=== PATIENT | female | born 1960 | race Caucasian/White ===

== ENCOUNTER 2016-07-23 20:33 | Inpatient (IN) | payer OTHER ==
[~2016-07-23] VITALS: Ht 172.7 cm; Wt 142.5 kg
[~2016-07-23 20:33] MED LIST: ALBU8.5H6 IH; ARIP5TAB13 PO; ASMACORT; ATOR20TA58 PO; BENZ100C PO; BUDE10.2 IH; CELE200C PO; CETI10TA16 PO; CHLO500T14 PO; CIPR250T30 PO; CIPR500T94 PO; CLIN300C8 PO; CLON0.5T3 PO; CLOP75TA57 PO; COLE1TAB2 PO; CYCL10TA2 PO; CYPR4TAB PO; DICY20TA3 PO; DIGO125T PO; DIPH1TAB PO; DIPH50CA PO; DIPH50TA3 PO; DOXY100T PO; ELUX75TA PO; ESZO3TAB28 PO; FENO145T2 PO; FLUC150T PO; FURO40TA4 PO; GABA600T2 PO; HYDR-971 PO; INSU100C4 SQ; INSU100I13 SQ; INSU100I17 SQ; INSU100V8 SQ; INSU300I SQ; LANS30CA PO; LEVO150T5 PO; LEVO175T5 PO; LIDO700A4 TP; LOSA100T6 PO; LOSA50TA6 PO; MELO15TA6 PO; MENT70.8 TP; METO10TA81 PO; METO5TAB PO; METR500T PO; MUPI22OI2 TP; ONDA4TAB7 PO; OXCA300T PO; OXYC-328 PO; OXYC10TA PO; OXYC1TAB9 PO; Oxycodone Hcl/Acetaminophen PO; PANT40TA5 PO; PRED20TA PO; PREG225C PO; SOTA80TA48 PO; SUCR1ORA11 PO; TIOT18CA IH; VENL150T PO; VENL75TA PO; XOPENEX1.25 MG/3 NEB; oxygen; xopenex
[2016-07-23] MEDS ORDERED: IPRATRPIUM/ALBUTEROL 0.5/2.5MG 3 ML NEBU. NEB ONE (21:30)
[2016-07-23 21:49] LABS: BASO # 0.1 x10^3/uL (0.0-0.2); BASO % 1 % (0-3); EOS % 2 % (0-3); HEMATOCRIT 40.8 % (36.0-47.0); LYMPH # 2.5 x10^3/uL (1.0-4.8); LYMPH % 23 % (24-48); MEAN CORPUSCULAR HEMOGLOBIN 29 pg (25-35); MEAN CORPUSCULAR HGB CONC 32 g/dL (31-37); MEAN CORPUSCULAR VOLUME 91 fL (79-100); MONO % 7 % (0-9); NEUT % 67 % (31-73); PLATELET COUNT 253 x10^3/uL (140-400); RED BLOOD COUNT 4.49 x10^6/uL (3.50-5.40); RED CELL DISTRIBUTION WIDTH 14.3 % (11.5-14.5); WHITE BLOOD COUNT 10.8 x10^3/uL (4.0-11.0)
[2016-07-23 22:04] LABS: CALCIUM 9.1 mg/dL (8.5-10.1); CREATININE 0.9 mg/dL (0.6-1.0); GFR 64.8
[2016-07-23 22:20] LABS: ALBUMIN 2.7 g/dL (3.4-5.0); ALBUMIN/GLOBULIN RATIO 0.7 (1.0-1.7); TOTAL BILIRUBIN 0.2 mg/dL (0.2-1.0); TOTAL PROTEIN 6.5 g/dL (6.4-8.2)
[2016-07-23 22:32] LABS: CKMB MASS < 0.5 ng/mL (0.0-3.6); CREATINE KINASE 30 U/L (26-192)
--- NOTE | 2016-07-23 23:41 | PHYS DOC ---
Past Medical History Past Medical History: Asthma, CHF, COPD, Diabetes-Type II, Hypertension, Hepatitis, MD, Pneumonia, Other Additional Past Medical Histor: obesity Past Surgical History: Cholecystectomy, Other Additional Past Surgical Histo: RIGHT PINKY SX Smoking: Cigarettes Additional Information: 0.5 PPD Alcohol Use: None Drug Use: None Adult General Chief Complaint Chief Complaint: SHORTNESS OF BREATH HPI HPI Patient is a 56 year old FEMALE who presents with SHORTNESS OF BREATH AND CHEST TIGHTNESS. Pt states 1 week of SOA, that became worse today. Coughing up yellow phlem. Today chest tightness lower substernal area constant and currently 10/10. "Sometimes it is stabbing pain". Pt hx of COPD and has order for Home O2 3liters at night.. Pt states long standing hx and problems with sores on legs. Review of Systems Review of Systems Constitutional: Denies fever or chills Eyes: Denies change in visual acuity, redness, or eye pain HENT: Denies nasal congestion or sore throat Respiratory: yes cough and SOA Cardiovascular: No additional information not addressed in HPI GI: Denies abdominal pain, nausea, vomiting, bloody stools, but has noted some diarrhea today : Denies dysuria or hematuria Musculoskeletal: Denies back pain Integument: sores on lower legs Neurologic: Denies headache, focal weakness or sensory changes Current Medications Current Medications Current Medications Medications (Trade) Dose Ordered Sig/Matthias Start Time Stop Time Status Last Admin Dose Admin Albuterol/ Ipratropium (Duoneb) 3 ml 1X ONCE 07/23/16 21:30 07/23/16 21:31 DC 07/23/16 21:00 3 ML Lidocaine HCl (Xylocaine-Mpf 1% Vial) 2 ml 1X PRN PRN 07/23/16 23:45 07/24/16 23:44 Sodium Chloride (Normal Saline Flush) 20 ml 1X PRN PRN 07/23/16 23:45 07/24/16 23:44 Allergies Allergies Allergies Coded Allergies Type Severity Reaction Last Updated Verified Cephalexin Monohydrate Allergy Intermediate 04/18/14 Yes Penicillins Allergy Intermediate 04/18/14 Yes Sulfa (Sulfonamide Antibiotics) Allergy Intermediate 04/18/14 Yes aspirin Allergy Intermediate 04/18/14 Yes codeine Allergy Intermediate Previously tolerated morphine (per pt and chart 12/2013) 07/17/14 Yes diclofenac sodium Allergy Intermediate 04/18/14 Yes morphine Allergy Intermediate rash 01/16/16 Yes nabumetone Allergy Intermediate 04/18/14 Yes tomato Allergy Intermediate 04/18/14 Yes Physical Exam Physical Exam Constitutional: Well developed, well nourished, no acute distress, non-toxic appearance HENT: Normocephalic, atraumatic, bilateral external ears normal, oropharynx moist, no oral exudates, nose normal. Eyes: PERRL, EOMI, conjunctiva normal, no discharge. Neck: Normal range of motion, no tenderness, supple, no stridor. Cardiovascular:Heart rate regular rhythm, no murmur Lungs & Thorax: Bilateral expiratory wheeze Abdomen: Bowel sounds normal, soft, no tenderness, no masses, no pulsatile masses. Skin: Warm, dry, moderate erythema and open sores on L lower leg, mild on R lower leg Back: No tenderness, no CVA tenderness. Extremities: No tenderness, trace bilateral edema Neurologic: Alert and oriented X 3, normal motor function, normal sensory function, no focal deficits noted. Psychologic: Affect normal, judgement normal, mood normal. Current Patient Data Vital Signs Vital Signs Date Time Temp Pulse Resp B/P (MAP) Pulse Ox O2 Delivery O2 Flow Rate FiO2 07/23/16 23:00 72 139/74 (95) 97 Nasal Cannula 2.0 07/23/16 20:33 98.4 22 98.4 Lab Values Laboratory Tests Test 07/23/16 20:40 White Blood Count 10.8 x10^3/uL (4.0-11.0) Red Blood Count 4.49 x10^6/uL (3.50-5.40) Hemoglobin 13.0 g/dL (12.0-15.5) Hematocrit 40.8 % (36.0-47.0) Mean Corpuscular Volume 91 fL (79-100) Mean Corpuscular Hemoglobin 29 pg (25-35) Mean Corpuscular Hemoglobin Concent 32 g/dL (31-37) Red Cell Distribution Width 14.3 % (11.5-14.5) Platelet Count 253 x10^3/uL (140-400) Neutrophils (%) (Auto) 67 % (31-73) Lymphocytes (%) (Auto) 23 % (24-48) L Monocytes (%) (Auto) 7 % (0-9) Eosinophils (%) (Auto) 2 % (0-3) Basophils (%) (Auto) 1 % (0-3) Neutrophils # (Auto) 7.3 x10^3uL (1.8-7.7) Lymphocytes # (Auto) 2.5 x10^3/uL (1.0-4.8) Monocytes # (Auto) 0.7 x10^3/uL (0.0-1.1) Eosinophils # (Auto) 0.3 x10^3/uL (0.0-0.7) Basophils # (Auto) 0.1 x10^3/uL (0.0-0.2) D-Dimer (Carey) 0.45 ug/mlFEU (0.00-0.50) Sodium Level 144 mmol/L (136-145) Potassium Level 4.0 mmol/L (3.5-5.1) Chloride Level 106 mmol/L (98-107) Carbon Dioxide Level 30 mmol/L (21-32) Anion Gap 8 (6-14) Blood Urea Nitrogen 15 mg/dL (7-20) Creatinine 0.9 mg/dL (0.6-1.0) Estimated GFR (Cockcroft-Gault) 64.8 BUN/Creatinine Ratio 17 (6-20) Glucose Level 267 mg/dL (70-99) H Calcium Level 9.1 mg/dL (8.5-10.1) Total Bilirubin 0.2 mg/dL (0.2-1.0) Aspartate Amino Transferase (AST) 31 U/L (15-37) Alanine Aminotransferase (ALT) 24 U/L (14-59) Alkaline Phosphatase 117 U/L (46-116) H Creatine Kinase 30 U/L (26-192) Creatine Kinase MB (Mass) < 0.5 ng/mL (0.0-3.6) Creatine Kinase MB Relative Index % (0-4) Troponin I Quantitative < 0.017 ng/mL (0.000-0.055) GM-Rnp-G-Type Natriuretic Peptide 167 pg/mL (0-124) H Total Protein 6.5 g/dL (6.4-8.2) Albumin 2.7 g/dL (3.4-5.0) L Albumin/Globulin Ratio 0.7 (1.0-1.7) L Laboratory Tests 6/16/17 20:40 Laboratory Tests 07/23/16 20:40 EKG EKG EKG--2109 SINUS RHYTHM , NO STEMI, RATE [address] T WAVE CHANGES Radiology/Procedures Radiology/Procedures PATIENT: RENÉ BLANCO ACCOUNT: [id number] : 1960 LOCATION: [address] [place] [address] AGE: 56 SEX: F EXAM STATUS: ADM IN ORD. PHYSICIAN: CHASIDY ARMSTRONG MD REASON: dyspnea PROCEDURE: PORTABLE CHEST 1V EXAM: Chest one view. HISTORY: Dyspnea. COMPARISON: 01/19/2016. FINDINGS: A frontal view of the chest is obtained. There are no confluent infiltrates. The central vasculature are mildly prominent. There is no pneumothorax or pleural effusion. The heart is not enlarged. There is a calcified granuloma in the left base. There are atherosclerotic calcifications of the aorta. Bilateral glenohumeral osteoarthritis is at least mild. IMPRESSION: 1. Correlate for mild volume overload. No confluent infiltrates. DICTATED and SIGNED BY: TRAVIS DESIR MD DATE: 07/24/16847 CC: CHASIDY ARMSTRONG MD; GEORGE BERG MD; CAPRI MONTEMAYOR MD ~ Impressions: 1. Chest pain 2. Dyspnea 3. COPD exacerbation CHEST PAIN Clinical Indications for Admission to Inpatient Care (Place 'X' for any and all applicable criteria): Admission is indicated for chest pain and ANY ONE of the following(1)(2)(3)(4)(5 ): [ ]I. Angina with acute coronary syndrome (Also use Myocardial Infarction or Angina guideline) [ ]II. Hemodynamic instability [ ]III. Angina needing acute intervention as indicated by ALL of the following( 11)(12): [ ]a) Unstable angina is present as indicated by angina that is ANY ONE of the following: [ ]i) New onset [ ]ii) Nocturnal [ ]iii) Prolonged at rest [ ]iv) Progressive [ ]b) Angina warrants acute intervention as indicated by ANY ONE of the following: [ ]i) Recurrent angina (e.g, not responding as previously to treatment) [ ]ii) Angina at rest or with low-level activities despite initial medical therapy [ ]iii) New or presumably new ST-segment depression on ECG [ ]iv) Signs or symptoms of heart failure (eg, dyspnea, pulmonary edema) [ ]v) New or worsening mitral regurgitation [ ]vi) Hemodynamic instability [ ]vii) Dangerous arrhythmia (eg, sustained ventricular tachycardia) [ ]viii) History of percutaneous coronary intervention within 6 months [ ]ix) History of coronary artery bypass graft surgery [ ]x) CAM risk score of 2 or greater[A] [ ]xi) History of Diabetes(14) [ ]xii) High-risk cardiac ischemia findings on noninvasive testing (e.g, echocardiogram, treadmill testing, nuclear scan) [ ]xiii) Chronic renal insufficiency (ie, estimated GFR less than 60 mL/min/1.732m) [ ]xiv) Left ventricular ejection fraction less than 40% [ ]IV. Evidence of MD (eg, cardiac biomarkers positive, ST-segment elevation on ECG) also use Myocardial Infarction Criteria Form. [ ]V. Pulmonary edema [ ]. Respiratory distress [ ]VII. Chest pain indicative of serious diagnosis other than coronary artery disease (eg, aortic dissection) [ ]VIII. Contraindications and/or Inappropriate clinical situations for Observational Care in patients with Chest Pain, when ANY ONE of the following is required: [ ]a) Patient with risk factor for pulmonary embolism, acute coronary syndrome and myocardial infarction (18) [ ]b) Patient with Pulmonary embolism require an average LOS of 4.3 days, therefore emergency department observation management is inappropriate 18,23 [ ]c) Painful condition/s in the elderly, have the highest rate of recidivism after emergency department observation management (10.8%) 20,21,22 [ ]d) Elevated cardiac biomarker requires intensive and exhaustive care (19) [ ]IX. General contraindications and/or Inappropriate clinical situations for Observational Care in patients with Chest Pain, when ANY ONE of the following is required: [ ]a) Prediction of prolongation of LOS based on ANY ONE of the following may be considered as a contraindication for observational care 2, 3, 4, 5, 6, 7, 8, 9, 10, 11 [ ]i) Age > 65 yrs. [ ]ii) Patient arriving by ambulance [ ]iii) Patient with high acuity [ ]iv) Patient requiring vital sign monitoring [ ]v) Patient on IV medication [ ]b) Systolic blood pressures 180mmHg 3,12 [ ]c) Patient with altered mental status including delirium and other alteration of consciousness, (3) [ ]d) Patient whose discharge disposition will be to a usp home or rehabilitation home should not be managed in Emergency Department Observation Unit. CMS rule requires 3 days hospital stay before such placement. 3,13 [ ]e) Patient with failure to thrive due to broad array of etiologies 3,16,17 [ ]f) Inability to ambulate 3,14 Extended stay beyond goal length of stay may be needed for (1)(28): [ ]a) Specific condition diagnosed after evaluation (eg, pulmonary embolism, aortic dissection) [ ]b) Unstable angina [ ]c) Continued suspicion of acute coronary syndrome with inability to complete needed cardiac evaluation (eg, patient clinically unable to undergo stress testing) [ ]d) Myocardial infarction (Contents from ANGINA and CHEST PAIN clinical indications for admission to inpatient care have been integrated in this form) The original [employer] content created by [employer] has been revised. The portions of the content which have been revised are identified through the use of italic text or in bold, and [employer] has neither reviewed nor approved the modified material. All other unmodified content is copyright [employer]. Please see references footnoted in the original [employer] edition 20 Course & Med Decision Making Course & Med Decision Making Pertinent Labs and Imaging studies reviewed. (See chart for details) Pt with hx DM and COPD now worsening dyspnea and chest tightness, poss ACS as well as COPD exacerbation will admit for nebulizer tx and serial troponins Dragon Disclaimer Dragon Disclaimer This electronic medical record was generated, in whole or in part, using a voice recognition dictation system. Departure Departure Referrals: GEORGE BERG MD (PCP) CHASIDY ARMSTRONG MD Jul 23, 2016 23:41
[2016-07-23] MEDS ORDERED: LIDOCAINE 1% PF 2 ML VIAL. ID PRN (23:45)
[2016-07-23] MEDS ORDERED: 0.9 % SODIUM CHLORIDE 10 ML DISP.SYRIN. IV PRN (23:45)
--- NOTE | 2016-07-23 23:51 | ACF ---
Admission Forms Criteria COPD Clinical Indications for Admission to Inpatient Care (Place 'X' for any and all applicable criteria): Admission is indicated for ANY ONE of the following (1)(2)(3): [ ]I. Acute exacerbation by high-risk comorbidity (e.g., pneumonia, dysrhythmia, heart failure, pleural effusion, pneumothorax) or severe underlying COPD (e.g., steroid dependent) [X]II. Inpatient admission required rather than observation care (see Chronic Obstructive Pulmonary Disease: Observation Care) because of ANY ONE of the following: [X]a) New or pre-existing signs or symptoms of COPD (eg, dyspnea or Tachypnea at rest or with minimal activity) that persist despite outpatient and observation care treatment [ ]b) New-onset hypoxemia (room air SaO2 less than 90%, PO2 less than 60 mm Hg (8.0 kPa)) that persists despite outpatient and observation care treatment [ ]c) Worsening of pre-existing hypoxemia (eg, new or increased requirement for supplemental oxygen to maintain oxygenation at baseline level) that persists despite outpatient and observation care treatment, with oxygen treatment needs performable only in acute inpatient setting [ ]d) Hypercarbia (PCO2 greater than 40 mm Hg (5.3 kPa))-induced respiratory acidosis (pH less than 7.35) that persists despite outpatient and observation care treatment [ ]e) Supplemental oxygen or respiratory treatments for over 24 hours that are performable only in acute inpatient setting [ ]f) Chest tube placement with active evacuation (e.g., suction, drainage) (5) [ ]g) Other condition, treatment or monitoring requiring inpatient admission [ ]III. Planned invasive surgical or diagnostic procedures requiring acute- care hospitalization [ ]IV. Acute respiratory failure (e.g., uncompensated hypercarbia, severe hypoxemia) [ ]V. Severe comorbid condition (e.g., severe steroid myopathy, acute vertebral fracture) that has acutely worsened pulmonary function [ ]. Confusion state, lethargy, obtundation, stupor or coma Extended stay beyond goal length of stay may be needed for (31)(32): [ ]a ) Respiratory Failure. [ ]b) Severe or persisting hypoxemia or hypercarbia [ ]c) Severe or persistent dyspnea [ ]d) Comorbidities (e.g. chronic heart failure, atrial fibrillation with rapid response, pneumonia) [ ]e) Malnutrition The original [facility] content created by [facility] has been revised. The portions of the content which have been revised are identified through the use of italic text or in bold, and [facility] has neither reviewed nor approved the modified material. All other unmodified content is copyright [facility]. Please see references footnoted in the original [facility] edition 2016 Admission Criteria Met?: Yes GINETTE TURK Jul 23, 2016 23:51
[2016-07-24] MEDS ORDERED: LIDOCAINE/PRILOCAINE TOPICAL CREAM 5GM TUBE. TP ONE
[2016-07-24] MEDS ORDERED: IPRATRPIUM/ALBUTEROL 0.5/2.5MG 3 ML NEBU. NEB ONE (00:15)
[2016-07-24] MEDS ORDERED: predniSONE 20 MG TABLET PO ONE (00:30)
[2016-07-24 00:39] LABS: BACTERIA,URINE MANY /HPF (0-FEW); BILIRUBIN,URINE NEGATIVE (NEG); GLUCOSE,URINE >=1000 mg/dL (NEG); NITRITE,URINE POSITIVE (NEG); PROTEIN,URINE NEGATIVE (NEG-TRACE); RBC,URINE OCC /HPF (0-2)
[2016-07-24 00:40] LABS: SQUAMOUS EPITHELIAL CELL,UR FEW /LPF
[2016-07-24] MEDS ORDERED: ONDANSETRON PF 4 MG/2 ML VIAL. IM PRN (00:45)
[2016-07-24 02:00] VITALS: BP 109/66
[2016-07-24] MEDS ORDERED: NYST15PO9 TP (02:51)
[2016-07-24] MEDS ORDERED: AMLO5TAB2 PO (02:51)
[2016-07-24] MEDS ORDERED: FLUT16SP NS (02:51)
[2016-07-24] MEDS ORDERED: MELA3TAB2 PO (02:51)
[2016-07-24] MEDS ORDERED: CHOL10003 PO (02:51)
[2016-07-24] MEDS ORDERED: LOPE2TAB56 PO (03:17)
[2016-07-24] MEDS ORDERED: LEVO175T5 PO (03:17)
[2016-07-24] MEDS ORDERED: VENL75CA6 PO (03:17)
[2016-07-24] MEDS ORDERED: LEVO150T5 PO (03:17)
[2016-07-24] MEDS ORDERED: ERGO500027 PO (03:17)
[2016-07-24] MEDS ORDERED: oxyCODONE IR 5 MG TABLET PO PRN (07:15)
[2016-07-24] MEDS ORDERED: IPRATRPIUM/ALBUTEROL 0.5/2.5MG 3 ML NEBU. NEB PRN (07:15)
[2016-07-24] MEDS ORDERED: AZITHROMYCIN 250 MG TABLET. PO ONE (08:45)
[2016-07-24] MEDS ORDERED: BUDESONIDE 0.5 MG/2 ML NEBU. NEB ONE (08:45)
[2016-07-24] MEDS ORDERED: BENZOCAINE/MENTHOL LOZENGE. PO PRN (08:45)
--- NOTE | 2016-07-24 08:47 | PDOC1 ---
History and Physical Date of Admission Date of Admission DATE: 07/24/16 TIME: 08:41 Identification/Chief Complaint Chief Complaint dyspnea, cough, pleurisy Problems: Source Source: Chart review, Patient History of Present Illness History of Present Illness Ms. Priest, has known COPD. has worsening dyspnea over the past few days, new cough, some sputum production light colored. She complains of marked dyspnea "I can't catch my breath" she does now have chest pain, but is w/ coughing and deep inspiration. She was red faced and dyspneic when I entered, and she had some trouble talking due to freq. coughing some improvement with breathing tx, but has not had one in the past few hours Past Medical History Cardiovascular: AFIB, CHF, Hyperlipidemia Pulmonary: Asthma, COPD GI: GERD, Other Heme/Onc: No pertinent hx Hepatobiliary: Hep A/B/C Psych: Anxiety, Depression, Other Musculoskeletal: low back pain, Osteoarthritis, Other Infectious disease: Other Endocrine: Diabetes, Hypothyroidism, Other Past Surgical History Past Surgical History: Cholecystectomy, Cataract Removal Family History Family History: Family History Unknown Social History Smoke: <1 pack per day ALCOHOL: none Drugs: None Current Medications Current Medications Current Medications Albuterol/ Ipratropium (Duoneb) 3 ml 1X ONCE NEB Last administered on 21:00; Start 07/23/16 at 21:30; Stop 07/23/16 at 21:31; Status DC Lidocaine HCl (Xylocaine-Mpf 1% Vial) 2 ml 1X PRN PRN ID FOR PIC LINE INSERTION ; Start 07/23/16 at 23:45; Stop 07/24/16 at 23:44 Sodium Chloride (Normal Saline Flush) 20 ml 1X PRN PRN IV PER PROTOCOL; Start 07/23/16 at 23:45; Stop 07/24/16 at 23:44 Lidocaine/ Prilocaine (Emla) 1 melissa 1X ONCE TP ; Start 07/24/16 at 00:00; Stop 07/24/16 at 00:01; Status DC Albuterol/ Ipratropium (Duoneb) 3 ml 1X ONCE NEB Last administered on 00:18; Start 07/24/16 at 00:15; Stop 07/24/16 at 00:16; Status DC Prednisone (Prednisone) 60 mg 1X ONCE PO Last administered on 6/17/17at 02:21 ; Start 07/24/16 at 00:30; Stop 07/24/16 at 00:31; Status DC Ondansetron HCl (Zofran) 4 mg PRN Q8HRS PRN IM NAUSEA/VOMITING; Start 07/24/16 at 00:45; Stop 07/25/16 at 00:44 Albuterol/ Ipratropium (Duoneb) 3 ml PRN Q4HRS PRN NEB SHORTNESS OF BREATH; Start 07/24/16 at 07:15 Oxycodone HCl (Roxicodone) 10 mg QIDPRN PRN PO PAIN; Start 07/24/16 at 07:15 Active Scripts Active Oxycodone Hcl 10 Mg Tablet 1 Tab PO QID PRN Novolog Flexpen (Insulin Aspart) 100 Unit/1 Ml Insuln.pen 50 Units SQ TIDWMEALS Sucralfate 1 Gm/10 Ml Oral.susp 1 Gm PO QIDACHS Pantoprazole Sodium 40 Mg Tablet.dr 40 Mg PO DAILYAC Furosemide 40 Mg Tablet 1 Tab PO DAILY Mupirocin Ointment (Mupirocin) 22 Gm Oint...g. 22 Gm TP PRN TID PRN Toujeo Solostar (Insulin Glargine,Hum.rec.anlog) 300 Unit/1 Ml Insuln.pen 90 Unit SQ BID Zofran (Ondansetron Hcl) 4 Mg Tablet 1 Tab PO PRN Q6-8HRS Spiriva (Tiotropium Sparkill) 18 Mcg Cap.w.dev 1 Cap IH DAILY Xopenex (Levalbuterol Hcl) 1.25 Mg/3 Ml Vial.neb 1 Vial NEB TID Fenofibrate (Fenofibrate Nanocrystallized) 145 Mg Tablet 1 Tab PO DAILY Losartan Potassium 100 Mg Tablet 100 Mg PO DAILY Sotalol (Sotalol Hcl) 80 Mg Tablet 80 Mg PO BID Symbicort 160-4.5 Mcg Inhaler (Budesonide/Formoterol Fumarate) 10.2 Gm Hfa.aer.ad 2 Puff IH BID Reported Levothyroxine Sodium 175 Mcg Tablet 1 Tab PO DAILY Levothyroxine Sodium 150 Mcg Tablet 1 Tab PO DAILY Vitamin D2 (Ergocalciferol (Vitamin D2)) 50,000 Unit Capsule 50,000 Unit PO Venlafaxine Hcl Er (Venlafaxine Hcl) 75 Mg Cap.er.24h 1 Cap PO DAILY Anti-Diarrhea (Loperamide Hcl) 2 Mg Tablet 2 Mg PO PRN PRN Fluticasone Propionate Nasal [place] (Fluticasone Propionate) 16 Gm [place].susp 2 [place] NS DAILY Vitamin D3 (Cholecalciferol (Vitamin D3)) 1,000 Unit Tablet 1,000 Unit PO Amlodipine Besylate 5 Mg Tablet 5 Mg PO DAILY Nystatin 15 Gm Powder 1 Melissa TP BID Melatonin 3 Mg Tablet 5 Mg PO Digoxin 125 Mcg Tablet 1 Tab PO DAILY Oxcarbazepine 300 Mg Tablet 1 Tab PO HS Gabapentin 600 Mg Tablet 600 Mg PO QID Abilify (Aripiprazole) 5 Mg Tablet 5 Mg PO DAILY Plavix (Clopidogrel Bisulfate) 75 Mg Tablet 75 Mg PO DAILY Cetirizine Hcl 10 Mg Tablet 10 Mg PO DAILY Allergies Allergies: Coded Allergies: Cephalexin Monohydrate (Verified Allergy, Intermediate, 04/18/14) Penicillins (Verified Allergy, Intermediate, 04/18/14) Sulfa (Sulfonamide Antibiotics) (Verified Allergy, Intermediate, 04/18/14) aspirin (Verified Allergy, Intermediate, 04/18/14) codeine (Verified Allergy, Intermediate, Previously tolerated morphine ( per pt and chart 12/2013), 07/17/14) diclofenac sodium (Verified Allergy, Intermediate, 04/18/14) morphine (Verified Allergy, Intermediate, rash, 01/16/16) nabumetone (Verified Allergy, Intermediate, 04/18/14) tomato (Verified Allergy, Intermediate, 04/18/14) ROS General: YES: Chills, Fatigue PSYCHOLOGICAL ROS: No: Anxiety, Behavioral Disorder, Concentration difficultie , Decreased libido, Depression, Disorientation, Hallucinations, Hostility, Irritablity, Memory difficulties, Mood Swings, Obsessive thoughts Eyes: No Blurry vision, No Decreased vision, No Double vision, No Dry eyes, No Excessive tearing, No Eye Pain, No Itchy Eyes, No Loss of vision, No Photophobia , No Scotomata, No Uses contacts, No Uses glasses, No Other HEENT: YES: Sinus pain, No: Heacaches, Visual Changes, Hearing change, Nasal congestion, Nasal discharge, Oral lesions, Sore Throat, Epistaxis, Sneezing, Snoring, Tinnitus, Vertigo, Vocal changes, Other Respiratory: YES: Cough, Pleuritic Pain, Sputum Changes, Tachypnea, Wheezing, No: Hemoptysis, Orthopnea, Shortness of breath, SOB with excertion, Stridor, Other Cardiovascular: No Chest Pain, No Palpitations, No Orthopnea, No Paroxysmal Noc. Dyspnea, No Edema, No Lt Headedness, No Other Gastrointestinal: No Nausea, No Vomiting, No Abdominal Pain, No Diarrhea, No Constipation, No Melena, No Hematochezia, No Other Genitourinary: No Dysuria, No Frequency, No Incontinence, No Hematuria, No Retention, No Discharge, No Urgency, No Pain, No Flank Pain, No Other, No , No , No , No , No , No , No Musculoskeletal: Yes Joint Pain, Yes Joint Stiffness, No Gait Disturbance, No Joint Swelling, No Muscle Pain, No Muscular Weakness , No Pain In:, No Swelling In:, No Other Neurological: No Behavorial Changes, No Bowel/Bladder ControlChng, No Confusion , No Dizziness, No Gait Disturbance, No Headaches, No Impaired Coord/balance, No Memory Loss, No Numbness/Tingling, No Seizures, No Speech Problems, No Tremors, No Visual Changes, No Weakness, No Other Skin: No Dry Skin, No Eczema, No Hair Changes, No Lumps, No Mole Changes, No Mottling, No Nail Changes, No Pruritus, No Rash, No Skin Lesion Changes, No Other, No Acne Physical Exam General: Alert, Oriented X3, Cooperative, moderate distress HEENT: EOMI, Mucous membr. moist/pink Lungs: Normal air movement Heart: no gallops, no murmurs Abdomen: Normal bowel sounds, Soft Extremities: No clubbing, No edema, Normal pulses Skin: No rashes, No breakdown, No significant lesion Neuro: Normal speech, Normal tone, Sensation intact Psych/Mental Status: Mental status NL, Mood NL Vitals Vitals Vital Signs Date Time Temp Pulse Resp B/P (MAP) Pulse Ox O2 Delivery O2 Flow Rate FiO2 07/24/16 06:19 76 20 97 Nasal Cannula 2.0 07/24/16 02:00 98.6 109/66 (80) 98.6 Labs Labs Laboratory Tests Test 07/23/16 20:40 07/24/16 00:15 07/24/16 03:28 White Blood Count 10.8 x10^3/uL (4.0-11.0) Red Blood Count 4.49 x10^6/uL (3.50-5.40) Hemoglobin 13.0 g/dL (12.0-15.5) Hematocrit 40.8 % (36.0-47.0) Mean Corpuscular Volume 91 fL (79-100) Mean Corpuscular Hemoglobin 29 pg (25-35) Mean Corpuscular Hemoglobin Concent 32 g/dL (31-37) Red Cell Distribution Width 14.3 % (11.5-14.5) Platelet Count 253 x10^3/uL (140-400) Neutrophils (%) (Auto) 67 % (31-73) Lymphocytes (%) (Auto) 23 % (24-48) Monocytes (%) (Auto) 7 % (0-9) Eosinophils (%) (Auto) 2 % (0-3) Basophils (%) (Auto) 1 % (0-3) Neutrophils # (Auto) 7.3 x10^3uL (1.8-7.7) Lymphocytes # (Auto) 2.5 x10^3/uL (1.0-4.8) Monocytes # (Auto) 0.7 x10^3/uL (0.0-1.1) Eosinophils # (Auto) 0.3 x10^3/uL (0.0-0.7) Basophils # (Auto) 0.1 x10^3/uL (0.0-0.2) D-Dimer (Carey) 0.45 ug/mlFEU (0.00-0.50) Sodium Level 144 mmol/L (136-145) Potassium Level 4.0 mmol/L (3.5-5.1) Chloride Level 106 mmol/L (98-107) Carbon Dioxide Level 30 mmol/L (21-32) Anion Gap 8 (6-14) Blood Urea Nitrogen 15 mg/dL (7-20) Creatinine 0.9 mg/dL (0.6-1.0) Estimated GFR (Cockcroft-Gault) 64.8 BUN/Creatinine Ratio 17 (6-20) Glucose Level 267 mg/dL (70-99) Calcium Level 9.1 mg/dL (8.5-10.1) Total Bilirubin 0.2 mg/dL (0.2-1.0) Aspartate Amino Transf (AST/SGOT) 31 U/L (15-37) Alanine Aminotransferase (ALT/SGPT) 24 U/L (14-59) Alkaline Phosphatase 117 U/L (46-116) Creatine Kinase 30 U/L (26-192) Creatine Kinase MB (Mass) < 0.5 ng/mL (0.0-3.6) Creatine Kinase MB Relative Index % (0-4) Troponin I Quantitative < 0.017 ng/mL (0.000-0.055) PI-Frb-N-Type Natriuretic Peptide 167 pg/mL (0-124) Total Protein 6.5 g/dL (6.4-8.2) Albumin 2.7 g/dL (3.4-5.0) Albumin/Globulin Ratio 0.7 (1.0-1.7) Urine Collection Type Unknown Urine Color Yellow Urine Clarity Cloudy Urine pH 6.0 Urine Specific [place] 1.025 Urine Protein Negative mg/dL (NEG-TRACE) Urine Glucose (UA) >=1000 mg/dL (NEG) Urine Ketones (Stick) Negative mg/dL (NEG) Urine Blood Negative (NEG) Urine Nitrite Positive (NEG) Urine Bilirubin Negative (NEG) Urine Urobilinogen Dipstick 1.0 mg/dL (0.2 mg/dL) Urine Leukocyte Esterase Trace (NEG) Urine RBC Occ /HPF (0-2) Urine WBC 11-20 /HPF (0-4) Urine Squamous Epithelial Cells Few /LPF Urine Bacteria Many /HPF (0-FEW) Urine Mucus Slight /LPF Glucose (Fingerstick) 140 mg/dL (70-99) Laboratory Tests Test 07/23/16 20:40 07/24/16 00:15 07/24/16 03:28 White Blood Count 10.8 x10^3/uL (4.0-11.0) Red Blood Count 4.49 x10^6/uL (3.50-5.40) Hemoglobin 13.0 g/dL (12.0-15.5) Hematocrit 40.8 % (36.0-47.0) Mean Corpuscular Volume 91 fL (79-100) Mean Corpuscular Hemoglobin 29 pg (25-35) Mean Corpuscular Hemoglobin Concent 32 g/dL (31-37) Red Cell Distribution Width 14.3 % (11.5-14.5) Platelet Count 253 x10^3/uL (140-400) Neutrophils (%) (Auto) 67 % (31-73) Lymphocytes (%) (Auto) 23 % (24-48) Monocytes (%) (Auto) 7 % (0-9) Eosinophils (%) (Auto) 2 % (0-3) Basophils (%) (Auto) 1 % (0-3) Neutrophils # (Auto) 7.3 x10^3uL (1.8-7.7) Lymphocytes # (Auto) 2.5 x10^3/uL (1.0-4.8) Monocytes # (Auto) 0.7 x10^3/uL (0.0-1.1) Eosinophils # (Auto) 0.3 x10^3/uL (0.0-0.7) Basophils # (Auto) 0.1 x10^3/uL (0.0-0.2) D-Dimer (Carey) 0.45 ug/mlFEU (0.00-0.50) Sodium Level 144 mmol/L (136-145) Potassium Level 4.0 mmol/L (3.5-5.1) Chloride Level 106 mmol/L (98-107) Carbon Dioxide Level 30 mmol/L (21-32) Anion Gap 8 (6-14) Blood Urea Nitrogen 15 mg/dL (7-20) Creatinine 0.9 mg/dL (0.6-1.0) Estimated GFR (Cockcroft-Gault) 64.8 BUN/Creatinine Ratio 17 (6-20) Glucose Level 267 mg/dL (70-99) Calcium Level 9.1 mg/dL (8.5-10.1) Total Bilirubin 0.2 mg/dL (0.2-1.0) Aspartate Amino Transf (AST/SGOT) 31 U/L (15-37) Alanine Aminotransferase (ALT/SGPT) 24 U/L (14-59) Alkaline Phosphatase 117 U/L (46-116) Creatine Kinase 30 U/L (26-192) Creatine Kinase MB (Mass) < 0.5 ng/mL (0.0-3.6) Creatine Kinase MB Relative Index % (0-4) Troponin I Quantitative < 0.017 ng/mL (0.000-0.055) RF-Jlq-B-Type Natriuretic Peptide 167 pg/mL (0-124) Total Protein 6.5 g/dL (6.4-8.2) Albumin 2.7 g/dL (3.4-5.0) Albumin/Globulin Ratio 0.7 (1.0-1.7) Urine Collection Type Unknown Urine Color Yellow Urine Clarity Cloudy Urine pH 6.0 Urine Specific [place] 1.025 Urine Protein Negative mg/dL (NEG-TRACE) Urine Glucose (UA) >=1000 mg/dL (NEG) Urine Ketones (Stick) Negative mg/dL (NEG) Urine Blood Negative (NEG) Urine Nitrite Positive (NEG) Urine Bilirubin Negative (NEG) Urine Urobilinogen Dipstick 1.0 mg/dL (0.2 mg/dL) Urine Leukocyte Esterase Trace (NEG) Urine RBC Occ /HPF (0-2) Urine WBC 11-20 /HPF (0-4) Urine Squamous Epithelial Cells Few /LPF Urine Bacteria Many /HPF (0-FEW) Urine Mucus Slight /LPF Glucose (Fingerstick) 140 mg/dL (70-99) VTE Prophylaxis Ordered VTE Prophylaxis Devices: No VTE Pharmacological Prophylaxi: Yes Assessment/Plan Assessment/Plan COPD, acute bronchitis, w/ exacerbation pleuritic pain, pain with coughing, add 2 anti-tussives pulm consult, morbid obesity, BMI 48 ongoing tobaccoism UTI, allergic to PCN, sulfa and keflex, Azitho PO no IV access this AM PO steroid now, IV solumedrol if IV access obtained this AM admit SHONA ONEAL MD Jul 24, 2016 08:47
--- NOTE | 2016-07-24 08:52 | RAD ---
EXAM: Chest one view. HISTORY: Dyspnea. COMPARISON: 01/19/2016. FINDINGS: A frontal view of the chest is obtained. There are no confluent infiltrates. The central vasculature are mildly prominent. There is no pneumothorax or pleural effusion. The heart is not enlarged. There is a calcified granuloma in the left base. There are atherosclerotic calcifications of the aorta. Bilateral glenohumeral osteoarthritis is at least mild. IMPRESSION: 1. Correlate for mild volume overload. No confluent infiltrates.
[2016-07-24] MEDS ORDERED: predniSONE 20 MG TABLET PO SCH (09:00)
[2016-07-24] MEDS ORDERED: FUROSEMIDE 40 MG TABLET. PO SCH (09:00)
[2016-07-24] MEDS: GABAPENTIN 300 MG CAPSULE. PO SCH ×4 (09:15→20:42)
[2016-07-24] MEDS: CLOPIDOGREL BISULFATE 75 MG TABLET PO SCH (09:15)
[2016-07-24] MEDS: LEVOTHYROXINE 150 MCG TABLET PO SCH (09:15)
[2016-07-24] MEDS ORDERED: ONDANSETRON ODT 4 MG TAB.RAPDIS. PO PRN (09:15)
[2016-07-24] MEDS: ARIPiprazole 5 MG TABLET PO SCH (09:15)
[2016-07-24] MEDS: CETIRIZINE HCL 10 MG TABLET. PO SCH (09:15)
[2016-07-24] MEDS ORDERED: methylPREDNISolone SOD SUCC PF 125 MG/2 ML VIAL. IV ONE (09:15)
[2016-07-24] MEDS: VENLAFAXINE XR 37.5 MG CAP.ER.24H. PO SCH (09:16)
[2016-07-24] MEDS: NICOTINE 7MG PATCH. TD SCH (09:17)
[2016-07-24] MEDS: amLODIPine BESYLATE 5 MG TABLET PO SCH (09:31)
[2016-07-24] MEDS: DIGOXIN 125 MCG TABLET. PO SCH (09:32)
[2016-07-24] MEDS: SOTALOL 80 MG TABLET. PO SCH ×2 (09:32→20:42)
[2016-07-24] MEDS: LOSARTAN POTASSIUM 50 MG TABLET. PO SCH (09:33)
[2016-07-24] MEDS: FLUTICASONE 50MCG/NASAL SPRAY 16GM BOTTLE. NS SCH (09:33)
--- NOTE | 2016-07-24 10:02 | PDOC2 ---
BRANDEN LEWIS SECURITY TECHNICIAN 07/24/16 1002: CARDIAC CONSULT DATE OF CONSULT Date of Consult DATE: 07/24/16 TIME: 09:52 REASON FOR CONSULT Reason for Consult: CHF REFERRING PHYSICIAN Referring Physician: Yung SOURCE Source: Chart review, Patient HISTORY OF PRESENT ILLNESS HISTORY OF PRESENT ILLNESS This is a pleasat 56 yo female admitted for complains of SOA. Reports that this has progressed in the last week. Initially with exertion then at rest. Reports of wheezing, PND and orthopnea. Regularly uses 3 LPM continuously at home. No CPAP device but was told in the past for SCOTT. Reports leg edema increased and has not been feeling good. No associated fever or shills. Also yesterday while walking she developed mid chest tightness with wheezing that was nonradiating and was associated with nausea. This lasted about 15 minutes which recurred one more time. She does weigh her self intermittently but has been using different scales with reading yesterday at 302lbs. She takes lasix at home and verbalized compliance with fluids, Na, and medications. No routine exercise. Denies any diaphoresis nor palpitations. No prior VTE, CAD with LHC 2 yrs ago with normal coronaries. Despite SOA, COPD she continues to smoke tobacco. PAST MEDICAL HISTORY Cardiovascular: AFIB, CHF, HTN, Hyperlipidemia Pulmonary: COPD, Pneumonia, Other (pulmornary HTN; SCOTT) CENTRAL NERVOUS SYSTEM: TIA (possible in the past) GI: GERD, Irritable bowel disease, Other (gastroparesis) Psych: Anxiety, Depression Musculoskeletal: Osteoarthritis, Other (morbid obesity) Rheumatologic: No pertinent hx Infectious disease: No pertinent hx ENT: No pertinent hx Renal/: No pertinent hx Endocrine: Diabetes (2), Hypothyroidism Dermatology: Other (dermatitis) PAST SURGICAL HISTORY Past Surgical History: Cholecystectomy, Cataract Removal FAMILY HISTORY Family History noncontributory to CV SOCIAL HISTORY Smoke: 1 pack per day ALCOHOL: occassional Drugs: None Lives: with Family CURRENT MEDICATIONS CURRENT MEDICATIONS Current Medications Medications (Trade) Dose Ordered Sig/Matthias Route PRN Reason Start Time Stop Time Status Last Admin Dose Admin Albuterol/ Ipratropium (Duoneb) 3 ml 1X ONCE NEB 07/23/16 21:30 07/23/16 21:31 DC 07/23/16 21:00 Albuterol/ Ipratropium (Duoneb) 3 ml 1X ONCE NEB 07/24/16 00:15 07/24/16 00:16 DC 07/24/16 00:18 Prednisone (Prednisone) 60 mg 1X ONCE PO 07/24/16 00:30 07/24/16 00:31 DC 07/24/16 02:21 Azithromycin (Zithromax) 500 mg 1X ONCE PO 07/24/16 08:45 07/24/16 08:53 DC 07/24/16 09:15 Nicotine (Nicoderm Cq 7mg) 1 patch DAILY TD 07/24/16 09:00 07/24/16 09:17 Amlodipine Besylate (Norvasc) 5 mg DAILY PO 07/24/16 09:00 07/24/16 09:31 Aripiprazole (Abilify) 5 mg DAILY PO 07/24/16 09:00 07/24/16 09:15 Cetirizine HCl (ZyrTEC) 10 mg DAILY PO 07/24/16 09:00 07/24/16 09:15 Clopidogrel Bisulfate (Plavix) 75 mg DAILY PO 07/24/16 09:00 07/24/16 09:15 Digoxin (Lanoxin) 125 mcg DAILY PO 07/24/16 09:00 07/24/16 09:32 Fluticasone Propionate (Flonase) 2 spray DAILY NS 07/24/16 09:00 07/24/16 09:33 Furosemide (Lasix) 40 mg DAILY PO 07/24/16 09:00 07/24/16 09:15 Levothyroxine Sodium (Synthroid) 150 mcg DAILY07 PO 07/24/16 10:30 07/24/16 09:15 Sotalol HCl (Betapace) 80 mg BID PO 07/24/16 09:00 07/24/16 09:32 Gabapentin (Neurontin) 600 mg QID PO 07/24/16 09:00 07/24/16 09:15 Losartan Potassium (Cozaar) 100 mg DAILY PO 07/24/16 09:00 07/24/16 09:33 Venlafaxine HCl (Effexor Xr) 75 mg DAILY PO 07/24/16 09:15 07/24/16 09:16 Methylprednisolone Sodium Succinate (SOLU-Medrol 125MG VIAL) 125 mg 1X ONCE IV 07/24/16 09:15 07/24/16 09:30 DC 07/24/16 09:39 ALLERGIES ALLERGIES: Coded Allergies: Cephalexin Monohydrate (Verified Allergy, Intermediate, 04/18/14) Penicillins (Verified Allergy, Intermediate, 04/18/14) Sulfa (Sulfonamide Antibiotics) (Verified Allergy, Intermediate, 04/18/14) aspirin (Verified Allergy, Intermediate, 04/18/14) codeine (Verified Allergy, Intermediate, Previously tolerated morphine ( per pt and chart 12/2013), 07/17/14) diclofenac sodium (Verified Allergy, Intermediate, 04/18/14) morphine (Verified Allergy, Intermediate, rash, 01/16/16) nabumetone (Verified Allergy, Intermediate, 04/18/14) tomato (Verified Allergy, Intermediate, 04/18/14) ROS Review of System 14 point ROS evaluated with pertinent positives noted per HPI PHYSICAL EXAM General: Alert, Oriented X3, Cooperative, No acute distress HEENT: Atraumatic, Mucous membr. moist/pink Lungs: Other (faint shwheeze throughout) Heart: Regular rate (SR no ectopies), Normal S1, Normal S2, Other (distant heart sounds) Abdomen: Soft, No tenderness, Other (obesity) Extremities: No cyanosis, Other (2+ bilateral LE pitting edema) Skin: Other (multiple scabs to legs complain of pruritus. ) Neuro: Normal speech, Sensation intact Psych/Mental Status: Mood NL MUSCULOSKELETAL: Osteoarthritic changes both hands VITALS VITALS Vital Signs Date Time Temp Pulse Resp B/P (MAP) Pulse Ox O2 Delivery O2 Flow Rate FiO2 07/24/16 09:33 86 138/60 07/24/16 08:55 95 Nasal Cannula 3.0 07/24/16 06:19 20 07/24/16 02:00 98.6 98.6 LABS Lab: Laboratory Tests Test 07/23/16 20:40 07/24/16 00:15 07/24/16 03:28 White Blood Count 10.8 x10^3/uL (4.0-11.0) Red Blood Count 4.49 x10^6/uL (3.50-5.40) Hemoglobin 13.0 g/dL (12.0-15.5) Hematocrit 40.8 % (36.0-47.0) Mean Corpuscular Volume 91 fL (79-100) Mean Corpuscular Hemoglobin 29 pg (25-35) Mean Corpuscular Hemoglobin Concent 32 g/dL (31-37) Red Cell Distribution Width 14.3 % (11.5-14.5) Platelet Count 253 x10^3/uL (140-400) Neutrophils (%) (Auto) 67 % (31-73) Lymphocytes (%) (Auto) 23 % (24-48) Monocytes (%) (Auto) 7 % (0-9) Eosinophils (%) (Auto) 2 % (0-3) Basophils (%) (Auto) 1 % (0-3) Neutrophils # (Auto) 7.3 x10^3uL (1.8-7.7) Lymphocytes # (Auto) 2.5 x10^3/uL (1.0-4.8) Monocytes # (Auto) 0.7 x10^3/uL (0.0-1.1) Eosinophils # (Auto) 0.3 x10^3/uL (0.0-0.7) Basophils # (Auto) 0.1 x10^3/uL (0.0-0.2) D-Dimer (Carey) 0.45 ug/mlFEU (0.00-0.50) Sodium Level 144 mmol/L (136-145) Potassium Level 4.0 mmol/L (3.5-5.1) Chloride Level 106 mmol/L (98-107) Carbon Dioxide Level 30 mmol/L (21-32) Anion Gap 8 (6-14) Blood Urea Nitrogen 15 mg/dL (7-20) Creatinine 0.9 mg/dL (0.6-1.0) Estimated GFR (Cockcroft-Gault) 64.8 BUN/Creatinine Ratio 17 (6-20) Glucose Level 267 mg/dL (70-99) Calcium Level 9.1 mg/dL (8.5-10.1) Total Bilirubin 0.2 mg/dL (0.2-1.0) Aspartate Amino Transf (AST/SGOT) 31 U/L (15-37) Alanine Aminotransferase (ALT/SGPT) 24 U/L (14-59) Alkaline Phosphatase 117 U/L (46-116) Creatine Kinase 30 U/L (26-192) Creatine Kinase MB (Mass) < 0.5 ng/mL (0.0-3.6) Creatine Kinase MB Relative Index % (0-4) Troponin I Quantitative < 0.017 ng/mL (0.000-0.055) [id number]-Kdh-N-Type Natriuretic Peptide 167 pg/mL (0-124) Total Protein 6.5 g/dL (6.4-8.2) Albumin 2.7 g/dL (3.4-5.0) Albumin/Globulin Ratio 0.7 (1.0-1.7) Urine Collection Type Unknown Urine Color Yellow Urine Clarity Cloudy Urine pH 6.0 Urine Specific [place] 1.025 Urine Protein Negative mg/dL (NEG-TRACE) Urine Glucose (UA) >=1000 mg/dL (NEG) Urine Ketones (Stick) Negative mg/dL (NEG) Urine Blood Negative (NEG) Urine Nitrite Positive (NEG) Urine Bilirubin Negative (NEG) Urine Urobilinogen Dipstick 1.0 mg/dL (0.2 mg/dL) Urine Leukocyte Esterase Trace (NEG) Urine RBC Occ /HPF (0-2) Urine WBC 11-20 /HPF (0-4) Urine Squamous Epithelial Cells Few /LPF Urine Bacteria Many /HPF (0-FEW) Urine Mucus Slight /LPF Glucose (Fingerstick) 140 mg/dL (70-99) HEART CATH HEART CATH Conclusion 1. Normal coronary arteries 2. Normal left ventricular systolic function with ejection fraction estimated at 60%. 3. No mitral regurgitation. No aortic stenosis. DATE: 04/02/13 0844 ASSESSMENT/PLAN ASSESSMENT/PLAN 1. AECOPD/SCOTT/pulmonary HTN with continued tobaccoism: uses continuous O2 3LPM at home. No CPAP use. 2. Acute on chronic diastolic CHF: likely mainly induced by pulmonary issues. 3. Chest tightness: doubt ACS. Likely bronchospasm. EKG SR no acute changes, troponin normal. [facility] 2014 normal coronaries 4. Hx of AFIB?: pt. denies. On home sotalol (verbalized she takes this for HTN ) and plavix, no ASA or OAC/NOAC. QTc 434 5. UTI per PCP 6. Morbid obesity: BMI 48. 7. DM2/HLP 8. HTN: controlled 9. Likely degree of diet noncompliance Recommendations 1. IV Lasix therapy 2. Follow pulmonary recommendation 3. Discussed lifestyle modifications 4. No EMR rhythm evidence of AFIB. No OAC/NOAC, allergic to ASA notable for hives. Would consider placing on event monitor to verify any AFIB burden If no evidence of AFIB then will need to discontinue sotalol 5. Continue with secondary prevention 6. BMP, Mg, TSH, lipids 7. Further recommendation per TTE result. Problems: JONI CARL MD 07/24/16 1554: CARDIAC CONSULT ALLERGIES ALLERGIES: Coded Allergies: Cephalexin Monohydrate (Verified Allergy, Intermediate, 04/18/14) Penicillins (Verified Allergy, Intermediate, 04/18/14) Sulfa (Sulfonamide Antibiotics) (Verified Allergy, Intermediate, 04/18/14) aspirin (Verified Allergy, Intermediate, 04/18/14) codeine (Verified Allergy, Intermediate, Previously tolerated morphine ( per pt and chart 12/2013), 07/17/14) diclofenac sodium (Verified Allergy, Intermediate, 04/18/14) morphine (Verified Allergy, Intermediate, rash, 01/16/16) nabumetone (Verified Allergy, Intermediate, 04/18/14) tomato (Verified Allergy, Intermediate, 04/18/14) ASSESSMENT/PLAN ASSESSMENT/PLAN Patient seen and examined. Agree with HELMINTHOLOGY TEACHER's assessment and plan. Acute respiratory failure secondary to combination of acute COPD exacerbation and acute on chronic diastolic heart failure. Continue intravenous Lasix for diuresis. Continue treatment of COPD exacerbation per pulmonary team. Check 2-D echo to assess LV systolic function. Agree with event monitor on discharge to assess atrial fibrillation burden. Thank you for your consultation. Problems: BRANDEN LEWIS APRN Jul 24, 2016 10:02 JONI CARL MD Jul 24, 2016 15:54
[2016-07-24 10:50] VITALS: BP 133/89
--- NOTE | 2016-07-24 11:08 | PDOC ---
Provider Note Provider Note [id number] acute resp fail ae of copd acute bronchitis abx, prednisone, see orders. LI WEEMS MD Jul 24, 2016 11:08
[2016-07-24] MEDS: SUCRALFATE 1 GM/10 ML ORAL.SUSP. PO SCH ×3 (11:36→20:43)
[2016-07-24] MEDS: PANTOPRAZOLE 40 MG TABLET.DR. PO SCH (11:36)
[2016-07-24] MEDS: INSULIN ASPART 300 UNITS/3 ML INSULN.PEN SQ SCH ×2 (11:41→16:33)
--- NOTE | 2016-07-24 11:41 | CONS ---
DATE OF CONSULTATION: 07/24/2016 I was asked to see this 56-year-old lady for shortness of breath, acute respiratory failure, acute exacerbation of COPD. HISTORY OF PRESENT ILLNESS: She has history of 15-ripj-ivtt smoking, continues to smoke about half a pack per day. She has not felt good for the past week, she has had increased shortness of breath, cough with yellow sputum production, fever, chills, runny nose, and wheezing. She has obstructive sleep apnea-hypopnea syndrome. She is not able to tolerate CPAP. She is on oxygen at night. PAST MEDICAL HISTORY: COPD, asthma, obstructive sleep apnea-hypopnea syndrome, CHF, hepatitis, and diabetes mellitus. ALLERGIES: KEFLEX, PENICILLIN, SULFA. MEDICATIONS: Currently, she is on Lasix 40 mg daily, azithromycin, prednisone 40 mg daily, Protonix, Carafate, DuoNeb, digoxin, gabapentin, sotalol, Plavix, and nicotine patch. SOCIAL HISTORY: History of 40-mirl-cnux smoking, continues to smoke about half a pack per day. FAMILY HISTORY: Hypertension. REVIEW OF SYSTEMS: As mentioned as above, other systems otherwise negative. PHYSICAL EXAMINATION: GENERAL: This is an obese lady. VITAL SIGNS: Her O2 saturation on 2 liters of oxygen is 96%, respiratory rate is 18, heart rate 80. VITAL SIGNS: Blood pressure 133/89, temperature 96.4. HEENT: Normocephalic, atraumatic. Pupils equal, round, reactive to light. Shallow oropharynx. Nose is clear. NECK: Positive JVD. No lymphadenopathy. CARDIOVASCULAR: Regular rate and rhythm. PMI is nondisplaced. CHEST: Inspection is normal. LUNGS: There are bibasilar crackles and expiratory wheezing. ABDOMEN: Soft and obese. Bowel sounds are good. There is no mass. EXTREMITIES: There is edema. LYMPHATICS: There is no lymphadenopathy. NEUROLOGIC: She is alert and oriented. SKIN: Warm. LABORATORY DATA: I reviewed the following lab data: Chest x-ray shows increased vascular marking. Hemoglobin 13, WBC 10.8, platelets 253. Sodium 144, potassium 4, chloride 106, CO2 of 30, glucose 267, BUN 15, creatinine 0.9. Troponin less than 0.01. BNP 167. IMPRESSION: 1. Acute respiratory failure, multifactorial in etiology including acute exacerbation of chronic obstructive pulmonary disease, acute bronchitis, rule out congestive heart failure versus others. 2. Abnormal chest x-ray. 3. Acute exacerbation of chronic obstructive pulmonary disease. 4. Acute bronchitis. 5. Obstructive sleep apnea-hypopnea syndrome. 6. Smoker. 7. Diabetes mellitus. PLAN AND RECOMMENDATIONS: 1. Titrate FiO2 to keep O2 saturation 92%. 2. Bronchodilator. 3. Inhaled corticosteroid. 4. Continue prednisone. 5. Continue antibiotic. 6. Lovenox for DVT prophylaxis. 7. Continue Protonix for stress ulcer prophylaxis. 8. I had a long discussion with her regarding smoking cessation. I have advised her to stop smoking forever. 9. Lose weight. 10. I have discussed obstructive sleep apnea-hypopnea syndrome. I do recommend reevaluation of obstructive sleep apnea-hypopnea syndrome and treatment with CPAP. She is decided against that. 11. The findings and recommendations were discussed with the patient. She understood and agreed to proceed with the plan. I have answered all of her questions. Thank you very much for allowing me to participate in care of this very nice lady. LI WEEMS M.D. : Wendie JOB#: [id number] / [id number]
[2016-07-24] MEDS ORDERED: INSULIN DETEMIR 300 UNITS/3 ML INSULN.PEN. SQ ONE (11:45)
--- NOTE | 2016-07-24 12:13 | EKG ---
[facility] [address] [place] [address] Test Date: 2016-07-23 Test Time: 21:10:34 Pat Name: RENÉ BLANCO Department: Room: 567 1 Gender: F Director University: : 1960 Requested By: CHASIDY ARMSTRONG Order Number: [id number] Reading MD: Shukri Mckinnon Measurements Intervals [place] Rate: 77 P: 90 [place]: 192 QRS: -5 QRSD: 80 T: 38 QT: 382 QTc: 434 Interpretive Statements SINUS RHYTHM LEFTWARD AXIS NONSPECIFIC ST-T WAVE CHANGES. RI6.01 Compared to ECG 01/16/2016 14:50:06 Left-axis deviation now present Sinus tachycardia no longer present Electronically Signed On 07-26-2016 10:48:41 CDT by Shukri Mckinnon
[2016-07-24] MEDS: IPRATRPIUM/ALBUTEROL 0.5/2.5MG 3 ML NEBU. NEB SCH ×3 (12:29→20:34)
[2016-07-24] MEDS: BUDESONIDE 0.5 MG/2 ML NEBU. NEB SCH ×2 (12:33→20:33)
[2016-07-24 14:38] LABS: CALCIUM 9.2 mg/dL (8.5-10.1); CREATININE 0.9 mg/dL (0.6-1.0); GFR 64.8; MAGNESIUM 2.2 mg/dL (1.8-2.4)
[2016-07-24 14:43] VITALS: BP 138/81
[2016-07-24] MEDS ORDERED: FUROSEMIDE 40 MG/4 ML VIAL. IVP ONE (16:00)
[2016-07-24] MEDS ORDERED: ENOXAPARIN 40 MG/0.4 ML SYRINGE. SQ SCH (17:00)
[2016-07-24] MEDS: oxyCODONE IR 5 MG TABLET PO PRN (17:06)
[2016-07-24 19:00] VITALS: BP 131/82
[2016-07-24] MEDS: OXcarbazepine 300 MG TABLET PO SCH (20:42)
[2016-07-24] MEDS: ENOXAPARIN 40 MG/0.4 ML SYRINGE. SQ SCH (20:43)
[2016-07-24] MEDS: INSULIN DETEMIR 300 UNITS/3 ML INSULN.PEN. SQ SCH (20:52)
[2016-07-24] MEDS: metroNIDAZOLE 500 MG TABLET PO SCH (22:33)
[2016-07-24 22:43] VITALS: BP 109/60
[2016-07-25 03:00] VITALS: BP 140/86
[2016-07-25] MEDS: PANTOPRAZOLE 40 MG TABLET.DR. PO SCH (05:25)
[2016-07-25] MEDS: guaiFENesin DM 200MG/20MG 10 ML SYRUP PO PRN (05:25)
[2016-07-25] MEDS: LEVOTHYROXINE 150 MCG TABLET PO SCH (05:26)
[2016-07-25] MEDS: SUCRALFATE 1 GM/10 ML ORAL.SUSP. PO SCH ×4 (05:31→20:53)
[2016-07-25 05:33] LABS: BASO # 0.2 x10^3/uL (0.0-0.2); BASO % 1 % (0-3); EOS % 0 % (0-3); HEMATOCRIT 40.1 % (36.0-47.0); HEMOGLOBIN 13.3 g/dL (12.0-15.5); LYMPH # 3.3 x10^3/uL (1.0-4.8); LYMPH % 17 % (24-48); MEAN CORPUSCULAR HEMOGLOBIN 29 pg (25-35); MEAN CORPUSCULAR HGB CONC 33 g/dL (31-37); MEAN CORPUSCULAR VOLUME 88 fL (79-100); MONO % 5 % (0-9); NEUT % 78 % (31-73); PLATELET COUNT 262 x10^3/uL (140-400); RED BLOOD COUNT 4.58 x10^6/uL (3.50-5.40); RED CELL DISTRIBUTION WIDTH 14.2 % (11.5-14.5); WHITE BLOOD COUNT 20.2 x10^3/uL (4.0-11.0)
[2016-07-25] MEDS: IPRATRPIUM/ALBUTEROL 0.5/2.5MG 3 ML NEBU. NEB SCH ×5 (05:53→22:00)
[2016-07-25] MEDS: BUDESONIDE 0.5 MG/2 ML NEBU. NEB SCH ×2 (05:54→19:51)
[2016-07-25 05:55] LABS: ALBUMIN 2.7 g/dL (3.4-5.0); ALBUMIN/GLOBULIN RATIO 0.6 (1.0-1.7); CALCIUM 9.4 mg/dL (8.5-10.1); GFR 57.4; POTASSIUM 3.9 mmol/L (3.5-5.1); TOTAL BILIRUBIN 0.3 mg/dL (0.2-1.0); TOTAL PROTEIN 7.2 g/dL (6.4-8.2)
[2016-07-25 07:00] LABS: % EOS 1 % (0-5); PLT ESTIMATE ADEQUATE (ADEQUATE)
[2016-07-25 07:50] VITALS: BP 132/82
[2016-07-25] MEDS: CETIRIZINE HCL 10 MG TABLET. PO SCH (08:54)
[2016-07-25] MEDS: GABAPENTIN 300 MG CAPSULE. PO SCH ×4 (08:54→20:53)
[2016-07-25] MEDS: VENLAFAXINE XR 37.5 MG CAP.ER.24H. PO SCH (08:54)
[2016-07-25] MEDS: AZITHROMYCIN 250 MG TABLET. PO SCH (08:54)
[2016-07-25] MEDS: metroNIDAZOLE 500 MG TABLET PO SCH ×3 (08:54→20:53)
[2016-07-25] MEDS: CLOPIDOGREL BISULFATE 75 MG TABLET PO SCH (08:55)
[2016-07-25] MEDS: LOSARTAN POTASSIUM 50 MG TABLET. PO SCH (08:55)
[2016-07-25] MEDS: amLODIPine BESYLATE 5 MG TABLET PO SCH (08:55)
[2016-07-25] MEDS: SOTALOL 80 MG TABLET. PO SCH ×2 (08:56→20:54)
[2016-07-25] MEDS: DIGOXIN 125 MCG TABLET. PO SCH (08:56)
[2016-07-25] MEDS: ARIPiprazole 5 MG TABLET PO SCH (08:56)
[2016-07-25] MEDS: FLUTICASONE 50MCG/NASAL SPRAY 16GM BOTTLE. NS SCH (08:57)
[2016-07-25] MEDS: ENOXAPARIN 40 MG/0.4 ML SYRINGE. SQ SCH ×2 (08:58→20:55)
[2016-07-25] MEDS: NICOTINE 7MG PATCH. TD SCH (08:58)
[2016-07-25] MEDS ORDERED: FUROSEMIDE 40 MG/4 ML VIAL. IVP SCH (09:00)
[2016-07-25] MEDS ORDERED: predniSONE 20 MG TABLET PO SCH (09:00)
[2016-07-25] MEDS: INSULIN ASPART 300 UNITS/3 ML INSULN.PEN SQ SCH ×3 (09:12→16:53)
[2016-07-25] MEDS: INSULIN DETEMIR 300 UNITS/3 ML INSULN.PEN. SQ SCH ×2 (09:13→21:03)
--- NOTE | 2016-07-25 10:36 | PDOC ---
PULMONARY PROGRESS NOTES Subjective has more sob, cough, wheezing, no pain Vitals Vital Signs Date Time Temp Pulse Resp B/P (MAP) Pulse Ox O2 Delivery O2 Flow Rate FiO2 07/25/16 08:56 68 132/82 07/25/16 07:50 97.6 18 97 Nasal Cannula 2.0 97.6 Comments ros as mentioned as above other sys otherwise neg ROS: No Nausea General: Alert HEENT: Other (nc at perrl, shallow oropharynx, nose clear. neck, +jvd, no thyromegaly) Lungs: Wheezing, Crackles Cardiovascular: S1, S2 Abdomen: Soft, Non-tender, Other (no mass) Extremities: Other (edema) Skin: Warm Labs Laboratory Tests Test 07/23/16 20:40 07/24/16 00:15 07/24/16 02:00 07/24/16 03:28 White Blood Count 10.8 x10^3/uL (4.0-11.0) Red Blood Count 4.49 x10^6/uL (3.50-5.40) Hemoglobin 13.0 g/dL (12.0-15.5) Hematocrit 40.8 % (36.0-47.0) Mean Corpuscular Volume 91 fL (79-100) Mean Corpuscular Hemoglobin 29 pg (25-35) Mean Corpuscular Hemoglobin Concent 32 g/dL (31-37) Red Cell Distribution Width 14.3 % (11.5-14.5) Platelet Count 253 x10^3/uL (140-400) Neutrophils (%) (Auto) 67 % (31-73) Lymphocytes (%) (Auto) 23 % (24-48) Monocytes (%) (Auto) 7 % (0-9) Eosinophils (%) (Auto) 2 % (0-3) Basophils (%) (Auto) 1 % (0-3) Neutrophils # (Auto) 7.3 x10^3uL (1.8-7.7) Lymphocytes # (Auto) 2.5 x10^3/uL (1.0-4.8) Monocytes # (Auto) 0.7 x10^3/uL (0.0-1.1) Eosinophils # (Auto) 0.3 x10^3/uL (0.0-0.7) Basophils # (Auto) 0.1 x10^3/uL (0.0-0.2) D-Dimer (Carey) 0.45 ug/mlFEU (0.00-0.50) Sodium Level 144 mmol/L (136-145) Potassium Level 4.0 mmol/L (3.5-5.1) Chloride Level 106 mmol/L (98-107) Carbon Dioxide Level 30 mmol/L (21-32) Anion Gap 8 (6-14) Blood Urea Nitrogen 15 mg/dL (7-20) Creatinine 0.9 mg/dL (0.6-1.0) Estimated GFR (Cockcroft-Gault) 64.8 BUN/Creatinine Ratio 17 (6-20) Glucose Level 267 mg/dL (70-99) Calcium Level 9.1 mg/dL (8.5-10.1) Total Bilirubin 0.2 mg/dL (0.2-1.0) Aspartate Amino Transf (AST/SGOT) 31 U/L (15-37) Alanine Aminotransferase (ALT/SGPT) 24 U/L (14-59) Alkaline Phosphatase 117 U/L (46-116) Creatine Kinase 30 U/L (26-192) Creatine Kinase MB (Mass) < 0.5 ng/mL (0.0-3.6) Creatine Kinase MB Relative Index % (0-4) Troponin I Quantitative < 0.017 ng/mL (0.000-0.055) OX-Kcr-O-Type Natriuretic Peptide 167 pg/mL (0-124) Total Protein 6.5 g/dL (6.4-8.2) Albumin 2.7 g/dL (3.4-5.0) Albumin/Globulin Ratio 0.7 (1.0-1.7) Urine Collection Type Unknown Urine Color Yellow Urine Clarity Cloudy Urine pH 6.0 Urine Specific Crosby 1.025 Urine Protein Negative mg/dL (NEG-TRACE) Urine Glucose (UA) >=1000 mg/dL (NEG) Urine Ketones (Stick) Negative mg/dL (NEG) Urine Blood Negative (NEG) Urine Nitrite Positive (NEG) Urine Bilirubin Negative (NEG) Urine Urobilinogen Dipstick 1.0 mg/dL (0.2 mg/dL) Urine Leukocyte Esterase Trace (NEG) Urine RBC Occ /HPF (0-2) Urine WBC 11-20 /HPF (0-4) Urine Squamous Epithelial Cells Few /LPF Urine Bacteria Many /HPF (0-FEW) Urine Mucus Slight /LPF Nasal Screen MRSA (PCR) Negative (Negative) Glucose (Fingerstick) 140 mg/dL (70-99) Test 07/24/16 08:30 07/24/16 11:27 07/24/16 13:50 07/24/16 16:02 Clostridium difficile Toxin (PCR) Positive (Negative) Glucose (Fingerstick) 400 mg/dL (70-99) 292 mg/dL (70-99) Sodium Level 129 mmol/L (136-145) Potassium Level 4.0 mmol/L (3.5-5.1) Chloride Level 100 mmol/L (98-107) Carbon Dioxide Level 20 mmol/L (21-32) Anion Gap 9 (6-14) Blood Urea Nitrogen 19 mg/dL (7-20) Creatinine 0.9 mg/dL (0.6-1.0) Estimated GFR (Cockcroft-Gault) 64.8 Glucose Level 357 mg/dL (70-99) Calcium Level 9.2 mg/dL (8.5-10.1) Magnesium Level 2.2 mg/dL (1.8-2.4) Troponin I Quantitative < 0.017 ng/mL (0.000-0.055) Triglycerides Level 102 mg/dL (0-150) Cholesterol Level 153 mg/dL (0-200) LDL Cholesterol, Calculated 95 mg/dL (0-100) VLDL Cholesterol, Calculated 20 mg/dL (0-40) Non-HDL Cholesterol Calculated 115 mg/dL (0-129) HDL Cholesterol 38 mg/dL (40-60) Cholesterol/HDL Ratio 4.0 Thyroid Stimulating Hormone (TSH) 3.810 uIU/mL (0.358-3.74) Test 07/24/16 20:45 07/25/16 05:00 07/25/16 05:11 07/25/16 08:07 Glucose (Fingerstick) 265 mg/dL (70-99) 213 mg/dL (70-99) Sodium Level 138 mmol/L (136-145) Potassium Level 3.9 mmol/L (3.5-5.1) Chloride Level 101 mmol/L (98-107) Carbon Dioxide Level 31 mmol/L (21-32) Anion Gap 6 (6-14) Blood Urea Nitrogen 26 mg/dL (7-20) Creatinine 1.0 mg/dL (0.6-1.0) Estimated GFR (Cockcroft-Gault) 57.4 BUN/Creatinine Ratio 26 (6-20) Glucose Level 235 mg/dL (70-99) Calcium Level 9.4 mg/dL (8.5-10.1) Total Bilirubin 0.3 mg/dL (0.2-1.0) Aspartate Amino Transf (AST/SGOT) 22 U/L (15-37) Alanine Aminotransferase (ALT/SGPT) 26 U/L (14-59) Alkaline Phosphatase 116 U/L (46-116) Total Protein 7.2 g/dL (6.4-8.2) Albumin 2.7 g/dL (3.4-5.0) Albumin/Globulin Ratio 0.6 (1.0-1.7) White Blood Count 20.2 x10^3/uL (4.0-11.0) Red Blood Count 4.58 x10^6/uL (3.50-5.40) Hemoglobin 13.3 g/dL (12.0-15.5) Hematocrit 40.1 % (36.0-47.0) Mean Corpuscular Volume 88 fL (79-100) Mean Corpuscular Hemoglobin 29 pg (25-35) Mean Corpuscular Hemoglobin Concent 33 g/dL (31-37) Red Cell Distribution Width 14.2 % (11.5-14.5) Platelet Count 262 x10^3/uL (140-400) Neutrophils (%) (Auto) 78 % (31-73) Lymphocytes (%) (Auto) 17 % (24-48) Monocytes (%) (Auto) 5 % (0-9) Eosinophils (%) (Auto) 0 % (0-3) Basophils (%) (Auto) 1 % (0-3) Neutrophils # (Auto) 15.7 x10^3uL (1.8-7.7) Lymphocytes # (Auto) 3.3 x10^3/uL (1.0-4.8) Monocytes # (Auto) 1.0 x10^3/uL (0.0-1.1) Eosinophils # (Auto) 0.1 x10^3/uL (0.0-0.7) Basophils # (Auto) 0.2 x10^3/uL (0.0-0.2) Segmented Neutrophils % 72 % (35-66) Band Neutrophils % 1 % (0-9) Lymphocytes % 21 % (24-48) Monocytes % 5 % (0-10) Eosinophils % 1 % (0-5) Platelet Estimate Adequate (ADEQUATE) Laboratory Tests Test 07/24/16 11:27 07/24/16 13:50 07/24/16 16:02 07/24/16 20:45 Glucose (Fingerstick) 400 mg/dL (70-99) 292 mg/dL (70-99) 265 mg/dL (70-99) Sodium Level 129 mmol/L (136-145) Potassium Level 4.0 mmol/L (3.5-5.1) Chloride Level 100 mmol/L (98-107) Carbon Dioxide Level 20 mmol/L (21-32) Anion Gap 9 (6-14) Blood Urea Nitrogen 19 mg/dL (7-20) Creatinine 0.9 mg/dL (0.6-1.0) Estimated GFR (Cockcroft-Gault) 64.8 Glucose Level 357 mg/dL (70-99) Calcium Level 9.2 mg/dL (8.5-10.1) Magnesium Level 2.2 mg/dL (1.8-2.4) Troponin I Quantitative < 0.017 ng/mL (0.000-0.055) Triglycerides Level 102 mg/dL (0-150) Cholesterol Level 153 mg/dL (0-200) LDL Cholesterol, Calculated 95 mg/dL (0-100) VLDL Cholesterol, Calculated 20 mg/dL (0-40) Non-HDL Cholesterol Calculated 115 mg/dL (0-129) HDL Cholesterol 38 mg/dL (40-60) Cholesterol/HDL Ratio 4.0 Thyroid Stimulating Hormone (TSH) 3.810 uIU/mL (0.358-3.74) Test 07/25/16 05:00 07/25/16 05:11 07/25/16 08:07 Sodium Level 138 mmol/L (136-145) Potassium Level 3.9 mmol/L (3.5-5.1) Chloride Level 101 mmol/L (98-107) Carbon Dioxide Level 31 mmol/L (21-32) Anion Gap 6 (6-14) Blood Urea Nitrogen 26 mg/dL (7-20) Creatinine 1.0 mg/dL (0.6-1.0) Estimated GFR (Cockcroft-Gault) 57.4 BUN/Creatinine Ratio 26 (6-20) Glucose Level 235 mg/dL (70-99) Calcium Level 9.4 mg/dL (8.5-10.1) Total Bilirubin 0.3 mg/dL (0.2-1.0) Aspartate Amino Transf (AST/SGOT) 22 U/L (15-37) Alanine Aminotransferase (ALT/SGPT) 26 U/L (14-59) Alkaline Phosphatase 116 U/L (46-116) Total Protein 7.2 g/dL (6.4-8.2) Albumin 2.7 g/dL (3.4-5.0) Albumin/Globulin Ratio 0.6 (1.0-1.7) White Blood Count 20.2 x10^3/uL (4.0-11.0) Red Blood Count 4.58 x10^6/uL (3.50-5.40) Hemoglobin 13.3 g/dL (12.0-15.5) Hematocrit 40.1 % (36.0-47.0) Mean Corpuscular Volume 88 fL (79-100) Mean Corpuscular Hemoglobin 29 pg (25-35) Mean Corpuscular Hemoglobin Concent 33 g/dL (31-37) Red Cell Distribution Width 14.2 % (11.5-14.5) Platelet Count 262 x10^3/uL (140-400) Neutrophils (%) (Auto) 78 % (31-73) Lymphocytes (%) (Auto) 17 % (24-48) Monocytes (%) (Auto) 5 % (0-9) Eosinophils (%) (Auto) 0 % (0-3) Basophils (%) (Auto) 1 % (0-3) Neutrophils # (Auto) 15.7 x10^3uL (1.8-7.7) Lymphocytes # (Auto) 3.3 x10^3/uL (1.0-4.8) Monocytes # (Auto) 1.0 x10^3/uL (0.0-1.1) Eosinophils # (Auto) 0.1 x10^3/uL (0.0-0.7) Basophils # (Auto) 0.2 x10^3/uL (0.0-0.2) Segmented Neutrophils % 72 % (35-66) Band Neutrophils % 1 % (0-9) Lymphocytes % 21 % (24-48) Monocytes % 5 % (0-10) Eosinophils % 1 % (0-5) Platelet Estimate Adequate (ADEQUATE) Glucose (Fingerstick) 213 mg/dL (70-99) Medications Active Scripts Medications Dose Route/Sig Max Daily Dose Days Date Category Levothyroxine Sodium 175 Mcg Tablet 1 Tab PO DAILY 07/24/16 Reported Levothyroxine Sodium 150 Mcg Tablet 1 Tab PO DAILY 07/24/16 Reported Vitamin D2 (Ergocalciferol (Vitamin D2)) 50,000 Unit Capsule 50,000 Unit PO 07/24/16 Reported Venlafaxine Hcl Er (Venlafaxine Hcl) 75 Mg Cap.er.24h 1 Cap PO DAILY 07/24/16 Reported Anti-Diarrhea (Loperamide Hcl) 2 Mg Tablet 2 Mg PO PRN PRN 07/24/16 Reported Fluticasone Propionate Nasal [place] (Fluticasone Propionate) 16 Gm [place].susp 2 [place] NS DAILY 07/24/16 Reported Vitamin D3 (Cholecalciferol (Vitamin D3)) 1,000 Unit Tablet 1,000 Unit PO 07/24/16 Reported Amlodipine Besylate 5 Mg Tablet 5 Mg PO DAILY 07/24/16 Reported Nystatin 15 Gm Powder 1 Melissa TP BID 07/24/16 Reported Melatonin 3 Mg Tablet 5 Mg PO 07/24/16 Reported Oxycodone Hcl 10 Mg Tablet 1 Tab PO QID PRN 01/20/16 Rx Novolog Flexpen (Insulin Aspart) 100 Unit/1 Ml Insuln.pen 50 Units SQ TIDWMEALS 01/20/16 Rx Sucralfate 1 Gm/10 Ml Oral.susp 1 Gm PO QIDACHS 01/20/16 Rx Pantoprazole Sodium 40 Mg Tablet.dr 40 Mg PO DAILYAC 01/20/16 Rx Furosemide 40 Mg Tablet 1 Tab PO DAILY 01/20/16 Rx Mupirocin Ointment (Mupirocin) 22 Gm Oint...g. 22 Gm TP PRN TID PRN 01/20/16 Rx Toujeo Solostar (Insulin Glargine,Hum.rec.anlog) 300 Unit/1 Ml Insuln.pen 90 Unit SQ BID 12/03/15 Rx Zofran (Ondansetron Hcl) 4 Mg Tablet 1 Tab PO PRN Q6-8HRS 11/10/15 Rx Spiriva (Tiotropium [place]) 18 Mcg Cap.w.dev 1 Cap IH DAILY 10/30/15 Rx Xopenex (Levalbuterol Hcl) 1.25 Mg/3 Ml Vial.neb 1 Vial NEB TID 10/30/15 Rx Fenofibrate (Fenofibrate Nanocrystallized) 145 Mg Tablet 1 Tab PO DAILY 10/30/15 Rx Losartan Potassium 100 Mg Tablet 100 Mg PO DAILY 07/15/15 Rx Sotalol (Sotalol Hcl) 80 Mg Tablet 80 Mg PO BID 07/15/15 Rx Digoxin 125 Mcg Tablet 1 Tab PO DAILY 06/19/14 Reported Symbicort 160-4.5 Mcg Inhaler (Budesonide/Formoterol Fumarate) 10.2 Gm Hfa.aer.ad 2 Puff IH BID 06/13/14 Rx Oxcarbazepine 300 Mg Tablet 1 Tab PO HS 04/15/14 Reported Gabapentin 600 Mg Tablet 600 Mg PO QID 08/29/13 Reported Abilify (Aripiprazole) 5 Mg Tablet 5 Mg PO DAILY 04/02/13 Reported Plavix (Clopidogrel Bisulfate) 75 Mg Tablet 75 Mg PO DAILY 04/02/13 Reported Cetirizine Hcl 10 Mg Tablet 10 Mg PO DAILY 04/02/13 Reported Comments cxr reviewed. mild volume overload. No confluent infiltrates. Impression . IMPRESSION: 1. Acute respiratory failure, multifactorial in etiology including acute exacerbation of chronic obstructive pulmonary disease, acute bronchitis, rule out congestive heart failure versus others. 2. Abnormal chest x-ray. 3. Acute exacerbation of chronic obstructive pulmonary disease. 4. Acute bronchitis. 5. Obstructive sleep apnea-hypopnea syndrome. 6. Smoker. 7. Diabetes mellitus. Plan . PLAN AND RECOMMENDATIONS: 1. Titrate FiO2 to keep O2 saturation 92%. 2. Bronchodilator. 3. Inhaled corticosteroid. 4. change prednisone to solumedrol. 5. Continue antibiotic. 6. Lovenox for DVT prophylaxis. 7. Continue Protonix for stress ulcer prophylaxis. 8. I had a long discussion with her regarding smoking cessation. I have advised her to stop smoking forever. 9. Lose weight. 10. I have discussed obstructive sleep apnea-hypopnea syndrome. I do recommend reevaluation of obstructive sleep apnea-hypopnea syndrome and treatment with CPAP. She is decided against that. 11. add singulair 12. lasix 20 mg iv now, monitor k, cr 13. echo if not done The findings and recommendations were discussed with the patient. LI WEEMS MD Jul 25, 2016 10:36
[2016-07-25 11:00] VITALS: BP 132/81
[2016-07-25] MEDS ORDERED: FUROSEMIDE 20 MG/2 ML VIAL. IVP ONE (11:30)
[2016-07-25] MEDS: methylPREDNISolone SOD SUCC PF 40 MG/ML VIAL. IV SCH ×3 (12:00→20:54)
[2016-07-25 15:00] VITALS: BP 146/93
--- NOTE | 2016-07-25 15:07 | PDOC ---
PROGRESS NOTES Chief Complaint Chief Complaint COPD, acute bronchitis, w/ exacerbation pleuritic pain, pain with coughing, add 2 anti-tussives acute on chronic combined CHF c. diff colitis morbid obesity, BMI 48 ongoing tobaccoism UTI, , History of Present Illness History of Present Illness cont IV steroids Pulm consult following IV lasix given Vitals Vitals Vital Signs Date Time Temp Pulse Resp B/P (MAP) Pulse Ox O2 Delivery O2 Flow Rate FiO2 07/25/16 11:43 98 Nasal Cannula 3.0 07/25/16 11:00 97.8 72 18 132/81 (98) 97.8 Physical Exam General: Alert, Oriented X3, Cooperative, No acute distress Heart: Regular rate (SR no ectopies), Normal S1, Normal S2, Other (distant heart sounds) Lungs: Wheezing Abdomen: Soft, No tenderness, Other (obesity) Extremities: No cyanosis, Other (2+ bilateral LE pitting edema) Skin: Other (multiple scabs to legs complain of pruritus. ) Labs LABS Laboratory Tests Test 07/24/16 16:02 07/24/16 20:45 07/25/16 05:00 07/25/16 05:11 Glucose (Fingerstick) 292 mg/dL (70-99) 265 mg/dL (70-99) Sodium Level 138 mmol/L (136-145) Potassium Level 3.9 mmol/L (3.5-5.1) Chloride Level 101 mmol/L (98-107) Carbon Dioxide Level 31 mmol/L (21-32) Anion Gap 6 (6-14) Blood Urea Nitrogen 26 mg/dL (7-20) Creatinine 1.0 mg/dL (0.6-1.0) Estimated GFR (Cockcroft-Gault) 57.4 BUN/Creatinine Ratio 26 (6-20) Glucose Level 235 mg/dL (70-99) Calcium Level 9.4 mg/dL (8.5-10.1) Total Bilirubin 0.3 mg/dL (0.2-1.0) Aspartate Amino Transf (AST/SGOT) 22 U/L (15-37) Alanine Aminotransferase (ALT/SGPT) 26 U/L (14-59) Alkaline Phosphatase 116 U/L (46-116) Total Protein 7.2 g/dL (6.4-8.2) Albumin 2.7 g/dL (3.4-5.0) Albumin/Globulin Ratio 0.6 (1.0-1.7) White Blood Count 20.2 x10^3/uL (4.0-11.0) Red Blood Count 4.58 x10^6/uL (3.50-5.40) Hemoglobin 13.3 g/dL (12.0-15.5) Hematocrit 40.1 % (36.0-47.0) Mean Corpuscular Volume 88 fL (79-100) Mean Corpuscular Hemoglobin 29 pg (25-35) Mean Corpuscular Hemoglobin Concent 33 g/dL (31-37) Red Cell Distribution Width 14.2 % (11.5-14.5) Platelet Count 262 x10^3/uL (140-400) Neutrophils (%) (Auto) 78 % (31-73) Lymphocytes (%) (Auto) 17 % (24-48) Monocytes (%) (Auto) 5 % (0-9) Eosinophils (%) (Auto) 0 % (0-3) Basophils (%) (Auto) 1 % (0-3) Neutrophils # (Auto) 15.7 x10^3uL (1.8-7.7) Lymphocytes # (Auto) 3.3 x10^3/uL (1.0-4.8) Monocytes # (Auto) 1.0 x10^3/uL (0.0-1.1) Eosinophils # (Auto) 0.1 x10^3/uL (0.0-0.7) Basophils # (Auto) 0.2 x10^3/uL (0.0-0.2) Segmented Neutrophils % 72 % (35-66) Band Neutrophils % 1 % (0-9) Lymphocytes % 21 % (24-48) Monocytes % 5 % (0-10) Eosinophils % 1 % (0-5) Platelet Estimate Adequate (ADEQUATE) Test 07/25/16 08:07 07/25/16 11:56 Glucose (Fingerstick) 213 mg/dL (70-99) 277 mg/dL (70-99) Review of Systems Review of Systems cough, wheeze, dyspnea diarrhea weakness does not feel well Assessment and Plan Assessmemt and Plan cont current pt appears a little improved this afternoon Problems: Comment Review of Relevant I have reviewed the following items prudence (where applicable) has been applied. Labs Laboratory Tests Test 07/23/16 20:40 07/24/16 00:15 07/24/16 02:00 07/24/16 03:28 White Blood Count 10.8 x10^3/uL (4.0-11.0) Red Blood Count 4.49 x10^6/uL (3.50-5.40) Hemoglobin 13.0 g/dL (12.0-15.5) Hematocrit 40.8 % (36.0-47.0) Mean Corpuscular Volume 91 fL (79-100) Mean Corpuscular Hemoglobin 29 pg (25-35) Mean Corpuscular Hemoglobin Concent 32 g/dL (31-37) Red Cell Distribution Width 14.3 % (11.5-14.5) Platelet Count 253 x10^3/uL (140-400) Neutrophils (%) (Auto) 67 % (31-73) Lymphocytes (%) (Auto) 23 % (24-48) Monocytes (%) (Auto) 7 % (0-9) Eosinophils (%) (Auto) 2 % (0-3) Basophils (%) (Auto) 1 % (0-3) Neutrophils # (Auto) 7.3 x10^3uL (1.8-7.7) Lymphocytes # (Auto) 2.5 x10^3/uL (1.0-4.8) Monocytes # (Auto) 0.7 x10^3/uL (0.0-1.1) Eosinophils # (Auto) 0.3 x10^3/uL (0.0-0.7) Basophils # (Auto) 0.1 x10^3/uL (0.0-0.2) D-Dimer (Carey) 0.45 ug/mlFEU (0.00-0.50) Sodium Level 144 mmol/L (136-145) Potassium Level 4.0 mmol/L (3.5-5.1) Chloride Level 106 mmol/L (98-107) Carbon Dioxide Level 30 mmol/L (21-32) Anion Gap 8 (6-14) Blood Urea Nitrogen 15 mg/dL (7-20) Creatinine 0.9 mg/dL (0.6-1.0) Estimated GFR (Cockcroft-Gault) 64.8 BUN/Creatinine Ratio 17 (6-20) Glucose Level 267 mg/dL (70-99) Calcium Level 9.1 mg/dL (8.5-10.1) Total Bilirubin 0.2 mg/dL (0.2-1.0) Aspartate Amino Transf (AST/SGOT) 31 U/L (15-37) Alanine Aminotransferase (ALT/SGPT) 24 U/L (14-59) Alkaline Phosphatase 117 U/L (46-116) Creatine Kinase 30 U/L (26-192) Creatine Kinase MB (Mass) < 0.5 ng/mL (0.0-3.6) Creatine Kinase MB Relative Index % (0-4) Troponin I Quantitative < 0.017 ng/mL (0.000-0.055) QJ-Enp-D-Type Natriuretic Peptide 167 pg/mL (0-124) Total Protein 6.5 g/dL (6.4-8.2) Albumin 2.7 g/dL (3.4-5.0) Albumin/Globulin Ratio 0.7 (1.0-1.7) Urine Collection Type Unknown Urine Color Yellow Urine Clarity Cloudy Urine pH 6.0 Urine Specific Roundup 1.025 Urine Protein Negative mg/dL (NEG-TRACE) Urine Glucose (UA) >=1000 mg/dL (NEG) Urine Ketones (Stick) Negative mg/dL (NEG) Urine Blood Negative (NEG) Urine Nitrite Positive (NEG) Urine Bilirubin Negative (NEG) Urine Urobilinogen Dipstick 1.0 mg/dL (0.2 mg/dL) Urine Leukocyte Esterase Trace (NEG) Urine RBC Occ /HPF (0-2) Urine WBC 11-20 /HPF (0-4) Urine Squamous Epithelial Cells Few /LPF Urine Bacteria Many /HPF (0-FEW) Urine Mucus Slight /LPF Nasal Screen MRSA (PCR) Negative (Negative) Glucose (Fingerstick) 140 mg/dL (70-99) Test 07/24/16 08:30 07/24/16 11:27 07/24/16 13:50 07/24/16 16:02 Clostridium difficile Toxin (PCR) Positive (Negative) Glucose (Fingerstick) 400 mg/dL (70-99) 292 mg/dL (70-99) Sodium Level 129 mmol/L (136-145) Potassium Level 4.0 mmol/L (3.5-5.1) Chloride Level 100 mmol/L (98-107) Carbon Dioxide Level 20 mmol/L (21-32) Anion Gap 9 (6-14) Blood Urea Nitrogen 19 mg/dL (7-20) Creatinine 0.9 mg/dL (0.6-1.0) Estimated GFR (Cockcroft-Gault) 64.8 Glucose Level 357 mg/dL (70-99) Calcium Level 9.2 mg/dL (8.5-10.1) Magnesium Level 2.2 mg/dL (1.8-2.4) Troponin I Quantitative < 0.017 ng/mL (0.000-0.055) Triglycerides Level 102 mg/dL (0-150) Cholesterol Level 153 mg/dL (0-200) LDL Cholesterol, Calculated 95 mg/dL (0-100) VLDL Cholesterol, Calculated 20 mg/dL (0-40) Non-HDL Cholesterol Calculated 115 mg/dL (0-129) HDL Cholesterol 38 mg/dL (40-60) Cholesterol/HDL Ratio 4.0 Thyroid Stimulating Hormone (TSH) 3.810 uIU/mL (0.358-3.74) Test 07/24/16 20:45 07/25/16 05:00 07/25/16 05:11 07/25/16 08:07 Glucose (Fingerstick) 265 mg/dL (70-99) 213 mg/dL (70-99) Sodium Level 138 mmol/L (136-145) Potassium Level 3.9 mmol/L (3.5-5.1) Chloride Level 101 mmol/L (98-107) Carbon Dioxide Level 31 mmol/L (21-32) Anion Gap 6 (6-14) Blood Urea Nitrogen 26 mg/dL (7-20) Creatinine 1.0 mg/dL (0.6-1.0) Estimated GFR (Cockcroft-Gault) 57.4 BUN/Creatinine Ratio 26 (6-20) Glucose Level 235 mg/dL (70-99) Calcium Level 9.4 mg/dL (8.5-10.1) Total Bilirubin 0.3 mg/dL (0.2-1.0) Aspartate Amino Transf (AST/SGOT) 22 U/L (15-37) Alanine Aminotransferase (ALT/SGPT) 26 U/L (14-59) Alkaline Phosphatase 116 U/L (46-116) Total Protein 7.2 g/dL (6.4-8.2) Albumin 2.7 g/dL (3.4-5.0) Albumin/Globulin Ratio 0.6 (1.0-1.7) White Blood Count 20.2 x10^3/uL (4.0-11.0) Red Blood Count 4.58 x10^6/uL (3.50-5.40) Hemoglobin 13.3 g/dL (12.0-15.5) Hematocrit 40.1 % (36.0-47.0) Mean Corpuscular Volume 88 fL (79-100) Mean Corpuscular Hemoglobin 29 pg (25-35) Mean Corpuscular Hemoglobin Concent 33 g/dL (31-37) Red Cell Distribution Width 14.2 % (11.5-14.5) Platelet Count 262 x10^3/uL (140-400) Neutrophils (%) (Auto) 78 % (31-73) Lymphocytes (%) (Auto) 17 % (24-48) Monocytes (%) (Auto) 5 % (0-9) Eosinophils (%) (Auto) 0 % (0-3) Basophils (%) (Auto) 1 % (0-3) Neutrophils # (Auto) 15.7 x10^3uL (1.8-7.7) Lymphocytes # (Auto) 3.3 x10^3/uL (1.0-4.8) Monocytes # (Auto) 1.0 x10^3/uL (0.0-1.1) Eosinophils # (Auto) 0.1 x10^3/uL (0.0-0.7) Basophils # (Auto) 0.2 x10^3/uL (0.0-0.2) Segmented Neutrophils % 72 % (35-66) Band Neutrophils % 1 % (0-9) Lymphocytes % 21 % (24-48) Monocytes % 5 % (0-10) Eosinophils % 1 % (0-5) Platelet Estimate Adequate (ADEQUATE) Test 07/25/16 11:56 Glucose (Fingerstick) 277 mg/dL (70-99) Laboratory Tests Test 07/24/16 16:02 07/24/16 20:45 07/25/16 05:00 07/25/16 05:11 Glucose (Fingerstick) 292 mg/dL (70-99) 265 mg/dL (70-99) Sodium Level 138 mmol/L (136-145) Potassium Level 3.9 mmol/L (3.5-5.1) Chloride Level 101 mmol/L (98-107) Carbon Dioxide Level 31 mmol/L (21-32) Anion Gap 6 (6-14) Blood Urea Nitrogen 26 mg/dL (7-20) Creatinine 1.0 mg/dL (0.6-1.0) Estimated GFR (Cockcroft-Gault) 57.4 BUN/Creatinine Ratio 26 (6-20) Glucose Level 235 mg/dL (70-99) Calcium Level 9.4 mg/dL (8.5-10.1) Total Bilirubin 0.3 mg/dL (0.2-1.0) Aspartate Amino Transf (AST/SGOT) 22 U/L (15-37) Alanine Aminotransferase (ALT/SGPT) 26 U/L (14-59) Alkaline Phosphatase 116 U/L (46-116) Total Protein 7.2 g/dL (6.4-8.2) Albumin 2.7 g/dL (3.4-5.0) Albumin/Globulin Ratio 0.6 (1.0-1.7) White Blood Count 20.2 x10^3/uL (4.0-11.0) Red Blood Count 4.58 x10^6/uL (3.50-5.40) Hemoglobin 13.3 g/dL (12.0-15.5) Hematocrit 40.1 % (36.0-47.0) Mean Corpuscular Volume 88 fL (79-100) Mean Corpuscular Hemoglobin 29 pg (25-35) Mean Corpuscular Hemoglobin Concent 33 g/dL (31-37) Red Cell Distribution Width 14.2 % (11.5-14.5) Platelet Count 262 x10^3/uL (140-400) Neutrophils (%) (Auto) 78 % (31-73) Lymphocytes (%) (Auto) 17 % (24-48) Monocytes (%) (Auto) 5 % (0-9) Eosinophils (%) (Auto) 0 % (0-3) Basophils (%) (Auto) 1 % (0-3) Neutrophils # (Auto) 15.7 x10^3uL (1.8-7.7) Lymphocytes # (Auto) 3.3 x10^3/uL (1.0-4.8) Monocytes # (Auto) 1.0 x10^3/uL (0.0-1.1) Eosinophils # (Auto) 0.1 x10^3/uL (0.0-0.7) Basophils # (Auto) 0.2 x10^3/uL (0.0-0.2) Segmented Neutrophils % 72 % (35-66) Band Neutrophils % 1 % (0-9) Lymphocytes % 21 % (24-48) Monocytes % 5 % (0-10) Eosinophils % 1 % (0-5) Platelet Estimate Adequate (ADEQUATE) Test 07/25/16 08:07 07/25/16 11:56 Glucose (Fingerstick) 213 mg/dL (70-99) 277 mg/dL (70-99) Medications Current Medications Albuterol/ Ipratropium (Duoneb) 3 ml 1X ONCE NEB Last administered on 21:00; Start 07/23/16 at 21:30; Stop 07/23/16 at 21:31; Status DC Lidocaine HCl (Xylocaine-Mpf 1% Vial) 2 ml 1X PRN PRN ID FOR PIC LINE INSERTION ; Start 07/23/16 at 23:45; Stop 07/24/16 at 23:44; Status DC Sodium Chloride (Normal Saline Flush) 20 ml 1X PRN PRN IV PER PROTOCOL; Start 07/23/16 at 23:45; Stop 07/24/16 at 23:44; Status DC Lidocaine/ Prilocaine (Emla) 1 melissa 1X ONCE TP ; Start 07/24/16 at 00:00; Stop 07/24/16 at 00:01; Status DC Albuterol/ Ipratropium (Duoneb) 3 ml 1X ONCE NEB Last administered on 00:18; Start 07/24/16 at 00:15; Stop 07/24/16 at 00:16; Status DC Prednisone (Prednisone) 60 mg 1X ONCE PO Last administered on 07/24/16 02:21 ; Start 07/24/16 at 00:30; Stop 07/24/16 at 00:31; Status DC Ondansetron HCl (Zofran) 4 mg PRN Q8HRS PRN IM NAUSEA/VOMITING; Start 07/24/16 at 00:45; Stop 07/25/16 at 00:44; Status DC Albuterol/ Ipratropium (Duoneb) 3 ml PRN Q4HRS PRN NEB SHORTNESS OF BREATH; Start 07/24/16 at 07:15; Stop 07/24/16 at 09:12; Status DC Oxycodone HCl (Roxicodone) 10 mg QIDPRN PRN PO PAIN; Start 07/24/16 at 07:15; Stop 07/24/16 at 09:13; Status DC Albuterol/ Ipratropium (Duoneb) 3 ml Q4HRS W/A NEB Last administered on 11:43; Start 07/24/16 at 10:00 Prednisone (Prednisone) 40 mg DAILY PO ; Start 07/24/16 at 09:00; Stop 07/24/16 at 09:15; Status DC Azithromycin (Zithromax) 500 mg 1X ONCE PO Last administered on 07/24/16 09: 15; Start 07/24/16 at 08:45; Stop 07/24/16 at 08:53; Status DC Azithromycin (Zithromax) 250 mg DAILY PO Last administered on 07/25/16 08:54; Start 07/25/16 at 09:00 Budesonide (Pulmicort) 0.5 mg RTBID NEB Last administered on 07/25/16 05:54; Start 07/24/16 at 09:00 Budesonide (Pulmicort) 0.5 mg 1X ONCE NEB ; Start 07/24/16 at 08:45; Stop 07/24 at 08:46; Status UNV Guaifenesin (Robitussin Dm) 10 ml PRN Q6HRS PRN PO COUGH Last administered on 05:25; Start 07/24/16 at 08:45 Throat Lozenges (Cepacol Sore Throat Lozenge) 1 kevin PRN Q2HRS PRN PO SORE THROAT; Start 07/24/16 at 08:45 Nicotine (Nicoderm Cq 7mg) 1 patch DAILY TD Last administered on 07/25/16 08: 58; Start 07/24/16 at 09:00 Amlodipine Besylate (Norvasc) 5 mg DAILY PO Last administered on 07/25/16 08: 55; Start 07/24/16 at 09:00 Aripiprazole (Abilify) 5 mg DAILY PO Last administered on 07/25/16 08:56; Start 07/24/16 at 09:00 Cetirizine HCl (ZyrTEC) 10 mg DAILY PO Last administered on 07/25/16 08:54; Start 07/24/16 at 09:00 Clopidogrel Bisulfate (Plavix) 75 mg DAILY PO Last administered on 07/25/16 08 :55; Start 07/24/16 at 09:00 Digoxin (Lanoxin) 125 mcg DAILY PO Last administered on 07/25/16 08:56; Start 07/24/16 at 09:00 Fluticasone Propionate (Flonase) 2 spray DAILY NS Last administered on 08:57; Start 07/24/16 at 09:00 Furosemide (Lasix) 40 mg DAILY PO Last administered on 07/24/16 09:15; Start 07/24/16 at 09:00; Stop 07/24/16 at 11:00; Status DC Insulin Aspart (NovoLOG) 50 units TIDWMEALS SQ Last administered on 07/25/16 12:09; Start 07/24/16 at 12:00 Levothyroxine Sodium (Synthroid) 150 mcg DAILY07 PO Last administered on 05:26; Start 07/24/16 at 10:30 Oxcarbazepine (Trileptal) 300 mg HS PO Last administered on 07/24/16 20:42; Start 07/24/16 at 21:00 Pantoprazole Sodium (Protonix) 40 mg DAILYAC PO Last administered on 07/25/16 05:25; Start 07/24/16 at 11:30 Sotalol HCl (Betapace) 80 mg BID PO Last administered on 07/25/16 08:56; Start 07/24/16 at 09:00 Sucralfate (Carafate) 1 gm QIDACHS PO Last administered on 07/25/16 12:01; Start 07/24/16 at 11:30 Gabapentin (Neurontin) 600 mg QID PO Last administered on 07/25/16 12:01; Start 07/24/16 at 09:00 Insulin Detemir (Levemir) 72 units BID SQ Last administered on 07/25/16 09:13 ; Start 07/24/16 at 21:00 Losartan Potassium (Cozaar) 100 mg DAILY PO Last administered on 07/25/16 08: 55; Start 07/24/16 at 09:00 Ondansetron HCl (Zofran Odt) 4 mg PRN Q6HRS PRN PO NAUSEA/VOMITING; Start 07/24 at 09:15 Oxycodone HCl (Roxicodone) 10 mg PRN QID PRN PO PAIN Last administered on 17:06; Start 07/24/16 at 09:15 Venlafaxine HCl (Effexor Xr) 75 mg DAILY PO Last administered on 07/25/16 08: 54; Start 07/24/16 at 09:15 Prednisone (Prednisone) 40 mg DAILY PO Last administered on 07/25/16 08:54; Start 07/25/16 at 09:00; Stop 07/25/16 at 10:38; Status DC Methylprednisolone Sodium Succinate (SOLU-Medrol 125MG VIAL) 125 mg 1X ONCE IV Last administered on 07/24/16 09:39; Start 07/24/16 at 09:15; Stop 07/24/16 at 09:30; Status DC Furosemide (Lasix) 40 mg DAILY PO ; Start 07/26/16 at 09:00 Furosemide (Lasix) 40 mg 1X ONCE IVP Last administered on 07/24/16 16:16; Start 07/24/16 at 16:00; Stop 07/24/16 at 16:01; Status DC Furosemide (Lasix) 40 mg DAILY IVP Last administered on 07/25/16 08:56; Start 07/25/16 at 09:00; Stop 07/25/16 at 10:00; Status DC Insulin Detemir (Levemir) 72 units 1X ONCE SQ Last administered on 07/24/16 11:50; Start 07/24/16 at 11:45; Stop 07/24/16 at 11:46; Status DC Lorazepam (Ativan) 1 mg PRN Q12HR PRN IV ANXIETY / AGITATION Last administered on 07/24/16 13:10; Start 07/24/16 at 12:30 Enoxaparin Sodium (Lovenox 40mg Syringe) 40 mg Q24H SQ ; Start 07/24/16 at 17:00 ; Status Cancel Enoxaparin Sodium (Lovenox 40mg Syringe) 40 mg Q12H SQ Last administered on 08:58; Start 07/24/16 at 19:00 Metronidazole (Flagyl) 500 mg TID PO Last administered on 07/25/16 14:42; Start 07/24/16 at 22:30 Methylprednisolone Sodium Succinate (SOLU-Medrol 40MG VIAL) 40 mg Q8HRS IV Last administered on 07/25/16 14:43; Start 07/25/16 at 11:00 Furosemide (Lasix) 20 mg 1X ONCE IVP Last administered on 07/25/16 12:01; Start 07/25/16 at 11:30; Stop 07/25/16 at 11:31; Status DC Montelukast Sodium (Singulair) 10 mg QHS PO ; Start 07/25/16 at 21:00 Active Scripts Active Oxycodone Hcl 10 Mg Tablet 1 Tab PO QID PRN Novolog Flexpen (Insulin Aspart) 100 Unit/1 Ml Insuln.pen 50 Units SQ TIDWMEALS Sucralfate 1 Gm/10 Ml Oral.susp 1 Gm PO QIDACHS Pantoprazole Sodium 40 Mg Tablet.dr 40 Mg PO DAILYAC Furosemide 40 Mg Tablet 1 Tab PO DAILY Mupirocin Ointment (Mupirocin) 22 Gm Oint...g. 22 Gm TP PRN TID PRN Toujeo Solostar (Insulin Glargine,Hum.rec.anlog) 300 Unit/1 Ml Insuln.pen 90 Unit SQ BID Zofran (Ondansetron Hcl) 4 Mg Tablet 1 Tab PO PRN Q6-8HRS Spiriva (Tiotropium Napavine) 18 Mcg Cap.w.dev 1 Cap IH DAILY Xopenex (Levalbuterol Hcl) 1.25 Mg/3 Ml Vial.neb 1 Vial NEB TID Fenofibrate (Fenofibrate Nanocrystallized) 145 Mg Tablet 1 Tab PO DAILY Losartan Potassium 100 Mg Tablet 100 Mg PO DAILY Sotalol (Sotalol Hcl) 80 Mg Tablet 80 Mg PO BID Symbicort 160-4.5 Mcg Inhaler (Budesonide/Formoterol Fumarate) 10.2 Gm Hfa.aer.ad 2 Puff IH BID Reported Levothyroxine Sodium 175 Mcg Tablet 1 Tab PO DAILY Levothyroxine Sodium 150 Mcg Tablet 1 Tab PO DAILY Vitamin D2 (Ergocalciferol (Vitamin D2)) 50,000 Unit Capsule 50,000 Unit PO Venlafaxine Hcl Er (Venlafaxine Hcl) 75 Mg Cap.er.24h 1 Cap PO DAILY Anti-Diarrhea (Loperamide Hcl) 2 Mg Tablet 2 Mg PO PRN PRN Fluticasone Propionate Nasal [employer] (Fluticasone Propionate) 16 Gm [employer].susp 2 [employer] NS DAILY Vitamin D3 (Cholecalciferol (Vitamin D3)) 1,000 Unit Tablet 1,000 Unit PO Amlodipine Besylate 5 Mg Tablet 5 Mg PO DAILY Nystatin 15 Gm Powder 1 Melissa TP BID Melatonin 3 Mg Tablet 5 Mg PO Digoxin 125 Mcg Tablet 1 Tab PO DAILY Oxcarbazepine 300 Mg Tablet 1 Tab PO HS Gabapentin 600 Mg Tablet 600 Mg PO QID Abilify (Aripiprazole) 5 Mg Tablet 5 Mg PO DAILY Plavix (Clopidogrel Bisulfate) 75 Mg Tablet 75 Mg PO DAILY Cetirizine Hcl 10 Mg Tablet 10 Mg PO DAILY Vitals/I & O Vital Sign - Last 24 Hours 07/24/16 07/24/16 07/24/16 07/24/16 17:06 17:31 19:00 20:00 Temp 98.9 98.9 Pulse 77 Resp 18 19 B/P (MAP) 131/82 (98) Pulse Ox 93 92 O2 Delivery Nasal Cannula Nasal Cannula Nasal Cannula Nasal Cannula O2 Flow Rate 2.0 3.0 2.0 2.0 07/24/16 07/24/16 07/24/16 07/24/16 20:15 20:18 20:42 22:43 Temp 98.6 98.6 Pulse 77 84 Resp 18 B/P (MAP) 131/82 109/60 (76) Pulse Ox 96 O2 Delivery Nasal Cannula Nasal Cannula Nasal Cannula O2 Flow Rate 3.0 3.0 2.0 07/25/16 07/25/16 07/25/16 07/25/16 03:00 05:45 07:50 08:00 Temp 97.8 97.6 97.8 97.6 Pulse 76 68 Resp 19 18 B/P (MAP) 140/86 (104) 132/82 (99) Pulse Ox 95 92 97 O2 Delivery Nasal Cannula Nasal Cannula Nasal Cannula Nasal Cannula O2 Flow Rate 2.0 3.0 2.0 3.0 07/25/16 07/25/16 07/25/16 07/25/16 08:55 08:55 08:56 08:56 Pulse 68 68 68 68 B/P (MAP) 132/82 132/82 132/82 132/82 07/25/16 07/25/16 11:00 11:43 Temp 97.8 97.8 Pulse 72 Resp 18 B/P (MAP) 132/81 (98) Pulse Ox 98 98 O2 Delivery Nasal Cannula Nasal Cannula O2 Flow Rate 2.0 3.0 Intake and Output 07/24/16 07/24/16 07/25/16 15:00 23:00 07:00 Intake Total 360 ml 480 ml 300 ml Balance 360 ml 480 ml 300 ml SHONA ONEAL MD Jul 25, 2016 15:07
[2016-07-25 19:00] VITALS: BP 134/62
[2016-07-25] MEDS ORDERED: INSULIN ASPART 300 UNITS/3 ML INSULN.PEN SQ ONE (20:45)
[2016-07-25] MEDS: MONTELUKAST SODIUM 10 MG TABLET. PO SCH (20:53)
[2016-07-25] MEDS: OXcarbazepine 300 MG TABLET PO SCH (20:53)
[2016-07-25 23:01] VITALS: BP 132/75
[2016-07-26 03:03] VITALS: BP 138/81
[2016-07-26] MEDS: methylPREDNISolone SOD SUCC PF 40 MG/ML VIAL. IV SCH ×3 (05:49→20:35)
[2016-07-26 07:00] VITALS: BP 134/83
[2016-07-26] MEDS: IPRATRPIUM/ALBUTEROL 0.5/2.5MG 3 ML NEBU. NEB SCH ×5 (07:36→22:00)
[2016-07-26] MEDS: BUDESONIDE 0.5 MG/2 ML NEBU. NEB SCH ×2 (07:36→20:00)
[2016-07-26] MEDS: GABAPENTIN 300 MG CAPSULE. PO SCH ×4 (08:27→20:35)
[2016-07-26] MEDS: VENLAFAXINE XR 37.5 MG CAP.ER.24H. PO SCH (08:28)
[2016-07-26] MEDS: FUROSEMIDE 40 MG TABLET. PO SCH (08:28)
[2016-07-26] MEDS: SUCRALFATE 1 GM/10 ML ORAL.SUSP. PO SCH ×4 (08:28→20:35)
[2016-07-26] MEDS: PANTOPRAZOLE 40 MG TABLET.DR. PO SCH (08:28)
[2016-07-26] MEDS: amLODIPine BESYLATE 5 MG TABLET PO SCH (08:28)
[2016-07-26] MEDS: CLOPIDOGREL BISULFATE 75 MG TABLET PO SCH (08:29)
[2016-07-26] MEDS: metroNIDAZOLE 500 MG TABLET PO SCH ×3 (08:29→20:37)
[2016-07-26] MEDS: ARIPiprazole 5 MG TABLET PO SCH (08:29)
[2016-07-26] MEDS: SOTALOL 80 MG TABLET. PO SCH ×2 (08:29→20:37)
[2016-07-26] MEDS: AZITHROMYCIN 250 MG TABLET. PO SCH (08:29)
[2016-07-26] MEDS: LEVOTHYROXINE 150 MCG TABLET PO SCH (08:29)
[2016-07-26] MEDS: CETIRIZINE HCL 10 MG TABLET. PO SCH (08:29)
[2016-07-26] MEDS: LOSARTAN POTASSIUM 50 MG TABLET. PO SCH (08:30)
[2016-07-26] MEDS: DIGOXIN 125 MCG TABLET. PO SCH (08:30)
[2016-07-26] MEDS: ENOXAPARIN 40 MG/0.4 ML SYRINGE. SQ SCH ×2 (08:30→20:35)
[2016-07-26] MEDS: NICOTINE 7MG PATCH. TD SCH (08:31)
[2016-07-26] MEDS: FLUTICASONE 50MCG/NASAL SPRAY 16GM BOTTLE. NS SCH (08:48)
[2016-07-26] MEDS: INSULIN ASPART 300 UNITS/3 ML INSULN.PEN SQ SCH ×3 (10:05→16:38)
[2016-07-26] MEDS: INSULIN DETEMIR 300 UNITS/3 ML INSULN.PEN. SQ SCH ×2 (10:06→20:49)
[2016-07-26 10:47] VITALS: BP 141/91
--- NOTE | 2016-07-26 12:38 | PDOC ---
CARDIO Progress Notes Date and Time Date of Service 07/26/2016 Time of Evaluation 1030 Subjective Subjective: No Chest Pain, No shortness of breath, No Palpitations, No Dizziness, Other (appetite better, denies any discomfort, wants to go home) Vitals Vitals Vital Signs Date Time Temp Pulse Resp B/P (MAP) Pulse Ox O2 Delivery O2 Flow Rate FiO2 07/26/16 11:38 96 Nasal Cannula 3.0 07/26/16 10:47 98.1 75 20 141/91 (108) 98.1 Weight Weight [ ] Input and Output Intake and Output Intake and Output 07/26/16 07:00 Intake Total 600 ml Output Total 2050 ml Balance -1450 ml Intake Oral 600 ml Output Urine Total 2050 ml # Voids 6 Laboratory Labs Laboratory Tests Test 07/25/16 16:03 07/25/16 20:11 07/26/16 07:59 07/26/16 11:28 Glucose (Fingerstick) 321 mg/dL (70-99) 483 mg/dL (70-99) 367 mg/dL (70-99) 516 mg/dL (70-99) Test 07/26/16 11:44 Glucose (Fingerstick) 461 mg/dL (70-99) Physical Exam HEENT: Neck Supple W Full Motion Chest: Symmetric LUNGS: Other (diminished bases) Heart: S1S2, RRR (SR) Abdomen: Soft N/T Extremities: No Calf Tenderness, Other (2+ bilateral LE pitting edema) Neurology: alert, oriented, follow commands Assessment Assessment 1. AECOPD/SCOTT/pulmonary HTN with continued tobaccoism: uses continuous O2 3LPM at home. No CPAP use. SOA much better 2. Acute on chronic diastolic CHF: compensated 3. Chest tightness: doubt ACS. Likely bronchospasm. No further occurrences. EKG SR no acute changes, troponin normal. [facility] 03/2013 normal coronaries 4. Hx of AFIB?: on home sotalol/dig but no OAC/NOAC, only on plavix. NO AFIB episodes during inpt stay 5. Morbid obesity: BMI 48. 6. DM2: uncontrolled with underlying steroid use 7. HTN: controlled 8. HLP: controlled 9. UTI Recommendations 1. Continue with PO lasix, TTE pending for today. Repeat EKG, Caution with QT prolonging meds with use of sotalol. 2. Follow pulmonary recommendation 3. Discussed lifestyle modifications 4. No EMR rhythm evidence of AFIB. No OAC/NOAC, allergic to ASA notable for hives. Plan for outpt event monitor. F/U 1 wk after event monitor completion. If no evidence of AFIB then will need to discontinue sotalol 5. Continue with secondary prevention. Will follow as needed BRANDEN LEWIS [employer] STRAIGHTENER Jul 26, 2016 12:38
--- NOTE | 2016-07-26 13:01 | EKG ---
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 POSSIBLY ABNORMAL ECG RI6.01 Compared to ECG 07/23/2016 21:10:34 ST (T wave) deviation no longer present Electronically Signed On 07-28-2016 11:14:55 CDT by Shukri Mckinnon
--- NOTE | 2016-07-26 13:56 | CARD ---
APPROVED REPORT EXAM: Two-dimensional and M-mode echocardiogram with Doppler and color Doppler. Other Information Quality : GoodHR: 79bpm Rhythm : NSR INDICATION Congestive Heart Failure RISK FACTORS Obesity 2D DIMENSIONS RVDd2.8 (2.9-3.5cm)Left Atrium(2D)3.6 (1.6-4.0cm) IVSd1.0 (0.7-1.1cm)Aortic Root(2D)2.9 (2.0-3.7cm) LVDd4.7 (3.9-5.9cm)LVOT Diameter2.4 (1.8-2.4cm) PWd1.0 (0.7-1.1cm)LVDs3.0 (2.5-4.0cm) FS (%) 36.4 %SV67.8 ml LVEF(%)66.1 (>50%) Aortic Valve AoV Peak Ion.151.0cm/sAoV VTI35.4cm AO Peak GR.9.1mmHgLVOT Peak Ion.129.6cm/s AO Mean GR.5mmHgAVA (VMAX)3.99cm2 Mitral Valve MV E Ctpgkmeq29.5cm/sMV E Peak Gr.4mmHg MV DECEL [id number] A Bluozzjw765.4cm/s MV E Mean Gr.2mmHgE/A Ratio0.7 MV A Uwwglwwg20wu Pulmonary Valve PV Peak Rkxbiqyd429.3cm/s Tricuspid Valve TR P. Vvwtezyp331xm/sTR Peak Gr.27mmHg Pulmonary Vein S1 Nbhtondr01.1cm/sD2 Grsacakf56.2cm/s PVa [id number] LEFT VENTRICLE The left ventricle is normal size. There is normal left ventricular wall thickness. The left ventricu lar systolic function is normal and the ejection fraction is within normal range. The Ejection Fracti on is 60-65%. There is normal LV segmental wall motion. The left ventricular diastolic function and f illing is normal for age. RIGHT VENTRICLE The right ventricle is normal size. There is normal right ventricular wall thickness. The right ventr icular systolic function is normal. ATRIA The left atrium size is normal. The right atrium size is normal. The interatrial septum is intact wit h no evidence for an atrial septal defect or patent foramen ovale as noted on 2-D or Doppler imaging. AORTIC VALVE The aortic valve is thickened. The aortic valve is trileaflet. Doppler and Color Flow revealed no sig nificant aortic regurgitation. There is no significant aortic valvular stenosis. MITRAL VALVE The mitral valve leaflets are mildly thickened. There is no evidence of mitral valve prolapse. There is no mitral valve stenosis. Doppler and Color Flow revealed trace mitral regurgitation. TRICUSPID VALVE Doppler and Color Flow revealed trace tricuspid regurgitation. The pulmonary artery systolic pressure is estimated at 30 mmHg. PULMONIC VALVE Doppler and Color Flow revealed no pulmonic valvular regurgitation. There is no pulmonic valvular yu nosis. GREAT VESSELS The aortic root is normal in size. The ascending aorta is normal in size. The IVC is normal in size a nd collapses >50% with inspiration. PERICARDIAL EFFUSION There is no evidence of significant pericardial effusion. Critical Notification Critical Value: No <Conclusion> The left ventricular systolic function is normal and the ejection fraction is within normal range. Th e Ejection Fraction is 60-65%. There is normal LV segmental wall motion.
[2016-07-26 15:00] VITALS: BP 122/73
--- NOTE | 2016-07-26 15:13 | PDOC ---
PULMONARY PROGRESS NOTES Subjective Pt feels better less soa Vitals Vital Signs Date Time Temp Pulse Resp B/P (MAP) Pulse Ox O2 Delivery O2 Flow Rate FiO2 07/26/16 11:38 96 Nasal Cannula 3.0 07/26/16 10:47 98.1 75 20 141/91 (108) 98.1 ROS: No Nausea General: Alert HEENT: Other (nc at perrl, shallow oropharynx, nose clear. neck, +jvd, no thyromegaly) Lungs: Clear Cardiovascular: S1, S2 Abdomen: Soft, Non-tender Neuro Exam: Alert Extremities: Other (edema) Skin: Warm Labs Laboratory Tests Test 07/24/16 16:02 07/24/16 20:45 07/25/16 05:00 07/25/16 05:11 Glucose (Fingerstick) 292 mg/dL (70-99) 265 mg/dL (70-99) Sodium Level 138 mmol/L (136-145) Potassium Level 3.9 mmol/L (3.5-5.1) Chloride Level 101 mmol/L (98-107) Carbon Dioxide Level 31 mmol/L (21-32) Anion Gap 6 (6-14) Blood Urea Nitrogen 26 mg/dL (7-20) Creatinine 1.0 mg/dL (0.6-1.0) Estimated GFR (Cockcroft-Gault) 57.4 BUN/Creatinine Ratio 26 (6-20) Glucose Level 235 mg/dL (70-99) Calcium Level 9.4 mg/dL (8.5-10.1) Total Bilirubin 0.3 mg/dL (0.2-1.0) Aspartate Amino Transf (AST/SGOT) 22 U/L (15-37) Alanine Aminotransferase (ALT/SGPT) 26 U/L (14-59) Alkaline Phosphatase 116 U/L (46-116) Total Protein 7.2 g/dL (6.4-8.2) Albumin 2.7 g/dL (3.4-5.0) Albumin/Globulin Ratio 0.6 (1.0-1.7) White Blood Count 20.2 x10^3/uL (4.0-11.0) Red Blood Count 4.58 x10^6/uL (3.50-5.40) Hemoglobin 13.3 g/dL (12.0-15.5) Hematocrit 40.1 % (36.0-47.0) Mean Corpuscular Volume 88 fL (79-100) Mean Corpuscular Hemoglobin 29 pg (25-35) Mean Corpuscular Hemoglobin Concent 33 g/dL (31-37) Red Cell Distribution Width 14.2 % (11.5-14.5) Platelet Count 262 x10^3/uL (140-400) Neutrophils (%) (Auto) 78 % (31-73) Lymphocytes (%) (Auto) 17 % (24-48) Monocytes (%) (Auto) 5 % (0-9) Eosinophils (%) (Auto) 0 % (0-3) Basophils (%) (Auto) 1 % (0-3) Neutrophils # (Auto) 15.7 x10^3uL (1.8-7.7) Lymphocytes # (Auto) 3.3 x10^3/uL (1.0-4.8) Monocytes # (Auto) 1.0 x10^3/uL (0.0-1.1) Eosinophils # (Auto) 0.1 x10^3/uL (0.0-0.7) Basophils # (Auto) 0.2 x10^3/uL (0.0-0.2) Segmented Neutrophils % 72 % (35-66) Band Neutrophils % 1 % (0-9) Lymphocytes % 21 % (24-48) Monocytes % 5 % (0-10) Eosinophils % 1 % (0-5) Platelet Estimate Adequate (ADEQUATE) Test 07/25/16 08:07 07/25/16 11:56 07/25/16 16:03 07/25/16 20:11 Glucose (Fingerstick) 213 mg/dL (70-99) 277 mg/dL (70-99) 321 mg/dL (70-99) 483 mg/dL (70-99) Test 07/26/16 07:59 07/26/16 11:28 07/26/16 11:44 Glucose (Fingerstick) 367 mg/dL (70-99) 516 mg/dL (70-99) 461 mg/dL (70-99) Laboratory Tests Test 07/25/16 16:03 07/25/16 20:11 07/26/16 07:59 07/26/16 11:28 Glucose (Fingerstick) 321 mg/dL (70-99) 483 mg/dL (70-99) 367 mg/dL (70-99) 516 mg/dL (70-99) Test 07/26/16 11:44 Glucose (Fingerstick) 461 mg/dL (70-99) Medications Active Scripts Medications Dose Route/Sig Max Daily Dose Days Date Category Levothyroxine Sodium 175 Mcg Tablet 1 Tab PO DAILY 07/24/16 Reported Levothyroxine Sodium 150 Mcg Tablet 1 Tab PO DAILY 07/24/16 Reported Vitamin D2 (Ergocalciferol (Vitamin D2)) 50,000 Unit Capsule 50,000 Unit PO 07/24/16 Reported Venlafaxine Hcl Er (Venlafaxine Hcl) 75 Mg Cap.er.24h 1 Cap PO DAILY 07/24/16 Reported Anti-Diarrhea (Loperamide Hcl) 2 Mg Tablet 2 Mg PO PRN PRN 07/24/16 Reported Fluticasone Propionate Nasal [place] (Fluticasone Propionate) 16 Gm [place].susp 2 [place] NS DAILY 07/24/16 Reported Vitamin D3 (Cholecalciferol (Vitamin D3)) 1,000 Unit Tablet 1,000 Unit PO 07/24/16 Reported Amlodipine Besylate 5 Mg Tablet 5 Mg PO DAILY 07/24/16 Reported Nystatin 15 Gm Powder 1 [place] TP BID 07/24/16 Reported Melatonin 3 Mg Tablet 5 Mg PO 07/24/16 Reported Oxycodone Hcl 10 Mg Tablet 1 Tab PO QID PRN 01/20/16 Rx Novolog Flexpen (Insulin Aspart) 100 Unit/1 Ml Insuln.pen 50 Units SQ TIDWMEALS 01/20/16 Rx Sucralfate 1 Gm/10 Ml Oral.susp 1 Gm PO QIDACHS 01/20/16 Rx Pantoprazole Sodium 40 Mg Tablet.dr 40 Mg PO DAILYAC 01/20/16 Rx Furosemide 40 Mg Tablet 1 Tab PO DAILY 01/20/16 Rx Mupirocin Ointment (Mupirocin) 22 Gm Oint...g. 22 Gm TP PRN TID PRN 01/20/16 Rx Toujeo Solostar (Insulin Glargine,Hum.rec.anlog) 300 Unit/1 Ml Insuln.pen 90 Unit SQ BID 12/03/15 Rx Zofran (Ondansetron Hcl) 4 Mg Tablet 1 Tab PO PRN Q6-8HRS 11/10/15 Rx Spiriva (Tiotropium [place]) 18 Mcg Cap.w.dev 1 Cap IH DAILY 10/30/15 Rx Xopenex (Levalbuterol Hcl) 1.25 Mg/3 Ml Vial.neb 1 Vial NEB TID 10/30/15 Rx Fenofibrate (Fenofibrate Nanocrystallized) 145 Mg Tablet 1 Tab PO DAILY 10/30/15 Rx Losartan Potassium 100 Mg Tablet 100 Mg PO DAILY 07/15/15 Rx Sotalol (Sotalol Hcl) 80 Mg Tablet 80 Mg PO BID 07/15/15 Rx Digoxin 125 Mcg Tablet 1 Tab PO DAILY 06/19/14 Reported Symbicort 160-4.5 Mcg Inhaler (Budesonide/Formoterol Fumarate) 10.2 Gm Hfa.aer.ad 2 Puff IH BID 06/13/14 Rx Oxcarbazepine 300 Mg Tablet 1 Tab PO HS 04/15/14 Reported Gabapentin 600 Mg Tablet 600 Mg PO QID 08/29/13 Reported Abilify (Aripiprazole) 5 Mg Tablet 5 Mg PO DAILY 04/02/13 Reported Plavix (Clopidogrel Bisulfate) 75 Mg Tablet 75 Mg PO DAILY 04/02/13 Reported Cetirizine Hcl 10 Mg Tablet 10 Mg PO DAILY 04/02/13 Reported Comments cxr reviewed. mild volume overload. No confluent infiltrates. Impression . 1. Acute respiratory failure, multifactorial in etiology including acute exacerbation of chronic obstructive pulmonary disease, acute bronchitis 2. Abnormal chest x-ray sec to pulmonary edema 3. Acute exacerbation of chronic obstructive pulmonary disease. 4. Morbid obesity 5. Obstructive sleep apnea-hypopnea syndrome. 6. Smoker. 7. Diabetes mellitus. Plan . 1. Improving home in am with taper pred ok 2. Bronchodilator. 3. Inhaled corticosteroid. 4. change prednisone to solumedrol. 5. Continue antibiotic. 6. Lovenox for DVT prophylaxis. 7. Continue Protonix for stress ulcer prophylaxis. 8. stop smoking forever. 9. Lose weight. 10. declined sleep study 11. add singulair 12. repeat cxr BEAR FAN MD Jul 26, 2016 15:13
[2016-07-26] MEDS: oxyCODONE IR 5 MG TABLET PO PRN ×2 (16:33→20:36)
[2016-07-26 19:00] VITALS: BP 120/72
[2016-07-26] MEDS: OXcarbazepine 300 MG TABLET PO SCH (20:37)
[2016-07-26] MEDS: MONTELUKAST SODIUM 10 MG TABLET. PO SCH (20:37)
[2016-07-26] MEDS: guaiFENesin DM 200MG/20MG 10 ML SYRUP PO PRN (20:39)
[2016-07-26 23:00] VITALS: BP 120/73
--- NOTE | 2016-07-26 23:20 | PDOC ---
PROGRESS NOTES Chief Complaint Chief Complaint COPD, acute bronchitis, w/ exacerbation pleuritic pain, pain with coughing, add 2 anti-tussives acute on chronic combined CHF c. diff colitis morbid obesity, BMI 48 ongoing tobaccoism UTI, , History of Present Illness History of Present Illness cont IV steroids Pulm consult following IV lasix given daily Wants to use camode now DW RN Vitals Vitals Vital Signs Date Time Temp Pulse Resp B/P (MAP) Pulse Ox O2 Delivery O2 Flow Rate FiO2 07/26/16 21:36 16 97 Nasal Cannula 2.0 07/26/16 20:37 66 122/73 07/26/16 19:00 98.1 98.1 Physical Exam General: Alert, Oriented X3, Cooperative, No acute distress Heart: Regular rate (SR no ectopies), Normal S1, Normal S2, Other (distant heart sounds) Lungs: Clear Abdomen: Soft, No tenderness, Other (obesity) Extremities: No cyanosis, Other (2+ bilateral LE pitting edema) Skin: Other (multiple scabs to legs complain of pruritus. ) Labs LABS Laboratory Tests Test 07/26/16 07:59 07/26/16 11:28 07/26/16 11:44 07/26/16 16:34 Glucose (Fingerstick) 367 mg/dL (70-99) 516 mg/dL (70-99) 461 mg/dL (70-99) 189 mg/dL (70-99) Test 07/26/16 20:41 Glucose (Fingerstick) 172 mg/dL (70-99) Review of Systems Review of Systems co weakness co pain Assessment and Plan Assessmemt and Plan COPD, acute bronchitis, w/ exacerbation pleuritic pain, pain with coughing, add 2 anti-tussives acute on chronic combined CHF c. diff colitis morbid obesity, BMI 48 ongoing tobaccoism UTI, , Plan IV steroids Nebs PTOT Home meds Recheck Labs SNU eval? Problems: Comment Review of Relevant I have reviewed the following items prudence (where applicable) has been applied. Labs Laboratory Tests Test 07/25/16 05:00 07/25/16 05:11 07/25/16 08:07 07/25/16 11:56 Sodium Level 138 mmol/L (136-145) Potassium Level 3.9 mmol/L (3.5-5.1) Chloride Level 101 mmol/L (98-107) Carbon Dioxide Level 31 mmol/L (21-32) Anion Gap 6 (6-14) Blood Urea Nitrogen 26 mg/dL (7-20) Creatinine 1.0 mg/dL (0.6-1.0) Estimated GFR (Cockcroft-Gault) 57.4 BUN/Creatinine Ratio 26 (6-20) Glucose Level 235 mg/dL (70-99) Calcium Level 9.4 mg/dL (8.5-10.1) Total Bilirubin 0.3 mg/dL (0.2-1.0) Aspartate Amino Transf (AST/SGOT) 22 U/L (15-37) Alanine Aminotransferase (ALT/SGPT) 26 U/L (14-59) Alkaline Phosphatase 116 U/L (46-116) Total Protein 7.2 g/dL (6.4-8.2) Albumin 2.7 g/dL (3.4-5.0) Albumin/Globulin Ratio 0.6 (1.0-1.7) White Blood Count 20.2 x10^3/uL (4.0-11.0) Red Blood Count 4.58 x10^6/uL (3.50-5.40) Hemoglobin 13.3 g/dL (12.0-15.5) Hematocrit 40.1 % (36.0-47.0) Mean Corpuscular Volume 88 fL (79-100) Mean Corpuscular Hemoglobin 29 pg (25-35) Mean Corpuscular Hemoglobin Concent 33 g/dL (31-37) Red Cell Distribution Width 14.2 % (11.5-14.5) Platelet Count 262 x10^3/uL (140-400) Neutrophils (%) (Auto) 78 % (31-73) Lymphocytes (%) (Auto) 17 % (24-48) Monocytes (%) (Auto) 5 % (0-9) Eosinophils (%) (Auto) 0 % (0-3) Basophils (%) (Auto) 1 % (0-3) Neutrophils # (Auto) 15.7 x10^3uL (1.8-7.7) Lymphocytes # (Auto) 3.3 x10^3/uL (1.0-4.8) Monocytes # (Auto) 1.0 x10^3/uL (0.0-1.1) Eosinophils # (Auto) 0.1 x10^3/uL (0.0-0.7) Basophils # (Auto) 0.2 x10^3/uL (0.0-0.2) Segmented Neutrophils % 72 % (35-66) Band Neutrophils % 1 % (0-9) Lymphocytes % 21 % (24-48) Monocytes % 5 % (0-10) Eosinophils % 1 % (0-5) Platelet Estimate Adequate (ADEQUATE) Glucose (Fingerstick) 213 mg/dL (70-99) 277 mg/dL (70-99) Test 07/25/16 16:03 07/25/16 20:11 07/26/16 07:59 07/26/16 11:28 Glucose (Fingerstick) 321 mg/dL (70-99) 483 mg/dL (70-99) 367 mg/dL (70-99) 516 mg/dL (70-99) Test 07/26/16 11:44 07/26/16 16:34 07/26/16 20:41 Glucose (Fingerstick) 461 mg/dL (70-99) 189 mg/dL (70-99) 172 mg/dL (70-99) Laboratory Tests Test 07/26/16 07:59 07/26/16 11:28 07/26/16 11:44 07/26/16 16:34 Glucose (Fingerstick) 367 mg/dL (70-99) 516 mg/dL (70-99) 461 mg/dL (70-99) 189 mg/dL (70-99) Test 07/26/16 20:41 Glucose (Fingerstick) 172 mg/dL (70-99) Medications Current Medications Albuterol/ Ipratropium (Duoneb) 3 ml 1X ONCE NEB Last administered on t 21:00; Start 07/23/16 at 21:30; Stop 07/23/16 at 21:31; Status DC Lidocaine HCl (Xylocaine-Mpf 1% Vial) 2 ml 1X PRN PRN ID FOR PIC LINE INSERTION ; Start 07/23/16 at 23:45; Stop 07/24/16 at 23:44; Status DC Sodium Chloride (Normal Saline Flush) 20 ml 1X PRN PRN IV PER PROTOCOL; Start 07/23/16 at 23:45; Stop 07/24/16 at 23:44; Status DC Lidocaine/ Prilocaine ([place]) 1 kiko 1X ONCE TP ; Start 07/24/16 at 00:00; Stop 07/24/16 at 00:01; Status DC Albuterol/ Ipratropium (Duoneb) 3 ml 1X ONCE NEB Last administered on 00:18; Start 07/24/16 at 00:15; Stop 07/24/16 at 00:16; Status DC Prednisone (Prednisone) 60 mg 1X ONCE PO Last administered on 07/24/16 02:21 ; Start 07/24/16 at 00:30; Stop 07/24/16 at 00:31; Status DC Ondansetron HCl (Zofran) 4 mg PRN Q8HRS PRN IM NAUSEA/VOMITING; Start 07/24/16 at 00:45; Stop 07/25/16 at 00:44; Status DC Albuterol/ Ipratropium (Duoneb) 3 ml PRN Q4HRS PRN NEB SHORTNESS OF BREATH; Start 07/24/16 at 07:15; Stop 07/24/16 at 09:12; Status DC Oxycodone HCl (Roxicodone) 10 mg QIDPRN PRN PO PAIN; Start 07/24/16 at 07:15; Stop 07/24/16 at 09:13; Status DC Albuterol/ Ipratropium (Duoneb) 3 ml Q4HRS W/A NEB Last administered on 11:36; Start 07/24/16 at 10:00 Prednisone (Prednisone) 40 mg DAILY PO ; Start 07/24/16 at 09:00; Stop 07/24/16 at 09:15; Status DC Azithromycin (Zithromax) 500 mg 1X ONCE PO Last administered on 07/24/16 09: 15; Start 07/24/16 at 08:45; Stop 07/24/16 at 08:53; Status DC Azithromycin (Zithromax) 250 mg DAILY PO Last administered on 07/26/16 08:29; Start 07/25/16 at 09:00 Budesonide (Pulmicort) 0.5 mg RTBID NEB Last administered on 07/26/16 07:36; Start 07/24/16 at 09:00 Budesonide (Pulmicort) 0.5 mg 1X ONCE NEB ; Start 07/24/16 at 08:45; Stop 07/24 at 08:46; Status UNV Guaifenesin (Robitussin Dm) 10 ml PRN Q6HRS PRN PO COUGH Last administered on 20:39; Start 07/24/16 at 08:45 Throat Lozenges (Cepacol Sore Throat Lozenge) 1 [place] PRN Q2HRS PRN PO SORE THROAT; Start 07/24/16 at 08:45 Nicotine (Nicoderm Cq 7mg) 1 patch DAILY TD Last administered on 07/26/16 08: 31; Start 07/24/16 at 09:00 Amlodipine Besylate (Norvasc) 5 mg DAILY PO Last administered on 07/26/16 08: 28; Start 07/24/16 at 09:00 Aripiprazole (Abilify) 5 mg DAILY PO Last administered on 07/26/16 08:29; Start 07/24/16 at 09:00 Cetirizine HCl (ZyrTEC) 10 mg DAILY PO Last administered on 07/26/16 08:29; Start 07/24/16 at 09:00 Clopidogrel Bisulfate (Plavix) 75 mg DAILY PO Last administered on 07/26/16 08 :29; Start 07/24/16 at 09:00 Digoxin (Lanoxin) 125 mcg DAILY PO Last administered on 07/26/16 08:30; Start 07/24/16 at 09:00 Fluticasone Propionate (Flonase) 2 spray DAILY NS Last administered on 08:48; Start 07/24/16 at 09:00 Furosemide (Lasix) 40 mg DAILY PO Last administered on 07/24/16 09:15; Start 07/24/16 at 09:00; Stop 07/24/16 at 11:00; Status DC Insulin Aspart (NovoLOG) 50 units TIDWMEALS SQ Last administered on 07/26/16 16:38; Start 07/24/16 at 12:00 Levothyroxine Sodium (Synthroid) 150 mcg DAILY07 PO Last administered on 08:29; Start 07/24/16 at 10:30 Oxcarbazepine (Trileptal) 300 mg HS PO Last administered on 07/26/16 20:37; Start 07/24/16 at 21:00 Pantoprazole Sodium (Protonix) 40 mg DAILYAC PO Last administered on 07/26/16 08:28; Start 07/24/16 at 11:30 Sotalol HCl (Betapace) 80 mg BID PO Last administered on 07/26/16 20:37; Start 07/24/16 at 09:00 Sucralfate (Carafate) 1 gm QIDACHS PO Last administered on 07/26/16 20:35; Start 07/24/16 at 11:30 Gabapentin (Neurontin) 600 mg QID PO Last administered on 07/26/16 20:35; Start 07/24/16 at 09:00 Insulin Detemir (Levemir) 72 units BID SQ Last administered on 07/26/16 20:49 ; Start 07/24/16 at 21:00 Losartan Potassium (Cozaar) 100 mg DAILY PO Last administered on 07/26/16 08: 30; Start 07/24/16 at 09:00 Ondansetron HCl (Zofran Odt) 4 mg PRN Q6HRS PRN PO NAUSEA/VOMITING; Start 07/24 at 09:15 Oxycodone HCl (Roxicodone) 10 mg PRN QID PRN PO PAIN Last administered on 20:36; Start 07/24/16 at 09:15 Venlafaxine HCl (Effexor Xr) 75 mg DAILY PO Last administered on 07/26/16 08: 28; Start 07/24/16 at 09:15 Prednisone (Prednisone) 40 mg DAILY PO Last administered on 07/25/16 08:54; Start 07/25/16 at 09:00; Stop 07/25/16 at 10:38; Status DC Methylprednisolone Sodium Succinate (SOLU-Medrol 125MG VIAL) 125 mg 1X ONCE IV Last administered on 07/24/16 09:39; Start 07/24/16 at 09:15; Stop 07/24/16 at 09:30; Status DC Furosemide (Lasix) 40 mg DAILY PO Last administered on 07/26/16 08:28; Start 07/26/16 at 09:00 Furosemide (Lasix) 40 mg 1X ONCE IVP Last administered on 07/24/16 16:16; Start 07/24/16 at 16:00; Stop 07/24/16 at 16:01; Status DC Furosemide (Lasix) 40 mg DAILY IVP Last administered on 07/25/16 08:56; Start 07/25/16 at 09:00; Stop 07/25/16 at 10:00; Status DC Insulin Detemir (Levemir) 72 units 1X ONCE SQ Last administered on 07/24/16 11:50; Start 07/24/16 at 11:45; Stop 07/24/16 at 11:46; Status DC Lorazepam (Ativan) 1 mg PRN Q12HR PRN IV ANXIETY / AGITATION Last administered on 07/24/16 13:10; Start 07/24/16 at 12:30 Enoxaparin Sodium (Lovenox 40mg Syringe) 40 mg Q24H SQ ; Start 07/24/16 at 17:00 ; Status Cancel Enoxaparin Sodium (Lovenox 40mg Syringe) 40 mg Q12H SQ Last administered on 20:35; Start 07/24/16 at 19:00 Metronidazole (Flagyl) 500 mg TID PO Last administered on 07/26/16 20:37; Start 07/24/16 at 22:30 Methylprednisolone Sodium Succinate (SOLU-Medrol 40MG VIAL) 40 mg Q8HRS IV Last administered on 07/26/16 20:35; Start 07/25/16 at 11:00 Furosemide (Lasix) 20 mg 1X ONCE IVP Last administered on 07/25/16 12:01; Start 07/25/16 at 11:30; Stop 07/25/16 at 11:31; Status DC Montelukast Sodium (Singulair) 10 mg QHS PO Last administered on 07/26/16 20: 37; Start 07/25/16 at 21:00 Insulin Aspart (NovoLOG) 15 units 1X ONCE SQ Last administered on 07/25/16 21 :03; Start 07/25/16 at 20:45; Stop 07/25/16 at 20:46; Status DC Active Scripts Active Oxycodone Hcl 10 Mg Tablet 1 Tab PO QID PRN Novolog Flexpen (Insulin Aspart) 100 Unit/1 Ml Insuln.pen 50 Units SQ TIDWMEALS Sucralfate 1 Gm/10 Ml Oral.susp 1 Gm PO QIDACHS Pantoprazole Sodium 40 Mg Tablet.dr 40 Mg PO DAILYAC Furosemide 40 Mg Tablet 1 Tab PO DAILY Mupirocin Ointment (Mupirocin) 22 Gm Oint...g. 22 Gm TP PRN TID PRN Toujeo Solostar (Insulin Glargine,Hum.rec.anlog) 300 Unit/1 Ml Insuln.pen 90 Unit SQ BID Zofran (Ondansetron Hcl) 4 Mg Tablet 1 Tab PO PRN Q6-8HRS Spiriva (Tiotropium [place]) 18 Mcg Cap.w.dev 1 Cap IH DAILY Xopenex (Levalbuterol Hcl) 1.25 Mg/3 Ml Vial.neb 1 Vial NEB TID Fenofibrate (Fenofibrate Nanocrystallized) 145 Mg Tablet 1 Tab PO DAILY Losartan Potassium 100 Mg Tablet 100 Mg PO DAILY Sotalol (Sotalol Hcl) 80 Mg Tablet 80 Mg PO BID Symbicort 160-4.5 Mcg Inhaler (Budesonide/Formoterol Fumarate) 10.2 Gm Hfa.aer.ad 2 Puff IH BID Reported Levothyroxine Sodium 175 Mcg Tablet 1 Tab PO DAILY Levothyroxine Sodium 150 Mcg Tablet 1 Tab PO DAILY Vitamin D2 (Ergocalciferol (Vitamin D2)) 50,000 Unit Capsule 50,000 Unit PO Venlafaxine Hcl Er (Venlafaxine Hcl) 75 Mg Cap.er.24h 1 Cap PO DAILY Anti-Diarrhea (Loperamide Hcl) 2 Mg Tablet 2 Mg PO PRN PRN Fluticasone Propionate Nasal [place] (Fluticasone Propionate) 16 Gm [place].susp 2 [place] NS DAILY Vitamin D3 (Cholecalciferol (Vitamin D3)) 1,000 Unit Tablet 1,000 Unit PO Amlodipine Besylate 5 Mg Tablet 5 Mg PO DAILY Nystatin 15 Gm Powder 1 [place] TP BID Melatonin 3 Mg Tablet 5 Mg PO Digoxin 125 Mcg Tablet 1 Tab PO DAILY Oxcarbazepine 300 Mg Tablet 1 Tab PO HS Gabapentin 600 Mg Tablet 600 Mg PO QID Abilify (Aripiprazole) 5 Mg Tablet 5 Mg PO DAILY Plavix (Clopidogrel Bisulfate) 75 Mg Tablet 75 Mg PO DAILY Cetirizine Hcl 10 Mg Tablet 10 Mg PO DAILY Vitals/I & O Vital Sign - Last 24 Hours 07/26/16 07/26/16 07/26/16 07/26/16 03:03 07:00 07:37 08:00 Temp 97.6 98.0 97.6 98.0 Pulse 78 70 Resp 20 20 B/P (MAP) 138/81 (100) 134/83 (100) Pulse Ox 92 97 96 O2 Delivery Nasal Cannula Nasal Cannula Nasal Cannula Nasal Cannula O2 Flow Rate 2.0 3.0 3.0 07/26/16 07/26/16 07/26/16 07/26/16 08:28 08:29 08:30 08:30 Pulse 70 70 70 70 B/P (MAP) 134/83 134/83 134/83 134/83 07/26/16 07/26/16 07/26/16 07/26/16 10:47 11:38 15:00 16:33 Temp 98.1 98.4 98.1 98.4 Pulse 75 72 Resp 20 22 B/P (MAP) 141/91 (108) 122/73 (89) Pulse Ox 95 96 97 97 O2 Delivery Nasal Cannula Nasal Cannula Nasal Cannula Nasal Cannula O2 Flow Rate 2.0 3.0 2.0 2.0 07/26/16 07/26/16 07/26/16 07/26/16 19:00 19:15 20:36 20:37 Temp 98.1 98.1 Pulse 66 66 Resp 18 16 B/P (MAP) 120/72 (88) 122/73 Pulse Ox 95 97 O2 Delivery Nasal Cannula Nasal Cannula O2 Flow Rate 3.0 2.0 07/26/16 21:36 Resp 16 Pulse Ox 97 O2 Delivery Nasal Cannula O2 Flow Rate 2.0 Intake and Output 07/25/16 07/25/16 07/26/16 15:00 23:00 07:00 Intake Total 300 ml 300 ml Output Total 850 ml 1200 ml Balance -550 ml -900 ml DAINA STEPHEN III DO Jul 26, 2016 23:20
[2016-07-27] MEDS: guaiFENesin DM 200MG/20MG 10 ML SYRUP PO PRN (02:23)
[2016-07-27] MEDS: methylPREDNISolone SOD SUCC PF 40 MG/ML VIAL. IV SCH ×2 (05:46→14:16)
[2016-07-27] MEDS: PANTOPRAZOLE 40 MG TABLET.DR. PO SCH (05:46)
[2016-07-27] MEDS: SUCRALFATE 1 GM/10 ML ORAL.SUSP. PO SCH ×2 (05:46→12:26)
[2016-07-27] MEDS: LEVOTHYROXINE 150 MCG TABLET PO SCH (05:46)
[2016-07-27 07:00] VITALS: BP 122/75
[2016-07-27] MEDS: IPRATRPIUM/ALBUTEROL 0.5/2.5MG 3 ML NEBU. NEB SCH ×2 (07:32→11:27)
[2016-07-27] MEDS: BUDESONIDE 0.5 MG/2 ML NEBU. NEB SCH (07:32)
[2016-07-27] MEDS: AZITHROMYCIN 250 MG TABLET. PO SCH (08:19)
[2016-07-27] MEDS: metroNIDAZOLE 500 MG TABLET PO SCH ×2 (08:19→14:15)
[2016-07-27] MEDS: NICOTINE 7MG PATCH. TD SCH (08:19)
[2016-07-27] MEDS: CLOPIDOGREL BISULFATE 75 MG TABLET PO SCH (08:19)
[2016-07-27] MEDS: ENOXAPARIN 40 MG/0.4 ML SYRINGE. SQ SCH (08:20)
[2016-07-27] MEDS: CETIRIZINE HCL 10 MG TABLET. PO SCH (08:20)
[2016-07-27] MEDS: amLODIPine BESYLATE 5 MG TABLET PO SCH (08:21)
[2016-07-27] MEDS: GABAPENTIN 300 MG CAPSULE. PO SCH ×2 (08:21→12:26)
[2016-07-27] MEDS: VENLAFAXINE XR 37.5 MG CAP.ER.24H. PO SCH (08:21)
[2016-07-27] MEDS: SOTALOL 80 MG TABLET. PO SCH (08:22)
[2016-07-27] MEDS: ARIPiprazole 5 MG TABLET PO SCH (08:22)
[2016-07-27] MEDS: DIGOXIN 125 MCG TABLET. PO SCH (08:22)
[2016-07-27 08:23] VITALS: BP 122/72
[2016-07-27] MEDS: LOSARTAN POTASSIUM 50 MG TABLET. PO SCH (08:23)
[2016-07-27] MEDS: FLUTICASONE 50MCG/NASAL SPRAY 16GM BOTTLE. NS SCH (08:24)
[2016-07-27] MEDS: FUROSEMIDE 40 MG TABLET. PO SCH (08:25)
[2016-07-27] MEDS: INSULIN ASPART 300 UNITS/3 ML INSULN.PEN SQ SCH ×2 (08:35→12:31)
[2016-07-27] MEDS: INSULIN DETEMIR 300 UNITS/3 ML INSULN.PEN. SQ SCH (08:36)
--- NOTE | 2016-07-27 08:58 | PDOC ---
PULMONARY PROGRESS NOTES Subjective Pt feels better less soa Vitals Vital Signs Date Time Temp Pulse Resp B/P (MAP) Pulse Ox O2 Delivery O2 Flow Rate FiO2 07/27/16 08:23 78 122/72 07/27/16 07:40 96 Nasal Cannula 2.0 07/26/16 23:00 97.9 18 97.9 ROS: No Nausea General: Alert HEENT: Other (nc at perrl, shallow oropharynx, nose clear. neck, +jvd, no thyromegaly) Lungs: Clear Cardiovascular: S1, S2 Abdomen: Soft, Non-tender Neuro Exam: Alert Extremities: Other (edema) Skin: Warm Labs Laboratory Tests Test 07/25/16 11:56 07/25/16 16:03 07/25/16 20:11 07/26/16 07:59 Glucose (Fingerstick) 277 mg/dL (70-99) 321 mg/dL (70-99) 483 mg/dL (70-99) 367 mg/dL (70-99) Test 07/26/16 11:28 07/26/16 11:44 07/26/16 16:34 07/26/16 20:41 Glucose (Fingerstick) 516 mg/dL (70-99) 461 mg/dL (70-99) 189 mg/dL (70-99) 172 mg/dL (70-99) Test 07/27/16 07:10 Glucose (Fingerstick) 241 mg/dL (70-99) Laboratory Tests Test 07/26/16 11:28 07/26/16 11:44 07/26/16 16:34 07/26/16 20:41 Glucose (Fingerstick) 516 mg/dL (70-99) 461 mg/dL (70-99) 189 mg/dL (70-99) 172 mg/dL (70-99) Test 07/27/16 07:10 Glucose (Fingerstick) 241 mg/dL (70-99) Medications Active Scripts Medications Dose Route/Sig Max Daily Dose Days Date Category Levothyroxine Sodium 175 Mcg Tablet 1 Tab PO DAILY 07/24/16 Reported Levothyroxine Sodium 150 Mcg Tablet 1 Tab PO DAILY 07/24/16 Reported Vitamin D2 (Ergocalciferol (Vitamin D2)) 50,000 Unit Capsule 50,000 Unit PO 07/24/16 Reported Venlafaxine Hcl Er (Venlafaxine Hcl) 75 Mg Cap.er.24h 1 Cap PO DAILY 07/24/16 Reported Anti-Diarrhea (Loperamide Hcl) 2 Mg Tablet 2 Mg PO PRN PRN 07/24/16 Reported Fluticasone Propionate Nasal [place] (Fluticasone Propionate) 16 Gm [place].susp 2 [place] NS DAILY 07/24/16 Reported Vitamin D3 (Cholecalciferol (Vitamin D3)) 1,000 Unit Tablet 1,000 Unit PO 07/24/16 Reported Amlodipine Besylate 5 Mg Tablet 5 Mg PO DAILY 07/24/16 Reported Nystatin 15 Gm Powder 1 Melissa TP BID 07/24/16 Reported Melatonin 3 Mg Tablet 5 Mg PO 07/24/16 Reported Oxycodone Hcl 10 Mg Tablet 1 Tab PO QID PRN 01/20/16 Rx Novolog Flexpen (Insulin Aspart) 100 Unit/1 Ml Insuln.pen 50 Units SQ TIDWMEALS 01/20/16 Rx Sucralfate 1 Gm/10 Ml Oral.susp 1 Gm PO QIDACHS 01/20/16 Rx Pantoprazole Sodium 40 Mg Tablet.dr 40 Mg PO DAILYAC 01/20/16 Rx Furosemide 40 Mg Tablet 1 Tab PO DAILY 01/20/16 Rx Mupirocin Ointment (Mupirocin) 22 Gm Oint...g. 22 Gm TP PRN TID PRN 01/20/16 Rx Toujeo Solostar (Insulin Glargine,Hum.rec.anlog) 300 Unit/1 Ml Insuln.pen 90 Unit SQ BID 12/03/15 Rx Zofran (Ondansetron Hcl) 4 Mg Tablet 1 Tab PO PRN Q6-8HRS 11/10/15 Rx Spiriva (Tiotropium [place]) 18 Mcg Cap.w.dev 1 Cap IH DAILY 10/30/15 Rx Xopenex (Levalbuterol Hcl) 1.25 Mg/3 Ml Vial.neb 1 Vial NEB TID 10/30/15 Rx Fenofibrate (Fenofibrate Nanocrystallized) 145 Mg Tablet 1 Tab PO DAILY 10/30/15 Rx Losartan Potassium 100 Mg Tablet 100 Mg PO DAILY 07/15/15 Rx Sotalol (Sotalol Hcl) 80 Mg Tablet 80 Mg PO BID 07/15/15 Rx Digoxin 125 Mcg Tablet 1 Tab PO DAILY 06/19/14 Reported Symbicort 160-4.5 Mcg Inhaler (Budesonide/Formoterol Fumarate) 10.2 Gm Hfa.aer.ad 2 Puff IH BID 06/13/14 Rx Oxcarbazepine 300 Mg Tablet 1 Tab PO HS 04/15/14 Reported Gabapentin 600 Mg Tablet 600 Mg PO QID 08/29/13 Reported Abilify (Aripiprazole) 5 Mg Tablet 5 Mg PO DAILY 04/02/13 Reported Plavix (Clopidogrel Bisulfate) 75 Mg Tablet 75 Mg PO DAILY 04/02/13 Reported Cetirizine Hcl 10 Mg Tablet 10 Mg PO DAILY 04/02/13 Reported Comments cxr reviewed. mild volume overload. No confluent infiltrates. Impression . 1. Acute respiratory failure, multifactorial in etiology including acute exacerbation of chronic obstructive pulmonary disease, acute bronchitis 2. Abnormal chest x-ray sec to pulmonary edema 3. Acute exacerbation of chronic obstructive pulmonary disease. 4. Morbid obesity 5. Obstructive sleep apnea-hypopnea syndrome. 6. Smoker. 7. Diabetes mellitus. Plan . 1. Improving home in am with taper pred ok 2. Bronchodilator. 3. Inhaled corticosteroid. 4. change prednisone to solumedrol. 5. Continue antibiotic. 6. Lovenox for DVT prophylaxis. 7. Continue Protonix for stress ulcer prophylaxis. 8. stop smoking forever. 9. Lose weight. 10. declined sleep study 11. add kamariir 12. repeat cxr EBAR FAN MD Jul 27, 2016 08:58
--- NOTE | 2016-07-27 09:10 | RAD ---
Indication congestive heart failure. Cough. A single view of the chest was obtained and is compared to an examination 4 days earlier. There is slight interstitial prominence which is likely chronic and similar to the previous exam as well as a study 11/30/2015 and 07/28/2015. . A consolidated pneumonia is not seen. There is a nodule at the left lung base appearing similar and unchanged when compared to an examination one year ago. IMPRESSION: Probable mild fibrosis. No acute finding. No significant change
--- NOTE | 2016-07-27 11:30 | PDOC ---
PROGRESS NOTES Chief Complaint Chief Complaint COPD, acute bronchitis, w/ exacerbation pleuritic pain, pain with coughing, add 2 anti-tussives acute on chronic combined CHF c. diff colitis morbid obesity, BMI 48 ongoing tobaccoism UTI, , History of Present Illness History of Present Illness Seen and examined At baseline Will dc Vitals Vitals Vital Signs Date Time Temp Pulse Resp B/P (MAP) Pulse Ox O2 Delivery O2 Flow Rate FiO2 07/27/16 08:23 78 122/72 07/27/16 08:00 Room Air 07/27/16 07:40 96 2.0 07/27/16 07:00 97.9 20 97.9 Physical Exam General: Alert, Oriented X3, Cooperative, No acute distress Heart: Regular rate (SR no ectopies), Normal S1, Normal S2, Other (distant heart sounds) Lungs: Clear Abdomen: Soft, No tenderness, Other (obesity) Extremities: No cyanosis, Other (2+ bilateral LE pitting edema) Skin: Other (multiple scabs to legs complain of pruritus. ) Labs LABS Laboratory Tests Test 07/26/16 11:44 07/26/16 16:34 07/26/16 20:41 07/27/16 07:10 Glucose (Fingerstick) 461 mg/dL (70-99) 189 mg/dL (70-99) 172 mg/dL (70-99) 241 mg/dL (70-99) Assessment and Plan Assessmemt and Plan COPD, acute bronchitis, w/ exacerbation pleuritic pain, pain with coughing, add 2 anti-tussives acute on chronic combined CHF c. diff colitis morbid obesity, BMI 48 ongoing tobaccoism UTI, , Plan DC see dict total time 31 minutes Problems: Comment Review of Relevant I have reviewed the following items prudence (where applicable) has been applied. Labs Laboratory Tests Test 07/25/16 11:56 07/25/16 16:03 07/25/16 20:11 07/26/16 07:59 Glucose (Fingerstick) 277 mg/dL (70-99) 321 mg/dL (70-99) 483 mg/dL (70-99) 367 mg/dL (70-99) Test 07/26/16 11:28 07/26/16 11:44 07/26/16 16:34 07/26/16 20:41 Glucose (Fingerstick) 516 mg/dL (70-99) 461 mg/dL (70-99) 189 mg/dL (70-99) 172 mg/dL (70-99) Test 07/27/16 07:10 Glucose (Fingerstick) 241 mg/dL (70-99) Laboratory Tests Test 07/26/16 11:44 07/26/16 16:34 07/26/16 20:41 07/27/16 07:10 Glucose (Fingerstick) 461 mg/dL (70-99) 189 mg/dL (70-99) 172 mg/dL (70-99) 241 mg/dL (70-99) Medications Current Medications Albuterol/ Ipratropium (Duoneb) 3 ml 1X ONCE NEB Last administered on 21:00; Start 07/23/16 at 21:30; Stop 07/23/16 at 21:31; Status DC Lidocaine HCl (Xylocaine-Mpf 1% Vial) 2 ml 1X PRN PRN ID FOR PIC LINE INSERTION ; Start 07/23/16 at 23:45; Stop 07/24/16 at 23:44; Status DC Sodium Chloride (Normal Saline Flush) 20 ml 1X PRN PRN IV PER PROTOCOL; Start 07/23/16 at 23:45; Stop 07/24/16 at 23:44; Status DC Lidocaine/ Prilocaine ([place]) 1 kiko 1X ONCE TP ; Start 07/24/16 at 00:00; Stop 07/24/16 at 00:01; Status DC Albuterol/ Ipratropium (Duoneb) 3 ml 1X ONCE NEB Last administered on 00:18; Start 07/24/16 at 00:15; Stop 07/24/16 at 00:16; Status DC Prednisone (Prednisone) 60 mg 1X ONCE PO Last administered on 07/24/16 02:21 ; Start 07/24/16 at 00:30; Stop 07/24/16 at 00:31; Status DC Ondansetron HCl (Zofran) 4 mg PRN Q8HRS PRN IM NAUSEA/VOMITING; Start 07/24/16 at 00:45; Stop 07/25/16 at 00:44; Status DC Albuterol/ Ipratropium (Duoneb) 3 ml PRN Q4HRS PRN NEB SHORTNESS OF BREATH; Start 07/24/16 at 07:15; Stop 07/24/16 at 09:12; Status DC Oxycodone HCl (Roxicodone) 10 mg QIDPRN PRN PO PAIN; Start 07/24/16 at 07:15; Stop 07/24/16 at 09:13; Status DC Albuterol/ Ipratropium (Duoneb) 3 ml Q4HRS W/A NEB Last administered on 07:32; Start 07/24/16 at 10:00 Prednisone (Prednisone) 40 mg DAILY PO ; Start 07/24/16 at 09:00; Stop 07/24/16 at 09:15; Status DC Azithromycin (Zithromax) 500 mg 1X ONCE PO Last administered on 07/24/16 09: 15; Start 07/24/16 at 08:45; Stop 07/24/16 at 08:53; Status DC Azithromycin (Zithromax) 250 mg DAILY PO Last administered on 07/27/16 08:19; Start 07/25/16 at 09:00 Budesonide (Pulmicort) 0.5 mg RTBID NEB Last administered on 07/27/16 07:32; Start 07/24/16 at 09:00 Budesonide (Pulmicort) 0.5 mg 1X ONCE NEB ; Start 07/24/16 at 08:45; Stop 07/24 at 08:46; Status UNV Guaifenesin (Robitussin Dm) 10 ml PRN Q6HRS PRN PO COUGH Last administered on 02:23; Start 07/24/16 at 08:45 Throat Lozenges (Cepacol Sore Throat Lozenge) 1 kevin PRN Q2HRS PRN PO SORE THROAT; Start 07/24/16 at 08:45 Nicotine (Nicoderm Cq 7mg) 1 patch DAILY TD Last administered on 07/27/16 08: 19; Start 07/24/16 at 09:00 Amlodipine Besylate (Norvasc) 5 mg DAILY PO Last administered on 07/27/16 08: 21; Start 07/24/16 at 09:00 Aripiprazole (Abilify) 5 mg DAILY PO Last administered on 07/27/16 08:22; Start 07/24/16 at 09:00 Cetirizine HCl (ZyrTEC) 10 mg DAILY PO Last administered on 07/27/16 08:20; Start 07/24/16 at 09:00 Clopidogrel Bisulfate (Plavix) 75 mg DAILY PO Last administered on 07/27/16 08 :19; Start 07/24/16 at 09:00 Digoxin (Lanoxin) 125 mcg DAILY PO Last administered on 07/27/16 08:22; Start 07/24/16 at 09:00 Fluticasone Propionate (Flonase) 2 spray DAILY NS Last administered on 08:24; Start 07/24/16 at 09:00 Furosemide (Lasix) 40 mg DAILY PO Last administered on 07/24/16 09:15; Start 07/24/16 at 09:00; Stop 07/24/16 at 11:00; Status DC Insulin Aspart (NovoLOG) 50 units TIDWMEALS SQ Last administered on 07/27/16 08:35; Start 07/24/16 at 12:00 Levothyroxine Sodium (Synthroid) 150 mcg DAILY07 PO Last administered on 05:46; Start 07/24/16 at 10:30 Oxcarbazepine (Trileptal) 300 mg HS PO Last administered on 07/26/16 20:37; Start 07/24/16 at 21:00 Pantoprazole Sodium (Protonix) 40 mg DAILYAC PO Last administered on 07/27/16 05:46; Start 07/24/16 at 11:30 Sotalol HCl (Betapace) 80 mg BID PO Last administered on 07/27/16 08:22; Start 07/24/16 at 09:00 Sucralfate (Carafate) 1 gm QIDACHS PO Last administered on 07/27/16 05:46; Start 07/24/16 at 11:30 Gabapentin (Neurontin) 600 mg QID PO Last administered on 07/27/16 08:21; Start 07/24/16 at 09:00 Insulin Detemir (Levemir) 72 units BID SQ Last administered on 07/27/16 08:36 ; Start 07/24/16 at 21:00 Losartan Potassium (Cozaar) 100 mg DAILY PO Last administered on 07/27/16 08: 23; Start 07/24/16 at 09:00 Ondansetron HCl (Zofran Odt) 4 mg PRN Q6HRS PRN PO NAUSEA/VOMITING; Start 07/24 at 09:15 Oxycodone HCl (Roxicodone) 10 mg PRN QID PRN PO PAIN Last administered on 20:36; Start 07/24/16 at 09:15 Venlafaxine HCl (Effexor Xr) 75 mg DAILY PO Last administered on 07/27/16 08: 21; Start 07/24/16 at 09:15 Prednisone (Prednisone) 40 mg DAILY PO Last administered on 07/25/16 08:54; Start 07/25/16 at 09:00; Stop 07/25/16 at 10:38; Status DC Methylprednisolone Sodium Succinate (SOLU-Medrol 125MG VIAL) 125 mg 1X ONCE IV Last administered on 07/24/16 09:39; Start 07/24/16 at 09:15; Stop 07/24/16 at 09:30; Status DC Furosemide (Lasix) 40 mg DAILY PO Last administered on 07/26/16 08:28; Start 07/26/16 at 09:00 Furosemide (Lasix) 40 mg 1X ONCE IVP Last administered on 07/24/16 16:16; Start 07/24/16 at 16:00; Stop 07/24/16 at 16:01; Status DC Furosemide (Lasix) 40 mg DAILY IVP Last administered on 07/25/16 08:56; Start 07/25/16 at 09:00; Stop 07/25/16 at 10:00; Status DC Insulin Detemir (Levemir) 72 units 1X ONCE SQ Last administered on 07/24/16 11:50; Start 07/24/16 at 11:45; Stop 07/24/16 at 11:46; Status DC Lorazepam (Ativan) 1 mg PRN Q12HR PRN IV ANXIETY / AGITATION Last administered on 07/24/16 13:10; Start 07/24/16 at 12:30 Enoxaparin Sodium (Lovenox 40mg Syringe) 40 mg Q24H SQ ; Start 07/24/16 at 17:00 ; Status Cancel Enoxaparin Sodium (Lovenox 40mg Syringe) 40 mg Q12H SQ Last administered on 08:20; Start 07/24/16 at 19:00 Metronidazole (Flagyl) 500 mg TID PO Last administered on 07/27/16 08:19; Start 07/24/16 at 22:30 Methylprednisolone Sodium Succinate (SOLU-Medrol 40MG VIAL) 40 mg Q8HRS IV Last administered on 07/27/16 05:46; Start 07/25/16 at 11:00 Furosemide (Lasix) 20 mg 1X ONCE IVP Last administered on 07/25/16 12:01; Start 07/25/16 at 11:30; Stop 07/25/16 at 11:31; Status DC Montelukast Sodium (Singulair) 10 mg QHS PO Last administered on 07/26/16 20: 37; Start 07/25/16 at 21:00 Insulin Aspart (NovoLOG) 15 units 1X ONCE SQ Last administered on 07/25/16 21 :03; Start 07/25/16 at 20:45; Stop 07/25/16 at 20:46; Status DC Active Scripts Active Oxycodone Hcl 10 Mg Tablet 1 Tab PO QID PRN Novolog Flexpen (Insulin Aspart) 100 Unit/1 Ml Insuln.pen 50 Units SQ TIDWMEALS Sucralfate 1 Gm/10 Ml Oral.susp 1 Gm PO QIDACHS Pantoprazole Sodium 40 Mg Tablet.dr 40 Mg PO DAILYAC Furosemide 40 Mg Tablet 1 Tab PO DAILY Mupirocin Ointment (Mupirocin) 22 Gm Oint...g. 22 Gm TP PRN TID PRN Toujeo Solostar (Insulin Glargine,Hum.rec.anlog) 300 Unit/1 Ml Insuln.pen 90 Unit SQ BID Zofran (Ondansetron Hcl) 4 Mg Tablet 1 Tab PO PRN Q6-8HRS Spiriva (Tiotropium [place]) 18 Mcg Cap.w.dev 1 Cap IH DAILY Xopenex (Levalbuterol Hcl) 1.25 Mg/3 Ml Vial.neb 1 Vial NEB TID Fenofibrate (Fenofibrate Nanocrystallized) 145 Mg Tablet 1 Tab PO DAILY Losartan Potassium 100 Mg Tablet 100 Mg PO DAILY Sotalol (Sotalol Hcl) 80 Mg Tablet 80 Mg PO BID Symbicort 160-4.5 Mcg Inhaler (Budesonide/Formoterol Fumarate) 10.2 Gm Hfa.aer.ad 2 Puff IH BID Reported Levothyroxine Sodium 175 Mcg Tablet 1 Tab PO DAILY Levothyroxine Sodium 150 Mcg Tablet 1 Tab PO DAILY Vitamin D2 (Ergocalciferol (Vitamin D2)) 50,000 Unit Capsule 50,000 Unit PO Venlafaxine Hcl Er (Venlafaxine Hcl) 75 Mg Cap.er.24h 1 Cap PO DAILY Anti-Diarrhea (Loperamide Hcl) 2 Mg Tablet 2 Mg PO PRN PRN Fluticasone Propionate Nasal [place] (Fluticasone Propionate) 16 Gm [place].susp 2 [place] NS DAILY Vitamin D3 (Cholecalciferol (Vitamin D3)) 1,000 Unit Tablet 1,000 Unit PO Amlodipine Besylate 5 Mg Tablet 5 Mg PO DAILY Nystatin 15 Gm Powder 1 Kiko TP BID Melatonin 3 Mg Tablet 5 Mg PO Digoxin 125 Mcg Tablet 1 Tab PO DAILY Oxcarbazepine 300 Mg Tablet 1 Tab PO HS Gabapentin 600 Mg Tablet 600 Mg PO QID Abilify (Aripiprazole) 5 Mg Tablet 5 Mg PO DAILY Plavix (Clopidogrel Bisulfate) 75 Mg Tablet 75 Mg PO DAILY Cetirizine Hcl 10 Mg Tablet 10 Mg PO DAILY Vitals/I & O Vital Sign - Last 24 Hours 07/26/16 07/26/16 07/26/16 07/26/16 11:38 15:00 16:33 19:00 Temp 98.4 98.1 98.4 98.1 Pulse 72 66 Resp 22 18 B/P (MAP) 122/73 (89) 120/72 (88) Pulse Ox 96 97 97 95 O2 Delivery Nasal Cannula Nasal Cannula Nasal Cannula O2 Flow Rate 3.0 2.0 2.0 07/26/16 07/26/16 07/26/16 07/26/16 19:15 20:36 20:37 21:36 Pulse 66 Resp 16 16 B/P (MAP) 122/73 Pulse Ox 97 97 O2 Delivery Nasal Cannula Nasal Cannula Nasal Cannula O2 Flow Rate 3.0 2.0 2.0 07/26/16 07/27/16 07/27/16 07/27/16 23:00 07:00 07:34 07:40 Temp 97.9 97.9 97.9 97.9 Pulse 64 78 Resp 18 20 B/P (MAP) 120/73 (89) 122/75 (91) Pulse Ox 95 96 96 96 O2 Delivery Room Air Nasal Cannula Nasal Cannula O2 Flow Rate 2.0 2.0 07/27/16 07/27/16 07/27/16 07/27/16 08:00 08:21 08:22 08:22 Pulse 64 78 78 B/P (MAP) 120/73 122/72 122/73 O2 Delivery Room Air 07/27/16 08:23 Pulse 78 B/P (MAP) 122/72 Intake and Output 07/26/16 07/26/16 07/27/16 15:00 23:00 07:00 Intake Total 770 ml Output Total 300 ml 2000 ml Balance -300 ml -1230 ml DAINA STEPHEN III DO Jul 27, 2016 11:30
--- NOTE | 2016-07-27 21:41 | DS ---
DATE OF DISCHARGE: 07/27/2016 ADMISSION DIAGNOSES: Respiratory failure, chronic obstructive pulmonary disease, possible C. diff, polypharmacy, obesity, tobacco abuse, diabetes. DISCHARGE DIAGNOSIS: Resolving respiratory failure. HOSPITAL COURSE: The patient is a pleasant middle-aged female who basically presented with multiple medical issues. She is on 30 medications. She has multiple medical problems including COPD. We admitted the patient. We gave her IV steroids, breathing treatments, oxygen and antibiotics. We also consulted Dr. Nguyen. We also gave her Flagyl because she has been having some C. diff diarrhea. Basically, she is back to her baseline. I saw and examined her this morning, she is doing well. We plan to discharge and have her followup closely with her primary care doctor. DISPOSITION: Home. ACTIVITY: As tolerated. DIET: Low sodium. MEDICATIONS: Please see the MRAD. TOTAL TIME: 31 minutes. GAREMEL Michael STEPHEN DO DR: RICK/iban JOB#: [id number] / [id number]
== END 2016-07-27 15:51 | disposition home or self-care (01) | DRG 371 ==
LOC: ER 20:33 → 5 SOUTH 23:47
PROVIDERS: ADMIT Internal Medicine; ATTEND Internal Medicine
DX: A04.7 Enterocolitis due to Clostridium difficile (principal); J96.00 Acute respiratory failure, unspecified whether with hypoxia or hypercapnia; I50.43 Acute on chronic combined systolic (congestive) and diastolic (congestive) heart failure; J44.1 Chronic obstructive pulmonary disease with (acute) exacerbation; N39.0 Urinary tract infection, site not specified; J44.0 Chronic obstructive pulmonary disease with (acute) lower respiratory infection; Z68.42 Body mass index [BMI] 45.0-49.9, adult; J20.9 Acute bronchitis, unspecified; E03.9 Hypothyroidism, unspecified; E11.43 Type 2 diabetes mellitus with diabetic autonomic (poly)neuropathy; K31.84 Gastroparesis; E11.65 Type 2 diabetes mellitus with hyperglycemia; E66.01 Morbid (severe) obesity due to excess calories; E78.5 Hyperlipidemia, unspecified; F17.210 Nicotine dependence, cigarettes, uncomplicated; G47.33 Obstructive sleep apnea (adult) (pediatric); I27.2 Other secondary pulmonary hypertension; I11.0 Hypertensive heart disease with heart failure; M19.90 Unspecified osteoarthritis, unspecified site; I48.91 Unspecified atrial fibrillation; F41.9 Anxiety disorder, unspecified; F32.9 Major depressive disorder, single episode, unspecified; K21.9 Gastro-esophageal reflux disease without esophagitis; Z82.49 Family history of ischemic heart disease and other diseases of the circulatory system; Z86.73 Personal history of transient ischemic attack (TIA), and cerebral infarction without residual deficits; Z88.0 Allergy status to penicillin; Z91.11 Patient's noncompliance with dietary regimen; Z88.1 Allergy status to other antibiotic agents; Z88.8 Allergy status to other drugs, medicaments and biological substances; Z88.2 Allergy status to sulfonamides; Z88.6 Allergy status to analgesic agent; Z88.5 Allergy status to narcotic agent; Z91.018 Allergy to other foods; Z87.01 Personal history of pneumonia (recurrent); Z90.49 Acquired absence of other specified parts of digestive tract; Z79.899 Other long term (current) drug therapy; Z79.51 Long term (current) use of inhaled steroids; Z98.49 Cataract extraction status, unspecified eye; Z79.01 Long term (current) use of anticoagulants; I25.2 Old myocardial infarction
CPT/HCPCS: 36415; 71010; 80048; 80053; 80061; 81001; 82553; 82962; 83036; 83735; 83880; 84443; 84484; 85007; 85027; 85379; 87324; 87641; 93005; 93306; 94250; 94640; 94760; J1650; J1815; J1940; J2060; J2920; J2930; J7512; J7620; Q0144; 99285-25

== ENCOUNTER 2016-10-14 21:23 | Inpatient (IN) | payer OTHER ==
[~2016-10-14] VITALS: Ht 172.7 cm; Wt 136.8 kg
[~2016-10-14 21:23] MED LIST changes: +AMLO5TAB2 PO; +CHOL10003 PO; +ERGO500027 PO; +FLUT16SP NS; +LOPE2TAB56 PO; +MELA3TAB2 PO; +NYST15PO9 TP; +VENL75CA6 PO
[2016-10-14] MEDS ORDERED: IV NORMAL SALINE 500ML BAG 500 ML IV ONE (22:00)
[2016-10-14 22:27] LABS: BASO # 0.1 x10^3/uL (0.0-0.2); BASO % 1 % (0-3); EOS % 2 % (0-3); HEMATOCRIT 45.4 % (36.0-47.0); HEMOGLOBIN 14.7 g/dL (12.0-15.5); LYMPH # 3.2 x10^3/uL (1.0-4.8); LYMPH % 21 % (24-48); MEAN CORPUSCULAR HEMOGLOBIN 29 pg (25-35); MEAN CORPUSCULAR HGB CONC 32 g/dL (31-37); MEAN CORPUSCULAR VOLUME 90 fL (79-100); MONO % 6 % (0-9); NEUT % 71 % (31-73); PLATELET COUNT 301 x10^3/uL (140-400); RED BLOOD COUNT 5.06 x10^6/uL (3.50-5.40); WHITE BLOOD COUNT 15.3 x10^3/uL (4.0-11.0)
[2016-10-14 22:36] LABS: CALCIUM 9.6 mg/dL (8.5-10.1); CREATININE 0.9 mg/dL (0.6-1.0); GFR 64.8; POTASSIUM 4.5 mmol/L (3.5-5.1)
[2016-10-14 22:42] LABS: ALBUMIN/GLOBULIN RATIO 0.6 (1.0-1.7); C-REACTIVE PROTEIN 16.1 mg/L (0-3.3); TOTAL BILIRUBIN 0.4 mg/dL (0.2-1.0); TOTAL PROTEIN 7.9 g/dL (6.4-8.2)
--- NOTE | 2016-10-14 23:27 | PHYS DOC ---
Past Medical History Past Medical History: Asthma, CHF, COPD, Diabetes-Type II, Hypertension, Hepatitis, IA, Pneumonia, Other Additional Past Medical Histor: obesity Past Surgical History: Cholecystectomy, Other Additional Past Surgical Histo: RIGHT PINKY SX Alcohol Use: None Drug Use: None Adult General Chief Complaint Chief Complaint: LOWER EXT PAIN HPI HPI Patient is a 56 year old female with multiple medical conditions who presents with nonhealing right lower extremity venous stasis ulcers with increased redness swelling and tenderness over the past several days. Patient has completed 2 rounds of doxycycline in the past 3 weeks. She was evaluated by her PCP 5 days ago instructed to apply Bactroban to open sores on both legs. Patient states she has, but symptoms are gradually worsened. She reports a fever of 100 last night. She denies chills nausea vomiting and sweats. Reports worsening of chronic leg pain. Patient has prior history of MRSA and has required IV antibiotics. She was last admitted this facility 3 months ago. Patient denies any other acute symptoms or complaints. She is a current smoker. Review of Systems Review of Systems Review symptoms as per history of present illness. All other review symptoms are negative. Current Medications Current Medications Current Medications Medications (Trade) Dose Ordered Sig/Matthias Start Time Stop Time Status Last Admin Dose Admin Sodium Chloride 500 ml @ 500 mls/hr 1X ONCE 10/14/16 22:00 10/14/16 22:59 DC 10/14/16 22:22 500 MLS/HR Allergies Allergies Allergies Coded Allergies Type Severity Reaction Last Updated Verified Cephalexin Monohydrate Allergy Intermediate 04/18/14 Yes Penicillins Allergy Intermediate 04/18/14 Yes Sulfa (Sulfonamide Antibiotics) Allergy Intermediate 04/18/14 Yes aspirin Allergy Intermediate 04/18/14 Yes codeine Allergy Intermediate Previously tolerated morphine (per pt and chart 12/2013) 07/17/14 Yes diclofenac sodium Allergy Intermediate 04/18/14 Yes morphine Allergy Intermediate rash 01/16/16 Yes nabumetone Allergy Intermediate 04/18/14 Yes tomato Allergy Intermediate 04/18/14 Yes Physical Exam Physical Exam Constitutional: Well developed, well nourished, no acute distress, non-toxic appearance. [] HENT: Normocephalic, atraumatic, bilateral external ears normal, oropharynx moist, no oral exudates, nose normal. [] Eyes: PERRLA, EOMI, conjunctiva normal, no discharge. [] Neck: Normal range of motion, no tenderness, supple, no stridor. [] Cardiovascular:Heart rate regular rhythm, no murmur [] Lungs & Thorax: Bilateral breath sounds clear to auscultation [] Abdomen: Bowel sounds normal, soft, no tenderness, no masses, obesity compromising exam.[] Skin: Warm, dry, no erythema, no rash. [] Back: No tenderness, no CVA tenderness. [] Extremities: No tenderness, open sores on both lower extremities, with cellulitis of right lower extremities,Mild erythema and induration noted without streaking. no oozing or weeping. Left lower extremity, mild erythema without induration of left lower anterior leg. [] Neurologic: Alert and oriented X 3, normal motor function, normal sensory function, no focal deficits noted. [] Psychologic: Affect normal, flat[] Current Patient Data Vital Signs Vital Signs Date Time Temp Pulse Resp B/P (MAP) Pulse Ox O2 Delivery O2 Flow Rate FiO2 10/14/16 21:37 99.2 92 22 162/102 (122) 92 Room Air 99.2 Lab Values Laboratory Tests Test 10/14/16 22:20 White Blood Count 15.3 x10^3/uL (4.0-11.0) H Red Blood Count 5.06 x10^6/uL (3.50-5.40) Hemoglobin 14.7 g/dL (12.0-15.5) Hematocrit 45.4 % (36.0-47.0) Mean Corpuscular Volume 90 fL (79-100) Mean Corpuscular Hemoglobin 29 pg (25-35) Mean Corpuscular Hemoglobin Concent 32 g/dL (31-37) Red Cell Distribution Width 15.0 % (11.5-14.5) H Platelet Count 301 x10^3/uL (140-400) Neutrophils (%) (Auto) 71 % (31-73) Lymphocytes (%) (Auto) 21 % (24-48) L Monocytes (%) (Auto) 6 % (0-9) Eosinophils (%) (Auto) 2 % (0-3) Basophils (%) (Auto) 1 % (0-3) Neutrophils # (Auto) 10.9 x10^3uL (1.8-7.7) H Lymphocytes # (Auto) 3.2 x10^3/uL (1.0-4.8) Monocytes # (Auto) 0.9 x10^3/uL (0.0-1.1) Eosinophils # (Auto) 0.3 x10^3/uL (0.0-0.7) Basophils # (Auto) 0.1 x10^3/uL (0.0-0.2) Sodium Level 138 mmol/L (136-145) Potassium Level 4.5 mmol/L (3.5-5.1) Chloride Level 100 mmol/L (98-107) Carbon Dioxide Level 31 mmol/L (21-32) Anion Gap 7 (6-14) Blood Urea Nitrogen 14 mg/dL (7-20) Creatinine 0.9 mg/dL (0.6-1.0) Estimated GFR (Cockcroft-Gault) 64.8 BUN/Creatinine Ratio 16 (6-20) Glucose Level 413 mg/dL (70-99) H Calcium Level 9.6 mg/dL (8.5-10.1) Total Bilirubin 0.4 mg/dL (0.2-1.0) Aspartate Amino Transferase (AST) 36 U/L (15-37) Alanine Aminotransferase (ALT) 36 U/L (14-59) Alkaline Phosphatase 200 U/L (46-116) H C-Reactive Protein, Quantitative 16.1 mg/L (0-3.3) H HC-Djl-J-Type Natriuretic Peptide 94 pg/mL (0-124) Total Protein 7.9 g/dL (6.4-8.2) Albumin 3.0 g/dL (3.4-5.0) L Albumin/Globulin Ratio 0.6 (1.0-1.7) L Laboratory Tests 10/14/16 22:20 Laboratory Tests 10/14/16 22:20 EKG EKG [] Radiology/Procedures Radiology/Procedures [] Course & Med Decision Making Course & Med Decision Making Pertinent Labs and Imaging studies reviewed. (See chart for details) [Patient with failed outpatient antibiotic therapy for treatment of right lower extremity cellulitis. Patient's blood sugar is elevated likely contributing to cellulitis. Will admit to the hospital service for further evaluation and treatment. Vancomycin started.] Dragon Disclaimer Dragon Disclaimer This electronic medical record was generated, in whole or in part, using a voice recognition dictation system. Departure Departure Impression: Primary Impression: Cellulitis Additional Impression: Hyperglycemia Disposition: 09 ADMITTED INPATIENT Admitting Physician: Ara Barragan Condition: STABLE Referrals: GEORGE BERG MD (PCP) Problem Qualifiers MARIA R ARMSTRONG DO Oct 14, 2016 23:27
[2016-10-14] MEDS ORDERED: VANCOMYCIN 2 GM in IV NORMAL SALINE 500ML BAG 500 ML IV ONE (23:45)
[2016-10-14] MEDS ORDERED: ONDANSETRON PF 4 MG/2 ML VIAL. IV PRN (23:45)
[2016-10-14] MEDS ORDERED: DEXTROSE 50% 25 GM / 50ML DISP.SYRIN. IV PRN (23:45)
[2016-10-14] MEDS ORDERED: INSULIN ASPART 100 UNIT/ML 10ML VIAL. SQ ONE (23:45)
[2016-10-15] VITALS (7 sets, daily range): BP systolic 104–156; BP diastolic 60–82
[2016-10-15] MEDS ORDERED: INSULIN REGULAR 100 UNIT/ML 10ML VIAL. ONE (00:08)
[2016-10-15] MEDS ORDERED: INSULIN REGULAR 100 UNIT/ML 10ML VIAL. SQ ONE (00:15)
[2016-10-15] MEDS: MORPHINE SULFATE 2 MG/ML DISP.SYRIN. IV PRN ×4 (00:24→14:08)
[2016-10-15] MEDS: IV NORMAL SALINE 1000ML BAG 1,000 ML IV SCH ×3 (00:24→11:02)
--- NOTE | 2016-10-15 02:24 | ACF ---
Admission Forms Criteria CELLULITIS Clinical Indications for Admission to Inpatient Care (igiugig/check or initial the applicable condition/criteria) Admission is indicated for ANY ONE of the following(1)(2)(3)(4)(5): [ ]I. Limb-threatening infection [ ]II. High-risk comorbid condition as indicated by ANY ONE of the following: [ ]a) Uncontrolled diabetes (eg, HbA1c greater than 10% (0.1)) [ ]b) Cirrhosis [ ]c) Neutropenia [ ]d) Asplenia(12) [ ]e) Immunosuppression [ ]f) Symptomatic heart failure [ ]III. Failure of outpatient therapy as indicated by ALL of the following(6): [ ]a) Progression or no improvement after adequate trial (minimum of 48 hours, with longer period for stable lower extremity infection) [ ]b) Adequate antibiotic regimen as indicated by use of ANY ONE of the following: [ ]i) First-generation cephalosporin (e.g., cephalexin) [ ]ii) Antistaphylococcal penicillin (e.g., dicloxacillin) [ ]iii) Penicillin-allergic patient regimen (clindamycin, extended-spectrum fluoroquinolone, or doxycycline) [ ]iv) Resistant organism (eg, methicillin-resistant Staphylococcus aureus) regimen (7)(8) [ ]c) Outpatient intravenous therapy regimen is not appropriate due to ANY ONE of the following. (9)(10) [ ]i) It was tried and was not successful (eg, progression of infection). [ ]ii) It is not available or cannot be arranged in a clinically appropriate time frame (e.g., the next day). [ ]iii) Clinical presentation (eg, acuity of infection, rapidity of progression, confirmed or suspected bacteremia) is judged to require ALL of the following: [ ]1) Immediate initiation of intravenous therapy ( eg, cannot wait for next day) [ ]2) Intensity of patient monitoring and observation (eg, vital sign measurement, checks for infection progression) that cannot be provided at other than inpatient level of care [ ]IV. Altered Mental status that is severe or persistent [ ]V. Bacteremia [ ]. Hemodynamic instability [ ]VII. Suspected necrotizing soft tissue infection (e.g., gas in tissue)(13)( 14)(15) [ ]VIII. Orbital infection (16)(17) [ ]XI. Associated surgical procedure (e.g., abscess drainage, debridement) not amenable to outpatient, emergency department, or observation care [ ]X. Cutaneous gangrene(19) [ ]XII. High fever (temperature greater than 39.5 degrees C (103.1 degrees F) (oral)) not responsive to outpatient, emergency department, or observation care therapy(20)(21) [ X]XIII. Inpatient admission required [A]rather than observation care (Also use Cellulitis: Observation Care as appropriate) because of ANY ONE of the following(22)(23): [ ]a) Periorbital or perineal infection that is severe or worsening [X ]b) Severe pain requiring acute inpatient management [ ]b) IV fluid to replace significant ongoing (e.g., for over 24 hours) losses (greater than 3 L/m2 per day) [ ]b) Compartment syndrome monitoring (24) [ ]b) Strict or protective (eg, laminar flow) isolation) [ ]b) Urgent debridement or skin grafting [ ]b) Bone or joint debridement [ ]b) Immediate inpatient surgery [ ]b) Other condition, treatment, or monitoring requiring inpatient admission Extended stay beyond goal length of stay may be needed for(18)(36)(37)(38)(39)( 40)(41) [ ]a) Necrotizing soft tissue infection or fasciitis(13)(42) [ ]b) Gram-negative infection [ ]c) Methicillin-resistant Staphylococcal aureus (MRSA) infection(7)(43) [ ]d) Peripheral venous insufficiency with cellulitis [ ]e) Extensive edema [ ]f) Sepsis or continued Hemodynamic instability [ ]g) Continued high fever or mental status change [ ]h) Bacteremia(43) [ ]i) Active serious comorbid conditions ( eg, heart failure, renal insufficiency) The original [employer] content created by [employer] has been revised. The portions of the content which have been revised are identified through the use of italic text, and [facility] has neither reviewed nor approved the modified material. All other unmodified content is copyright [email or web address] Please see references footnoted in the original [email or web address] edition 2014 Admission Criteria Met?: Yes EMILY LYNN Oct 15, 2016 02:24
[2016-10-15 06:40] LABS: BASO # 0.1 x10^3/uL (0.0-0.2); BASO % 1 % (0-3); EOS % 2 % (0-3); HEMATOCRIT 41.2 % (36.0-47.0); HEMOGLOBIN 13.5 g/dL (12.0-15.5); LYMPH % 24 % (24-48); MEAN CORPUSCULAR HEMOGLOBIN 29 pg (25-35); MEAN CORPUSCULAR HGB CONC 33 g/dL (31-37); MEAN CORPUSCULAR VOLUME 88 fL (79-100); MONO % 8 % (0-9); NEUT % 65 % (31-73); PLATELET COUNT 278 x10^3/uL (140-400); RED BLOOD COUNT 4.67 x10^6/uL (3.50-5.40); RED CELL DISTRIBUTION WIDTH 15.1 % (11.5-14.5); WHITE BLOOD COUNT 12.4 x10^3/uL (4.0-11.0)
[2016-10-15 06:55] LABS: CALCIUM 9.1 mg/dL (8.5-10.1); CREATININE 0.7 mg/dL (0.6-1.0); GFR 86.6; POTASSIUM 3.7 mmol/L (3.5-5.1)
[2016-10-15] MEDS: ALBUTEROL SULFATE 2.5 MG/3 ML NEBU. NEB SCH ×3 (07:20→15:26)
[2016-10-15] MEDS: BUDESONIDE 0.5 MG/2 ML NEBU. NEB SCH (07:20)
[2016-10-15] MEDS ORDERED: INSULIN ASPART 300 UNITS/3 ML INSULN.PEN SQ SCH (08:00)
[2016-10-15] MEDS ORDERED: INSULIN ASPART 300 UNITS/3 ML INSULN.PEN SQ ONE (08:30)
[2016-10-15] MEDS ORDERED: NICOTINE POLACRILEX 2MG GUM PACKAGE of 12. BC PRN (08:45)
[2016-10-15] MEDS ORDERED: NON FORMULARY ITEM (Budesonide/Formoterol Fumarate (Symbicort 160-4.5 Mcg Inhaler) 2 PUFF) IH SCH (09:00)
[2016-10-15] MEDS ORDERED: LOPERAMIDE 2 MG CAPSULE PO PRN (09:00)
[2016-10-15] MEDS ORDERED: NON FORMULARY ITEM (Levalbuterol Hcl (Xopenex) 1 VIAL) NEB SCH (09:00)
[2016-10-15] MEDS ORDERED: NON FORMULARY ITEM (Tiotropium Bromide (Spiriva) 1 CAP) IH SCH (09:00)
--- NOTE | 2016-10-15 09:18 | PDOC1 ---
History and Physical Date of Admission Date of Admission DATE: 10/15/16 TIME: 09:11 Identification/Chief Complaint Chief Complaint leg pain and rash Problems: Source Source: Chart review, Patient History of Present Illness History of Present Illness Ms. Priest is a 56 year old female admit from ER with leg pain, she has mult nonhealing right lower extremity venous stasis ulcers with increased redness swelling and tenderness over the past several days. Per Dr. grande, she is s/p 2 rounds of doxycycline in the past 3 weeks. recently started to apply Bactroban to open sores on both legs. T 100 last night, recent poor control of blood sugars Past Medical History Cardiovascular: AFIB, CHF, HTN, Hyperlipidemia Pulmonary: COPD, Pneumonia, Other CENTRAL NERVOUS SYSTEM: TIA GI: GERD, Irritable bowel disease, Other Heme/Onc: No pertinent hx Hepatobiliary: Hep A/B/C Psych: Anxiety, Depression Musculoskeletal: Osteoarthritis, Other Rheumatologic: No pertinent hx Infectious disease: No pertinent hx Renal/: No pertinent hx Endocrine: Diabetes, Hypothyroidism Past Surgical History Past Surgical History: Cholecystectomy, Cataract Removal Family History Family History: No Significant, Family History Unknown Social History Smoke: 1 pack per day ALCOHOL: occassional Drugs: None Current Problem List Problem List Problems Medical Problems: (1) Cellulitis Status: Acute (2) Hyperglycemia Status: Acute Problems: Current Medications Current Medications Current Medications Sodium Chloride 500 ml @ 500 mls/hr 1X ONCE IV Last administered on 10/14/16 22:22; Start 10/14/16 at 22:00; Stop 10/14/16 at 22:59; Status DC Vancomycin HCl 2 gm/Sodium Chloride 500 ml @ 250 mls/hr 1X ONCE IV Last administered on 10/15/16 00:24; Start 10/14/16 at 23:45; Stop 10/15/16 at 01:44; Status DC Insulin Aspart (NovoLOG VIAL) 10 unit 1X ONCE SQ ; Start 10/14/16 at 23:45; Stop 10/15/16 at 00:06; Status DC Ondansetron HCl (Zofran) 4 mg PRN Q8HRS PRN IV NAUSEA/VOMITING Last administered on 10/15/16 00:24; Start 10/14/16 at 23:45; Stop 10/15/16 at 23:44 Morphine Sulfate 2 mg PRN Q2HR PRN IV PAIN Last administered on 10/15/16 08:30 ; Start 10/14/16 at 23:45; Stop 10/15/16 at 23:44 Sodium Chloride 1,000 ml @ 125 mls/hr Q8H IV Last administered on 10/15/16 00: 24; Start 10/14/16 at 23:45; Stop 10/15/16 at 23:44 Insulin Aspart (NovoLOG) 0-7 UNITS TIDWMEALS SQ ; Start 10/15/16 at 08:00; Stop 10/15/16 at 08:51; Status DC Dextrose (Dextrose 50%-Water Syringe) 12.5 gm PRN Q15MIN PRN IV SEE COMMENTS; Start 10/14/16 at 23:45 Insulin Human Regular (NovoLIN R VIAL) 10 unit 1X ONCE SQ Last administered on 10/15/16 00:23; Start 10/15/16 at 00:15; Stop 10/15/16 at 00:16; Status DC Insulin Human Regular (NovoLIN R VIAL) 100 unit STK-MED ONCE .ROUTE ; Start 10/15 at 00:08; Stop 10/15/16 at 00:09; Status DC Non-Formulary Medication 2 puff BID IH ; Start 10/15/16 at 09:00; Status UNV Budesonide (Pulmicort) 0.5 mg RTBID NEB Last administered on 10/15/16 07:20; Start 10/15/16 at 08:00 Albuterol Sulfate (Ventolin Neb Soln) 2.5 mg RTQID NEB Last administered on 10/15 07:20; Start 10/15/16 at 08:00 Insulin Aspart (NovoLOG) 10 units 1X ONCE SQ Last administered on 10/15/16 08: 36; Start 10/15/16 at 08:30; Stop 10/15/16 at 08:31; Status DC Nicotine (Nicoderm Cq 14mg) 1 patch PRN DAILY PRN TD SMOKING CESSATION; Start 10/15/16 at 08:45 Nicotine Polacrilex (Nicorette Gum) 1 each PRN Q1HR PRN BC SMOKING CESSATION; Start 10/15/16 at 08:45 Insulin Aspart (NovoLOG) 0-7 UNITS QIDACHS SQ ; Start 10/15/16 at 11:30 Amlodipine Besylate (Norvasc) 5 mg DAILY PO ; Start 10/15/16 at 09:00 Aripiprazole (Abilify) 5 mg DAILY PO ; Start 10/15/16 at 09:00 Cetirizine HCl (ZyrTEC) 10 mg DAILY PO ; Start 10/15/16 at 09:00 Clopidogrel Bisulfate (Plavix) 75 mg DAILY PO ; Start 10/15/16 at 09:00 Digoxin (Lanoxin) 125 mcg DAILY PO ; Start 10/15/16 at 09:00 Fluticasone Propionate (Flonase) 2 spray DAILY NS ; Start 10/15/16 at 09:00 Furosemide (Lasix) 40 mg DAILY PO ; Start 10/15/16 at 09:00 Insulin Aspart (NovoLOG) 50 units TIDWMEALS SQ ; Start 10/15/16 at 12:00 Levothyroxine Sodium (Synthroid) 150 mcg DAILY PO ; Start 10/15/16 at 09:00 Nystatin (Nystop) 1 melissa BID TP ; Start 10/15/16 at 09:00 Oxcarbazepine (Trileptal) 300 mg HS PO ; Start 10/15/16 at 21:00 Pantoprazole Sodium (Protonix) 40 mg DAILYAC PO ; Start 10/15/16 at 09:00 Sotalol HCl (Betapace) 80 mg BID PO ; Start 10/15/16 at 09:00 Sucralfate (Carafate) 1 gm QIDACHS PO ; Start 10/15/16 at 11:30 Gabapentin (Neurontin) 600 mg QID PO ; Start 10/15/16 at 09:00 Non-Formulary Medication 90 unit BID SQ ; Start 10/15/16 at 09:00; Status UNV Non-Formulary Medication 1 vial TID NEB ; Start 10/15/16 at 09:00; Status UNV Loperamide HCl (Imodium) 2 mg PRN Q15MIN PRN PO DIARRHEA; Start 10/15/16 at 09: 00 Losartan Potassium (Cozaar) 100 mg DAILY PO ; Start 10/15/16 at 09:00 Ondansetron HCl (Zofran Odt) 4 mg PRN Q8HRS PRN PO NAUSEA/VOMITING; Start at 09:15 Non-Formulary Medication 1 tab QID PRN PO PAIN; Start 10/15/16 at 09:00; Status UNV Non-Formulary Medication 1 cap DAILY IH ; Start 10/15/16 at 09:00; Status UNV Non-Formulary Medication 1 cap DAILY PO ; Start 10/15/16 at 09:00; Status UNV Vancomycin HCl (Vanco Per Pharmacy) 1 each PRN DAILY PRN MC SEE COMMENTS; Start 10/15/16 at 09:00; Status UNV Active Scripts Active Oxycodone Hcl 10 Mg Tablet 1 Tab PO QID PRN Novolog Flexpen (Insulin Aspart) 100 Unit/1 Ml Insuln.pen 50 Units SQ TIDWMEALS Sucralfate 1 Gm/10 Ml Oral.susp 1 Gm PO QIDACHS Pantoprazole Sodium 40 Mg Tablet.dr 40 Mg PO DAILYAC Furosemide 40 Mg Tablet 1 Tab PO DAILY Mupirocin Ointment (Mupirocin) 22 Gm Oint...g. 22 Gm TP PRN TID PRN Toujeo Solostar (Insulin Glargine,Hum.rec.anlog) 300 Unit/1 Ml Insuln.pen 90 Unit SQ BID Zofran (Ondansetron Hcl) 4 Mg Tablet 1 Tab PO PRN Q6-8HRS Spiriva (Tiotropium Sutter) 18 Mcg Cap.w.dev 1 Cap IH DAILY Xopenex (Levalbuterol Hcl) 1.25 Mg/3 Ml Vial.neb 1 Vial NEB TID Fenofibrate (Fenofibrate Nanocrystallized) 145 Mg Tablet 1 Tab PO DAILY Losartan Potassium 100 Mg Tablet 100 Mg PO DAILY Sotalol (Sotalol Hcl) 80 Mg Tablet 80 Mg PO BID Symbicort 160-4.5 Mcg Inhaler (Budesonide/Formoterol Fumarate) 10.2 Gm Hfa.aer.ad 2 Puff IH BID Reported Levothyroxine Sodium 175 Mcg Tablet 1 Tab PO DAILY Levothyroxine Sodium 150 Mcg Tablet 1 Tab PO DAILY Vitamin D2 (Ergocalciferol (Vitamin D2)) 50,000 Unit Capsule 50,000 Unit PO Venlafaxine Hcl Er (Venlafaxine Hcl) 75 Mg Cap.er.24h 1 Cap PO DAILY Anti-Diarrhea (Loperamide Hcl) 2 Mg Tablet 2 Mg PO PRN PRN Fluticasone Propionate Nasal [place] (Fluticasone Propionate) 16 Gm [place].susp 2 [place] NS DAILY Vitamin D3 (Cholecalciferol (Vitamin D3)) 1,000 Unit Tablet 1,000 Unit PO Amlodipine Besylate 5 Mg Tablet 5 Mg PO DAILY Nystatin 15 Gm Powder 1 Melissa TP BID Melatonin 3 Mg Tablet 5 Mg PO Digoxin 125 Mcg Tablet 1 Tab PO DAILY Oxcarbazepine 300 Mg Tablet 1 Tab PO HS Gabapentin 600 Mg Tablet 600 Mg PO QID Abilify (Aripiprazole) 5 Mg Tablet 5 Mg PO DAILY Plavix (Clopidogrel Bisulfate) 75 Mg Tablet 75 Mg PO DAILY Cetirizine Hcl 10 Mg Tablet 10 Mg PO DAILY Allergies Allergies: Coded Allergies: Cephalexin Monohydrate (Verified Allergy, Intermediate, 04/18/14) Penicillins (Verified Allergy, Intermediate, 04/18/14) Sulfa (Sulfonamide Antibiotics) (Verified Allergy, Intermediate, 04/18/14) aspirin (Verified Allergy, Intermediate, 04/18/14) codeine (Verified Allergy, Intermediate, Previously tolerated morphine ( per pt and chart 12/2013), 07/17/14) diclofenac sodium (Verified Allergy, Intermediate, 04/18/14) nabumetone (Verified Allergy, Intermediate, 04/18/14) tomato (Verified Allergy, Intermediate, 04/18/14) ROS General: No: Chills, Night Sweats, Fatigue, Malaise, Appetite, Other PSYCHOLOGICAL ROS: YES: Other, No: Anxiety, Behavioral Disorder, Concentration difficultie, Decreased libido , Depression, Disorientation, Hallucinations, Hostility, Irritablity, Memory difficulties, Mood Swings, Obsessive thoughts Eyes: No Blurry vision, No Decreased vision, No Double vision, No Dry eyes, No Excessive tearing, No Eye Pain, No Itchy Eyes, No Loss of vision, No Photophobia , No Scotomata, No Uses contacts, No Uses glasses, No Other HEENT: No: Heacaches, Visual Changes, Hearing change, Nasal congestion, Nasal discharge, Oral lesions, Sinus pain, Sore Throat, Epistaxis, Sneezing, Snoring, Tinnitus, Vertigo, Vocal changes, Other Respiratory: No: Cough, Hemoptysis, Orthopnea, Pleuritic Pain, Shortness of breath, SOB with excertion, Sputum Changes, Stridor, Tachypnea, Wheezing, Other Cardiovascular: No Chest Pain, No Palpitations, No Orthopnea, No Paroxysmal Noc. Dyspnea, No Edema, No Lt Headedness, No Other Gastrointestinal: No Nausea, No Vomiting, No Abdominal Pain, No Diarrhea, No Constipation, No Melena, No Hematochezia, No Other Genitourinary: No Dysuria, No Frequency, No Incontinence, No Hematuria, No Retention, No Discharge, No Urgency, No Pain, No Flank Pain, No Other, No , No , No , No , No , No , No Musculoskeletal: Yes Gait Disturbance, Yes Joint Pain, Yes Joint Stiffness, Yes Pain In: (legas), No Joint Swelling, No Muscle Pain, No Muscular Weakness, No Swelling In:, No Other Neurological: Yes Headaches, No Behavorial Changes, No Bowel/Bladder ControlChng, No Confusion, No Dizziness, No Gait Disturbance, No Impaired Coord/balance, No Memory Loss, No Numbness/Tingling, No Seizures Skin: Yes Dry Skin, Yes Lumps, Yes Pruritus, Yes Rash, Yes Skin Lesion Changes , No Eczema, No Hair Changes, No Mole Changes, No Mottling, No Nail Changes, No Other, No Acne Physical Exam General: Alert, Cooperative, No acute distress HEENT: EOMI, Mucous membr. moist/pink Lungs: Clear to auscultation Heart: S1S2 Abdomen: Normal bowel sounds, Soft Rectal Exam: not examined Extremities: No clubbing, No edema Skin: Other (mult small lesions, exoriated on arm and legs, legs have large lesions without surrounding erythema, most lesions on shins above exactly righrt above where her socks wound be, right has the largest area, about 6cm across of abraded skin) Neuro: Normal speech, Normal tone Psych/Mental Status: Other (flat, withdrawn, complains of leg pain) Vitals Vitals Vital Signs Date Time Temp Pulse Resp B/P (MAP) Pulse Ox O2 Delivery O2 Flow Rate FiO2 10/15/16 08:30 18 Nasal Cannula 3.0 10/15/16 07:30 97.5 87 156/82 (106) 95 97.5 Labs Labs Laboratory Tests Test 10/14/16 22:20 10/15/16 06:15 10/15/16 07:21 White Blood Count 15.3 x10^3/uL (4.0-11.0) 12.4 x10^3/uL (4.0-11.0) Red Blood Count 5.06 x10^6/uL (3.50-5.40) 4.67 x10^6/uL (3.50-5.40) Hemoglobin 14.7 g/dL (12.0-15.5) 13.5 g/dL (12.0-15.5) Hematocrit 45.4 % (36.0-47.0) 41.2 % (36.0-47.0) Mean Corpuscular Volume 90 fL (79-100) 88 fL (79-100) Mean Corpuscular Hemoglobin 29 pg (25-35) 29 pg (25-35) Mean Corpuscular Hemoglobin Concent 32 g/dL (31-37) 33 g/dL (31-37) Red Cell Distribution Width 15.0 % (11.5-14.5) 15.1 % (11.5-14.5) Platelet Count 301 x10^3/uL (140-400) 278 x10^3/uL (140-400) Neutrophils (%) (Auto) 71 % (31-73) 65 % (31-73) Lymphocytes (%) (Auto) 21 % (24-48) 24 % (24-48) Monocytes (%) (Auto) 6 % (0-9) 8 % (0-9) Eosinophils (%) (Auto) 2 % (0-3) 2 % (0-3) Basophils (%) (Auto) 1 % (0-3) 1 % (0-3) Neutrophils # (Auto) 10.9 x10^3uL (1.8-7.7) 8.1 x10^3uL (1.8-7.7) Lymphocytes # (Auto) 3.2 x10^3/uL (1.0-4.8) 3.0 x10^3/uL (1.0-4.8) Monocytes # (Auto) 0.9 x10^3/uL (0.0-1.1) 1.0 x10^3/uL (0.0-1.1) Eosinophils # (Auto) 0.3 x10^3/uL (0.0-0.7) 0.3 x10^3/uL (0.0-0.7) Basophils # (Auto) 0.1 x10^3/uL (0.0-0.2) 0.1 x10^3/uL (0.0-0.2) Sodium Level 138 mmol/L (136-145) 141 mmol/L (136-145) Potassium Level 4.5 mmol/L (3.5-5.1) 3.7 mmol/L (3.5-5.1) Chloride Level 100 mmol/L (98-107) 104 mmol/L (98-107) Carbon Dioxide Level 31 mmol/L (21-32) 29 mmol/L (21-32) Anion Gap 7 (6-14) 8 (6-14) Blood Urea Nitrogen 14 mg/dL (7-20) 14 mg/dL (7-20) Creatinine 0.9 mg/dL (0.6-1.0) 0.7 mg/dL (0.6-1.0) Estimated GFR (Cockcroft-Gault) 64.8 86.6 BUN/Creatinine Ratio 16 (6-20) Glucose Level 413 mg/dL (70-99) 340 mg/dL (70-99) Calcium Level 9.6 mg/dL (8.5-10.1) 9.1 mg/dL (8.5-10.1) Total Bilirubin 0.4 mg/dL (0.2-1.0) Aspartate Amino Transf (AST/SGOT) 36 U/L (15-37) Alanine Aminotransferase (ALT/SGPT) 36 U/L (14-59) Alkaline Phosphatase 200 U/L (46-116) C-Reactive Protein, Quantitative 16.1 mg/L (0-3.3) BH-Gmf-N-Type Natriuretic Peptide 94 pg/mL (0-124) Total Protein 7.9 g/dL (6.4-8.2) Albumin 3.0 g/dL (3.4-5.0) Albumin/Globulin Ratio 0.6 (1.0-1.7) Glucose (Fingerstick) 386 mg/dL (70-99) Laboratory Tests Test 10/14/16 22:20 10/15/16 06:15 10/15/16 07:21 White Blood Count 15.3 x10^3/uL (4.0-11.0) 12.4 x10^3/uL (4.0-11.0) Red Blood Count 5.06 x10^6/uL (3.50-5.40) 4.67 x10^6/uL (3.50-5.40) Hemoglobin 14.7 g/dL (12.0-15.5) 13.5 g/dL (12.0-15.5) Hematocrit 45.4 % (36.0-47.0) 41.2 % (36.0-47.0) Mean Corpuscular Volume 90 fL (79-100) 88 fL (79-100) Mean Corpuscular Hemoglobin 29 pg (25-35) 29 pg (25-35) Mean Corpuscular Hemoglobin Concent 32 g/dL (31-37) 33 g/dL (31-37) Red Cell Distribution Width 15.0 % (11.5-14.5) 15.1 % (11.5-14.5) Platelet Count 301 x10^3/uL (140-400) 278 x10^3/uL (140-400) Neutrophils (%) (Auto) 71 % (31-73) 65 % (31-73) Lymphocytes (%) (Auto) 21 % (24-48) 24 % (24-48) Monocytes (%) (Auto) 6 % (0-9) 8 % (0-9) Eosinophils (%) (Auto) 2 % (0-3) 2 % (0-3) Basophils (%) (Auto) 1 % (0-3) 1 % (0-3) Neutrophils # (Auto) 10.9 x10^3uL (1.8-7.7) 8.1 x10^3uL (1.8-7.7) Lymphocytes # (Auto) 3.2 x10^3/uL (1.0-4.8) 3.0 x10^3/uL (1.0-4.8) Monocytes # (Auto) 0.9 x10^3/uL (0.0-1.1) 1.0 x10^3/uL (0.0-1.1) Eosinophils # (Auto) 0.3 x10^3/uL (0.0-0.7) 0.3 x10^3/uL (0.0-0.7) Basophils # (Auto) 0.1 x10^3/uL (0.0-0.2) 0.1 x10^3/uL (0.0-0.2) Sodium Level 138 mmol/L (136-145) 141 mmol/L (136-145) Potassium Level 4.5 mmol/L (3.5-5.1) 3.7 mmol/L (3.5-5.1) Chloride Level 100 mmol/L (98-107) 104 mmol/L (98-107) Carbon Dioxide Level 31 mmol/L (21-32) 29 mmol/L (21-32) Anion Gap 7 (6-14) 8 (6-14) Blood Urea Nitrogen 14 mg/dL (7-20) 14 mg/dL (7-20) Creatinine 0.9 mg/dL (0.6-1.0) 0.7 mg/dL (0.6-1.0) Estimated GFR (Cockcroft-Gault) 64.8 86.6 BUN/Creatinine Ratio 16 (6-20) Glucose Level 413 mg/dL (70-99) 340 mg/dL (70-99) Calcium Level 9.6 mg/dL (8.5-10.1) 9.1 mg/dL (8.5-10.1) Total Bilirubin 0.4 mg/dL (0.2-1.0) Aspartate Amino Transf (AST/SGOT) 36 U/L (15-37) Alanine Aminotransferase (ALT/SGPT) 36 U/L (14-59) Alkaline Phosphatase 200 U/L (46-116) C-Reactive Protein, Quantitative 16.1 mg/L (0-3.3) RK-Hqw-J-Type Natriuretic Peptide 94 pg/mL (0-124) Total Protein 7.9 g/dL (6.4-8.2) Albumin 3.0 g/dL (3.4-5.0) Albumin/Globulin Ratio 0.6 (1.0-1.7) Glucose (Fingerstick) 386 mg/dL (70-99) VTE Prophylaxis Ordered VTE Prophylaxis Devices: Contraindicated VTE Pharmacological Prophylaxi: Yes Assessment/Plan Assessment/Plan leg wounds, appear infected, not healing, Hx MRSA, vanc started, isolated consult ID leukocytosis, tachycardia, tachypnea, LE cellulitis w sepsis morbid obesity, BMI 46 tobaccoism bipolar 2 anxiety d/o DM2, poor control, large insulin dosed req hypoalbumin from acute illness SHONA ONEAL MD Oct 15, 2016 09:18
[2016-10-15] MEDS: LEVOTHYROXINE 150 MCG TABLET PO SCH (09:44)
[2016-10-15] MEDS: amLODIPine BESYLATE 5 MG TABLET PO SCH (09:45)
[2016-10-15] MEDS: oxyCODONE IR 5 MG TABLET PO PRN ×2 (09:45→16:56)
[2016-10-15] MEDS: SOTALOL 80 MG TABLET. PO SCH ×2 (09:46→21:31)
[2016-10-15] MEDS: DIGOXIN 125 MCG TABLET. PO SCH (09:46)
[2016-10-15] MEDS: CETIRIZINE HCL 10 MG TABLET. PO SCH (09:46)
[2016-10-15] MEDS: FUROSEMIDE 40 MG TABLET. PO SCH (09:47)
[2016-10-15] MEDS: LOSARTAN POTASSIUM 50 MG TABLET. PO SCH (09:47)
[2016-10-15] MEDS: ARIPiprazole 5 MG TABLET PO SCH (09:47)
[2016-10-15] MEDS: GABAPENTIN 300 MG CAPSULE. PO SCH ×4 (09:47→21:30)
[2016-10-15] MEDS: PANTOPRAZOLE 40 MG TABLET.DR. PO SCH (09:48)
[2016-10-15] MEDS: VENLAFAXINE XR 37.5 MG CAP.ER.24H. PO SCH (09:48)
[2016-10-15] MEDS: CLOPIDOGREL BISULFATE 75 MG TABLET PO SCH (09:48)
[2016-10-15] MEDS ORDERED: VANCOMYCIN 2 GM in IV NORMAL SALINE 500ML BAG 500 ML IV ONE (10:00)
--- NOTE | 2016-10-15 10:00 | PDOC ---
Infectious Disease Note Vital Sign Vital Signs Vital Signs Date Time Temp Pulse Resp B/P (MAP) Pulse Ox O2 Delivery O2 Flow Rate FiO2 10/15/16 09:47 87 156/82 10/15/16 09:45 20 Nasal Cannula 3.0 10/15/16 07:30 97.5 95 97.5 Labs Lab Laboratory Tests Test 10/14/16 22:20 10/15/16 06:15 10/15/16 07:21 White Blood Count 15.3 x10^3/uL (4.0-11.0) 12.4 x10^3/uL (4.0-11.0) Red Blood Count 5.06 x10^6/uL (3.50-5.40) 4.67 x10^6/uL (3.50-5.40) Hemoglobin 14.7 g/dL (12.0-15.5) 13.5 g/dL (12.0-15.5) Hematocrit 45.4 % (36.0-47.0) 41.2 % (36.0-47.0) Mean Corpuscular Volume 90 fL (79-100) 88 fL (79-100) Mean Corpuscular Hemoglobin 29 pg (25-35) 29 pg (25-35) Mean Corpuscular Hemoglobin Concent 32 g/dL (31-37) 33 g/dL (31-37) Red Cell Distribution Width 15.0 % (11.5-14.5) 15.1 % (11.5-14.5) Platelet Count 301 x10^3/uL (140-400) 278 x10^3/uL (140-400) Neutrophils (%) (Auto) 71 % (31-73) 65 % (31-73) Lymphocytes (%) (Auto) 21 % (24-48) 24 % (24-48) Monocytes (%) (Auto) 6 % (0-9) 8 % (0-9) Eosinophils (%) (Auto) 2 % (0-3) 2 % (0-3) Basophils (%) (Auto) 1 % (0-3) 1 % (0-3) Neutrophils # (Auto) 10.9 x10^3uL (1.8-7.7) 8.1 x10^3uL (1.8-7.7) Lymphocytes # (Auto) 3.2 x10^3/uL (1.0-4.8) 3.0 x10^3/uL (1.0-4.8) Monocytes # (Auto) 0.9 x10^3/uL (0.0-1.1) 1.0 x10^3/uL (0.0-1.1) Eosinophils # (Auto) 0.3 x10^3/uL (0.0-0.7) 0.3 x10^3/uL (0.0-0.7) Basophils # (Auto) 0.1 x10^3/uL (0.0-0.2) 0.1 x10^3/uL (0.0-0.2) Sodium Level 138 mmol/L (136-145) 141 mmol/L (136-145) Potassium Level 4.5 mmol/L (3.5-5.1) 3.7 mmol/L (3.5-5.1) Chloride Level 100 mmol/L (98-107) 104 mmol/L (98-107) Carbon Dioxide Level 31 mmol/L (21-32) 29 mmol/L (21-32) Anion Gap 7 (6-14) 8 (6-14) Blood Urea Nitrogen 14 mg/dL (7-20) 14 mg/dL (7-20) Creatinine 0.9 mg/dL (0.6-1.0) 0.7 mg/dL (0.6-1.0) Estimated GFR (Cockcroft-Gault) 64.8 86.6 BUN/Creatinine Ratio 16 (6-20) Glucose Level 413 mg/dL (70-99) 340 mg/dL (70-99) Calcium Level 9.6 mg/dL (8.5-10.1) 9.1 mg/dL (8.5-10.1) Total Bilirubin 0.4 mg/dL (0.2-1.0) Aspartate Amino Transf (AST/SGOT) 36 U/L (15-37) Alanine Aminotransferase (ALT/SGPT) 36 U/L (14-59) Alkaline Phosphatase 200 U/L (46-116) C-Reactive Protein, Quantitative 16.1 mg/L (0-3.3) [id number]-Type Natriuretic Peptide 94 pg/mL (0-124) Total Protein 7.9 g/dL (6.4-8.2) Albumin 3.0 g/dL (3.4-5.0) Albumin/Globulin Ratio 0.6 (1.0-1.7) Glucose (Fingerstick) 386 mg/dL (70-99) Objective Assessment Rt leg cellulitis Multiple skin breakdowns likely sec to scratching from anxiety likely Leukocytosis Obesity DM with poor control Multiple med allergy Plan Plan of Care vanc and aztreleylam SHAYE ROMERO MD Oct 15, 2016 10:00
[2016-10-15] MEDS: FLUTICASONE 50MCG/NASAL SPRAY 16GM BOTTLE. NS SCH (11:03)
[2016-10-15] MEDS: NYSTATIN TOPICAL POWDER 15GM BOTTLE. TP SCH ×2 (11:04→21:00)
[2016-10-15] MEDS: SUCRALFATE 1 GM/10 ML ORAL.SUSP. PO SCH ×3 (11:14→21:31)
--- NOTE | 2016-10-15 11:42 | CONS ---
DATE OF CONSULTATION: 10/15/2016 DATE OF SERVICE: 10/15/2016 REQUESTING PHYSICIAN: Dr. Barragan. REASON FOR CONSULTATION: Cellulitis with multiple drug allergies. HISTORY OF PRESENT ILLNESS: This is a 56-year-old female with morbid obesity. The patient also has multiple medical problems, who comes in with leg redness and pain. The patient has multiple areas on the not only leg, but on the body with skin breakdowns and the patient has been on doxycycline for 3 weeks and it is not helping. Hence she is admitted. The patient denies any fevers, chills, nausea, vomiting, diarrhea, chest pain, shortness of breath, abdominal pain, urinary symptoms or bowel symptoms. PAST MEDICAL HISTORY: Positive for congestive heart failure, hypertension, hyperlipidemia, atrial fibrillation, COPD, morbid obesity, gastroesophageal reflux disease, history of depression, diabetes, hypothyroidism and on further questioning, I said do you have a liver problem, she says she has cirrhosis of liver, although it has not been documented anywhere. SOCIAL HISTORY: Negative for smoking or alcohol use or drug use. ALLERGIES: SHE IS LISTED ALLERGIC TO CEPHALEXIN, SULFA, PENICILLIN, all causes a rash, she says. CURRENT MEDICATIONS: The patient is on vancomycin and she had been on doxycycline outpatient for 3 weeks. REVIEW OF SYSTEMS: As per HPI, all other systems reviewed are negative. PHYSICAL EXAMINATION: GENERAL: Alert, oriented female, not in any distress. VITAL SIGNS: Stable, afebrile. HEENT: NAD. NECK: Supple, no JVD. No lymphadenopathy. LUNGS: Clear. HEART: S1, S2 regular. ABDOMEN: Benign. EXTREMITIES: No edema, cyanosis. SKIN: The patient does have multiple areas of skin breakdown, i.e., scratch chaudhary, typical on the areas where she can reach, on the feet just above the socks. There is no scratch prudence on the back where she cannot reach. The patient does have a secondary infection in the right leg. NEUROLOGIC: The patient is neurologically intact. LABORATORY DATA: White count when she came in was 20,000, now down to 12,000. BUN and creatinine is normal. Blood sugar has been out of control, very high. Urinalysis unremarkable. C. diff is positive. IMPRESSION: 1. Right leg cellulitis. 2. Multiple areas of skin breakdown. I believe it is scratching, probably from anxiety and/or if she does have an occult liver disease that may be causing itching. 3. Clostridium difficile. 4. Leukocytosis. RECOMMENDATIONS: We will continue vancomycin, add aztreonam with multiple drug allergies, and p.o. Flagyl. Supportive care and we will continue to follow. Discussion with Dr. Barragan done, may have to work on the anxiety and/or scratching and we will continue to follow. Thank you very much, Dr. Barragan, for giving me the opportunity to participate in this patient's care. SHAYE ROMERO MD DR: RAYMUNDO/iban JOB#: [id number] / [id number]
[2016-10-15] MEDS: AZTREONAM 2 GM in IV NORMAL SALINE 100ML 100 ML IV SCH ×3 (12:04→23:33)
[2016-10-15] MEDS: INSULIN ASPART 300 UNITS/3 ML INSULN.PEN SQ SCH ×5 (12:17→21:00)
[2016-10-15] MEDS ORDERED: metroNIDAZOLE 500 MG TABLET PO SCH (14:00)
[2016-10-15] MEDS: NICOTINE 14MG PATCH. TD PRN (14:14)
[2016-10-15] MEDS: VANCOMYCIN PER PHARMACY MC PRN (15:24)
[2016-10-15] MEDS: OXcarbazepine 300 MG TABLET PO SCH (21:30)
[2016-10-15] MEDS: INSULIN DETEMIR 300 UNITS/3 ML INSULN.PEN. SQ SCH (21:36)
[2016-10-15] MEDS: VANCOMYCIN 2 GM in IV NORMAL SALINE 500ML BAG 500 ML IV SCH (23:33)
[2016-10-16] MEDS: AZTREONAM 2 GM in IV NORMAL SALINE 100ML 100 ML IV SCH ×4 (05:42→23:35)
[2016-10-16 07:00] VITALS: BP 124/76
[2016-10-16] MEDS: ALBUTEROL SULFATE 2.5 MG/3 ML NEBU. NEB SCH ×5 (07:24→19:43)
[2016-10-16] MEDS: BUDESONIDE 0.5 MG/2 ML NEBU. NEB SCH ×2 (07:25→19:43)
[2016-10-16] MEDS: FLUTICASONE 50MCG/NASAL SPRAY 16GM BOTTLE. NS SCH (10:04)
[2016-10-16] MEDS: LEVOTHYROXINE 150 MCG TABLET PO SCH (10:05)
[2016-10-16] MEDS: oxyCODONE IR 5 MG TABLET PO PRN ×2 (10:05→18:34)
[2016-10-16] MEDS: LOSARTAN POTASSIUM 50 MG TABLET. PO SCH (10:05)
[2016-10-16] MEDS: SUCRALFATE 1 GM/10 ML ORAL.SUSP. PO SCH ×4 (10:05→20:51)
[2016-10-16] MEDS: ARIPiprazole 5 MG TABLET PO SCH (10:06)
[2016-10-16] MEDS: FUROSEMIDE 40 MG TABLET. PO SCH (10:06)
[2016-10-16] MEDS: GABAPENTIN 300 MG CAPSULE. PO SCH ×4 (10:06→20:52)
[2016-10-16] MEDS: SOTALOL 80 MG TABLET. PO SCH ×2 (10:06→20:52)
[2016-10-16] MEDS: PANTOPRAZOLE 40 MG TABLET.DR. PO SCH (10:07)
[2016-10-16] MEDS: CETIRIZINE HCL 10 MG TABLET. PO SCH (10:07)
[2016-10-16] MEDS: VENLAFAXINE XR 37.5 MG CAP.ER.24H. PO SCH (10:07)
[2016-10-16] MEDS: DIGOXIN 125 MCG TABLET. PO SCH (10:07)
[2016-10-16] MEDS: amLODIPine BESYLATE 5 MG TABLET PO SCH (10:07)
[2016-10-16] MEDS: NYSTATIN TOPICAL POWDER 15GM BOTTLE. TP SCH ×2 (10:10→20:55)
[2016-10-16] MEDS: CLOPIDOGREL BISULFATE 75 MG TABLET PO SCH (10:12)
[2016-10-16] MEDS: INSULIN ASPART 300 UNITS/3 ML INSULN.PEN SQ SCH ×6 (10:14→17:15)
[2016-10-16] MEDS: INSULIN DETEMIR 300 UNITS/3 ML INSULN.PEN. SQ SCH ×2 (10:14→20:58)
[2016-10-16 11:00] VITALS: BP 133/77
[2016-10-16 11:05] LABS: ALBUMIN 2.5 g/dL (3.4-5.0); ALBUMIN/GLOBULIN RATIO 0.7 (1.0-1.7); CALCIUM 9.1 mg/dL (8.5-10.1); CREATININE 0.7 mg/dL (0.6-1.0); GFR 86.6; POTASSIUM 4.5 mmol/L (3.5-5.1); TOTAL BILIRUBIN 0.2 mg/dL (0.2-1.0); TOTAL PROTEIN 6.2 g/dL (6.4-8.2)
[2016-10-16] MEDS: VANCOMYCIN 2 GM in IV NORMAL SALINE 500ML BAG 500 ML IV SCH (11:20)
[2016-10-16] MEDS: VANCOMYCIN PER PHARMACY MC PRN ×2 (11:27→11:39)
[2016-10-16 11:28] LABS: BASO # 0.1 x10^3/uL (0.0-0.2); BASO % 1 % (0-3); EOS % 2 % (0-3); HEMATOCRIT 42.3 % (36.0-47.0); HEMOGLOBIN 13.4 g/dL (12.0-15.5); LYMPH # 1.9 x10^3/uL (1.0-4.8); LYMPH % 14 % (24-48); MEAN CORPUSCULAR HEMOGLOBIN 29 pg (25-35); MEAN CORPUSCULAR HGB CONC 32 g/dL (31-37); MEAN CORPUSCULAR VOLUME 91 fL (79-100); MONO % 6 % (0-9); NEUT % 78 % (31-73); PLATELET COUNT 236 x10^3/uL (140-400); RED BLOOD COUNT 4.66 x10^6/uL (3.50-5.40); WHITE BLOOD COUNT 12.9 x10^3/uL (4.0-11.0)
[2016-10-16] MEDS: VANCOMYCIN 1.75 GM in IV NORMAL SALINE 500ML BAG 500 ML IV SCH ×2 (11:34→23:38)
[2016-10-16] MEDS ORDERED: DEXTROSE 50% 25 GM / 50ML DISP.SYRIN. IV PRN (12:15)
--- NOTE | 2016-10-16 12:32 | PDOC ---
Infectious Disease Note Subjective Subjective c/o right leg pain with walking but better overall Appetite good ROS ROS GEN: Denies fevers, chills, sweats CV: Denies chest pain RESP: Denies shortness of air, cough GI: Denies n/v/d Vital Sign Vital Signs Vital Signs Date Time Temp Pulse Resp B/P (MAP) Pulse Ox O2 Delivery O2 Flow Rate FiO2 10/16/16 11:35 Room Air 10/16/16 11:15 3.0 10/16/16 11:00 87.8 74 18 133/77 (95) 94 87.8 Physical Exam PHYSICAL EXAM GENERAL: Walking back to bed, NAD LUNGS: Clear, soft wheeze HEART: S1 and S2 ABD: Obese, soft, NT EXT: No gross edema, no cyanosis. + tubigrips PHLEBOTOMIST LAB ASSISTANT: Alert, oriented x 3, no focal neurologic deficit SKIN: No rash IVs: ok Labs Lab Laboratory Tests Test 10/15/16 16:39 10/15/16 21:18 10/16/16 05:47 10/16/16 07:14 Glucose (Fingerstick) 166 mg/dL (70-99) 93 mg/dL (70-99) 189 mg/dL (70-99) 194 mg/dL (70-99) Test 10/16/16 10:40 10/16/16 10:47 White Blood Count 12.9 x10^3/uL (4.0-11.0) Red Blood Count 4.66 x10^6/uL (3.50-5.40) Hemoglobin 13.4 g/dL (12.0-15.5) Hematocrit 42.3 % (36.0-47.0) Mean Corpuscular Volume 91 fL (79-100) Mean Corpuscular Hemoglobin 29 pg (25-35) Mean Corpuscular Hemoglobin Concent 32 g/dL (31-37) Red Cell Distribution Width 15.0 % (11.5-14.5) Platelet Count 236 x10^3/uL (140-400) Neutrophils (%) (Auto) 78 % (31-73) Lymphocytes (%) (Auto) 14 % (24-48) Monocytes (%) (Auto) 6 % (0-9) Eosinophils (%) (Auto) 2 % (0-3) Basophils (%) (Auto) 1 % (0-3) Neutrophils # (Auto) 10.0 x10^3uL (1.8-7.7) Lymphocytes # (Auto) 1.9 x10^3/uL (1.0-4.8) Monocytes # (Auto) 0.7 x10^3/uL (0.0-1.1) Eosinophils # (Auto) 0.3 x10^3/uL (0.0-0.7) Basophils # (Auto) 0.1 x10^3/uL (0.0-0.2) Sodium Level 139 mmol/L (136-145) Potassium Level 4.5 mmol/L (3.5-5.1) Chloride Level 102 mmol/L (98-107) Carbon Dioxide Level 30 mmol/L (21-32) Anion Gap 7 (6-14) Blood Urea Nitrogen 17 mg/dL (7-20) Creatinine 0.7 mg/dL (0.6-1.0) Estimated GFR (Cockcroft-Gault) 86.6 BUN/Creatinine Ratio 24 (6-20) Glucose Level 320 mg/dL (70-99) Calcium Level 9.1 mg/dL (8.5-10.1) Total Bilirubin 0.2 mg/dL (0.2-1.0) Aspartate Amino Transf (AST/SGOT) 44 U/L (15-37) Alanine Aminotransferase (ALT/SGPT) 30 U/L (14-59) Alkaline Phosphatase 168 U/L (46-116) Total Protein 6.2 g/dL (6.4-8.2) Albumin 2.5 g/dL (3.4-5.0) Albumin/Globulin Ratio 0.7 (1.0-1.7) Vancomycin Level Trough 19.9 mcg/mL (10.0-20.0) Vancomycin Last Dose Date 10/15/16 Vancomycin Last Dose Time 2300 Glucose (Fingerstick) 321 mg/dL (70-99) Micro BLOOD CULTURE Preliminary NO GROWTH AFTER 1 DAY Objective Assessment Right leg cellulitis - improving Multiple skin breakdowns likely sec to scratching from anxiety likely Leukocytosis, stable Obesity DM with poor control Multiple med allergy h/o C. difficile, July 2016 Plan Plan of Care vanc and aztreonam vanc trough 19.9 f/u am labs Supportive care Attending Co-Sign Attending Co-Sign The patient was seen and interviewed as well as examined at the bedside. The chart was reviewed. The case was discussed. Agree with the plan of care. MARVEL KURTZ APRN Oct 16, 2016 12:32 MATEO NEGRON MD Oct 16, 2016 12:49
--- NOTE | 2016-10-16 14:06 | PDOC ---
PROGRESS NOTES Chief Complaint Chief Complaint Right leg cellulitis - Multiple skin breakdowns likely sec to scratching from anxiety likely morbid obesity, BMI 46 tobaccoism bipolar 2 anxiety d/o DM2, poor control, Multiple med allergy h/o C. difficile, July 2016 History of Present Illness History of Present Illness Claims doing well NO fever WBC 7 IV abx per ID Claims wound looks good PLAN: CPM Sw - PT recs SNU - pt lives alone at home Vitals Vitals Vital Signs Date Time Temp Pulse Resp B/P (MAP) Pulse Ox O2 Delivery O2 Flow Rate FiO2 10/16/16 11:35 Room Air 10/16/16 11:15 3.0 10/16/16 11:00 87.8 74 18 133/77 (95) 94 87.8 Physical Exam General: Alert, Cooperative, No acute distress Lungs: Clear Abdomen: Normal bowel sounds, Soft Extremities: No clubbing, No edema Skin: Other (mult small lesions, exoriated on arm and legs, legs have large lesions without surrounding erythema, most lesions on shins above exactly righrt above where her socks wound be, right has the largest area, about 6cm across of abraded skin) Labs LABS Laboratory Tests Test 10/15/16 16:39 10/15/16 21:18 10/16/16 05:47 10/16/16 07:14 Glucose (Fingerstick) 166 mg/dL (70-99) 93 mg/dL (70-99) 189 mg/dL (70-99) 194 mg/dL (70-99) Test 10/16/16 10:40 10/16/16 10:47 White Blood Count 12.9 x10^3/uL (4.0-11.0) Red Blood Count 4.66 x10^6/uL (3.50-5.40) Hemoglobin 13.4 g/dL (12.0-15.5) Hematocrit 42.3 % (36.0-47.0) Mean Corpuscular Volume 91 fL (79-100) Mean Corpuscular Hemoglobin 29 pg (25-35) Mean Corpuscular Hemoglobin Concent 32 g/dL (31-37) Red Cell Distribution Width 15.0 % (11.5-14.5) Platelet Count 236 x10^3/uL (140-400) Neutrophils (%) (Auto) 78 % (31-73) Lymphocytes (%) (Auto) 14 % (24-48) Monocytes (%) (Auto) 6 % (0-9) Eosinophils (%) (Auto) 2 % (0-3) Basophils (%) (Auto) 1 % (0-3) Neutrophils # (Auto) 10.0 x10^3uL (1.8-7.7) Lymphocytes # (Auto) 1.9 x10^3/uL (1.0-4.8) Monocytes # (Auto) 0.7 x10^3/uL (0.0-1.1) Eosinophils # (Auto) 0.3 x10^3/uL (0.0-0.7) Basophils # (Auto) 0.1 x10^3/uL (0.0-0.2) Sodium Level 139 mmol/L (136-145) Potassium Level 4.5 mmol/L (3.5-5.1) Chloride Level 102 mmol/L (98-107) Carbon Dioxide Level 30 mmol/L (21-32) Anion Gap 7 (6-14) Blood Urea Nitrogen 17 mg/dL (7-20) Creatinine 0.7 mg/dL (0.6-1.0) Estimated GFR (Cockcroft-Gault) 86.6 BUN/Creatinine Ratio 24 (6-20) Glucose Level 320 mg/dL (70-99) Calcium Level 9.1 mg/dL (8.5-10.1) Total Bilirubin 0.2 mg/dL (0.2-1.0) Aspartate Amino Transf (AST/SGOT) 44 U/L (15-37) Alanine Aminotransferase (ALT/SGPT) 30 U/L (14-59) Alkaline Phosphatase 168 U/L (46-116) Total Protein 6.2 g/dL (6.4-8.2) Albumin 2.5 g/dL (3.4-5.0) Albumin/Globulin Ratio 0.7 (1.0-1.7) Vancomycin Level Trough 19.9 mcg/mL (10.0-20.0) Vancomycin Last Dose Date 10/15/16 Vancomycin Last Dose Time 2300 Glucose (Fingerstick) 321 mg/dL (70-99) Review of Systems Review of Systems DENIES 14 pt reviewed Assessment and Plan Assessmemt and Plan Problems Medical Problems: (1) Cellulitis Status: Acute (2) Hyperglycemia Status: Acute Problems: Comment Review of Relevant I have reviewed the following items prudence (where applicable) has been applied. Labs Laboratory Tests Test 10/14/16 22:20 10/15/16 01:00 10/15/16 06:15 10/15/16 07:21 White Blood Count 15.3 x10^3/uL (4.0-11.0) 12.4 x10^3/uL (4.0-11.0) Red Blood Count 5.06 x10^6/uL (3.50-5.40) 4.67 x10^6/uL (3.50-5.40) Hemoglobin 14.7 g/dL (12.0-15.5) 13.5 g/dL (12.0-15.5) Hematocrit 45.4 % (36.0-47.0) 41.2 % (36.0-47.0) Mean Corpuscular Volume 90 fL (79-100) 88 fL (79-100) Mean Corpuscular Hemoglobin 29 pg (25-35) 29 pg (25-35) Mean Corpuscular Hemoglobin Concent 32 g/dL (31-37) 33 g/dL (31-37) Red Cell Distribution Width 15.0 % (11.5-14.5) 15.1 % (11.5-14.5) Platelet Count 301 x10^3/uL (140-400) 278 x10^3/uL (140-400) Neutrophils (%) (Auto) 71 % (31-73) 65 % (31-73) Lymphocytes (%) (Auto) 21 % (24-48) 24 % (24-48) Monocytes (%) (Auto) 6 % (0-9) 8 % (0-9) Eosinophils (%) (Auto) 2 % (0-3) 2 % (0-3) Basophils (%) (Auto) 1 % (0-3) 1 % (0-3) Neutrophils # (Auto) 10.9 x10^3uL (1.8-7.7) 8.1 x10^3uL (1.8-7.7) Lymphocytes # (Auto) 3.2 x10^3/uL (1.0-4.8) 3.0 x10^3/uL (1.0-4.8) Monocytes # (Auto) 0.9 x10^3/uL (0.0-1.1) 1.0 x10^3/uL (0.0-1.1) Eosinophils # (Auto) 0.3 x10^3/uL (0.0-0.7) 0.3 x10^3/uL (0.0-0.7) Basophils # (Auto) 0.1 x10^3/uL (0.0-0.2) 0.1 x10^3/uL (0.0-0.2) Sodium Level 138 mmol/L (136-145) 141 mmol/L (136-145) Potassium Level 4.5 mmol/L (3.5-5.1) 3.7 mmol/L (3.5-5.1) Chloride Level 100 mmol/L (98-107) 104 mmol/L (98-107) Carbon Dioxide Level 31 mmol/L (21-32) 29 mmol/L (21-32) Anion Gap 7 (6-14) 8 (6-14) Blood Urea Nitrogen 14 mg/dL (7-20) 14 mg/dL (7-20) Creatinine 0.9 mg/dL (0.6-1.0) 0.7 mg/dL (0.6-1.0) Estimated GFR (Cockcroft-Gault) 64.8 86.6 BUN/Creatinine Ratio 16 (6-20) Glucose Level 413 mg/dL (70-99) 340 mg/dL (70-99) Calcium Level 9.6 mg/dL (8.5-10.1) 9.1 mg/dL (8.5-10.1) Total Bilirubin 0.4 mg/dL (0.2-1.0) Aspartate Amino Transf (AST/SGOT) 36 U/L (15-37) Alanine Aminotransferase (ALT/SGPT) 36 U/L (14-59) Alkaline Phosphatase 200 U/L (46-116) C-Reactive Protein, Quantitative 16.1 mg/L (0-3.3) RO-Csm-Y-Type Natriuretic Peptide 94 pg/mL (0-124) Total Protein 7.9 g/dL (6.4-8.2) Albumin 3.0 g/dL (3.4-5.0) Albumin/Globulin Ratio 0.6 (1.0-1.7) Nasal Screen MRSA (PCR) Negative (Negative) Glucose (Fingerstick) 386 mg/dL (70-99) Test 10/15/16 11:08 10/15/16 16:39 10/15/16 21:18 10/16/16 05:47 Glucose (Fingerstick) 326 mg/dL (70-99) 166 mg/dL (70-99) 93 mg/dL (70-99) 189 mg/dL (70-99) Test 10/16/16 07:14 10/16/16 10:40 10/16/16 10:47 Glucose (Fingerstick) 194 mg/dL (70-99) 321 mg/dL (70-99) White Blood Count 12.9 x10^3/uL (4.0-11.0) Red Blood Count 4.66 x10^6/uL (3.50-5.40) Hemoglobin 13.4 g/dL (12.0-15.5) Hematocrit 42.3 % (36.0-47.0) Mean Corpuscular Volume 91 fL (79-100) Mean Corpuscular Hemoglobin 29 pg (25-35) Mean Corpuscular Hemoglobin Concent 32 g/dL (31-37) Red Cell Distribution Width 15.0 % (11.5-14.5) Platelet Count 236 x10^3/uL (140-400) Neutrophils (%) (Auto) 78 % (31-73) Lymphocytes (%) (Auto) 14 % (24-48) Monocytes (%) (Auto) 6 % (0-9) Eosinophils (%) (Auto) 2 % (0-3) Basophils (%) (Auto) 1 % (0-3) Neutrophils # (Auto) 10.0 x10^3uL (1.8-7.7) Lymphocytes # (Auto) 1.9 x10^3/uL (1.0-4.8) Monocytes # (Auto) 0.7 x10^3/uL (0.0-1.1) Eosinophils # (Auto) 0.3 x10^3/uL (0.0-0.7) Basophils # (Auto) 0.1 x10^3/uL (0.0-0.2) Sodium Level 139 mmol/L (136-145) Potassium Level 4.5 mmol/L (3.5-5.1) Chloride Level 102 mmol/L (98-107) Carbon Dioxide Level 30 mmol/L (21-32) Anion Gap 7 (6-14) Blood Urea Nitrogen 17 mg/dL (7-20) Creatinine 0.7 mg/dL (0.6-1.0) Estimated GFR (Cockcroft-Gault) 86.6 BUN/Creatinine Ratio 24 (6-20) Glucose Level 320 mg/dL (70-99) Calcium Level 9.1 mg/dL (8.5-10.1) Total Bilirubin 0.2 mg/dL (0.2-1.0) Aspartate Amino Transf (AST/SGOT) 44 U/L (15-37) Alanine Aminotransferase (ALT/SGPT) 30 U/L (14-59) Alkaline Phosphatase 168 U/L (46-116) Total Protein 6.2 g/dL (6.4-8.2) Albumin 2.5 g/dL (3.4-5.0) Albumin/Globulin Ratio 0.7 (1.0-1.7) Vancomycin Level Trough 19.9 mcg/mL (10.0-20.0) Vancomycin Last Dose Date 10/15/16 Vancomycin Last Dose Time 2300 Laboratory Tests Test 10/15/16 16:39 10/15/16 21:18 10/16/16 05:47 10/16/16 07:14 Glucose (Fingerstick) 166 mg/dL (70-99) 93 mg/dL (70-99) 189 mg/dL (70-99) 194 mg/dL (70-99) Test 10/16/16 10:40 10/16/16 10:47 White Blood Count 12.9 x10^3/uL (4.0-11.0) Red Blood Count 4.66 x10^6/uL (3.50-5.40) Hemoglobin 13.4 g/dL (12.0-15.5) Hematocrit 42.3 % (36.0-47.0) Mean Corpuscular Volume 91 fL (79-100) Mean Corpuscular Hemoglobin 29 pg (25-35) Mean Corpuscular Hemoglobin Concent 32 g/dL (31-37) Red Cell Distribution Width 15.0 % (11.5-14.5) Platelet Count 236 x10^3/uL (140-400) Neutrophils (%) (Auto) 78 % (31-73) Lymphocytes (%) (Auto) 14 % (24-48) Monocytes (%) (Auto) 6 % (0-9) Eosinophils (%) (Auto) 2 % (0-3) Basophils (%) (Auto) 1 % (0-3) Neutrophils # (Auto) 10.0 x10^3uL (1.8-7.7) Lymphocytes # (Auto) 1.9 x10^3/uL (1.0-4.8) Monocytes # (Auto) 0.7 x10^3/uL (0.0-1.1) Eosinophils # (Auto) 0.3 x10^3/uL (0.0-0.7) Basophils # (Auto) 0.1 x10^3/uL (0.0-0.2) Sodium Level 139 mmol/L (136-145) Potassium Level 4.5 mmol/L (3.5-5.1) Chloride Level 102 mmol/L (98-107) Carbon Dioxide Level 30 mmol/L (21-32) Anion Gap 7 (6-14) Blood Urea Nitrogen 17 mg/dL (7-20) Creatinine 0.7 mg/dL (0.6-1.0) Estimated GFR (Cockcroft-Gault) 86.6 BUN/Creatinine Ratio 24 (6-20) Glucose Level 320 mg/dL (70-99) Calcium Level 9.1 mg/dL (8.5-10.1) Total Bilirubin 0.2 mg/dL (0.2-1.0) Aspartate Amino Transf (AST/SGOT) 44 U/L (15-37) Alanine Aminotransferase (ALT/SGPT) 30 U/L (14-59) Alkaline Phosphatase 168 U/L (46-116) Total Protein 6.2 g/dL (6.4-8.2) Albumin 2.5 g/dL (3.4-5.0) Albumin/Globulin Ratio 0.7 (1.0-1.7) Vancomycin Level Trough 19.9 mcg/mL (10.0-20.0) Vancomycin Last Dose Date 10/15/16 Vancomycin Last Dose Time 2300 Glucose (Fingerstick) 321 mg/dL (70-99) Microbiology 10/14/16 Blood Culture - Preliminary, Resulted NO GROWTH AFTER 1 DAY Medications Current Medications Sodium Chloride 500 ml @ 500 mls/hr 1X ONCE IV Last administered on 10/14/16 22:22; Start 10/14/16 at 22:00; Stop 10/14/16 at 22:59; Status DC Vancomycin HCl 2 gm/Sodium Chloride 500 ml @ 250 mls/hr 1X ONCE IV Last administered on 10/15/16 00:24; Start 10/14/16 at 23:45; Stop 10/15/16 at 01:44; Status DC Insulin Aspart (NovoLOG VIAL) 10 unit 1X ONCE SQ ; Start 10/14/16 at 23:45; Stop 10/15/16 at 00:06; Status DC Ondansetron HCl (Zofran) 4 mg PRN Q8HRS PRN IV NAUSEA/VOMITING Last administered on 10/15/16 00:24; Start 10/14/16 at 23:45; Stop 10/15/16 at 23:44; Status DC Morphine Sulfate 2 mg PRN Q2HR PRN IV PAIN Last administered on 10/15/16 14:08 ; Start 10/14/16 at 23:45; Stop 10/15/16 at 23:44; Status DC Sodium Chloride 1,000 ml @ 125 mls/hr Q8H IV Last administered on 10/15/16 11: 02; Start 10/14/16 at 23:45; Stop 10/15/16 at 23:44; Status DC Insulin Aspart (NovoLOG) 0-7 UNITS TIDWMEALS SQ ; Start 10/15/16 at 08:00; Stop 10/15/16 at 08:51; Status DC Dextrose (Dextrose 50%-Water Syringe) 12.5 gm PRN Q15MIN PRN IV SEE COMMENTS; Start 10/14/16 at 23:45 Insulin Human Regular (NovoLIN R VIAL) 10 unit 1X ONCE SQ Last administered on 10/15/16 00:23; Start 10/15/16 at 00:15; Stop 10/15/16 at 00:16; Status DC Insulin Human Regular (NovoLIN R VIAL) 100 unit STK-MED ONCE .ROUTE ; Start 10/15 at 00:08; Stop 10/15/16 at 00:09; Status DC Non-Formulary Medication 2 puff BID IH ; Start 10/15/16 at 09:00; Status UNV Budesonide (Pulmicort) 0.5 mg RTBID NEB Last administered on 10/16/16 07:25; Start 10/15/16 at 08:00 Albuterol Sulfate (Ventolin Neb Soln) 2.5 mg RTQID NEB Last administered on 10/16 11:12; Start 10/15/16 at 08:00 Insulin Aspart (NovoLOG) 10 units 1X ONCE SQ Last administered on 10/15/16 08: 36; Start 10/15/16 at 08:30; Stop 10/15/16 at 08:31; Status DC Nicotine (Nicoderm Cq 14mg) 1 patch PRN DAILY PRN TD SMOKING CESSATION Last administered on 10/15/16 14:14; Start 10/15/16 at 08:45 Nicotine Polacrilex (Nicorette Gum) 1 each PRN Q1HR PRN BC SMOKING CESSATION; Start 10/15/16 at 08:45 Insulin Aspart (NovoLOG) 0-7 UNITS QIDACHS SQ Last administered on 10/16/16 11: 30; Start 10/15/16 at 11:30; Stop 10/16/16 at 12:11; Status DC Amlodipine Besylate (Norvasc) 5 mg DAILY PO Last administered on 10/16/16 10:07 ; Start 10/15/16 at 09:00 Aripiprazole (Abilify) 5 mg DAILY PO Last administered on 10/16/16 10:06; Start 10/15/16 at 09:00 Cetirizine HCl (ZyrTEC) 10 mg DAILY PO Last administered on 10/16/16 10:07; Start 10/15/16 at 09:00 Clopidogrel Bisulfate (Plavix) 75 mg DAILY PO Last administered on 10/16/16 10: 12; Start 10/15/16 at 09:00 Digoxin (Lanoxin) 125 mcg DAILY PO Last administered on 10/16/16 10:07; Start 10/15/16 at 09:00 Fluticasone Propionate (Flonase) 2 spray DAILY NS Last administered on 10:04; Start 10/15/16 at 09:00 Furosemide (Lasix) 40 mg DAILY PO Last administered on 10/16/16 10:06; Start at 09:00 Insulin Aspart (NovoLOG) 50 units TIDWMEALS SQ Last administered on 10/16/16 11 :31; Start 10/15/16 at 12:00 Levothyroxine Sodium (Synthroid) 150 mcg DAILY PO Last administered on 10:05; Start 10/15/16 at 09:00 Nystatin (Nystop) 1 melissa BID TP Last administered on 10/16/16 10:10; Start at 09:00 Oxcarbazepine (Trileptal) 300 mg HS PO Last administered on 10/15/16 21:30; Start 10/15/16 at 21:00 Pantoprazole Sodium (Protonix) 40 mg DAILYAC PO Last administered on 10/16/16 10:07; Start 10/15/16 at 09:00 Sotalol HCl (Betapace) 80 mg BID PO Last administered on 10/16/16 10:06; Start 10/15/16 at 09:00 Sucralfate (Carafate) 1 gm QIDACHS PO Last administered on 10/16/16 12:24; Start 10/15/16 at 11:30 Gabapentin (Neurontin) 600 mg QID PO Last administered on 10/16/16 12:24; Start 10/15/16 at 09:00 Insulin Detemir (Levemir) 90 units BID SQ Last administered on 10/16/16 10:14; Start 10/15/16 at 21:00 Non-Formulary Medication 1 vial TID NEB ; Start 10/15/16 at 09:00; Status UNV Loperamide HCl (Imodium) 2 mg PRN Q15MIN PRN PO DIARRHEA; Start 10/15/16 at 09: 00 Losartan Potassium (Cozaar) 100 mg DAILY PO Last administered on 10/16/16 10:05 ; Start 10/15/16 at 09:00 Ondansetron HCl (Zofran Odt) 4 mg PRN Q8HRS PRN PO NAUSEA/VOMITING; Start at 09:15 Oxycodone HCl (Roxicodone) 10 mg PRN Q6HRS PRN PO PAIN Last administered on 10/16 10:05; Start 10/15/16 at 09:30 Non-Formulary Medication 1 cap DAILY IH ; Start 10/15/16 at 09:00; Status UNV Venlafaxine HCl (Effexor Xr) 75 mg DAILY PO Last administered on 10/16/16 10:07 ; Start 10/15/16 at 09:00 Vancomycin HCl (Vanco Per Pharmacy) 1 each PRN DAILY PRN MC SEE COMMENTS Last administered on 10/16/16 11:39; Start 10/15/16 at 09:00 Vancomycin HCl 2 gm/Sodium Chloride 500 ml @ 250 mls/hr 1X ONCE IV Last administered on 10/15/16 11:02; Start 10/15/16 at 10:00; Stop 10/15/16 at 11:59; Status DC Aztreonam 2 gm/ Sodium Chloride 100 ml @ 200 mls/hr Q6HRS IV Last administered on 10/16/16 12:24; Start 10/15/16 at 11:00 Metronidazole (Flagyl) 500 mg Q8HRS PO ; Start 10/15/16 at 14:00; Stop 10/15/16 at 14:00; Status DC Vancomycin HCl 2 gm/Sodium Chloride 500 ml @ 250 mls/hr Q12H IV Last administered on 10/16/16 11:20; Start 10/15/16 at 23:00; Stop 10/16/16 at 11:27; Status DC Vancomycin HCl 1 each 1X ONCE MC Last administered on 10/16/16 10:40; Start at 10:30; Stop 10/16/16 at 10:31; Status DC Vancomycin HCl 1.75 gm/Sodium Chloride 500 ml @ 250 mls/hr Q12H IV ; Start 10/16 at 12:00 Insulin Aspart (NovoLOG) 0-9 UNITS TIDWMEALS SQ ; Start 10/16/16 at 17:00 Dextrose (Dextrose 50%-Water Syringe) 12.5 gm PRN Q15MIN PRN IV SEE COMMENTS; Start 10/16/16 at 12:15; Status UNV Active Scripts Active Oxycodone Hcl 10 Mg Tablet 1 Tab PO QID PRN Novolog Flexpen (Insulin Aspart) 100 Unit/1 Ml Insuln.pen 50 Units SQ TIDWMEALS Sucralfate 1 Gm/10 Ml Oral.susp 1 Gm PO QIDACHS Pantoprazole Sodium 40 Mg Tablet.dr 40 Mg PO DAILYAC Furosemide 40 Mg Tablet 1 Tab PO DAILY Mupirocin Ointment (Mupirocin) 22 Gm Oint...g. 22 Gm TP PRN TID PRN Toujeo Solostar (Insulin Glargine,Hum.rec.anlog) 300 Unit/1 Ml Insuln.pen 90 Unit SQ BID Zofran (Ondansetron Hcl) 4 Mg Tablet 1 Tab PO PRN Q6-8HRS Spiriva (Tiotropium Smoot) 18 Mcg Cap.w.dev 1 Cap IH DAILY Xopenex (Levalbuterol Hcl) 1.25 Mg/3 Ml Vial.neb 1 Vial NEB TID Fenofibrate (Fenofibrate Nanocrystallized) 145 Mg Tablet 1 Tab PO DAILY Losartan Potassium 100 Mg Tablet 100 Mg PO DAILY Sotalol (Sotalol Hcl) 80 Mg Tablet 80 Mg PO BID Symbicort 160-4.5 Mcg Inhaler (Budesonide/Formoterol Fumarate) 10.2 Gm Hfa.aer.ad 2 Puff IH BID Reported Levothyroxine Sodium 175 Mcg Tablet 1 Tab PO DAILY Levothyroxine Sodium 150 Mcg Tablet 1 Tab PO DAILY Vitamin D2 (Ergocalciferol (Vitamin D2)) 50,000 Unit Capsule 50,000 Unit PO Venlafaxine Hcl Er (Venlafaxine Hcl) 75 Mg Cap.er.24h 1 Cap PO DAILY Anti-Diarrhea (Loperamide Hcl) 2 Mg Tablet 2 Mg PO PRN PRN Fluticasone Propionate Nasal [place] (Fluticasone Propionate) 16 Gm [place].susp 2 [place] NS DAILY Vitamin D3 (Cholecalciferol (Vitamin D3)) 1,000 Unit Tablet 1,000 Unit PO Amlodipine Besylate 5 Mg Tablet 5 Mg PO DAILY Nystatin 15 Gm Powder 1 Melissa TP BID Melatonin 3 Mg Tablet 5 Mg PO Digoxin 125 Mcg Tablet 1 Tab PO DAILY Oxcarbazepine 300 Mg Tablet 1 Tab PO HS Gabapentin 600 Mg Tablet 600 Mg PO QID Abilify (Aripiprazole) 5 Mg Tablet 5 Mg PO DAILY Plavix (Clopidogrel Bisulfate) 75 Mg Tablet 75 Mg PO DAILY Cetirizine Hcl 10 Mg Tablet 10 Mg PO DAILY Vitals/I & O Vital Sign - Last 24 Hours 10/15/16 10/15/16 10/15/16 10/15/16 14:08 14:30 14:38 15:26 Temp 97.7 97.7 Pulse 66 Resp 18 20 20 B/P (MAP) 116/60 (78) Pulse Ox 96 98 O2 Delivery Nasal Cannula Nasal Cannula Nasal Cannula Nasal Cannula O2 Flow Rate 3.0 3.0 3.0 3.0 10/15/16 10/15/16 10/15/16 10/15/16 16:56 17:56 19:00 20:00 Temp 97.5 97.5 Pulse 69 Resp 18 18 22 B/P (MAP) 117/74 (88) Pulse Ox 97 O2 Delivery Nasal Cannula Nasal Cannula Nasal Cannula O2 Flow Rate 3.0 3.0 3.0 3.0 10/15/16 10/15/16 10/16/16 10/16/16 21:31 22:42 03:41 07:00 Temp 97.7 97.9 97.7 97.9 Pulse 69 68 71 Resp 18 18 B/P (MAP) 117/74 104/65 (78) 124/76 (92) Pulse Ox 97 99 O2 Delivery Room Air Room Air Room Air 10/16/16 10/16/16 10/16/16 10/16/16 07:27 07:27 08:10 10:05 Pulse 71 B/P (MAP) 124/76 Pulse Ox 98 98 O2 Delivery Nasal Cannula Nasal Cannula Nasal Cannula O2 Flow Rate 3.0 3.0 3.0 10/16/16 10/16/16 10/16/16 10/16/16 10:05 10:06 10:07 10:07 Pulse 71 71 71 B/P (MAP) 124/76 124/76 124/76 O2 Delivery Room Air 10/16/16 10/16/16 10/16/16 10/16/16 11:00 11:13 11:15 11:35 Temp 87.8 87.8 Pulse 74 Resp 18 B/P (MAP) 133/77 (95) Pulse Ox 94 O2 Delivery Room Air Nasal Cannula Nasal Cannula Room Air O2 Flow Rate 3.0 3.0 Intake and Output 10/16/16 10/16/16 10/17/16 14:59 22:59 06:59 Output Total 500 ml Balance -500 ml SHANE DIALLO MD Oct 16, 2016 14:05
[2016-10-16 15:00] VITALS: BP 100/70
[2016-10-16 19:00] VITALS: BP 127/72
[2016-10-16] MEDS: OXcarbazepine 300 MG TABLET PO SCH (20:51)
[2016-10-16 23:00] VITALS: BP 126/60
[2016-10-17 03:00] VITALS: BP 167/76
[2016-10-17] MEDS: AZTREONAM 2 GM in IV NORMAL SALINE 100ML 100 ML IV SCH ×2 (06:00→12:26)
[2016-10-17] MEDS: ONDANSETRON ODT 4 MG TAB.RAPDIS. PO PRN ×2 (06:16→20:02)
[2016-10-17] MEDS: oxyCODONE IR 5 MG TABLET PO PRN ×3 (06:16→20:02)
[2016-10-17 07:00] VITALS: BP 124/70
[2016-10-17] MEDS: ALBUTEROL SULFATE 2.5 MG/3 ML NEBU. NEB SCH ×4 (08:14→20:37)
[2016-10-17] MEDS: BUDESONIDE 0.5 MG/2 ML NEBU. NEB SCH ×2 (08:14→20:37)
[2016-10-17 08:32] LABS: BASO % 1 % (0-3); EOS % 3 % (0-3); HEMATOCRIT 44.1 % (36.0-47.0); HEMOGLOBIN 13.4 g/dL (12.0-15.5); LYMPH # 2.2 x10^3/uL (1.0-4.8); LYMPH % 22 % (24-48); MEAN CORPUSCULAR HEMOGLOBIN 28 pg (25-35); MEAN CORPUSCULAR HGB CONC 30 g/dL (31-37); MEAN CORPUSCULAR VOLUME 93 fL (79-100); MONO % 8 % (0-9); NEUT % 68 % (31-73); PLATELET COUNT 226 x10^3/uL (140-400); RED BLOOD COUNT 4.73 x10^6/uL (3.50-5.40); RED CELL DISTRIBUTION WIDTH 14.9 % (11.5-14.5); WHITE BLOOD COUNT 10.1 x10^3/uL (4.0-11.0)
[2016-10-17] MEDS: FLUTICASONE 50MCG/NASAL SPRAY 16GM BOTTLE. NS SCH (08:36)
[2016-10-17] MEDS: PANTOPRAZOLE 40 MG TABLET.DR. PO SCH (08:37)
[2016-10-17] MEDS: SUCRALFATE 1 GM/10 ML ORAL.SUSP. PO SCH ×4 (08:37→20:02)
[2016-10-17] MEDS: VENLAFAXINE XR 37.5 MG CAP.ER.24H. PO SCH (08:38)
[2016-10-17] MEDS: CETIRIZINE HCL 10 MG TABLET. PO SCH (08:38)
[2016-10-17] MEDS: CLOPIDOGREL BISULFATE 75 MG TABLET PO SCH (08:38)
[2016-10-17] MEDS: LEVOTHYROXINE 150 MCG TABLET PO SCH (08:38)
[2016-10-17] MEDS: GABAPENTIN 300 MG CAPSULE. PO SCH ×4 (08:38→20:03)
[2016-10-17] MEDS: ARIPiprazole 5 MG TABLET PO SCH (08:39)
[2016-10-17] MEDS: LOSARTAN POTASSIUM 50 MG TABLET. PO SCH (08:39)
[2016-10-17] MEDS: SOTALOL 80 MG TABLET. PO SCH ×2 (08:40→20:03)
[2016-10-17] MEDS: amLODIPine BESYLATE 5 MG TABLET PO SCH (08:41)
[2016-10-17] MEDS: FUROSEMIDE 40 MG TABLET. PO SCH (08:41)
[2016-10-17] MEDS: DIGOXIN 125 MCG TABLET. PO SCH (08:41)
[2016-10-17] MEDS: NYSTATIN TOPICAL POWDER 15GM BOTTLE. TP SCH ×2 (08:44→20:04)
[2016-10-17] MEDS: INSULIN DETEMIR 300 UNITS/3 ML INSULN.PEN. SQ SCH ×2 (08:49→21:00)
[2016-10-17] MEDS: INSULIN ASPART 300 UNITS/3 ML INSULN.PEN SQ SCH ×6 (08:50→17:00)
[2016-10-17 08:53] LABS: CALCIUM 8.9 mg/dL (8.5-10.1); CREATININE 0.6 mg/dL (0.6-1.0); GFR 103.4; POTASSIUM 4.3 mmol/L (3.5-5.1)
[2016-10-17 11:00] VITALS: BP 138/84
--- NOTE | 2016-10-17 11:40 | RAD ---
Portable chest, 10/17/2016: History: Check PICC placement Comparison is made to a study from 07/27/2016. A left PICC has been inserted extending to the level of the atriocaval junction. The heart size and pulmonary vascularity are normal. An unchanged nodule in the left base laterally is probably a granuloma. No acute infiltrate is seen. There is no evidence of pleural fluid. IMPRESSION: 1. The left PICC is in satisfactory position. 2. No acute cardiopulmonary abnormality is detected.
[2016-10-17] MEDS: VANCOMYCIN PER PHARMACY MC PRN (11:50)
--- NOTE | 2016-10-17 12:24 | PDOC ---
Infectious Disease Note Subjective Subjective s/p PICC placement Today c/o left leg pain Appetite good but feeling nauseous ROS ROS GEN: Denies fevers, chills, sweats CV: Denies chest pain RESP: Denies shortness of air, cough GI: Denies diarrhea or constipation Vital Sign Vital Signs Vital Signs Date Time Temp Pulse Resp B/P (MAP) Pulse Ox O2 Delivery O2 Flow Rate FiO2 10/17/16 11:42 Nasal Cannula 3.0 10/17/16 08:41 72 124/70 10/17/16 08:17 98 10/17/16 07:16 20 10/17/16 07:00 98.7 98.7 Physical Exam PHYSICAL EXAM GENERAL: Propped up in bed, NAD LUNGS: Clear HEART: S1 and S2 ABD: Obese, soft, NT EXT: No gross edema, no cyanosis. + tubigrips SIDE FRAMER: Alert, oriented x 3, no focal neurologic deficit SKIN: No rash LUE-PICC. 10/17 Labs Lab Laboratory Tests Test 10/16/16 16:39 10/16/16 20:39 10/17/16 07:47 10/17/16 08:05 Glucose (Fingerstick) 159 mg/dL (70-99) 168 mg/dL (70-99) 177 mg/dL (70-99) White Blood Count 10.1 x10^3/uL (4.0-11.0) Red Blood Count 4.73 x10^6/uL (3.50-5.40) Hemoglobin 13.4 g/dL (12.0-15.5) Hematocrit 44.1 % (36.0-47.0) Mean Corpuscular Volume 93 fL (79-100) Mean Corpuscular Hemoglobin 28 pg (25-35) Mean Corpuscular Hemoglobin Concent 30 g/dL (31-37) Red Cell Distribution Width 14.9 % (11.5-14.5) Platelet Count 226 x10^3/uL (140-400) Neutrophils (%) (Auto) 68 % (31-73) Lymphocytes (%) (Auto) 22 % (24-48) Monocytes (%) (Auto) 8 % (0-9) Eosinophils (%) (Auto) 3 % (0-3) Basophils (%) (Auto) 1 % (0-3) Neutrophils # (Auto) 6.9 x10^3uL (1.8-7.7) Lymphocytes # (Auto) 2.2 x10^3/uL (1.0-4.8) Monocytes # (Auto) 0.8 x10^3/uL (0.0-1.1) Eosinophils # (Auto) 0.3 x10^3/uL (0.0-0.7) Basophils # (Auto) 0.0 x10^3/uL (0.0-0.2) Sodium Level 139 mmol/L (136-145) Potassium Level 4.3 mmol/L (3.5-5.1) Chloride Level 102 mmol/L (98-107) Carbon Dioxide Level 27 mmol/L (21-32) Anion Gap 10 (6-14) Blood Urea Nitrogen 21 mg/dL (7-20) Creatinine 0.6 mg/dL (0.6-1.0) Estimated GFR (Cockcroft-Gault) 103.4 Glucose Level 177 mg/dL (70-99) Calcium Level 8.9 mg/dL (8.5-10.1) Micro BLOOD CULTURE Preliminary NO GROWTH AFTER 2 DAY Objective Assessment Right leg cellulitis, improved Multiple skin breakdowns likely sec to scratching from anxiety likely Leukocytosis, improved Obesity DM with poor control Multiple med allergy- rash h/o C. difficile, July 2016 Plan Plan of Care D/c vanc and aztreonam Dose Unasyn -tolerated amox Begin Zyvox F/u labs BC NGTD Supportive care Anticipate d/c in day or so on po Attending Co-Sign Attending Co-Sign The patient was seen and interviewed as well as examined at the bedside. The chart was reviewed. The case was discussed. Agree with the plan of care. MARVEL KURTZ APRN Oct 17, 2016 12:24 MATEO NEGRON MD Oct 17, 2016 12:42
--- NOTE | 2016-10-17 13:02 | PDOC ---
PROGRESS NOTES Chief Complaint Chief Complaint Right leg cellulitis - Multiple skin breakdowns likely sec to scratching from anxiety likely morbid obesity, BMI 46 tobaccoism bipolar 2 anxiety d/o DM2, poor control, Multiple med allergy h/o C. 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 PICC GEtting vanc and aztreonam by ID NO fevers, no white ct\ (WBC down to 10 from 12) Creat NORMAL No other issues voiced to me PLAN: Iv ABx per ID BAck to SNU n dc Cont pT/OT and other supportve meds LAbs Dw RN Vitals Vitals Vital Signs Date Time Temp Pulse Resp B/P (MAP) Pulse Ox O2 Delivery O2 Flow Rate FiO2 10/17/16 11:42 Nasal Cannula 3.0 10/17/16 08:41 72 124/70 10/17/16 08:17 98 10/17/16 07:16 20 10/17/16 07:00 98.7 98.7 Physical Exam General: Alert, Cooperative, No acute distress Lungs: Clear Abdomen: Normal bowel sounds, Soft Extremities: No clubbing, No edema Skin: Other (mult small lesions, exoriated on arm and legs, legs have large lesions without surrounding erythema, most lesions on shins above exactly righrt above where her socks wound be, right has the largest area, about 6cm across of abraded skin) Labs LABS Laboratory Tests Test 10/16/16 16:39 10/16/16 20:39 10/17/16 07:47 10/17/16 08:05 Glucose (Fingerstick) 159 mg/dL (70-99) 168 mg/dL (70-99) 177 mg/dL (70-99) White Blood Count 10.1 x10^3/uL (4.0-11.0) Red Blood Count 4.73 x10^6/uL (3.50-5.40) Hemoglobin 13.4 g/dL (12.0-15.5) Hematocrit 44.1 % (36.0-47.0) Mean Corpuscular Volume 93 fL (79-100) Mean Corpuscular Hemoglobin 28 pg (25-35) Mean Corpuscular Hemoglobin Concent 30 g/dL (31-37) Red Cell Distribution Width 14.9 % (11.5-14.5) Platelet Count 226 x10^3/uL (140-400) Neutrophils (%) (Auto) 68 % (31-73) Lymphocytes (%) (Auto) 22 % (24-48) Monocytes (%) (Auto) 8 % (0-9) Eosinophils (%) (Auto) 3 % (0-3) Basophils (%) (Auto) 1 % (0-3) Neutrophils # (Auto) 6.9 x10^3uL (1.8-7.7) Lymphocytes # (Auto) 2.2 x10^3/uL (1.0-4.8) Monocytes # (Auto) 0.8 x10^3/uL (0.0-1.1) Eosinophils # (Auto) 0.3 x10^3/uL (0.0-0.7) Basophils # (Auto) 0.0 x10^3/uL (0.0-0.2) Sodium Level 139 mmol/L (136-145) Potassium Level 4.3 mmol/L (3.5-5.1) Chloride Level 102 mmol/L (98-107) Carbon Dioxide Level 27 mmol/L (21-32) Anion Gap 10 (6-14) Blood Urea Nitrogen 21 mg/dL (7-20) Creatinine 0.6 mg/dL (0.6-1.0) Estimated GFR (Cockcroft-Gault) 103.4 Glucose Level 177 mg/dL (70-99) Calcium Level 8.9 mg/dL (8.5-10.1) Test 10/17/16 11:49 Glucose (Fingerstick) 129 mg/dL (70-99) Review of Systems Review of Systems denies 14 pt reviewed Assessment and Plan Assessmemt and Plan Problems Medical Problems: (1) Cellulitis Status: Acute (2) Hyperglycemia Status: Acute Problems: Comment Review of Relevant I have reviewed the following items prudence (where applicable) has been applied. Labs Laboratory Tests Test 10/15/16 16:39 10/15/16 21:18 10/16/16 05:47 10/16/16 07:14 Glucose (Fingerstick) 166 mg/dL (70-99) 93 mg/dL (70-99) 189 mg/dL (70-99) 194 mg/dL (70-99) Test 10/16/16 10:40 10/16/16 10:47 10/16/16 16:39 10/16/16 20:39 White Blood Count 12.9 x10^3/uL (4.0-11.0) Red Blood Count 4.66 x10^6/uL (3.50-5.40) Hemoglobin 13.4 g/dL (12.0-15.5) Hematocrit 42.3 % (36.0-47.0) Mean Corpuscular Volume 91 fL (79-100) Mean Corpuscular Hemoglobin 29 pg (25-35) Mean Corpuscular Hemoglobin Concent 32 g/dL (31-37) Red Cell Distribution Width 15.0 % (11.5-14.5) Platelet Count 236 x10^3/uL (140-400) Neutrophils (%) (Auto) 78 % (31-73) Lymphocytes (%) (Auto) 14 % (24-48) Monocytes (%) (Auto) 6 % (0-9) Eosinophils (%) (Auto) 2 % (0-3) Basophils (%) (Auto) 1 % (0-3) Neutrophils # (Auto) 10.0 x10^3uL (1.8-7.7) Lymphocytes # (Auto) 1.9 x10^3/uL (1.0-4.8) Monocytes # (Auto) 0.7 x10^3/uL (0.0-1.1) Eosinophils # (Auto) 0.3 x10^3/uL (0.0-0.7) Basophils # (Auto) 0.1 x10^3/uL (0.0-0.2) Sodium Level 139 mmol/L (136-145) Potassium Level 4.5 mmol/L (3.5-5.1) Chloride Level 102 mmol/L (98-107) Carbon Dioxide Level 30 mmol/L (21-32) Anion Gap 7 (6-14) Blood Urea Nitrogen 17 mg/dL (7-20) Creatinine 0.7 mg/dL (0.6-1.0) Estimated GFR (Cockcroft-Gault) 86.6 BUN/Creatinine Ratio 24 (6-20) Glucose Level 320 mg/dL (70-99) Calcium Level 9.1 mg/dL (8.5-10.1) Total Bilirubin 0.2 mg/dL (0.2-1.0) Aspartate Amino Transf (AST/SGOT) 44 U/L (15-37) Alanine Aminotransferase (ALT/SGPT) 30 U/L (14-59) Alkaline Phosphatase 168 U/L (46-116) Total Protein 6.2 g/dL (6.4-8.2) Albumin 2.5 g/dL (3.4-5.0) Albumin/Globulin Ratio 0.7 (1.0-1.7) Vancomycin Level Trough 19.9 mcg/mL (10.0-20.0) Vancomycin Last Dose Date 10/15/16 Vancomycin Last Dose Time 2300 Glucose (Fingerstick) 321 mg/dL (70-99) 159 mg/dL (70-99) 168 mg/dL (70-99) Test 10/17/16 07:47 10/17/16 08:05 10/17/16 11:49 Glucose (Fingerstick) 177 mg/dL (70-99) 129 mg/dL (70-99) White Blood Count 10.1 x10^3/uL (4.0-11.0) Red Blood Count 4.73 x10^6/uL (3.50-5.40) Hemoglobin 13.4 g/dL (12.0-15.5) Hematocrit 44.1 % (36.0-47.0) Mean Corpuscular Volume 93 fL (79-100) Mean Corpuscular Hemoglobin 28 pg (25-35) Mean Corpuscular Hemoglobin Concent 30 g/dL (31-37) Red Cell Distribution Width 14.9 % (11.5-14.5) Platelet Count 226 x10^3/uL (140-400) Neutrophils (%) (Auto) 68 % (31-73) Lymphocytes (%) (Auto) 22 % (24-48) Monocytes (%) (Auto) 8 % (0-9) Eosinophils (%) (Auto) 3 % (0-3) Basophils (%) (Auto) 1 % (0-3) Neutrophils # (Auto) 6.9 x10^3uL (1.8-7.7) Lymphocytes # (Auto) 2.2 x10^3/uL (1.0-4.8) Monocytes # (Auto) 0.8 x10^3/uL (0.0-1.1) Eosinophils # (Auto) 0.3 x10^3/uL (0.0-0.7) Basophils # (Auto) 0.0 x10^3/uL (0.0-0.2) Sodium Level 139 mmol/L (136-145) Potassium Level 4.3 mmol/L (3.5-5.1) Chloride Level 102 mmol/L (98-107) Carbon Dioxide Level 27 mmol/L (21-32) Anion Gap 10 (6-14) Blood Urea Nitrogen 21 mg/dL (7-20) Creatinine 0.6 mg/dL (0.6-1.0) Estimated GFR (Cockcroft-Gault) 103.4 Glucose Level 177 mg/dL (70-99) Calcium Level 8.9 mg/dL (8.5-10.1) Laboratory Tests Test 10/16/16 16:39 10/16/16 20:39 10/17/16 07:47 10/17/16 08:05 Glucose (Fingerstick) 159 mg/dL (70-99) 168 mg/dL (70-99) 177 mg/dL (70-99) White Blood Count 10.1 x10^3/uL (4.0-11.0) Red Blood Count 4.73 x10^6/uL (3.50-5.40) Hemoglobin 13.4 g/dL (12.0-15.5) Hematocrit 44.1 % (36.0-47.0) Mean Corpuscular Volume 93 fL (79-100) Mean Corpuscular Hemoglobin 28 pg (25-35) Mean Corpuscular Hemoglobin Concent 30 g/dL (31-37) Red Cell Distribution Width 14.9 % (11.5-14.5) Platelet Count 226 x10^3/uL (140-400) Neutrophils (%) (Auto) 68 % (31-73) Lymphocytes (%) (Auto) 22 % (24-48) Monocytes (%) (Auto) 8 % (0-9) Eosinophils (%) (Auto) 3 % (0-3) Basophils (%) (Auto) 1 % (0-3) Neutrophils # (Auto) 6.9 x10^3uL (1.8-7.7) Lymphocytes # (Auto) 2.2 x10^3/uL (1.0-4.8) Monocytes # (Auto) 0.8 x10^3/uL (0.0-1.1) Eosinophils # (Auto) 0.3 x10^3/uL (0.0-0.7) Basophils # (Auto) 0.0 x10^3/uL (0.0-0.2) Sodium Level 139 mmol/L (136-145) Potassium Level 4.3 mmol/L (3.5-5.1) Chloride Level 102 mmol/L (98-107) Carbon Dioxide Level 27 mmol/L (21-32) Anion Gap 10 (6-14) Blood Urea Nitrogen 21 mg/dL (7-20) Creatinine 0.6 mg/dL (0.6-1.0) Estimated GFR (Cockcroft-Gault) 103.4 Glucose Level 177 mg/dL (70-99) Calcium Level 8.9 mg/dL (8.5-10.1) Test 10/17/16 11:49 Glucose (Fingerstick) 129 mg/dL (70-99) Microbiology 10/14/16 Blood Culture - Preliminary, Resulted NO GROWTH AFTER 2 DAYS Medications Current Medications Sodium Chloride 500 ml @ 500 mls/hr 1X ONCE IV Last administered on 10/14/16 22:22; Start 10/14/16 at 22:00; Stop 10/14/16 at 22:59; Status DC Vancomycin HCl 2 gm/Sodium Chloride 500 ml @ 250 mls/hr 1X ONCE IV Last administered on 10/15/16 00:24; Start 10/14/16 at 23:45; Stop 10/15/16 at 01:44; Status DC Insulin Aspart (NovoLOG VIAL) 10 unit 1X ONCE SQ ; Start 10/14/16 at 23:45; Stop 10/15/16 at 00:06; Status DC Ondansetron HCl (Zofran) 4 mg PRN Q8HRS PRN IV NAUSEA/VOMITING Last administered on 10/15/16 00:24; Start 10/14/16 at 23:45; Stop 10/15/16 at 23:44; Status DC Morphine Sulfate 2 mg PRN Q2HR PRN IV PAIN Last administered on 10/15/16 14:08 ; Start 10/14/16 at 23:45; Stop 10/15/16 at 23:44; Status DC Sodium Chloride 1,000 ml @ 125 mls/hr Q8H IV Last administered on 10/15/16 11: 02; Start 10/14/16 at 23:45; Stop 10/15/16 at 23:44; Status DC Insulin Aspart (NovoLOG) 0-7 UNITS TIDWMEALS SQ ; Start 10/15/16 at 08:00; Stop 10/15/16 at 08:51; Status DC Dextrose (Dextrose 50%-Water Syringe) 12.5 gm PRN Q15MIN PRN IV SEE COMMENTS; Start 10/14/16 at 23:45 Insulin Human Regular (NovoLIN R VIAL) 10 unit 1X ONCE SQ Last administered on 10/15/16 00:23; Start 10/15/16 at 00:15; Stop 10/15/16 at 00:16; Status DC Insulin Human Regular (NovoLIN R VIAL) 100 unit STK-MED ONCE .ROUTE ; Start 10/15 at 00:08; Stop 10/15/16 at 00:09; Status DC Non-Formulary Medication 2 puff BID IH ; Start 10/15/16 at 09:00; Status UNV Budesonide (Pulmicort) 0.5 mg RTBID NEB Last administered on 10/17/16 08:14; Start 10/15/16 at 08:00 Albuterol Sulfate (Ventolin Neb Soln) 2.5 mg RTQID NEB Last administered on 11:41; Start 10/15/16 at 08:00 Insulin Aspart (NovoLOG) 10 units 1X ONCE SQ Last administered on 10/15/16 08: 36; Start 10/15/16 at 08:30; Stop 10/15/16 at 08:31; Status DC Nicotine (Nicoderm Cq 14mg) 1 patch PRN DAILY PRN TD SMOKING CESSATION Last administered on 10/15/16 14:14; Start 10/15/16 at 08:45 Nicotine Polacrilex (Nicorette Gum) 1 each PRN Q1HR PRN BC SMOKING CESSATION; Start 10/15/16 at 08:45 Insulin Aspart (NovoLOG) 0-7 UNITS QIDACHS SQ Last administered on 10/16/16 11: 30; Start 10/15/16 at 11:30; Stop 10/16/16 at 12:11; Status DC Amlodipine Besylate (Norvasc) 5 mg DAILY PO Last administered on 10/17/16 08: 41; Start 10/15/16 at 09:00 Aripiprazole (Abilify) 5 mg DAILY PO Last administered on 10/17/16 08:39; Start 10/15/16 at 09:00 Cetirizine HCl (ZyrTEC) 10 mg DAILY PO Last administered on 10/17/16 08:38; Start 10/15/16 at 09:00 Clopidogrel Bisulfate (Plavix) 75 mg DAILY PO Last administered on 10/17/16 08 :38; Start 10/15/16 at 09:00 Digoxin (Lanoxin) 125 mcg DAILY PO Last administered on 10/17/16 08:41; Start 10/15/16 at 09:00 Fluticasone Propionate (Flonase) 2 spray DAILY NS Last administered on 08:36; Start 10/15/16 at 09:00 Furosemide (Lasix) 40 mg DAILY PO Last administered on 10/16/16 10:06; Start at 09:00 Insulin Aspart (NovoLOG) 50 units TIDWMEALS SQ Last administered on 10/17/16 12:30; Start 10/15/16 at 12:00 Levothyroxine Sodium (Synthroid) 150 mcg DAILY PO Last administered on 08:38; Start 10/15/16 at 09:00 Nystatin (Nystop) 1 melissa BID TP Last administered on 10/17/16 08:44; Start 10/15 at 09:00 Oxcarbazepine (Trileptal) 300 mg HS PO Last administered on 10/16/16 20:51; Start 10/15/16 at 21:00 Pantoprazole Sodium (Protonix) 40 mg DAILYAC PO Last administered on 10/17/16 08:37; Start 10/15/16 at 09:00 Sotalol HCl (Betapace) 80 mg BID PO Last administered on 10/17/16 08:40; Start 10/15/16 at 09:00 Sucralfate (Carafate) 1 gm QIDACHS PO Last administered on 10/17/16 12:26; Start 10/15/16 at 11:30 Gabapentin (Neurontin) 600 mg QID PO Last administered on 10/17/16 08:38; Start 10/15/16 at 09:00 Insulin Detemir (Levemir) 90 units BID SQ Last administered on 10/17/16 08:49 ; Start 10/15/16 at 21:00 Non-Formulary Medication 1 vial TID NEB ; Start 10/15/16 at 09:00; Status UNV Loperamide HCl (Imodium) 2 mg PRN Q15MIN PRN PO DIARRHEA; Start 10/15/16 at 09: 00 Losartan Potassium (Cozaar) 100 mg DAILY PO Last administered on 10/17/16 08: 39; Start 10/15/16 at 09:00 Ondansetron HCl (Zofran Odt) 4 mg PRN Q8HRS PRN PO NAUSEA/VOMITING Last administered on 10/17/16 06:16; Start 10/15/16 at 09:15 Oxycodone HCl (Roxicodone) 10 mg PRN Q6HRS PRN PO PAIN Last administered on 06:16; Start 10/15/16 at 09:30 Non-Formulary Medication 1 cap DAILY IH ; Start 10/15/16 at 09:00; Status UNV Venlafaxine HCl (Effexor Xr) 75 mg DAILY PO Last administered on 10/17/16 08: 38; Start 10/15/16 at 09:00 Vancomycin HCl (Vanco Per Pharmacy) 1 each PRN DAILY PRN MC SEE COMMENTS Last administered on 10/17/16 11:50; Start 10/15/16 at 09:00; Stop 10/17/16 at 12:41 ; Status DC Vancomycin HCl 2 gm/Sodium Chloride 500 ml @ 250 mls/hr 1X ONCE IV Last administered on 10/15/16 11:02; Start 10/15/16 at 10:00; Stop 10/15/16 at 11:59; Status DC Aztreonam 2 gm/ Sodium Chloride 100 ml @ 200 mls/hr Q6HRS IV Last administered on 10/17/16 12:26; Start 10/15/16 at 11:00; Stop 10/17/16 at 12:41 ; Status DC Metronidazole (Flagyl) 500 mg Q8HRS PO ; Start 10/15/16 at 14:00; Stop 10/15/16 at 14:00; Status DC Vancomycin HCl 2 gm/Sodium Chloride 500 ml @ 250 mls/hr Q12H IV Last administered on 10/16/16 11:20; Start 10/15/16 at 23:00; Stop 10/16/16 at 11:27; Status DC Vancomycin HCl 1 each 1X ONCE MC Last administered on 10/16/16 10:40; Start at 10:30; Stop 10/16/16 at 10:31; Status DC Vancomycin HCl 1.75 gm/Sodium Chloride 500 ml @ 250 mls/hr Q12H IV Last administered on 10/16/16 23:38; Start 10/16/16 at 12:00; Stop 10/17/16 at 12:41; Status DC Insulin Aspart (NovoLOG) 0-9 UNITS TIDWMEALS SQ Last administered on 10/17/16 08:50; Start 10/16/16 at 17:00 Dextrose (Dextrose 50%-Water Syringe) 12.5 gm PRN Q15MIN PRN IV SEE COMMENTS; Start 10/16/16 at 12:15; Status UNV Ampicillin Sodium/ Sulbactam Sodium 3 gm/Sodium Chloride 100 ml @ 200 mls/hr Q6HRS IV ; Start 10/17/16 at 13:00 Linezolid (Zyvox) 600 mg BID PO ; Start 10/17/16 at 13:00 Active Scripts Active Oxycodone Hcl 10 Mg Tablet 1 Tab PO QID PRN Novolog Flexpen (Insulin Aspart) 100 Unit/1 Ml Insuln.pen 50 Units SQ TIDWMEALS Sucralfate 1 Gm/10 Ml Oral.susp 1 Gm PO QIDACHS Pantoprazole Sodium 40 Mg Tablet.dr 40 Mg PO DAILYAC Furosemide 40 Mg Tablet 1 Tab PO DAILY Mupirocin Ointment (Mupirocin) 22 Gm Oint...g. 22 Gm TP PRN TID PRN [place] Solostar (Insulin Glargine,Hum.rec.anlog) 300 Unit/1 Ml Insuln.pen 90 Unit SQ BID Zofran (Ondansetron Hcl) 4 Mg Tablet 1 Tab PO PRN Q6-8HRS Spiriva (Tiotropium [place]) 18 Mcg Cap.w.dev 1 Cap IH DAILY Xopenex (Levalbuterol Hcl) 1.25 Mg/3 Ml Vial.neb 1 Vial NEB TID Fenofibrate (Fenofibrate Nanocrystallized) 145 Mg Tablet 1 Tab PO DAILY Losartan Potassium 100 Mg Tablet 100 Mg PO DAILY Sotalol (Sotalol Hcl) 80 Mg Tablet 80 Mg PO BID Symbicort 160-4.5 Mcg Inhaler (Budesonide/Formoterol Fumarate) 10.2 Gm Hfa.aer.ad 2 Puff IH BID Reported Levothyroxine Sodium 175 Mcg Tablet 1 Tab PO DAILY Levothyroxine Sodium 150 Mcg Tablet 1 Tab PO DAILY Vitamin D2 (Ergocalciferol (Vitamin D2)) 50,000 Unit Capsule 50,000 Unit PO Venlafaxine Hcl Er (Venlafaxine Hcl) 75 Mg Cap.er.24h 1 Cap PO DAILY Anti-Diarrhea (Loperamide Hcl) 2 Mg Tablet 2 Mg PO PRN PRN Fluticasone Propionate Nasal [place] (Fluticasone Propionate) 16 Gm [place].susp 2 [place] NS DAILY Vitamin D3 (Cholecalciferol (Vitamin D3)) 1,000 Unit Tablet 1,000 Unit PO Amlodipine Besylate 5 Mg Tablet 5 Mg PO DAILY Nystatin 15 Gm Powder 1 Melissa TP BID Melatonin 3 Mg Tablet 5 Mg PO Digoxin 125 Mcg Tablet 1 Tab PO DAILY Oxcarbazepine 300 Mg Tablet 1 Tab PO HS Gabapentin 600 Mg Tablet 600 Mg PO QID Abilify (Aripiprazole) 5 Mg Tablet 5 Mg PO DAILY Plavix (Clopidogrel Bisulfate) 75 Mg Tablet 75 Mg PO DAILY Cetirizine Hcl 10 Mg Tablet 10 Mg PO DAILY Vitals/I & O Vital Sign - Last 24 Hours 10/16/16 10/16/16 10/16/16 10/16/16 15:00 15:36 18:34 19:00 Temp 99.0 98.1 99.0 98.1 Pulse 69 80 Resp 18 18 B/P (MAP) 100/70 (80) 127/72 (90) Pulse Ox 96 92 O2 Delivery Room Air Nasal Cannula Room Air Room Air O2 Flow Rate 3.0 10/16/16 10/16/16 10/16/16 10/16/16 19:45 19:46 20:00 20:52 Pulse 69 B/P (MAP) 100/70 Pulse Ox 98 98 O2 Delivery Nasal Cannula Nasal Cannula Room Air O2 Flow Rate 3.0 3.0 10/16/16 10/17/16 10/17/16 10/17/16 23:00 03:00 07:00 07:16 Temp 98.4 98.1 98.7 98.4 98.1 98.7 Pulse 77 71 72 Resp 18 18 18 20 B/P (MAP) 126/60 (82) 167/76 (106) 124/70 (88) Pulse Ox 95 94 90 94 O2 Delivery Room Air Room Air Room Air Room Air 10/17/16 10/17/16 10/17/16 10/17/16 07:40 08:14 08:17 08:39 Pulse 72 B/P (MAP) 124/70 Pulse Ox 98 98 O2 Delivery Nasal Cannula Nasal Cannula Nasal Cannula O2 Flow Rate 3.0 3.0 3.0 10/17/16 10/17/16 10/17/16 10/17/16 08:40 08:41 08:41 11:42 Pulse 72 72 72 B/P (MAP) 124/70 124/70 124/70 O2 Delivery Nasal Cannula O2 Flow Rate 3.0 SHANE DIALLO MD Oct 17, 2016 13:02
[2016-10-17] MEDS: AMPICILLIN/SULBACTAM 3 GM in IV NORMAL SALINE 100ML 100 ML IV SCH ×3 (14:36→23:52)
[2016-10-17] MEDS: LINEZOLID 600 MG TABLET PO SCH ×2 (14:36→20:03)
[2016-10-17 15:00] VITALS: BP 128/72
[2016-10-17 19:00] VITALS: BP 154/94
[2016-10-17] MEDS: OXcarbazepine 300 MG TABLET PO SCH (20:03)
[2016-10-17 23:00] VITALS: BP 129/71
[2016-10-18] MEDS: oxyCODONE IR 5 MG TABLET PO PRN ×2 (01:32→17:34)
[2016-10-18 03:00] VITALS: BP 147/77
[2016-10-18] MEDS: AMPICILLIN/SULBACTAM 3 GM in IV NORMAL SALINE 100ML 100 ML IV SCH ×3 (05:25→17:35)
[2016-10-18 07:00] VITALS: BP 110/69
[2016-10-18] MEDS: INSULIN ASPART 300 UNITS/3 ML INSULN.PEN SQ SCH ×6 (08:00→17:40)
[2016-10-18] MEDS: ALBUTEROL SULFATE 2.5 MG/3 ML NEBU. NEB SCH ×4 (08:24→19:16)
[2016-10-18] MEDS: BUDESONIDE 0.5 MG/2 ML NEBU. NEB SCH ×2 (08:24→19:16)
--- NOTE | 2016-10-18 08:41 | PDOC ---
Infectious Disease Note Subjective Subjective Tolerating Unasyn Less leg pain Showered yesterday Still Left shoulder pain. Prior to PICC placement Appetite good ROS ROS GEN: Denies fevers, chills, sweats HEENT: Denies blurred vision, sore throat CV: Denies chest pain RESP: Denies shortness of air, cough GI: Denies n/v/d NEURO: Denies confusion, dizziness MSK: Denies weakness, joint pain/swelling Vital Sign Vital Signs Vital Signs Date Time Temp Pulse Resp B/P (MAP) Pulse Ox O2 Delivery O2 Flow Rate FiO2 10/18/16 08:26 97 Nasal Cannula 3.0 10/18/16 03:00 98.7 77 19 147/77 (100) 98.7 Physical Exam PHYSICAL EXAM GENERAL: NAD, Alert HEENT: PERRL, OC/OP- clear NECK: Supple, no JVD, no LN LUNGS: Clear HEART: S1S2, no gallop, no murmur ABD: Soft, NT, no organomegaly, no rebound, obese EXT: Less edema, erythema. No warmth. Wounds clean. no cyanosis. Shoulder without inflammation QUALITY CONTROL LEAD: Alert, oriented x 3, no focal neurologic deficit SKIN: No rash IV: PICC clean Labs Lab Laboratory Tests Test 10/17/16 11:49 10/17/16 17:06 10/17/16 20:38 Glucose (Fingerstick) 129 mg/dL (70-99) 70 mg/dL (70-99) 198 mg/dL (70-99) Objective Assessment Left shoulder pain. No obvious clinical finding. CXR no gross abnormality Right leg cellulitis - improving Multiple skin breakdowns likely sec to scratching from anxiety likely Leukocytosis, stable Obesity DM with poor control Multiple med allergy h/o C. difficile, July 2016 Plan Plan of Care Cont Unasyn -tolerated amox. will d/c home with Augmentin/Zyvox. if XRAY shoulder neg/PT helps and Linezolid approved Shoulder XRAY PT eval Social service eval for cost of Linezolid F/u labs Supportive care MATEO NEGRON MD Oct 18, 2016 08:41
[2016-10-18] MEDS: FUROSEMIDE 40 MG TABLET. PO SCH ×2 (09:00→09:28)
[2016-10-18] MEDS: GABAPENTIN 300 MG CAPSULE. PO SCH ×4 (09:26→21:50)
[2016-10-18] MEDS: ARIPiprazole 5 MG TABLET PO SCH (09:27)
[2016-10-18] MEDS: LINEZOLID 600 MG TABLET PO SCH ×2 (09:27→21:50)
[2016-10-18] MEDS: LOSARTAN POTASSIUM 50 MG TABLET. PO SCH (09:27)
[2016-10-18] MEDS: CETIRIZINE HCL 10 MG TABLET. PO SCH (09:28)
[2016-10-18] MEDS: VENLAFAXINE XR 37.5 MG CAP.ER.24H. PO SCH (09:28)
[2016-10-18] MEDS: SUCRALFATE 1 GM/10 ML ORAL.SUSP. PO SCH ×4 (09:28→21:50)
[2016-10-18] MEDS: DIGOXIN 125 MCG TABLET. PO SCH (09:29)
[2016-10-18] MEDS: LEVOTHYROXINE 150 MCG TABLET PO SCH (09:30)
[2016-10-18] MEDS: amLODIPine BESYLATE 5 MG TABLET PO SCH (09:30)
[2016-10-18] MEDS: CLOPIDOGREL BISULFATE 75 MG TABLET PO SCH (09:31)
[2016-10-18] MEDS: FLUTICASONE 50MCG/NASAL SPRAY 16GM BOTTLE. NS SCH (09:32)
--- NOTE | 2016-10-18 09:43 | RAD ---
Indication left shoulder pain. No history of injury. 2 AP views of the left shoulder on a Y view were obtained. There is suspect bony demineralization. There are some degenerative changes at the AC joint. There is suggested subluxation at the glenohumeral joint. A fracture or acute finding is not seen. A left PICC line is noted. IMPRESSION: Chronic changes. No acute bony finding seen
[2016-10-18] MEDS: INSULIN DETEMIR 300 UNITS/3 ML INSULN.PEN. SQ SCH ×2 (09:45→22:00)
[2016-10-18] MEDS: PANTOPRAZOLE 40 MG TABLET.DR. PO SCH (10:35)
[2016-10-18] MEDS: NYSTATIN TOPICAL POWDER 15GM BOTTLE. TP SCH ×2 (10:35→21:00)
[2016-10-18] MEDS: SOTALOL 80 MG TABLET. PO SCH ×2 (10:36→21:49)
[2016-10-18 11:00] VITALS: BP 122/66
--- NOTE | 2016-10-18 11:38 | PDOC ---
PROGRESS NOTES Chief Complaint Chief Complaint Right leg cellulitis - Multiple skin breakdowns likely sec to scratching from anxiety likely PMH: Afib CHF HTN hld COPD TIA GERD Irritable bowel disease OA morbid obesity, BMI 46 tobaccoism 1 pack per day bipolar 2 anxiety d/o DM2, poor control Hypothyroidism Multiple med allergy h/o C. difficile, July 2016 PSH: Cholecystectomy Cataract removal History of Present Illness History of Present Illness Pt sitting in bed with HOB elevated, NAD Pt reports her right leg looks much better than it did on admission. Vitals Vitals Vital Signs Date Time Temp Pulse Resp B/P (MAP) Pulse Ox O2 Delivery O2 Flow Rate FiO2 10/18/16 10:36 72 110/69 10/18/16 08:26 97 Nasal Cannula 3.0 10/18/16 07:00 97.4 97.4 10/18/16 03:00 19 Physical Exam General: Alert, Cooperative, No acute distress Heart: Regular rate, No murmurs Lungs: Clear, Other (no crackles, no wheezes) Abdomen: Normal bowel sounds, Soft Extremities: No clubbing, No edema Skin: Other (mult small lesions, exoriated on arm and legs, legs have large lesions without surrounding erythema, most lesions on shins above exactly righrt above where her socks wound be, right has the largest area, about 6cm across of abraded skin) Labs LABS Laboratory Tests Test 10/17/16 11:49 10/17/16 17:06 10/17/16 20:38 Glucose (Fingerstick) 129 mg/dL (70-99) 70 mg/dL (70-99) 198 mg/dL (70-99) Review of Systems Review of Systems no fever shoulder pain Assessment and Plan Assessmemt and Plan Problems Medical Problems: (1) Cellulitis Status: Acute (2) Hyperglycemia Status: Acute Right leg cellulitis - improving Multiple skin breakdowns - likely secondary to scratching from anxiety Leukocytosis - POA Left shoulder pain 1. Continue antibiotics per ID 2. Pending left shoulder XRAY 3. Continue wound care 4. Recheck labs in am 5. PT/OT 6. Discharge to SNU when ok with ID Problems: Comment Review of Relevant I have reviewed the following items prudence (where applicable) has been applied. Labs Laboratory Tests Test 10/16/16 16:39 10/16/16 20:39 10/17/16 07:47 10/17/16 08:05 Glucose (Fingerstick) 159 mg/dL (70-99) 168 mg/dL (70-99) 177 mg/dL (70-99) White Blood Count 10.1 x10^3/uL (4.0-11.0) Red Blood Count 4.73 x10^6/uL (3.50-5.40) Hemoglobin 13.4 g/dL (12.0-15.5) Hematocrit 44.1 % (36.0-47.0) Mean Corpuscular Volume 93 fL (79-100) Mean Corpuscular Hemoglobin 28 pg (25-35) Mean Corpuscular Hemoglobin Concent 30 g/dL (31-37) Red Cell Distribution Width 14.9 % (11.5-14.5) Platelet Count 226 x10^3/uL (140-400) Neutrophils (%) (Auto) 68 % (31-73) Lymphocytes (%) (Auto) 22 % (24-48) Monocytes (%) (Auto) 8 % (0-9) Eosinophils (%) (Auto) 3 % (0-3) Basophils (%) (Auto) 1 % (0-3) Neutrophils # (Auto) 6.9 x10^3uL (1.8-7.7) Lymphocytes # (Auto) 2.2 x10^3/uL (1.0-4.8) Monocytes # (Auto) 0.8 x10^3/uL (0.0-1.1) Eosinophils # (Auto) 0.3 x10^3/uL (0.0-0.7) Basophils # (Auto) 0.0 x10^3/uL (0.0-0.2) Sodium Level 139 mmol/L (136-145) Potassium Level 4.3 mmol/L (3.5-5.1) Chloride Level 102 mmol/L (98-107) Carbon Dioxide Level 27 mmol/L (21-32) Anion Gap 10 (6-14) Blood Urea Nitrogen 21 mg/dL (7-20) Creatinine 0.6 mg/dL (0.6-1.0) Estimated GFR (Cockcroft-Gault) 103.4 Glucose Level 177 mg/dL (70-99) Calcium Level 8.9 mg/dL (8.5-10.1) Test 10/17/16 11:49 10/17/16 17:06 10/17/16 20:38 Glucose (Fingerstick) 129 mg/dL (70-99) 70 mg/dL (70-99) 198 mg/dL (70-99) Laboratory Tests Test 10/17/16 11:49 10/17/16 17:06 10/17/16 20:38 Glucose (Fingerstick) 129 mg/dL (70-99) 70 mg/dL (70-99) 198 mg/dL (70-99) Microbiology 10/14/16 Blood Culture - Preliminary, Resulted NO GROWTH AFTER 3 DAYS Medications Current Medications Sodium Chloride 500 ml @ 500 mls/hr 1X ONCE IV Last administered on 10/14/16 22:22; Start 10/14/16 at 22:00; Stop 10/14/16 at 22:59; Status DC Vancomycin HCl 2 gm/Sodium Chloride 500 ml @ 250 mls/hr 1X ONCE IV Last administered on 10/15/16 00:24; Start 10/14/16 at 23:45; Stop 10/15/16 at 01:44; Status DC Insulin Aspart (NovoLOG VIAL) 10 unit 1X ONCE SQ ; Start 10/14/16 at 23:45; Stop 10/15/16 at 00:06; Status DC Ondansetron HCl (Zofran) 4 mg PRN Q8HRS PRN IV NAUSEA/VOMITING Last administered on 10/15/16 00:24; Start 10/14/16 at 23:45; Stop 10/15/16 at 23:44; Status DC Morphine Sulfate 2 mg PRN Q2HR PRN IV PAIN Last administered on 10/15/16 14:08 ; Start 10/14/16 at 23:45; Stop 10/15/16 at 23:44; Status DC Sodium Chloride 1,000 ml @ 125 mls/hr Q8H IV Last administered on 10/15/16 11: 02; Start 10/14/16 at 23:45; Stop 10/15/16 at 23:44; Status DC Insulin Aspart (NovoLOG) 0-7 UNITS TIDWMEALS SQ ; Start 10/15/16 at 08:00; Stop 10/15/16 at 08:51; Status DC Dextrose (Dextrose 50%-Water Syringe) 12.5 gm PRN Q15MIN PRN IV SEE COMMENTS; Start 10/14/16 at 23:45 Insulin Human Regular (NovoLIN R VIAL) 10 unit 1X ONCE SQ Last administered on 10/15/16 00:23; Start 10/15/16 at 00:15; Stop 10/15/16 at 00:16; Status DC Insulin Human Regular (NovoLIN R VIAL) 100 unit STK-MED ONCE .ROUTE ; Start 10/15 at 00:08; Stop 10/15/16 at 00:09; Status DC Non-Formulary Medication 2 puff BID IH ; Start 10/15/16 at 09:00; Status UNV Budesonide (Pulmicort) 0.5 mg RTBID NEB Last administered on 10/18/16 08:24; Start 10/15/16 at 08:00 Albuterol Sulfate (Ventolin Neb Soln) 2.5 mg RTQID NEB Last administered on 08:24; Start 10/15/16 at 08:00 Insulin Aspart (NovoLOG) 10 units 1X ONCE SQ Last administered on 10/15/16 08: 36; Start 10/15/16 at 08:30; Stop 10/15/16 at 08:31; Status DC Nicotine (Nicoderm Cq 14mg) 1 patch PRN DAILY PRN TD SMOKING CESSATION Last administered on 10/15/16 14:14; Start 10/15/16 at 08:45 Nicotine Polacrilex (Nicorette Gum) 1 each PRN Q1HR PRN BC SMOKING CESSATION; Start 10/15/16 at 08:45 Insulin Aspart (NovoLOG) 0-7 UNITS QIDACHS SQ Last administered on 10/16/16 11: 30; Start 10/15/16 at 11:30; Stop 10/16/16 at 12:11; Status DC Amlodipine Besylate (Norvasc) 5 mg DAILY PO Last administered on 10/18/16 09: 30; Start 10/15/16 at 09:00 Aripiprazole (Abilify) 5 mg DAILY PO Last administered on 10/18/16 09:27; Start 10/15/16 at 09:00 Cetirizine HCl (ZyrTEC) 10 mg DAILY PO Last administered on 10/18/16 09:28; Start 10/15/16 at 09:00 Clopidogrel Bisulfate (Plavix) 75 mg DAILY PO Last administered on 10/18/16 09 :31; Start 10/15/16 at 09:00 Digoxin (Lanoxin) 125 mcg DAILY PO Last administered on 10/18/16 09:29; Start 10/15/16 at 09:00 Fluticasone Propionate (Flonase) 2 spray DAILY NS Last administered on 09:32; Start 10/15/16 at 09:00 Furosemide (Lasix) 40 mg DAILY PO Last administered on 10/16/16 10:06; Start at 09:00 Insulin Aspart (NovoLOG) 50 units TIDWMEALS SQ Last administered on 10/18/16 09:09; Start 10/15/16 at 12:00 Levothyroxine Sodium (Synthroid) 150 mcg DAILY PO Last administered on 09:30; Start 10/15/16 at 09:00 Nystatin (Nystop) 1 melissa BID TP Last administered on 10/18/16 10:35; Start 10/15 at 09:00 Oxcarbazepine (Trileptal) 300 mg HS PO Last administered on 10/17/16 20:03; Start 10/15/16 at 21:00 Pantoprazole Sodium (Protonix) 40 mg DAILYAC PO Last administered on 10/18/16 10:35; Start 10/15/16 at 09:00 Sotalol HCl (Betapace) 80 mg BID PO Last administered on 10/18/16 10:36; Start 10/15/16 at 09:00 Sucralfate (Carafate) 1 gm QIDACHS PO Last administered on 10/18/16 09:28; Start 10/15/16 at 11:30 Gabapentin (Neurontin) 600 mg QID PO Last administered on 10/18/16 09:26; Start 10/15/16 at 09:00 Insulin Detemir (Levemir) 90 units BID SQ Last administered on 10/18/16 09:45 ; Start 10/15/16 at 21:00 Non-Formulary Medication 1 vial TID NEB ; Start 10/15/16 at 09:00; Status UNV Loperamide HCl (Imodium) 2 mg PRN Q15MIN PRN PO DIARRHEA; Start 10/15/16 at 09: 00 Losartan Potassium (Cozaar) 100 mg DAILY PO Last administered on 10/18/16 09: 27; Start 10/15/16 at 09:00 Ondansetron HCl (Zofran Odt) 4 mg PRN Q8HRS PRN PO NAUSEA/VOMITING Last administered on 10/17/16 20:02; Start 10/15/16 at 09:15 Oxycodone HCl (Roxicodone) 10 mg PRN Q6HRS PRN PO PAIN Last administered on 01:32; Start 10/15/16 at 09:30 Non-Formulary Medication 1 cap DAILY IH ; Start 10/15/16 at 09:00; Status UNV Venlafaxine HCl (Effexor Xr) 75 mg DAILY PO Last administered on 10/18/16 09: 28; Start 10/15/16 at 09:00 Vancomycin HCl (Vanco Per Pharmacy) 1 each PRN DAILY PRN MC SEE COMMENTS Last administered on 10/17/16 11:50; Start 10/15/16 at 09:00; Stop 10/17/16 at 12:41 ; Status DC Vancomycin HCl 2 gm/Sodium Chloride 500 ml @ 250 mls/hr 1X ONCE IV Last administered on 10/15/16 11:02; Start 10/15/16 at 10:00; Stop 10/15/16 at 11:59; Status DC Aztreonam 2 gm/ Sodium Chloride 100 ml @ 200 mls/hr Q6HRS IV Last administered on 10/17/16 12:26; Start 10/15/16 at 11:00; Stop 10/17/16 at 12:41 ; Status DC Metronidazole (Flagyl) 500 mg Q8HRS PO ; Start 10/15/16 at 14:00; Stop 10/15/16 at 14:00; Status DC Vancomycin HCl 2 gm/Sodium Chloride 500 ml @ 250 mls/hr Q12H IV Last administered on 10/16/16 11:20; Start 10/15/16 at 23:00; Stop 10/16/16 at 11:27; Status DC Vancomycin HCl 1 each 1X ONCE MC Last administered on 10/16/16 10:40; Start at 10:30; Stop 10/16/16 at 10:31; Status DC Vancomycin HCl 1.75 gm/Sodium Chloride 500 ml @ 250 mls/hr Q12H IV Last administered on 10/16/16 23:38; Start 10/16/16 at 12:00; Stop 10/17/16 at 12:41; Status DC Insulin Aspart (NovoLOG) 0-9 UNITS TIDWMEALS SQ Last administered on 10/17/16 08:50; Start 10/16/16 at 17:00 Dextrose (Dextrose 50%-Water Syringe) 12.5 gm PRN Q15MIN PRN IV SEE COMMENTS; Start 10/16/16 at 12:15; Status UNV Ampicillin Sodium/ Sulbactam Sodium 3 gm/Sodium Chloride 100 ml @ 200 mls/hr Q6HRS IV Last administered on 10/18/16 05:25; Start 10/17/16 at 13:00 Linezolid (Zyvox) 600 mg BID PO Last administered on 10/18/16 09:27; Start 11/23 at 13:00 Active Scripts Active Oxycodone Hcl 10 Mg Tablet 1 Tab PO QID PRN Novolog Flexpen (Insulin Aspart) 100 Unit/1 Ml Insuln.pen 50 Units SQ TIDWMEALS Sucralfate 1 Gm/10 Ml Oral.susp 1 Gm PO QIDACHS Pantoprazole Sodium 40 Mg Tablet.dr 40 Mg PO DAILYAC Furosemide 40 Mg Tablet 1 Tab PO DAILY Mupirocin Ointment (Mupirocin) 22 Gm Oint...g. 22 Gm TP PRN TID PRN Toujeo Solostar (Insulin Glargine,Hum.rec.anlog) 300 Unit/1 Ml Insuln.pen 90 Unit SQ BID Zofran (Ondansetron Hcl) 4 Mg Tablet 1 Tab PO PRN Q6-8HRS Spiriva (Tiotropium [place]) 18 Mcg Cap.w.dev 1 Cap IH DAILY Xopenex (Levalbuterol Hcl) 1.25 Mg/3 Ml Vial.neb 1 Vial NEB TID Fenofibrate (Fenofibrate Nanocrystallized) 145 Mg Tablet 1 Tab PO DAILY Losartan Potassium 100 Mg Tablet 100 Mg PO DAILY Sotalol (Sotalol Hcl) 80 Mg Tablet 80 Mg PO BID Symbicort 160-4.5 Mcg Inhaler (Budesonide/Formoterol Fumarate) 10.2 Gm Hfa.aer.ad 2 Puff IH BID Reported Levothyroxine Sodium 175 Mcg Tablet 1 Tab PO DAILY Levothyroxine Sodium 150 Mcg Tablet 1 Tab PO DAILY Vitamin D2 (Ergocalciferol (Vitamin D2)) 50,000 Unit Capsule 50,000 Unit PO Venlafaxine Hcl Er (Venlafaxine Hcl) 75 Mg Cap.er.24h 1 Cap PO DAILY Anti-Diarrhea (Loperamide Hcl) 2 Mg Tablet 2 Mg PO PRN PRN Fluticasone Propionate Nasal [place] (Fluticasone Propionate) 16 Gm [place].susp 2 [place] NS DAILY Vitamin D3 (Cholecalciferol (Vitamin D3)) 1,000 Unit Tablet 1,000 Unit PO Amlodipine Besylate 5 Mg Tablet 5 Mg PO DAILY Nystatin 15 Gm Powder 1 Melissa TP BID Melatonin 3 Mg Tablet 5 Mg PO Digoxin 125 Mcg Tablet 1 Tab PO DAILY Oxcarbazepine 300 Mg Tablet 1 Tab PO HS Gabapentin 600 Mg Tablet 600 Mg PO QID Abilify (Aripiprazole) 5 Mg Tablet 5 Mg PO DAILY Plavix (Clopidogrel Bisulfate) 75 Mg Tablet 75 Mg PO DAILY Cetirizine Hcl 10 Mg Tablet 10 Mg PO DAILY Vitals/I & O Vital Sign - Last 24 Hours 10/17/16 10/17/16 10/17/16 10/17/16 11:42 14:41 15:00 15:36 Temp 98.6 98.6 Pulse 66 Resp 18 B/P (MAP) 128/72 (90) Pulse Ox 95 O2 Delivery Nasal Cannula Nasal Cannula Nasal Cannula Nasal Cannula O2 Flow Rate 3.0 2.0 3.0 10/17/16 10/17/16 10/17/16 10/17/16 19:00 20:00 20:02 20:03 Temp 98.7 98.7 Pulse 69 69 Resp 20 20 B/P (MAP) 154/94 (114) 154/94 Pulse Ox 97 97 O2 Delivery Nasal Cannula Nasal Cannula Nasal Cannula O2 Flow Rate 2.0 3.0 3.0 10/17/16 10/17/16 10/17/16 10/18/16 20:39 20:39 23:00 01:32 Temp 98.5 98.5 Pulse 70 Resp 19 20 B/P (MAP) 129/71 (90) Pulse Ox 98 98 O2 Delivery Nasal Cannula Nasal Cannula Nasal Cannula Nasal Cannula O2 Flow Rate 3.0 3.0 2.0 2.0 10/18/16 10/18/16 10/18/16 10/18/16 02:32 03:00 07:00 08:26 Temp 98.7 97.4 98.7 97.4 Pulse 77 72 Resp 20 19 B/P (MAP) 147/77 (100) 110/69 (83) Pulse Ox 96 96 99 97 O2 Delivery Nasal Cannula Nasal Cannula Room Air Nasal Cannula O2 Flow Rate 2.0 2.0 3.0 10/18/16 10/18/16 10/18/16 10/18/16 09:27 09:29 09:30 10:36 Pulse 72 72 72 72 B/P (MAP) 110/69 110/69 110/69 110/69 DAINA STEPHEN III DO Oct 18, 2016 11:37
[2016-10-18] MEDS: NICOTINE 14MG PATCH. TD PRN (13:16)
[2016-10-18 15:00] VITALS: BP 127/69
[2016-10-18 19:00] VITALS: BP 124/70
[2016-10-18] MEDS: OXcarbazepine 300 MG TABLET PO SCH (21:50)
[2016-10-18 23:29] VITALS: BP 131/71
[2016-10-19] MEDS: AMPICILLIN/SULBACTAM 3 GM in IV NORMAL SALINE 100ML 100 ML IV SCH ×2 (00:02→05:50)
[2016-10-19] MEDS: oxyCODONE IR 5 MG TABLET PO PRN ×3 (01:39→20:17)
[2016-10-19 03:22] VITALS: BP 132/69
[2016-10-19 06:21] LABS: BASO # 0.1 x10^3/uL (0.0-0.2); BASO % 1 % (0-3); EOS % 2 % (0-3); HEMATOCRIT 40.7 % (36.0-47.0); HEMOGLOBIN 13.3 g/dL (12.0-15.5); LYMPH # 2.3 x10^3/uL (1.0-4.8); LYMPH % 22 % (24-48); MEAN CORPUSCULAR HEMOGLOBIN 29 pg (25-35); MEAN CORPUSCULAR HGB CONC 33 g/dL (31-37); MEAN CORPUSCULAR VOLUME 90 fL (79-100); MONO % 6 % (0-9); NEUT % 69 % (31-73); PLATELET COUNT 231 x10^3/uL (140-400); RED BLOOD COUNT 4.54 x10^6/uL (3.50-5.40); RED CELL DISTRIBUTION WIDTH 14.9 % (11.5-14.5); WHITE BLOOD COUNT 10.4 x10^3/uL (4.0-11.0)
[2016-10-19 06:45] LABS: CALCIUM 9.1 mg/dL (8.5-10.1); CREATININE 0.7 mg/dL (0.6-1.0); GFR 86.6; POTASSIUM 4.3 mmol/L (3.5-5.1)
[2016-10-19 07:00] VITALS: BP 124/71
[2016-10-19] MEDS: ALBUTEROL SULFATE 2.5 MG/3 ML NEBU. NEB SCH ×4 (08:14→19:08)
[2016-10-19] MEDS: BUDESONIDE 0.5 MG/2 ML NEBU. NEB SCH ×2 (08:14→19:09)
[2016-10-19] MEDS: CLOPIDOGREL BISULFATE 75 MG TABLET PO SCH (08:52)
[2016-10-19] MEDS: GABAPENTIN 300 MG CAPSULE. PO SCH ×4 (08:54→21:50)
[2016-10-19] MEDS: LEVOTHYROXINE 150 MCG TABLET PO SCH (08:54)
[2016-10-19] MEDS: SOTALOL 80 MG TABLET. PO SCH ×2 (08:54→20:18)
[2016-10-19] MEDS: amLODIPine BESYLATE 5 MG TABLET PO SCH (08:56)
[2016-10-19] MEDS: ARIPiprazole 5 MG TABLET PO SCH (08:56)
[2016-10-19] MEDS: LOSARTAN POTASSIUM 50 MG TABLET. PO SCH (08:56)
[2016-10-19] MEDS: CETIRIZINE HCL 10 MG TABLET. PO SCH (08:57)
[2016-10-19] MEDS: LINEZOLID 600 MG TABLET PO SCH ×2 (08:57→20:17)
[2016-10-19] MEDS: PANTOPRAZOLE 40 MG TABLET.DR. PO SCH (08:58)
[2016-10-19] MEDS: DIGOXIN 125 MCG TABLET. PO SCH (08:58)
[2016-10-19] MEDS: VENLAFAXINE XR 37.5 MG CAP.ER.24H. PO SCH (08:59)
[2016-10-19] MEDS: FUROSEMIDE 40 MG TABLET. PO SCH (09:00)
[2016-10-19] MEDS: SUCRALFATE 1 GM/10 ML ORAL.SUSP. PO SCH ×4 (09:00→20:16)
[2016-10-19] MEDS: NYSTATIN TOPICAL POWDER 15GM BOTTLE. TP SCH ×2 (09:00→20:19)
[2016-10-19] MEDS: FLUTICASONE 50MCG/NASAL SPRAY 16GM BOTTLE. NS SCH (09:01)
[2016-10-19] MEDS: INSULIN DETEMIR 300 UNITS/3 ML INSULN.PEN. SQ SCH ×2 (09:10→21:54)
[2016-10-19] MEDS: INSULIN ASPART 300 UNITS/3 ML INSULN.PEN SQ SCH ×6 (09:11→17:11)
--- NOTE | 2016-10-19 10:13 | PDOC ---
Infectious Disease Note Subjective Subjective A lot of diarrhea but no F/C/cramps Legs better Still Left shoulder pain - better Appetite good ROS ROS GEN: Denies fevers, chills, sweats HEENT: Denies blurred vision, sore throat CV: Denies chest pain RESP: Denies shortness of air, cough GI: Denies n/v/d NEURO: Denies confusion, dizziness MSK: Denies weakness, joint pain/swelling Vital Sign Vital Signs Vital Signs Date Time Temp Pulse Resp B/P (MAP) Pulse Ox O2 Delivery O2 Flow Rate FiO2 10/19/16 09:00 16 Nasal Cannula 2.0 10/19/16 08:58 70 124/71 10/19/16 08:15 97 10/19/16 07:00 98.7 98.7 Physical Exam PHYSICAL EXAM GENERAL: NAD, Alert HEENT: PERRL, OC/OP -clear NECK: Supple, no JVD, no LN LUNGS: Clear - on 02 HEART: S1S2, no gallop, no murmur ABD: Soft, NT, no organomegaly, no rebound, obese EXT: Trace edema, no cyanosis 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: Alert, oriented x 3, no focal neurologic deficit SKIN: No rash IV: ok Labs Lab Laboratory Tests Test 10/18/16 11:20 10/18/16 16:21 10/18/16 20:46 10/19/16 06:01 Glucose (Fingerstick) 275 mg/dL (70-99) 114 mg/dL (70-99) 129 mg/dL (70-99) White Blood Count 10.4 x10^3/uL (4.0-11.0) Red Blood Count 4.54 x10^6/uL (3.50-5.40) Hemoglobin 13.3 g/dL (12.0-15.5) Hematocrit 40.7 % (36.0-47.0) Mean Corpuscular Volume 90 fL (79-100) Mean Corpuscular Hemoglobin 29 pg (25-35) Mean Corpuscular Hemoglobin Concent 33 g/dL (31-37) Red Cell Distribution Width 14.9 % (11.5-14.5) Platelet Count 231 x10^3/uL (140-400) Neutrophils (%) (Auto) 69 % (31-73) Lymphocytes (%) (Auto) 22 % (24-48) Monocytes (%) (Auto) 6 % (0-9) Eosinophils (%) (Auto) 2 % (0-3) Basophils (%) (Auto) 1 % (0-3) Neutrophils # (Auto) 7.2 x10^3uL (1.8-7.7) Lymphocytes # (Auto) 2.3 x10^3/uL (1.0-4.8) Monocytes # (Auto) 0.6 x10^3/uL (0.0-1.1) Eosinophils # (Auto) 0.2 x10^3/uL (0.0-0.7) Basophils # (Auto) 0.1 x10^3/uL (0.0-0.2) Sodium Level 141 mmol/L (136-145) Potassium Level 4.3 mmol/L (3.5-5.1) Chloride Level 104 mmol/L (98-107) Carbon Dioxide Level 32 mmol/L (21-32) Anion Gap 5 (6-14) Blood Urea Nitrogen 23 mg/dL (7-20) Creatinine 0.7 mg/dL (0.6-1.0) Estimated GFR (Cockcroft-Gault) 86.6 Glucose Level 235 mg/dL (70-99) Calcium Level 9.1 mg/dL (8.5-10.1) Test 10/19/16 08:03 Glucose (Fingerstick) 194 mg/dL (70-99) Objective Assessment Loose stool likely Unasyn. WBC nml and AF Left shoulder pain. No obvious clinical finding. XRAy neg - better with PT Right leg cellulitis - improving Multiple skin breakdowns likely sec to scratching from anxiety likely Leukocytosis, stable Obesity DM with poor control Multiple med allergy h/o C. difficile, July 2016 Plan Plan of Care Discont Unasyn with diarrhea Add probitotics Can d/c home with Zyvox if C-diff neg. Can f/u ID office one week [phone] D/w MATEO Edward MD Oct 19, 2016 10:13
[2016-10-19 11:00] VITALS: BP 124/72
--- NOTE | 2016-10-19 12:11 | PDOC ---
PROGRESS NOTES Chief Complaint Chief Complaint Right leg cellulitis - Multiple skin breakdowns likely sec to scratching from anxiety likely PMH: Afib CHF HTN hld COPD TIA GERD Irritable bowel disease OA morbid obesity, BMI 46 tobaccoism 1 pack per day bipolar 2 anxiety d/o DM2, poor control Hypothyroidism Multiple med allergy h/o C. difficile, July 2016 PSH: Cholecystectomy Cataract removal History of Present Illness History of Present Illness Pt sitting up in chair next to bed. Pt reports no current pain Vitals Vitals Vital Signs Date Time Temp Pulse Resp B/P (MAP) Pulse Ox O2 Delivery O2 Flow Rate FiO2 10/19/16 10:00 16 Nasal Cannula 3.0 10/19/16 08:58 70 124/71 10/19/16 08:15 97 10/19/16 07:00 98.7 98.7 Physical Exam General: Alert, Cooperative, No acute distress Heart: Regular rate, No murmurs Lungs: Clear, Other (no crackles, no wheezes) Abdomen: Normal bowel sounds, Soft Extremities: No clubbing, No edema Skin: Other (mult small lesions, exoriated on arm and legs, legs have large lesions without surrounding erythema, most lesions on shins above exactly righrt above where her socks wound be, right has the largest area, about 6cm across of abraded skin) Labs LABS Laboratory Tests Test 10/18/16 16:21 10/18/16 20:46 10/19/16 06:01 10/19/16 08:03 Glucose (Fingerstick) 114 mg/dL (70-99) 129 mg/dL (70-99) 194 mg/dL (70-99) White Blood Count 10.4 x10^3/uL (4.0-11.0) Red Blood Count 4.54 x10^6/uL (3.50-5.40) Hemoglobin 13.3 g/dL (12.0-15.5) Hematocrit 40.7 % (36.0-47.0) Mean Corpuscular Volume 90 fL (79-100) Mean Corpuscular Hemoglobin 29 pg (25-35) Mean Corpuscular Hemoglobin Concent 33 g/dL (31-37) Red Cell Distribution Width 14.9 % (11.5-14.5) Platelet Count 231 x10^3/uL (140-400) Neutrophils (%) (Auto) 69 % (31-73) Lymphocytes (%) (Auto) 22 % (24-48) Monocytes (%) (Auto) 6 % (0-9) Eosinophils (%) (Auto) 2 % (0-3) Basophils (%) (Auto) 1 % (0-3) Neutrophils # (Auto) 7.2 x10^3uL (1.8-7.7) Lymphocytes # (Auto) 2.3 x10^3/uL (1.0-4.8) Monocytes # (Auto) 0.6 x10^3/uL (0.0-1.1) Eosinophils # (Auto) 0.2 x10^3/uL (0.0-0.7) Basophils # (Auto) 0.1 x10^3/uL (0.0-0.2) Sodium Level 141 mmol/L (136-145) Potassium Level 4.3 mmol/L (3.5-5.1) Chloride Level 104 mmol/L (98-107) Carbon Dioxide Level 32 mmol/L (21-32) Anion Gap 5 (6-14) Blood Urea Nitrogen 23 mg/dL (7-20) Creatinine 0.7 mg/dL (0.6-1.0) Estimated GFR (Cockcroft-Gault) 86.6 Glucose Level 235 mg/dL (70-99) Calcium Level 9.1 mg/dL (8.5-10.1) Test 10/19/16 11:42 Glucose (Fingerstick) 231 mg/dL (70-99) Review of Systems Review of Systems c/o fatigue c/o hunger Assessment and Plan Assessmemt and Plan Right leg cellulitis - improving Multiple skin breakdowns - likely secondary to scratching from anxiety Leukocytosis - POA Left shoulder pain 1. Continue Abx per ID 2. Pending left shoulder XRAY 3. Continue wound care 4. Recheck labs in am 5. PT/OT Likely d/c tomorrow if ok w/ ID Problems: Comment Review of Relevant I have reviewed the following items prudence (where applicable) has been applied. Labs Laboratory Tests Test 10/17/16 17:06 10/17/16 20:38 10/18/16 11:20 10/18/16 16:21 Glucose (Fingerstick) 70 mg/dL (70-99) 198 mg/dL (70-99) 275 mg/dL (70-99) 114 mg/dL (70-99) Test 10/18/16 20:46 10/19/16 06:01 10/19/16 08:03 10/19/16 11:42 Glucose (Fingerstick) 129 mg/dL (70-99) 194 mg/dL (70-99) 231 mg/dL (70-99) White Blood Count 10.4 x10^3/uL (4.0-11.0) Red Blood Count 4.54 x10^6/uL (3.50-5.40) Hemoglobin 13.3 g/dL (12.0-15.5) Hematocrit 40.7 % (36.0-47.0) Mean Corpuscular Volume 90 fL (79-100) Mean Corpuscular Hemoglobin 29 pg (25-35) Mean Corpuscular Hemoglobin Concent 33 g/dL (31-37) Red Cell Distribution Width 14.9 % (11.5-14.5) Platelet Count 231 x10^3/uL (140-400) Neutrophils (%) (Auto) 69 % (31-73) Lymphocytes (%) (Auto) 22 % (24-48) Monocytes (%) (Auto) 6 % (0-9) Eosinophils (%) (Auto) 2 % (0-3) Basophils (%) (Auto) 1 % (0-3) Neutrophils # (Auto) 7.2 x10^3uL (1.8-7.7) Lymphocytes # (Auto) 2.3 x10^3/uL (1.0-4.8) Monocytes # (Auto) 0.6 x10^3/uL (0.0-1.1) Eosinophils # (Auto) 0.2 x10^3/uL (0.0-0.7) Basophils # (Auto) 0.1 x10^3/uL (0.0-0.2) Sodium Level 141 mmol/L (136-145) Potassium Level 4.3 mmol/L (3.5-5.1) Chloride Level 104 mmol/L (98-107) Carbon Dioxide Level 32 mmol/L (21-32) Anion Gap 5 (6-14) Blood Urea Nitrogen 23 mg/dL (7-20) Creatinine 0.7 mg/dL (0.6-1.0) Estimated GFR (Cockcroft-Gault) 86.6 Glucose Level 235 mg/dL (70-99) Calcium Level 9.1 mg/dL (8.5-10.1) Laboratory Tests Test 10/18/16 16:21 10/18/16 20:46 10/19/16 06:01 10/19/16 08:03 Glucose (Fingerstick) 114 mg/dL (70-99) 129 mg/dL (70-99) 194 mg/dL (70-99) White Blood Count 10.4 x10^3/uL (4.0-11.0) Red Blood Count 4.54 x10^6/uL (3.50-5.40) Hemoglobin 13.3 g/dL (12.0-15.5) Hematocrit 40.7 % (36.0-47.0) Mean Corpuscular Volume 90 fL (79-100) Mean Corpuscular Hemoglobin 29 pg (25-35) Mean Corpuscular Hemoglobin Concent 33 g/dL (31-37) Red Cell Distribution Width 14.9 % (11.5-14.5) Platelet Count 231 x10^3/uL (140-400) Neutrophils (%) (Auto) 69 % (31-73) Lymphocytes (%) (Auto) 22 % (24-48) Monocytes (%) (Auto) 6 % (0-9) Eosinophils (%) (Auto) 2 % (0-3) Basophils (%) (Auto) 1 % (0-3) Neutrophils # (Auto) 7.2 x10^3uL (1.8-7.7) Lymphocytes # (Auto) 2.3 x10^3/uL (1.0-4.8) Monocytes # (Auto) 0.6 x10^3/uL (0.0-1.1) Eosinophils # (Auto) 0.2 x10^3/uL (0.0-0.7) Basophils # (Auto) 0.1 x10^3/uL (0.0-0.2) Sodium Level 141 mmol/L (136-145) Potassium Level 4.3 mmol/L (3.5-5.1) Chloride Level 104 mmol/L (98-107) Carbon Dioxide Level 32 mmol/L (21-32) Anion Gap 5 (6-14) Blood Urea Nitrogen 23 mg/dL (7-20) Creatinine 0.7 mg/dL (0.6-1.0) Estimated GFR (Cockcroft-Gault) 86.6 Glucose Level 235 mg/dL (70-99) Calcium Level 9.1 mg/dL (8.5-10.1) Test 10/19/16 11:42 Glucose (Fingerstick) 231 mg/dL (70-99) Microbiology 10/14/16 Blood Culture - Preliminary, Resulted NO GROWTH AFTER 4 DAYS Medications Current Medications Sodium Chloride 500 ml @ 500 mls/hr 1X ONCE IV Last administered on 10/14/16 22:22; Start 10/14/16 at 22:00; Stop 10/14/16 at 22:59; Status DC Vancomycin HCl 2 gm/Sodium Chloride 500 ml @ 250 mls/hr 1X ONCE IV Last administered on 10/15/16 00:24; Start 10/14/16 at 23:45; Stop 10/15/16 at 01:44; Status DC Insulin Aspart (NovoLOG VIAL) 10 unit 1X ONCE SQ ; Start 10/14/16 at 23:45; Stop 10/15/16 at 00:06; Status DC Ondansetron HCl (Zofran) 4 mg PRN Q8HRS PRN IV NAUSEA/VOMITING Last administered on 10/15/16 00:24; Start 10/14/16 at 23:45; Stop 10/15/16 at 23:44; Status DC Morphine Sulfate 2 mg PRN Q2HR PRN IV PAIN Last administered on 10/15/16 14:08 ; Start 10/14/16 at 23:45; Stop 10/15/16 at 23:44; Status DC Sodium Chloride 1,000 ml @ 125 mls/hr Q8H IV Last administered on 10/15/16 11: 02; Start 10/14/16 at 23:45; Stop 10/15/16 at 23:44; Status DC Insulin Aspart (NovoLOG) 0-7 UNITS TIDWMEALS SQ ; Start 10/15/16 at 08:00; Stop 10/15/16 at 08:51; Status DC Dextrose (Dextrose 50%-Water Syringe) 12.5 gm PRN Q15MIN PRN IV SEE COMMENTS; Start 10/14/16 at 23:45 Insulin Human Regular (NovoLIN R VIAL) 10 unit 1X ONCE SQ Last administered on 10/15/16 00:23; Start 10/15/16 at 00:15; Stop 10/15/16 at 00:16; Status DC Insulin Human Regular (NovoLIN R VIAL) 100 unit STK-MED ONCE .ROUTE ; Start 10/15 at 00:08; Stop 10/15/16 at 00:09; Status DC Non-Formulary Medication 2 puff BID IH ; Start 10/15/16 at 09:00; Status UNV Budesonide (Pulmicort) 0.5 mg RTBID NEB Last administered on 10/19/16 08:14; Start 10/15/16 at 08:00 Albuterol Sulfate (Ventolin Neb Soln) 2.5 mg RTQID NEB Last administered on 08:14; Start 10/15/16 at 08:00 Insulin Aspart (NovoLOG) 10 units 1X ONCE SQ Last administered on 10/15/16 08: 36; Start 10/15/16 at 08:30; Stop 10/15/16 at 08:31; Status DC Nicotine (Nicoderm Cq 14mg) 1 patch PRN DAILY PRN TD SMOKING CESSATION Last administered on 10/18/16 13:16; Start 10/15/16 at 08:45 Nicotine Polacrilex (Nicorette Gum) 1 each PRN Q1HR PRN BC SMOKING CESSATION; Start 10/15/16 at 08:45 Insulin Aspart (NovoLOG) 0-7 UNITS QIDACHS SQ Last administered on 10/16/16 11: 30; Start 10/15/16 at 11:30; Stop 10/16/16 at 12:11; Status DC Amlodipine Besylate (Norvasc) 5 mg DAILY PO Last administered on 10/19/16 08: 56; Start 10/15/16 at 09:00 Aripiprazole (Abilify) 5 mg DAILY PO Last administered on 10/19/16 08:56; Start 10/15/16 at 09:00 Cetirizine HCl (ZyrTEC) 10 mg DAILY PO Last administered on 10/19/16 08:57; Start 10/15/16 at 09:00 Clopidogrel Bisulfate (Plavix) 75 mg DAILY PO Last administered on 10/19/16 08 :52; Start 10/15/16 at 09:00 Digoxin (Lanoxin) 125 mcg DAILY PO Last administered on 10/19/16 08:58; Start 10/15/16 at 09:00 Fluticasone Propionate (Flonase) 2 spray DAILY NS Last administered on 09:01; Start 10/15/16 at 09:00 Furosemide (Lasix) 40 mg DAILY PO Last administered on 10/16/16 10:06; Start at 09:00 Insulin Aspart (NovoLOG) 50 units TIDWMEALS SQ Last administered on 10/19/16 09:11; Start 10/15/16 at 12:00 Levothyroxine Sodium (Synthroid) 150 mcg DAILY PO Last administered on 08:54; Start 10/15/16 at 09:00 Nystatin (Nystop) 1 kiko BID TP Last administered on 10/18/16 10:35; Start 10/15 at 09:00 Oxcarbazepine (Trileptal) 300 mg HS PO Last administered on 10/18/16 21:50; Start 10/15/16 at 21:00 Pantoprazole Sodium (Protonix) 40 mg DAILYAC PO Last administered on 10/19/16 08:58; Start 10/15/16 at 09:00 Sotalol HCl (Betapace) 80 mg BID PO Last administered on 10/19/16 08:54; Start 10/15/16 at 09:00 Sucralfate (Carafate) 1 gm QIDACHS PO Last administered on 10/19/16 09:00; Start 10/15/16 at 11:30 Gabapentin (Neurontin) 600 mg QID PO Last administered on 10/19/16 08:54; Start 10/15/16 at 09:00 Insulin Detemir (Levemir) 90 units BID SQ Last administered on 10/19/16 09:10 ; Start 10/15/16 at 21:00 Non-Formulary Medication 1 vial TID NEB ; Start 10/15/16 at 09:00; Status UNV Loperamide HCl (Imodium) 2 mg PRN Q15MIN PRN PO DIARRHEA; Start 10/15/16 at 09: 00 Losartan Potassium (Cozaar) 100 mg DAILY PO Last administered on 10/19/16 08: 56; Start 10/15/16 at 09:00 Ondansetron HCl (Zofran Odt) 4 mg PRN Q8HRS PRN PO NAUSEA/VOMITING Last administered on 10/17/16 20:02; Start 10/15/16 at 09:15 Oxycodone HCl (Roxicodone) 10 mg PRN Q6HRS PRN PO PAIN Last administered on 09:00; Start 10/15/16 at 09:30 Non-Formulary Medication 1 cap DAILY IH ; Start 10/15/16 at 09:00; Status UNV Venlafaxine HCl (Effexor Xr) 75 mg DAILY PO Last administered on 10/19/16 08: 59; Start 10/15/16 at 09:00 Vancomycin HCl (Vanco Per Pharmacy) 1 each PRN DAILY PRN MC SEE COMMENTS Last administered on 10/17/16 11:50; Start 10/15/16 at 09:00; Stop 10/17/16 at 12:41 ; Status DC Vancomycin HCl 2 gm/Sodium Chloride 500 ml @ 250 mls/hr 1X ONCE IV Last administered on 10/15/16 11:02; Start 10/15/16 at 10:00; Stop 10/15/16 at 11:59; Status DC Aztreonam 2 gm/ Sodium Chloride 100 ml @ 200 mls/hr Q6HRS IV Last administered on 10/17/16 12:26; Start 10/15/16 at 11:00; Stop 10/17/16 at 12:41 ; Status DC Metronidazole (Flagyl) 500 mg Q8HRS PO ; Start 10/15/16 at 14:00; Stop 10/15/16 at 14:00; Status DC Vancomycin HCl 2 gm/Sodium Chloride 500 ml @ 250 mls/hr Q12H IV Last administered on 10/16/16 11:20; Start 10/15/16 at 23:00; Stop 10/16/16 at 11:27; Status DC Vancomycin HCl 1 each 1X ONCE MC Last administered on 10/16/16 10:40; Start at 10:30; Stop 10/16/16 at 10:31; Status DC Vancomycin HCl 1.75 gm/Sodium Chloride 500 ml @ 250 mls/hr Q12H IV Last administered on 10/16/16 23:38; Start 10/16/16 at 12:00; Stop 10/17/16 at 12:41; Status DC Insulin Aspart (NovoLOG) 0-9 UNITS TIDWMEALS SQ Last administered on 10/19/16 09:12; Start 10/16/16 at 17:00 Dextrose (Dextrose 50%-Water Syringe) 12.5 gm PRN Q15MIN PRN IV SEE COMMENTS; Start 10/16/16 at 12:15; Status UNV Ampicillin Sodium/ Sulbactam Sodium 3 gm/Sodium Chloride 100 ml @ 200 mls/hr Q6HRS IV Last administered on 10/19/16 05:50; Start 10/17/16 at 13:00; Stop at 10:12; Status DC Linezolid (Zyvox) 600 mg BID PO Last administered on 10/19/16 08:57; Start 11/23 at 13:00 Lactobacillus Acidophilus (Bacid, Kayla-Bid) 1 tab TIDWMEALS PO ; Start 10/19/16 at 12:00 Active Scripts Active Oxycodone Hcl 10 Mg Tablet 1 Tab PO QID PRN Novolog Flexpen (Insulin Aspart) 100 Unit/1 Ml Insuln.pen 50 Units SQ TIDWMEALS Sucralfate 1 Gm/10 Ml Oral.susp 1 Gm PO QIDACHS Pantoprazole Sodium 40 Mg Tablet.dr 40 Mg PO DAILYAC Furosemide 40 Mg Tablet 1 Tab PO DAILY Mupirocin Ointment (Mupirocin) 22 Gm Oint...g. 22 Gm TP PRN TID PRN Toujeo Solostar (Insulin Glargine,Hum.rec.anlog) 300 Unit/1 Ml Insuln.pen 90 Unit SQ BID Zofran (Ondansetron Hcl) 4 Mg Tablet 1 Tab PO PRN Q6-8HRS Spiriva (Tiotropium [place]) 18 Mcg Cap.w.dev 1 Cap IH DAILY Xopenex (Levalbuterol Hcl) 1.25 Mg/3 Ml Vial.neb 1 Vial NEB TID Fenofibrate (Fenofibrate Nanocrystallized) 145 Mg Tablet 1 Tab PO DAILY Losartan Potassium 100 Mg Tablet 100 Mg PO DAILY Sotalol (Sotalol Hcl) 80 Mg Tablet 80 Mg PO BID Symbicort 160-4.5 Mcg Inhaler (Budesonide/Formoterol Fumarate) 10.2 Gm Hfa.aer.ad 2 Puff IH BID Reported Levothyroxine Sodium 175 Mcg Tablet 1 Tab PO DAILY Levothyroxine Sodium 150 Mcg Tablet 1 Tab PO DAILY Vitamin D2 (Ergocalciferol (Vitamin D2)) 50,000 Unit Capsule 50,000 Unit PO Venlafaxine Hcl Er (Venlafaxine Hcl) 75 Mg Cap.er.24h 1 Cap PO DAILY Anti-Diarrhea (Loperamide Hcl) 2 Mg Tablet 2 Mg PO PRN PRN Fluticasone Propionate Nasal Skipwith (Fluticasone Propionate) 16 Gm Skipwith.susp 2 Skipwith NS DAILY Vitamin D3 (Cholecalciferol (Vitamin D3)) 1,000 Unit Tablet 1,000 Unit PO Amlodipine Besylate 5 Mg Tablet 5 Mg PO DAILY Nystatin 15 Gm Powder 1 Kiko TP BID Melatonin 3 Mg Tablet 5 Mg PO Digoxin 125 Mcg Tablet 1 Tab PO DAILY Oxcarbazepine 300 Mg Tablet 1 Tab PO HS Gabapentin 600 Mg Tablet 600 Mg PO QID Abilify (Aripiprazole) 5 Mg Tablet 5 Mg PO DAILY Plavix (Clopidogrel Bisulfate) 75 Mg Tablet 75 Mg PO DAILY Cetirizine Hcl 10 Mg Tablet 10 Mg PO DAILY Vitals/I & O Vital Sign - Last 24 Hours 10/18/16 10/18/16 10/18/16 10/18/16 12:27 15:00 17:34 19:00 Temp 98.4 97.5 98.4 97.5 Pulse 67 71 Resp 18 16 18 B/P (MAP) 127/69 (88) 124/70 (88) Pulse Ox 95 95 O2 Delivery Nasal Cannula Room Air Nasal Cannula Nasal Cannula O2 Flow Rate 3.0 3.0 10/18/16 10/18/16 10/18/16 10/18/16 19:15 20:00 21:49 23:29 Temp 97.9 97.9 Pulse 71 74 Resp 18 B/P (MAP) 124/70 131/71 (91) Pulse Ox 95 95 O2 Delivery Nasal Cannula Nasal Cannula Nasal Cannula O2 Flow Rate 3.0 3.0 3.0 10/19/16 10/19/16 10/19/16 10/19/16 01:39 02:39 03:22 07:00 Temp 97.6 98.7 97.6 98.7 Pulse 71 70 Resp 20 18 20 B/P (MAP) 132/69 (90) 124/71 (88) Pulse Ox 3 95 97 O2 Delivery Nasal Cannula Nasal Cannula Nasal Cannula O2 Flow Rate 3.0 3.0 3.0 10/19/16 10/19/16 10/19/16 10/19/16 08:00 08:15 08:54 08:56 Pulse 70 70 B/P (MAP) 124/71 124/71 Pulse Ox 97 O2 Delivery Nasal Cannula Nasal Cannula O2 Flow Rate 3.0 3.0 10/19/16 10/19/16 10/19/16 10/19/16 08:56 08:58 09:00 10:00 Pulse 70 70 Resp 16 16 B/P (MAP) 124/71 124/71 O2 Delivery Nasal Cannula Nasal Cannula O2 Flow Rate 2.0 3.0 DAINA STEPHEN III DO Oct 19, 2016 12:11
[2016-10-19] MEDS: LACTOBACILLUS ACIDOPH & BULGAR 1 TABLET. PO SCH ×2 (12:38→17:00)
[2016-10-19] MEDS: NICOTINE 14MG PATCH. TD PRN (13:17)
[2016-10-19 15:00] VITALS: BP 122/62
[2016-10-19 19:05] VITALS: BP 166/78
[2016-10-19] MEDS: OXcarbazepine 300 MG TABLET PO SCH (20:18)
[2016-10-19 22:00] VITALS: BP 149/79
[2016-10-20 02:25] VITALS: BP 154/89
[2016-10-20] MEDS: SUCRALFATE 1 GM/10 ML ORAL.SUSP. PO SCH ×3 (05:27→16:17)
[2016-10-20] MEDS: PANTOPRAZOLE 40 MG TABLET.DR. PO SCH (05:27)
[2016-10-20 05:54] LABS: BASO # 0.1 x10^3/uL (0.0-0.2); BASO % 1 % (0-3); EOS % 2 % (0-3); HEMATOCRIT 37.6 % (36.0-47.0); HEMOGLOBIN 12.3 g/dL (12.0-15.5); LYMPH # 2.4 x10^3/uL (1.0-4.8); LYMPH % 24 % (24-48); MEAN CORPUSCULAR HEMOGLOBIN 29 pg (25-35); MEAN CORPUSCULAR HGB CONC 33 g/dL (31-37); MEAN CORPUSCULAR VOLUME 89 fL (79-100); MONO % 7 % (0-9); NEUT % 66 % (31-73); PLATELET COUNT 180 x10^3/uL (140-400); RED BLOOD COUNT 4.25 x10^6/uL (3.50-5.40); RED CELL DISTRIBUTION WIDTH 14.6 % (11.5-14.5); WHITE BLOOD COUNT 10.1 x10^3/uL (4.0-11.0)
[2016-10-20 06:14] LABS: CREATININE 0.6 mg/dL (0.6-1.0); GFR 103.4; POTASSIUM 3.6 mmol/L (3.5-5.1)
[2016-10-20 07:00] VITALS: BP 138/85
[2016-10-20] MEDS: BUDESONIDE 0.5 MG/2 ML NEBU. NEB SCH (07:40)
[2016-10-20] MEDS: ALBUTEROL SULFATE 2.5 MG/3 ML NEBU. NEB SCH ×3 (07:40→15:25)
[2016-10-20] MEDS: INSULIN ASPART 300 UNITS/3 ML INSULN.PEN SQ SCH ×6 (08:00→16:26)
--- NOTE | 2016-10-20 08:41 | PDOC ---
Infectious Disease Note Subjective Subjective Better overall. Wants to go home A lot of diarrhea but no F/C/cramps Legs better Better Left shoulder pain Appetite good - eating well ROS ROS GEN: Denies fevers, chills, sweats HEENT: Denies blurred vision, sore throat CV: Denies chest pain RESP: Denies shortness of air, cough GI: Denies n/v/d NEURO: Denies confusion, dizziness MSK: Denies weakness, joint pain/swelling Vital Sign Vital Signs Vital Signs Date Time Temp Pulse Resp B/P (MAP) Pulse Ox O2 Delivery O2 Flow Rate FiO2 10/20/16 07:41 93 Room Air 10/20/16 07:00 97.5 73 20 138/85 (102) 97.5 10/19/16 21:17 3.0 Physical Exam PHYSICAL EXAM GENERAL: NAD, Alert, on side of bed eating HEENT: PERRL, OC/OP- clear NECK: Supple, no JVD, no LN LUNGS: Clear. Off 02 for now HEART: S1S2, no gallop, no murmur ABD: Soft, NT, no organomegaly, no rebound, obese EXT: Tubigrips, NT, trace edema, no cyanosis PRESSER HAND: Alert, oriented x 3, no focal neurologic deficit SKIN: No rash IV: PICC RUE - clean Labs Lab Laboratory Tests Test 10/19/16 11:42 10/19/16 17:01 10/19/16 20:54 10/19/16 23:47 Glucose (Fingerstick) 231 mg/dL (70-99) 164 mg/dL (70-99) 119 mg/dL (70-99) 95 mg/dL (70-99) Test 10/20/16 05:30 10/20/16 07:51 White Blood Count 10.1 x10^3/uL (4.0-11.0) Red Blood Count 4.25 x10^6/uL (3.50-5.40) Hemoglobin 12.3 g/dL (12.0-15.5) Hematocrit 37.6 % (36.0-47.0) Mean Corpuscular Volume 89 fL (79-100) Mean Corpuscular Hemoglobin 29 pg (25-35) Mean Corpuscular Hemoglobin Concent 33 g/dL (31-37) Red Cell Distribution Width 14.6 % (11.5-14.5) Platelet Count 180 x10^3/uL (140-400) Neutrophils (%) (Auto) 66 % (31-73) Lymphocytes (%) (Auto) 24 % (24-48) Monocytes (%) (Auto) 7 % (0-9) Eosinophils (%) (Auto) 2 % (0-3) Basophils (%) (Auto) 1 % (0-3) Neutrophils # (Auto) 6.7 x10^3uL (1.8-7.7) Lymphocytes # (Auto) 2.4 x10^3/uL (1.0-4.8) Monocytes # (Auto) 0.7 x10^3/uL (0.0-1.1) Eosinophils # (Auto) 0.2 x10^3/uL (0.0-0.7) Basophils # (Auto) 0.1 x10^3/uL (0.0-0.2) Sodium Level 141 mmol/L (136-145) Potassium Level 3.6 mmol/L (3.5-5.1) Chloride Level 104 mmol/L (98-107) Carbon Dioxide Level 32 mmol/L (21-32) Anion Gap 5 (6-14) Blood Urea Nitrogen 24 mg/dL (7-20) Creatinine 0.6 mg/dL (0.6-1.0) Estimated GFR (Cockcroft-Gault) 103.4 Glucose Level 155 mg/dL (70-99) Calcium Level 9.0 mg/dL (8.5-10.1) Glucose (Fingerstick) 134 mg/dL (70-99) Objective Assessment Loose stool - c-diff neg Left shoulder pain. No obvious clinical finding. XRAy neg - better with PT Right leg cellulitis - improving Multiple skin breakdowns likely sec to scratching from anxiety likely Leukocytosis, stable Obesity DM with poor control Multiple med allergy h/o C. difficile, July 2016 Plan Plan of Care Immodium with diarrhea and C-diff neg. No Fever COnt probitotics Can d/c home with Zyvox if diarrhea controlled ID to sign off Can f/u ID office one week [phone] D/w MATEO Edward MD Oct 20, 2016 08:41
[2016-10-20] MEDS ORDERED: LOPERAMIDE 2 MG CAPSULE PO ONE (08:45)
[2016-10-20] MEDS ORDERED: LOPERAMIDE 2 MG CAPSULE PO PRN (08:45)
[2016-10-20] MEDS: FLUTICASONE 50MCG/NASAL SPRAY 16GM BOTTLE. NS SCH (08:58)
[2016-10-20] MEDS: GABAPENTIN 300 MG CAPSULE. PO SCH ×3 (08:59→17:00)
[2016-10-20] MEDS: LINEZOLID 600 MG TABLET PO SCH ×2 (08:59→16:54)
[2016-10-20] MEDS: SOTALOL 80 MG TABLET. PO SCH (08:59)
[2016-10-20] MEDS: ARIPiprazole 5 MG TABLET PO SCH (08:59)
[2016-10-20] MEDS: LOSARTAN POTASSIUM 50 MG TABLET. PO SCH (09:00)
[2016-10-20] MEDS: LACTOBACILLUS ACIDOPH & BULGAR 1 TABLET. PO SCH ×3 (09:00→17:00)
[2016-10-20] MEDS: CLOPIDOGREL BISULFATE 75 MG TABLET PO SCH (09:00)
[2016-10-20] MEDS: FUROSEMIDE 40 MG TABLET. PO SCH (09:00)
[2016-10-20] MEDS: LEVOTHYROXINE 150 MCG TABLET PO SCH (09:00)
[2016-10-20] MEDS: VENLAFAXINE XR 37.5 MG CAP.ER.24H. PO SCH (09:00)
[2016-10-20] MEDS: CETIRIZINE HCL 10 MG TABLET. PO SCH (09:00)
[2016-10-20] MEDS: amLODIPine BESYLATE 5 MG TABLET PO SCH (09:01)
[2016-10-20] MEDS: DIGOXIN 125 MCG TABLET. PO SCH (09:02)
[2016-10-20] MEDS: INSULIN DETEMIR 300 UNITS/3 ML INSULN.PEN. SQ SCH (09:09)
[2016-10-20 11:00] VITALS: BP 145/83
--- NOTE | 2016-10-20 13:13 | PDOC ---
PROGRESS NOTES Chief Complaint Chief Complaint Right leg cellulitis - Multiple skin breakdowns likely sec to scratching from anxiety likely PMH: Afib CHF HTN hld COPD TIA GERD Irritable bowel disease OA morbid obesity, BMI 46 tobaccoism 1 pack per day bipolar 2 anxiety d/o DM2, poor control Hypothyroidism Multiple med allergy h/o C. difficile, July 2016 PSH: Cholecystectomy Cataract removal History of Present Illness History of Present Illness Pt sitting up at side of bed. Anxious to go home Vitals Vitals Vital Signs Date Time Temp Pulse Resp B/P (MAP) Pulse Ox O2 Delivery O2 Flow Rate FiO2 10/20/16 11:00 97.7 72 18 145/83 (103) 93 Room Air 97.7 10/19/16 21:17 3.0 Physical Exam General: Alert, Cooperative, No acute distress Heart: Regular rate, No murmurs Lungs: Clear, Other (No acute distress noted) Abdomen: Normal bowel sounds, Soft Extremities: No clubbing, No edema Skin: No breakdown, Other (Rash improving) Labs LABS Laboratory Tests Test 10/19/16 17:01 10/19/16 20:54 10/19/16 23:47 10/20/16 05:30 Glucose (Fingerstick) 164 mg/dL (70-99) 119 mg/dL (70-99) 95 mg/dL (70-99) White Blood Count 10.1 x10^3/uL (4.0-11.0) Red Blood Count 4.25 x10^6/uL (3.50-5.40) Hemoglobin 12.3 g/dL (12.0-15.5) Hematocrit 37.6 % (36.0-47.0) Mean Corpuscular Volume 89 fL (79-100) Mean Corpuscular Hemoglobin 29 pg (25-35) Mean Corpuscular Hemoglobin Concent 33 g/dL (31-37) Red Cell Distribution Width 14.6 % (11.5-14.5) Platelet Count 180 x10^3/uL (140-400) Neutrophils (%) (Auto) 66 % (31-73) Lymphocytes (%) (Auto) 24 % (24-48) Monocytes (%) (Auto) 7 % (0-9) Eosinophils (%) (Auto) 2 % (0-3) Basophils (%) (Auto) 1 % (0-3) Neutrophils # (Auto) 6.7 x10^3uL (1.8-7.7) Lymphocytes # (Auto) 2.4 x10^3/uL (1.0-4.8) Monocytes # (Auto) 0.7 x10^3/uL (0.0-1.1) Eosinophils # (Auto) 0.2 x10^3/uL (0.0-0.7) Basophils # (Auto) 0.1 x10^3/uL (0.0-0.2) Sodium Level 141 mmol/L (136-145) Potassium Level 3.6 mmol/L (3.5-5.1) Chloride Level 104 mmol/L (98-107) Carbon Dioxide Level 32 mmol/L (21-32) Anion Gap 5 (6-14) Blood Urea Nitrogen 24 mg/dL (7-20) Creatinine 0.6 mg/dL (0.6-1.0) Estimated GFR (Cockcroft-Gault) 103.4 Glucose Level 155 mg/dL (70-99) Calcium Level 9.0 mg/dL (8.5-10.1) Test 10/20/16 07:51 10/20/16 11:08 Glucose (Fingerstick) 134 mg/dL (70-99) 211 mg/dL (70-99) Review of Systems Review of Systems c/o fatigue anxious to go home Assessment and Plan Assessmemt and Plan Right leg cellulitis - improving Multiple skin breakdowns - likely secondary to scratching from anxiety Leukocytosis - POA Left shoulder pain Hyperglycemia 1. Continue Abx per ID 2. Continue wound care 3. PT/OT 4. Monitor blood sugar levels. Probably d/c. Home w/ Abx Problems: Comment Review of Relevant I have reviewed the following items prudence (where applicable) has been applied. Labs Laboratory Tests Test 10/18/16 16:21 10/18/16 17:50 10/18/16 20:46 10/19/16 06:01 Glucose (Fingerstick) 114 mg/dL (70-99) 129 mg/dL (70-99) Clostridium difficile Toxin (PCR) Negative (Negative) White Blood Count 10.4 x10^3/uL (4.0-11.0) Red Blood Count 4.54 x10^6/uL (3.50-5.40) Hemoglobin 13.3 g/dL (12.0-15.5) Hematocrit 40.7 % (36.0-47.0) Mean Corpuscular Volume 90 fL (79-100) Mean Corpuscular Hemoglobin 29 pg (25-35) Mean Corpuscular Hemoglobin Concent 33 g/dL (31-37) Red Cell Distribution Width 14.9 % (11.5-14.5) Platelet Count 231 x10^3/uL (140-400) Neutrophils (%) (Auto) 69 % (31-73) Lymphocytes (%) (Auto) 22 % (24-48) Monocytes (%) (Auto) 6 % (0-9) Eosinophils (%) (Auto) 2 % (0-3) Basophils (%) (Auto) 1 % (0-3) Neutrophils # (Auto) 7.2 x10^3uL (1.8-7.7) Lymphocytes # (Auto) 2.3 x10^3/uL (1.0-4.8) Monocytes # (Auto) 0.6 x10^3/uL (0.0-1.1) Eosinophils # (Auto) 0.2 x10^3/uL (0.0-0.7) Basophils # (Auto) 0.1 x10^3/uL (0.0-0.2) Sodium Level 141 mmol/L (136-145) Potassium Level 4.3 mmol/L (3.5-5.1) Chloride Level 104 mmol/L (98-107) Carbon Dioxide Level 32 mmol/L (21-32) Anion Gap 5 (6-14) Blood Urea Nitrogen 23 mg/dL (7-20) Creatinine 0.7 mg/dL (0.6-1.0) Estimated GFR (Cockcroft-Gault) 86.6 Glucose Level 235 mg/dL (70-99) Calcium Level 9.1 mg/dL (8.5-10.1) Test 10/19/16 08:03 10/19/16 11:42 10/19/16 17:01 10/19/16 20:54 Glucose (Fingerstick) 194 mg/dL (70-99) 231 mg/dL (70-99) 164 mg/dL (70-99) 119 mg/dL (70-99) Test 10/19/16 23:47 10/20/16 05:30 10/20/16 07:51 10/20/16 11:08 Glucose (Fingerstick) 95 mg/dL (70-99) 134 mg/dL (70-99) 211 mg/dL (70-99) White Blood Count 10.1 x10^3/uL (4.0-11.0) Red Blood Count 4.25 x10^6/uL (3.50-5.40) Hemoglobin 12.3 g/dL (12.0-15.5) Hematocrit 37.6 % (36.0-47.0) Mean Corpuscular Volume 89 fL (79-100) Mean Corpuscular Hemoglobin 29 pg (25-35) Mean Corpuscular Hemoglobin Concent 33 g/dL (31-37) Red Cell Distribution Width 14.6 % (11.5-14.5) Platelet Count 180 x10^3/uL (140-400) Neutrophils (%) (Auto) 66 % (31-73) Lymphocytes (%) (Auto) 24 % (24-48) Monocytes (%) (Auto) 7 % (0-9) Eosinophils (%) (Auto) 2 % (0-3) Basophils (%) (Auto) 1 % (0-3) Neutrophils # (Auto) 6.7 x10^3uL (1.8-7.7) Lymphocytes # (Auto) 2.4 x10^3/uL (1.0-4.8) Monocytes # (Auto) 0.7 x10^3/uL (0.0-1.1) Eosinophils # (Auto) 0.2 x10^3/uL (0.0-0.7) Basophils # (Auto) 0.1 x10^3/uL (0.0-0.2) Sodium Level 141 mmol/L (136-145) Potassium Level 3.6 mmol/L (3.5-5.1) Chloride Level 104 mmol/L (98-107) Carbon Dioxide Level 32 mmol/L (21-32) Anion Gap 5 (6-14) Blood Urea Nitrogen 24 mg/dL (7-20) Creatinine 0.6 mg/dL (0.6-1.0) Estimated GFR (Cockcroft-Gault) 103.4 Glucose Level 155 mg/dL (70-99) Calcium Level 9.0 mg/dL (8.5-10.1) Laboratory Tests Test 10/19/16 17:01 10/19/16 20:54 10/19/16 23:47 10/20/16 05:30 Glucose (Fingerstick) 164 mg/dL (70-99) 119 mg/dL (70-99) 95 mg/dL (70-99) White Blood Count 10.1 x10^3/uL (4.0-11.0) Red Blood Count 4.25 x10^6/uL (3.50-5.40) Hemoglobin 12.3 g/dL (12.0-15.5) Hematocrit 37.6 % (36.0-47.0) Mean Corpuscular Volume 89 fL (79-100) Mean Corpuscular Hemoglobin 29 pg (25-35) Mean Corpuscular Hemoglobin Concent 33 g/dL (31-37) Red Cell Distribution Width 14.6 % (11.5-14.5) Platelet Count 180 x10^3/uL (140-400) Neutrophils (%) (Auto) 66 % (31-73) Lymphocytes (%) (Auto) 24 % (24-48) Monocytes (%) (Auto) 7 % (0-9) Eosinophils (%) (Auto) 2 % (0-3) Basophils (%) (Auto) 1 % (0-3) Neutrophils # (Auto) 6.7 x10^3uL (1.8-7.7) Lymphocytes # (Auto) 2.4 x10^3/uL (1.0-4.8) Monocytes # (Auto) 0.7 x10^3/uL (0.0-1.1) Eosinophils # (Auto) 0.2 x10^3/uL (0.0-0.7) Basophils # (Auto) 0.1 x10^3/uL (0.0-0.2) Sodium Level 141 mmol/L (136-145) Potassium Level 3.6 mmol/L (3.5-5.1) Chloride Level 104 mmol/L (98-107) Carbon Dioxide Level 32 mmol/L (21-32) Anion Gap 5 (6-14) Blood Urea Nitrogen 24 mg/dL (7-20) Creatinine 0.6 mg/dL (0.6-1.0) Estimated GFR (Cockcroft-Gault) 103.4 Glucose Level 155 mg/dL (70-99) Calcium Level 9.0 mg/dL (8.5-10.1) Test 10/20/16 07:51 10/20/16 11:08 Glucose (Fingerstick) 134 mg/dL (70-99) 211 mg/dL (70-99) Microbiology 10/14/16 Blood Culture - Final, Complete NO GROWTH AFTER 5 DAYS Medications Current Medications Sodium Chloride 500 ml @ 500 mls/hr 1X ONCE IV Last administered on 10/14/16 22:22; Start 10/14/16 at 22:00; Stop 10/14/16 at 22:59; Status DC Vancomycin HCl 2 gm/Sodium Chloride 500 ml @ 250 mls/hr 1X ONCE IV Last administered on 10/15/16 00:24; Start 10/14/16 at 23:45; Stop 10/15/16 at 01:44; Status DC Insulin Aspart (NovoLOG VIAL) 10 unit 1X ONCE SQ ; Start 10/14/16 at 23:45; Stop 10/15/16 at 00:06; Status DC Ondansetron HCl (Zofran) 4 mg PRN Q8HRS PRN IV NAUSEA/VOMITING Last administered on 10/15/16 00:24; Start 10/14/16 at 23:45; Stop 10/15/16 at 23:44; Status DC Morphine Sulfate 2 mg PRN Q2HR PRN IV PAIN Last administered on 10/15/16 14:08 ; Start 10/14/16 at 23:45; Stop 10/15/16 at 23:44; Status DC Sodium Chloride 1,000 ml @ 125 mls/hr Q8H IV Last administered on 10/15/16 11: 02; Start 10/14/16 at 23:45; Stop 10/15/16 at 23:44; Status DC Insulin Aspart (NovoLOG) 0-7 UNITS TIDWMEALS SQ ; Start 10/15/16 at 08:00; Stop 10/15/16 at 08:51; Status DC Dextrose (Dextrose 50%-Water Syringe) 12.5 gm PRN Q15MIN PRN IV SEE COMMENTS; Start 10/14/16 at 23:45 Insulin Human Regular (NovoLIN R VIAL) 10 unit 1X ONCE SQ Last administered on 10/15/16 00:23; Start 10/15/16 at 00:15; Stop 10/15/16 at 00:16; Status DC Insulin Human Regular (NovoLIN R VIAL) 100 unit STK-MED ONCE .ROUTE ; Start 10/15 at 00:08; Stop 10/15/16 at 00:09; Status DC Non-Formulary Medication 2 puff BID IH ; Start 10/15/16 at 09:00; Status UNV Budesonide (Pulmicort) 0.5 mg RTBID NEB Last administered on 10/20/16 07:40; Start 10/15/16 at 08:00 Albuterol Sulfate (Ventolin Neb Soln) 2.5 mg RTQID NEB Last administered on 07:40; Start 10/15/16 at 08:00 Insulin Aspart (NovoLOG) 10 units 1X ONCE SQ Last administered on 10/15/16 08: 36; Start 10/15/16 at 08:30; Stop 10/15/16 at 08:31; Status DC Nicotine (Nicoderm Cq 14mg) 1 patch PRN DAILY PRN TD SMOKING CESSATION Last administered on 10/19/16 13:17; Start 10/15/16 at 08:45 Nicotine Polacrilex (Nicorette Gum) 1 each PRN Q1HR PRN BC SMOKING CESSATION; Start 10/15/16 at 08:45 Insulin Aspart (NovoLOG) 0-7 UNITS QIDACHS SQ Last administered on 10/16/16 11: 30; Start 10/15/16 at 11:30; Stop 10/16/16 at 12:11; Status DC Amlodipine Besylate (Norvasc) 5 mg DAILY PO Last administered on 10/20/16 09: 01; Start 10/15/16 at 09:00 Aripiprazole (Abilify) 5 mg DAILY PO Last administered on 10/20/16 08:59; Start 10/15/16 at 09:00 Cetirizine HCl (ZyrTEC) 10 mg DAILY PO Last administered on 10/20/16 09:00; Start 10/15/16 at 09:00 Clopidogrel Bisulfate (Plavix) 75 mg DAILY PO Last administered on 10/20/16 09 :00; Start 10/15/16 at 09:00 Digoxin (Lanoxin) 125 mcg DAILY PO Last administered on 10/20/16 09:02; Start 10/15/16 at 09:00 Fluticasone Propionate (Flonase) 2 spray DAILY NS Last administered on 08:58; Start 10/15/16 at 09:00 Furosemide (Lasix) 40 mg DAILY PO Last administered on 10/20/16 09:00; Start 10/15/16 at 09:00 Insulin Aspart (NovoLOG) 50 units TIDWMEALS SQ Last administered on 10/20/16 11:40; Start 10/15/16 at 12:00 Levothyroxine Sodium (Synthroid) 150 mcg DAILY PO Last administered on 09:00; Start 10/15/16 at 09:00 Nystatin (Nystop) 1 melissa BID TP Last administered on 10/19/16 20:19; Start 10/15 at 09:00 Oxcarbazepine (Trileptal) 300 mg HS PO Last administered on 10/19/16 20:18; Start 10/15/16 at 21:00 Pantoprazole Sodium (Protonix) 40 mg DAILYAC PO Last administered on 10/20/16 05:27; Start 10/15/16 at 09:00 Sotalol HCl (Betapace) 80 mg BID PO Last administered on 10/20/16 08:59; Start 10/15/16 at 09:00 Sucralfate (Carafate) 1 gm QIDACHS PO Last administered on 10/20/16 11:36; Start 10/15/16 at 11:30 Gabapentin (Neurontin) 600 mg QID PO Last administered on 10/20/16 08:59; Start 10/15/16 at 09:00 Insulin Detemir (Levemir) 90 units BID SQ Last administered on 10/20/16 09:09 ; Start 10/15/16 at 21:00 Non-Formulary Medication 1 vial TID NEB ; Start 10/15/16 at 09:00; Status UNV Loperamide HCl (Imodium) 2 mg PRN Q15MIN PRN PO DIARRHEA Last administered on 10:15; Start 10/15/16 at 09:00; Stop 10/20/16 at 13:05; Status DC Losartan Potassium (Cozaar) 100 mg DAILY PO Last administered on 10/20/16 09: 00; Start 10/15/16 at 09:00 Ondansetron HCl (Zofran Odt) 4 mg PRN Q8HRS PRN PO NAUSEA/VOMITING Last administered on 10/17/16 20:02; Start 10/15/16 at 09:15 Oxycodone HCl (Roxicodone) 10 mg PRN Q6HRS PRN PO PAIN Last administered on 20:17; Start 10/15/16 at 09:30 Non-Formulary Medication 1 cap DAILY IH ; Start 10/15/16 at 09:00; Status UNV Venlafaxine HCl (Effexor Xr) 75 mg DAILY PO Last administered on 10/20/16 09: 00; Start 10/15/16 at 09:00 Vancomycin HCl (Vanco Per Pharmacy) 1 each PRN DAILY PRN MC SEE COMMENTS Last administered on 10/17/16 11:50; Start 10/15/16 at 09:00; Stop 10/17/16 at 12:41 ; Status DC Vancomycin HCl 2 gm/Sodium Chloride 500 ml @ 250 mls/hr 1X ONCE IV Last administered on 10/15/16 11:02; Start 10/15/16 at 10:00; Stop 10/15/16 at 11:59; Status DC Aztreonam 2 gm/ Sodium Chloride 100 ml @ 200 mls/hr Q6HRS IV Last administered on 10/17/16 12:26; Start 10/15/16 at 11:00; Stop 10/17/16 at 12:41 ; Status DC Metronidazole (Flagyl) 500 mg Q8HRS PO ; Start 10/15/16 at 14:00; Stop 10/15/16 at 14:00; Status DC Vancomycin HCl 2 gm/Sodium Chloride 500 ml @ 250 mls/hr Q12H IV Last administered on 10/16/16 11:20; Start 10/15/16 at 23:00; Stop 10/16/16 at 11:27; Status DC Vancomycin HCl 1 each 1X ONCE MC Last administered on 10/16/16 10:40; Start at 10:30; Stop 10/16/16 at 10:31; Status DC Vancomycin HCl 1.75 gm/Sodium Chloride 500 ml @ 250 mls/hr Q12H IV Last administered on 10/16/16 23:38; Start 10/16/16 at 12:00; Stop 10/17/16 at 12:41; Status DC Insulin Aspart (NovoLOG) 0-9 UNITS TIDWMEALS SQ Last administered on 10/20/16 11:41; Start 10/16/16 at 17:00 Dextrose (Dextrose 50%-Water Syringe) 12.5 gm PRN Q15MIN PRN IV SEE COMMENTS; Start 10/16/16 at 12:15; Status UNV Ampicillin Sodium/ Sulbactam Sodium 3 gm/Sodium Chloride 100 ml @ 200 mls/hr Q6HRS IV Last administered on 10/19/16 05:50; Start 10/17/16 at 13:00; Stop at 10:12; Status DC Linezolid (Zyvox) 600 mg BID PO Last administered on 10/20/16 08:59; Start 11/23 at 13:00 Lactobacillus Acidophilus (Bacid, Kayla-Bid) 1 tab TIDWMEALS PO Last administered on 10/20/16 09:00; Start 10/19/16 at 12:00 Loperamide HCl (Imodium) 2 mg PRN Q6HRS PRN PO DIARRHEA; Start 10/20/16 at 08: 45 Loperamide HCl (Imodium) 4 mg ONCE ONCE PO Last administered on 10/20/16 08: 59; Start 10/20/16 at 08:45; Stop 10/20/16 at 08:46; Status DC Active Scripts Active Oxycodone Hcl 10 Mg Tablet 1 Tab PO QID PRN Novolog Flexpen (Insulin Aspart) 100 Unit/1 Ml Insuln.pen 50 Units SQ TIDWMEALS Sucralfate 1 Gm/10 Ml Oral.susp 1 Gm PO QIDACHS Pantoprazole Sodium 40 Mg Tablet.dr 40 Mg PO DAILYAC Furosemide 40 Mg Tablet 1 Tab PO DAILY Mupirocin Ointment (Mupirocin) 22 Gm Oint...g. 22 Gm TP PRN TID PRN Toindu Solostar (Insulin Glargine,Hum.rec.anlog) 300 Unit/1 Ml Insuln.pen 90 Unit SQ BID Zofran (Ondansetron Hcl) 4 Mg Tablet 1 Tab PO PRN Q6-8HRS Spiriva (Tiotropium [place]) 18 Mcg Cap.w.dev 1 Cap IH DAILY Xopenex (Levalbuterol Hcl) 1.25 Mg/3 Ml Vial.neb 1 Vial NEB TID Fenofibrate (Fenofibrate Nanocrystallized) 145 Mg Tablet 1 Tab PO DAILY Losartan Potassium 100 Mg Tablet 100 Mg PO DAILY Sotalol (Sotalol Hcl) 80 Mg Tablet 80 Mg PO BID Symbicort 160-4.5 Mcg Inhaler (Budesonide/Formoterol Fumarate) 10.2 Gm Hfa.aer.ad 2 Puff IH BID Reported Levothyroxine Sodium 175 Mcg Tablet 1 Tab PO DAILY Levothyroxine Sodium 150 Mcg Tablet 1 Tab PO DAILY Vitamin D2 (Ergocalciferol (Vitamin D2)) 50,000 Unit Capsule 50,000 Unit PO Venlafaxine Hcl Er (Venlafaxine Hcl) 75 Mg Cap.er.24h 1 Cap PO DAILY Anti-Diarrhea (Loperamide Hcl) 2 Mg Tablet 2 Mg PO PRN PRN Fluticasone Propionate Nasal Mobile (Fluticasone Propionate) 16 Gm Mobile.susp 2 Mobile NS DAILY Vitamin D3 (Cholecalciferol (Vitamin D3)) 1,000 Unit Tablet 1,000 Unit PO Amlodipine Besylate 5 Mg Tablet 5 Mg PO DAILY Nystatin 15 Gm Powder 1 Melissa TP BID Melatonin 3 Mg Tablet 5 Mg PO Digoxin 125 Mcg Tablet 1 Tab PO DAILY Oxcarbazepine 300 Mg Tablet 1 Tab PO HS Gabapentin 600 Mg Tablet 600 Mg PO QID Abilify (Aripiprazole) 5 Mg Tablet 5 Mg PO DAILY Plavix (Clopidogrel Bisulfate) 75 Mg Tablet 75 Mg PO DAILY Cetirizine Hcl 10 Mg Tablet 10 Mg PO DAILY Vitals/I & O Vital Sign - Last 24 Hours 10/19/16 10/19/16 10/19/16 10/19/16 15:00 19:05 19:09 20:00 Temp 98.8 98.1 98.8 98.1 Pulse 67 72 Resp 20 20 B/P (MAP) 122/62 (82) 166/78 (107) Pulse Ox 90 94 99 O2 Delivery Nasal Cannula Room Air Room Air Nasal Cannula O2 Flow Rate 3.0 3.0 10/19/16 10/19/16 10/19/16 10/19/16 20:17 20:18 21:17 22:00 Temp 98.1 98.1 Pulse 72 71 Resp 20 20 18 B/P (MAP) 166/78 149/79 (102) Pulse Ox 99 99 92 O2 Delivery Nasal Cannula Nasal Cannula Room Air O2 Flow Rate 3.0 3.0 10/20/16 10/20/16 10/20/16 10/20/16 02:25 07:00 07:41 08:59 Temp 97.7 97.5 97.7 97.5 Pulse 82 73 73 Resp 18 20 B/P (MAP) 154/89 (110) 138/85 (102) 138/85 Pulse Ox 92 93 93 O2 Delivery Room Air Room Air Room Air 10/20/16 10/20/16 10/20/16 10/20/16 09:00 09:01 09:02 11:00 Temp 97.7 97.7 Pulse 73 73 73 72 Resp 18 B/P (MAP) 138/85 138/85 138/85 145/83 (103) Pulse Ox 93 O2 Delivery Room Air DAINA STEPHEN III DO Oct 20, 2016 13:12
[2016-10-20 15:00] VITALS: BP 137/76
[2016-10-20] MEDS ORDERED: LINE600T PO (15:01)
[2016-10-20] MEDS: oxyCODONE IR 5 MG TABLET PO PRN (16:17)
[2016-10-20] MEDS: NYSTATIN TOPICAL POWDER 15GM BOTTLE. TP SCH (16:17)
== END 2016-10-20 18:15 | disposition home or self-care (01) | DRG 872 ==
LOC: ER 21:23 → 4 NORTH 23:00 → UNDODISIN 10-19 12:30
PROVIDERS: ADMIT Internal Medicine; ATTEND Internal Medicine
PROC: 02HV33Z Insertion of Infusion Device into Superior Vena Cava, Percutaneous Approach (ICD-10-PCS; principal; 2016-10-17)
DX: A41.9 Sepsis, unspecified organism (principal); I11.0 Hypertensive heart disease with heart failure; E11.622 Type 2 diabetes mellitus with other skin ulcer; I50.9 Heart failure, unspecified; F31.81 Bipolar II disorder; L03.115 Cellulitis of right lower limb; L97.919 Non-pressure chronic ulcer of unspecified part of right lower leg with unspecified severity; Z68.42 Body mass index [BMI] 45.0-49.9, adult; E03.9 Hypothyroidism, unspecified; E11.65 Type 2 diabetes mellitus with hyperglycemia; E66.01 Morbid (severe) obesity due to excess calories; E78.5 Hyperlipidemia, unspecified; F17.210 Nicotine dependence, cigarettes, uncomplicated; F41.9 Anxiety disorder, unspecified; I48.91 Unspecified atrial fibrillation; I83.019 Varicose veins of right lower extremity with ulcer of unspecified site; J44.9 Chronic obstructive pulmonary disease, unspecified; K21.9 Gastro-esophageal reflux disease without esophagitis; K58.0 Irritable bowel syndrome with diarrhea; K74.60 Unspecified cirrhosis of liver; M19.90 Unspecified osteoarthritis, unspecified site; M25.512 Pain in left shoulder; B96.89 Other specified bacterial agents as the cause of diseases classified elsewhere; Z86.14 Personal history of Methicillin resistant Staphylococcus aureus infection; Z86.73 Personal history of transient ischemic attack (TIA), and cerebral infarction without residual deficits; Z88.9 Allergy status to unspecified drugs, medicaments and biological substances; Z88.6 Allergy status to analgesic agent; Z88.1 Allergy status to other antibiotic agents; Z88.8 Allergy status to other drugs, medicaments and biological substances; Z88.0 Allergy status to penicillin; Z88.2 Allergy status to sulfonamides; Z90.49 Acquired absence of other specified parts of digestive tract; Z98.49 Cataract extraction status, unspecified eye
CPT/HCPCS: 36415; 71010; 73030; 80048; 80053; 80202; 82962; 83036; 83880; 85025; 86140; 87040; 87324; 87641; 94250; 94640; 94760; 96360; J0295; J1815; J2270; J2405; J3370; J3490; J7030; J7040; J7613; J7626; Q0162; 97110; 97530; 99285-25

== ENCOUNTER 2016-11-17 19:21 | Emergency (ER) | payer OTHER ==
[~2016-11-17] VITALS: Ht 172.7 cm; Wt 147.4 kg
[~2016-11-17 19:21] MED LIST changes: +LINE600T PO
--- NOTE | 2016-11-17 19:51 | EKG ---
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
[2016-11-17 20:36] LABS: BASO # 0.2 x10^3/uL (0.0-0.2); BASO % 1 % (0-3); EOS % 2 % (0-3); HEMATOCRIT 42.3 % (36.0-47.0); HEMOGLOBIN 13.5 g/dL (12.0-15.5); LYMPH # 2.8 x10^3/uL (1.0-4.8); LYMPH % 23 % (24-48); MEAN CORPUSCULAR HEMOGLOBIN 29 pg (25-35); MEAN CORPUSCULAR HGB CONC 32 g/dL (31-37); MEAN CORPUSCULAR VOLUME 92 fL (79-100); MONO % 9 % (0-9); NEUT % 65 % (31-73); PLATELET COUNT 255 x10^3/uL (140-400); RED BLOOD COUNT 4.62 x10^6/uL (3.50-5.40); RED CELL DISTRIBUTION WIDTH 15.2 % (11.5-14.5); WHITE BLOOD COUNT 12.1 x10^3/uL (4.0-11.0)
[2016-11-17 20:48] LABS: CALCIUM 9.3 mg/dL (8.5-10.1); CREATININE 1.1 mg/dL (0.6-1.0); GFR 51.4; POTASSIUM 4.2 mmol/L (3.5-5.1)
[2016-11-17 20:53] LABS: ALBUMIN 2.7 g/dL (3.4-5.0); ALBUMIN/GLOBULIN RATIO 0.7 (1.0-1.7); TOTAL BILIRUBIN 0.2 mg/dL (0.2-1.0); TOTAL PROTEIN 6.5 g/dL (6.4-8.2)
[2016-11-17] MEDS ORDERED: oxyCODONE IR 5 MG TABLET PO ONE (22:00)
[2016-11-17] MEDS ORDERED: IPRATRPIUM/ALBUTEROL 0.5/2.5MG 3 ML NEBU. NEB ONE (22:00)
--- NOTE | 2016-11-17 22:11 | PHYS DOC ---
Past Medical History Past Medical History: Asthma, CHF, COPD, Diabetes-Type II, Hypertension, Hepatitis, IA, Pneumonia, Other Additional Past Medical Histor: obesity Past Surgical History: Cholecystectomy, Other Additional Past Surgical Histo: RIGHT PINKY SX Alcohol Use: None Drug Use: None Adult General Chief Complaint Chief Complaint: CHEST PAIN HPI HPI Patient is a 56 year old history of history of CHF, COPD, chronic tobaccoism who presents with left-sided chest pain worse with deep breathing and left shoulder pain. Chest pain started approximately 18 hours prior to ED arrival. It 's brief lasting seconds to minutes at a time. Stone positional and not worse with exertion. It does reproduce with deep breathing but not or movement. Patient took 2 nitroglycerin pills several hours prior to arrival without relief of symptoms. Patient denies history of coronary disease. Patient denies fever, nausea, vomiting, chills and sweats. Reports chronic cough related to tobacco use. Denies increased leg pain or swelling. Patient recently hospitalized one month ago for cellulitis of lower extremities. 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 [] Review of Systems Review of Systems Review of symptoms as per history of present illness. Current Medications Current Medications Current Medications Medications (Trade) Dose Ordered Sig/Matthias Start Time Stop Time Status Last Admin Dose Admin Albuterol/ Ipratropium (Duoneb) 3 ml 1X ONCE 11/17/16 22:00 11/17/16 22:01 DC 11/17/16 21:57 3 ML Oxycodone HCl (Roxicodone) 5 mg 1X ONCE 11/17/16 22:00 11/17/16 22:01 DC 11/17/16 21:52 5 MG Allergies Allergies Allergies Coded Allergies Type Severity Reaction Last Updated Verified Cephalexin Monohydrate Allergy Intermediate 04/18/14 Yes Penicillins Allergy Intermediate 10/17/16 Yes Sulfa (Sulfonamide Antibiotics) Allergy Intermediate 04/18/14 Yes aspirin Allergy Intermediate 04/18/14 Yes codeine Allergy Intermediate Previously tolerated morphine (per pt and chart 12/2013) 07/17/14 Yes diclofenac sodium Allergy Intermediate 04/18/14 Yes nabumetone Allergy Intermediate 04/18/14 Yes tomato Allergy Intermediate 04/18/14 Yes Physical Exam Physical Exam Constitutional: Well developed, well nourished, no acute distress, non-toxic appearance. [] HENT: Normocephalic, atraumatic, bilateral external ears normal, oropharynx moist, no oral exudates, nose normal. [] Eyes: PERRLA, EOMI, conjunctiva normal, no discharge. [] Neck: Normal range of motion, no tenderness. [] Cardiovascular:Heart rate regular rhythm, no murmur. [] Lungs & Thorax: Bilateral breath sounds clear to auscultation/ [] Abdomen: Bowel sounds normal, soft, no tenderness, no masses, no pulsatile masses. [] Skin: Warm, dry, brawny 2+ edema of lower extremities with healing stasis without cellulitis. [] Back: No tenderness. [] Extremities: No tenderness.[] Neurologic: Alert and oriented X 3, normal motor function, normal sensory function, no focal deficits noted. [] Psychologic: Affect normal, judgement normal, mood normal. [] Current Patient Data Vital Signs Vital Signs Date Time Temp Pulse Resp B/P (MAP) Pulse Ox O2 Delivery O2 Flow Rate FiO2 11/17/16 22:00 94 Nasal Cannula 2.0 11/17/16 21:30 82 18 126/79 (95) 11/17/16 19:25 98.8 98.8 Lab Values Laboratory Tests Test 11/17/16 20:20 White Blood Count 12.1 x10^3/uL (4.0-11.0) H Red Blood Count 4.62 x10^6/uL (3.50-5.40) Hemoglobin 13.5 g/dL (12.0-15.5) Hematocrit 42.3 % (36.0-47.0) Mean Corpuscular Volume 92 fL (79-100) Mean Corpuscular Hemoglobin 29 pg (25-35) Mean Corpuscular Hemoglobin Concent 32 g/dL (31-37) Red Cell Distribution Width 15.2 % (11.5-14.5) H Platelet Count 255 x10^3/uL (140-400) Neutrophils (%) (Auto) 65 % (31-73) Lymphocytes (%) (Auto) 23 % (24-48) L Monocytes (%) (Auto) 9 % (0-9) Eosinophils (%) (Auto) 2 % (0-3) Basophils (%) (Auto) 1 % (0-3) Neutrophils # (Auto) 7.9 x10^3uL (1.8-7.7) H Lymphocytes # (Auto) 2.8 x10^3/uL (1.0-4.8) Monocytes # (Auto) 1.0 x10^3/uL (0.0-1.1) Eosinophils # (Auto) 0.3 x10^3/uL (0.0-0.7) Basophils # (Auto) 0.2 x10^3/uL (0.0-0.2) D-Dimer (Carey) 0.30 ug/mlFEU (0.00-0.50) Sodium Level 146 mmol/L (136-145) H Potassium Level 4.2 mmol/L (3.5-5.1) Chloride Level 107 mmol/L (98-107) Carbon Dioxide Level 34 mmol/L (21-32) H Anion Gap 5 (6-14) L Blood Urea Nitrogen 14 mg/dL (7-20) Creatinine 1.1 mg/dL (0.6-1.0) H Estimated GFR (Cockcroft-Gault) 51.4 BUN/Creatinine Ratio 13 (6-20) Glucose Level 91 mg/dL (70-99) Calcium Level 9.3 mg/dL (8.5-10.1) Total Bilirubin 0.2 mg/dL (0.2-1.0) Aspartate Amino Transferase (AST) 33 U/L (15-37) Alanine Aminotransferase (ALT) 35 U/L (14-59) Alkaline Phosphatase 139 U/L (46-116) H Troponin I Quantitative < 0.017 ng/mL (0.000-0.055) Total Protein 6.5 g/dL (6.4-8.2) Albumin 2.7 g/dL (3.4-5.0) L Albumin/Globulin Ratio 0.7 (1.0-1.7) L Laboratory Tests 11/17/16 20:20 Laboratory Tests 11/17/16 20:20 EKG EKG [EKG: Sinus rhythm, rate 82, no acute ST-T wave changes, rate 80 to. Poor R- wave progressions in anterior septal leads. EKG interpreted by me.] Radiology/Procedures Radiology/Procedures [Chest x-ray: No acute cardiopulmonary disease, presence of pulmonary nodule above left lateral diaphragm noted on preliminary ED review.] Course & Med Decision Making Course & Med Decision Making Pertinent Labs and Imaging studies reviewed. (See chart for details) [Reproducible chest wall pain without acute EKG findings or evidence of elevated troponin or relief with nitroglycerin prior to the ED arrival. Patient frequently has chest wall pain with her COPD. D-dimer negative. Low index of suspicion for acute coronary syndrome or PE. Symptoms are controlled with hydrocodone in the ED. Repeat troponin ordered, but declined by patient. Patient states she feels better and wishes to go home. 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 Return precautions reviewed. She verbalizes understanding and agreement discharge instructions prior to departure.] Dragon Disclaimer Dragon Disclaimer This electronic medical record was generated, in whole or in part, using a voice recognition dictation system. Departure Departure Impression: Primary Impression: Chest pain Disposition: HOME, SELF-CARE Condition: GOOD Referrals: GEORGE BERG MD (PCP) Patient Instructions: Chest Pain (Nonspecific), [id number] Additional Instructions: You were evaluated in the emergency department for chest pain. An EKG chest x- ray and labwork were obtained. The exact cause of your pain has not been dated determined. Please go home, take hydrocodone as needed for pain and follow-up with your fox farmer tomorrow afternoon as scheduled. If you develop new or worsening symptoms, please return to the emergency department. MARIA R ARMSTRONG DO Nov 17, 2016 22:11
[2016-11-17 23:00] VITALS: BP 124/75
--- NOTE | 2016-11-18 07:43 | RAD ---
Portable chest, 11/17/2016: History: Chest pain Comparison is made to a study from 10/17/2016. The heart size and pulmonary vascularity are normal. An unchanged dense nodule in the left base is probably a granuloma. No acute infiltrates are seen. There is no evidence of pleural fluid. Mild spurring is present in the spine. IMPRESSION: No acute cardiopulmonary abnormality is detected.
== END 2016-11-17 23:37 | disposition home or self-care (01) ==
LOC: ER 19:21
DX: R07.89 Other chest pain (principal); M25.512 Pain in left shoulder; R05 Cough; I11.0 Hypertensive heart disease with heart failure; I50.9 Heart failure, unspecified; E11.9 Type 2 diabetes mellitus without complications; J44.9 Chronic obstructive pulmonary disease, unspecified; I25.2 Old myocardial infarction; Z90.49 Acquired absence of other specified parts of digestive tract; Z88.0 Allergy status to penicillin; Z88.1 Allergy status to other antibiotic agents; Z88.2 Allergy status to sulfonamides; Z88.5 Allergy status to narcotic agent; Z88.6 Allergy status to analgesic agent; Z88.8 Allergy status to other drugs, medicaments and biological substances; Z91.018 Allergy to other foods
CPT/HCPCS: 36415; 71010; 80053; 84484; 85025; 85379; 93005; 94640; 99285; J7620; 99283

== ENCOUNTER → 2016-11-26 | Outpatient (CLI) | payer OTHER ==
[~2016-11-26] VITALS: Ht 172.7 cm; Wt 147.0 kg
[2016-11-26] VITALS (12 sets, daily range): BP systolic 103–140; BP diastolic 54–77
[~2016-11-26] MED LIST changes: +HEPARIN for IV BOLUS 10,000 UNIT/10 ML VIAL. IART ONE; +HEPARIN for IV BOLUS 10,000 UNIT/10 ML VIAL. ONE; +IOHEXOL 300 MG/ML 100ML VIAL. IART ONE; +IOHEXOL 300 MG/ML 100ML VIAL. ONE; +IV 1/2 NORMAL SALINE 1,000 ML IV SCH; +LIDOCAINE 2% 20 ML VIAL. IJ ONE; +LIDOCAINE 2% 20 ML VIAL. ONE; +MIDAZOLAM HCL/PF 2 MG/2 ML VIAL. IV ONE; +MIDAZOLAM HCL/PF 2 MG/2 ML VIAL. ONE; +NITROGLYCERIN 200 MCG/2 ML SYRINGE FOR CATH/VASC LAB. IART ONE; +NITROGLYCERIN 200 MCG/2 ML SYRINGE FOR CATH/VASC LAB. ONE; +NITROGLYCERIN SUBLINGUAL 0.4 MG BOTTLE OF 25. SL PRN; +VERAPAMIL 5 MG/2 ML VIAL. IART ONE; +VERAPAMIL 5 MG/2 ML VIAL. ONE; +fentaNYL PF VIAL 100 MCG/2 ML VIAL IV ONE; +fentaNYL PF VIAL 100 MCG/2 ML VIAL ONE
[2016-11-26 10:06] LABS: HEMATOCRIT 46.1 % (36.0-47.0); HEMOGLOBIN 14.9 g/dL (12.0-15.5); RED BLOOD COUNT 5.07 x10^6/uL (3.50-5.40); RED CELL DISTRIBUTION WIDTH 14.7 % (11.5-14.5); WHITE BLOOD COUNT 13.4 x10^3/uL (4.0-11.0)
[2016-11-26 10:16] LABS: INR 1.1 (0.8-1.1); PROTHROMBIN TIME PATIENT 13.1 SEC (11.7-14.0)
[2016-11-26 10:35] LABS: CALCIUM 9.8 mg/dL (8.5-10.1); CREATININE 0.8 mg/dL (0.6-1.0); GFR 74.2; POTASSIUM 4.4 mmol/L (3.5-5.1)
--- NOTE | 2016-11-26 12:20 | PDOC ---
MODERATE SEDATION ASSESSMENT RISKS/ALTERNATIVES Risks/Alternatives Risks and alternatives of this type of sedation and procedure discussed with: RISK/ALTERNATIVES: Patient H & P ON CHART H & P H & P on chart and reviewed for co-morbid conditions and appropriate labs. H&P ON CHART: Yes STATUS PREG STATUS ASSESSED: N/A MEDS/ALLERGIES REVIEWED Meds/Allergies Reviewed Medications and Allergies including time and route of recently administered narcotics and sedatives. MEDS/ALLERGIES REVIEWED: Yes ASA RATING ASA RATING: II AIRWAY ASSESSMENT Airway Assessment Airway patency, oral function limitations, presence of caps, crowns, dentures, partials, and ability to extend neck assessed. AIRWAY ASSESSMENT: Yes MALLAMPATI SCORE MALLAMPATI SCORE: II PRE-SEDATION ASSESSMENT PRE-SEDATION ASSESSMENT: Yes JONI CARL MD Nov 26, 2016 12:20
--- NOTE | 2016-11-26 12:50 | CARD ---
APPROVED REPORT Procedure(s) performed: Left heart catheterization, selective coronary angiography and left ventricul ography via right transradial approach Moderate sedation: 27 min INDICATION The indication(s) include : unstable angina . PROCEDURE NARRATIVE After explaining the risks, benefits and alternative options, informed consent was obtained from kamron ent. Patient was brought to the cardiac Environmental Construction Engineer and right wrist was prepped and draped in the usual fashion after confirming a positive modified Solomon's test. Arterial access was obtained in the [facility] t radial artery and a 6 Luxembourgish sheath was inserted. 6 [place]bourgish Andrés catheter was used to perform jodie ective angiography of the left and right coronary arteries. 6 [place]bourgish pigtail catheter was used to pe rform left ventriculography. Patient tolerated the procedure well. Hemostasis was achieved using TR band. There were no immediate complications. The following findings were noted. FINDINGS 1. Hemodynamics: Left ventricular end-diastolic pressure of 14 mmHg. No pullback gradient across th e aortic valve. 2. Left ventriculography: Normal left ventricle systolic function with ejection fraction estimated at 75-80%. No significant mitral regurgitation seen. 3. Coronary angiography: a. The left main coronary artery arose from the left sinus of Valsalva, gave rise to the left anteri or descending and left circumflex arteries and did not show any significant stenosis. b. The left anterior descending artery did not show any significant stenosis. c. The left circumflex artery did not show any significant stenosis. d. The right coronary artery was a large and dominant vessel arising from the right sinus of Valsalv a that did not show any significant stenosis. Conclusion 1. No significant coronary artery disease 2. Normal left ventricle systolic function with ejection fraction estimated at 75-80% Recommendations Cardiac Risk Reduction Program
== END | disposition home or self-care (01) ==
LOC: CCL 09:31
PROVIDERS: ATTEND Internal Medicine Cardiovascular Disease
DX: I11.0 Hypertensive heart disease with heart failure (principal); I50.9 Heart failure, unspecified; E78.00 Pure hypercholesterolemia, unspecified; J44.9 Chronic obstructive pulmonary disease, unspecified; Z87.01 Personal history of pneumonia (recurrent); Z90.49 Acquired absence of other specified parts of digestive tract; E66.9 Obesity, unspecified; Z68.42 Body mass index [BMI] 45.0-49.9, adult; E03.9 Hypothyroidism, unspecified; E11.9 Type 2 diabetes mellitus without complications; F17.200 Nicotine dependence, unspecified, uncomplicated; M19.91 Primary osteoarthritis, unspecified site; Z88.6 Allergy status to analgesic agent; Z86.39 Personal history of other endocrine, nutritional and metabolic disease; Z72.0 Tobacco use; Z88.0 Allergy status to penicillin; Z88.2 Allergy status to sulfonamides; Z88.8 Allergy status to other drugs, medicaments and biological substances; Z91.018 Allergy to other foods
CPT/HCPCS: 36415; 80048; 85027; 85610; 93458; 99152; 99153; C1769; C1892; J1644; J2250; J3010; J3490; Q9967; J2001

== ENCOUNTER 2017-05-15 01:32 | Emergency (ER) | payer OTHER ==
[2017-05-15 02:16] LABS: ADD MAN DIFF? NO
[2017-05-15 02:21] LABS: BASO # 0.1 x10^3/uL (0.0-0.2); BASO % 1 % (0-3); EOS # 0.3 x10^3/uL (0.0-0.7); EOS % 2 % (0-3); HEMATOCRIT 43.4 % (36.0-47.0); HEMOGLOBIN 14.2 g/dL (12.0-15.5); LYMPH % 20 % (24-48); MEAN CORPUSCULAR HEMOGLOBIN 30 pg (25-35); MEAN CORPUSCULAR HGB CONC 33 g/dL (31-37); MEAN CORPUSCULAR VOLUME 91 fL (79-100); MONO # 0.8 x10^3/uL (0.0-1.1); MONO % 5 % (0-9); NEUT # 11.2 x10^3uL (1.8-7.7); NEUT % 73 % (31-73); PLATELET COUNT 274 x10^3/uL (140-400); RED BLOOD COUNT 4.77 x10^6/uL (3.50-5.40); RED CELL DISTRIBUTION WIDTH 14.7 % (11.5-14.5); WHITE BLOOD COUNT 15.4 x10^3/uL (4.0-11.0)
[2017-05-15 02:51] LABS: ALBUMIN 2.9 g/dL (3.4-5.0); ALBUMIN/GLOBULIN RATIO 0.7 (1.0-1.7); ALK PHOS 216 U/L (46-116); ALT (SGPT) 30 U/L (14-59); ANION GAP 9 (6-14); AST (SGOT) 26 U/L (15-37); BLOOD UREA NITROGEN 20 mg/dL (7-20); BUN/CREATININE RATIO 22 (6-20); CALCIUM 9.2 mg/dL (8.5-10.1); CARBON DIOXIDE 30 mmol/L (21-32); CHLORIDE 102 mmol/L (98-107); CREATININE 0.9 mg/dL (0.6-1.0); GFR 64.8; GLUCOSE 293 mg/dL (70-99); POTASSIUM 4.1 mmol/L (3.5-5.1); SODIUM 141 mmol/L (136-145); TOTAL BILIRUBIN 0.4 mg/dL (0.2-1.0); TOTAL PROTEIN 6.8 g/dL (6.4-8.2)
[2017-05-15 02:58] LABS: TROPONINI < 0.017 ng/mL (0.000-0.055)
[2017-05-15 05:01] LABS: PLT ESTIMATE ADEQUATE (ADEQUATE)
== END 2017-05-15 03:45 | disposition home or self-care (01) ==
LOC: ER 01:32
DX: I95.89 Other hypotension (principal); J44.9 Chronic obstructive pulmonary disease, unspecified; I11.0 Hypertensive heart disease with heart failure; I50.9 Heart failure, unspecified; E11.9 Type 2 diabetes mellitus without complications; I25.2 Old myocardial infarction; E66.9 Obesity, unspecified; Z88.5 Allergy status to narcotic agent; Z88.2 Allergy status to sulfonamides; Z88.0 Allergy status to penicillin; Z68.43 Body mass index [BMI] 50.0-59.9, adult; Z90.49 Acquired absence of other specified parts of digestive tract; Z87.01 Personal history of pneumonia (recurrent); Z88.6 Allergy status to analgesic agent; Z88.1 Allergy status to other antibiotic agents; Z88.8 Allergy status to other drugs, medicaments and biological substances; Z91.018 Allergy to other foods
CPT/HCPCS: 36415; 80053; 84484; 85025; 99284

== ENCOUNTER → 2017-05-19 | Outpatient (CLI) | payer OTHER | END | disposition home or self-care (01) | LOC: US 13:21 | DX: I87.2 Venous insufficiency (chronic) (peripheral) (principal) | CPT/HCPCS: 93970 ==

== ENCOUNTER 2017-06-23 10:28 | Emergency (ER) | payer OTHER ==
[2017-06-23] MEDS: ACETAMINOPHEN 325 MG TABLET. PO (13:12)
== END 2017-06-23 13:28 | disposition home or self-care (01) ==
LOC: ER 10:28
DX: S05.12XA Contusion of eyeball and orbital tissues, left eye, initial encounter (principal); I11.0 Hypertensive heart disease with heart failure; I50.9 Heart failure, unspecified; J44.9 Chronic obstructive pulmonary disease, unspecified; E11.9 Type 2 diabetes mellitus without complications; I25.2 Old myocardial infarction; Z88.0 Allergy status to penicillin; Z88.2 Allergy status to sulfonamides; Z88.1 Allergy status to other antibiotic agents; Z88.6 Allergy status to analgesic agent; Z91.018 Allergy to other foods; Z86.19 Personal history of other infectious and parasitic diseases; W18.39XA Other fall on same level, initial encounter; Y93.89 Activity, other specified; Y99.8 Other external cause status; Y92.89 Other specified places as the place of occurrence of the external cause
CPT/HCPCS: 99282; 99284

== ENCOUNTER 2017-09-02 22:44 | Emergency (ER) | payer OTHER ==
[2017-09-02 23:26] LABS: ADD MAN DIFF? NO
[2017-09-02 23:28] LABS: BASO # 0.1 x10^3/uL (0.0-0.2); BASO % 1 % (0-3); EOS # 0.2 x10^3/uL (0.0-0.7); EOS % 1 % (0-3); HEMATOCRIT 44.7 % (36.0-47.0); HEMOGLOBIN 14.7 g/dL (12.0-15.5); LYMPH % 22 % (24-48); MEAN CORPUSCULAR HEMOGLOBIN 28 pg (25-35); MEAN CORPUSCULAR HGB CONC 33 g/dL (31-37); MEAN CORPUSCULAR VOLUME 86 fL (79-100); MONO # 0.9 x10^3/uL (0.0-1.1); MONO % 6 % (0-9); NEUT # 9.8 x10^3uL (1.8-7.7); NEUT % 70 % (31-73); PLATELET COUNT 236 x10^3/uL (140-400); RED BLOOD COUNT 5.18 x10^6/uL (3.50-5.40); RED CELL DISTRIBUTION WIDTH 15.9 % (11.5-14.5)
[2017-09-02] MEDS: IPRATRPIUM/ALBUTEROL 0.5/2.5MG 3 ML NEBU. NEB (23:36)
[2017-09-02 23:40] LABS: ANION GAP 7 (6-14); BLOOD UREA NITROGEN 20 mg/dL (7-20); BUN/CREATININE RATIO 22 (6-20); CALCIUM 9.7 mg/dL (8.5-10.1); CARBON DIOXIDE 29 mmol/L (21-32); CHLORIDE 102 mmol/L (98-107); CREATININE 0.9 mg/dL (0.6-1.0); GFR 64.5; GLUCOSE 342 mg/dL (70-99); SODIUM 138 mmol/L (136-145)
[2017-09-02 23:46] LABS: ALBUMIN 2.7 g/dL (3.4-5.0); ALBUMIN/GLOBULIN RATIO 0.6 (1.0-1.7); ALK PHOS 164 U/L (46-116); ALT (SGPT) 23 U/L (14-59); AST (SGOT) 19 U/L (15-37); TOTAL BILIRUBIN 0.3 mg/dL (0.2-1.0); TOTAL PROTEIN 7.2 g/dL (6.4-8.2)
[2017-09-02 23:48] LABS: TROPONINI < 0.017 ng/mL (0.000-0.055)
[2017-09-02 23:54] LABS: NT-PRO BNP 214 pg/mL (0-124)
[2017-09-03] MEDS: HYDROcodone/APAP 5/325MG 1 TAB TABLET PO (00:15)
== END 2017-09-03 00:53 | disposition home or self-care (01) ==
LOC: ER 22:44
DX: J40 Bronchitis, not specified as acute or chronic (principal); J44.9 Chronic obstructive pulmonary disease, unspecified; Z76.0 Encounter for issue of repeat prescription; I11.0 Hypertensive heart disease with heart failure; I50.9 Heart failure, unspecified; J45.909 Unspecified asthma, uncomplicated; I25.2 Old myocardial infarction; Z88.0 Allergy status to penicillin; Z88.2 Allergy status to sulfonamides; Z88.1 Allergy status to other antibiotic agents; Z88.5 Allergy status to narcotic agent; Z88.6 Allergy status to analgesic agent; Z88.8 Allergy status to other drugs, medicaments and biological substances; Z91.018 Allergy to other foods
CPT/HCPCS: 36415; 71045; 80053; 83880; 84484; 85025; 93005; 94640; 99285-25; J7620

== ENCOUNTER → 2018-01-03 | Outpatient (CLI) | payer OTHER ==
[2017-09-03 00:15] VITALS: BP 156/85
[~2018-01-03] MED LIST changes: -AMLO5TAB2 PO; +AMLO5TAB7 PO; +CLON0.5T11 PO; -CLON0.5T3 PO; +COLE1TAB PO; -CYPR4TAB PO; +CYPR4TAB31 PO; -FENO145T2 PO; +FENO145T30 PO; +GUAI600T47 PO; -HEPARIN for IV BOLUS 10,000 UNIT/10 ML VIAL. IART ONE; -HEPARIN for IV BOLUS 10,000 UNIT/10 ML VIAL. ONE; +HYDR-3164 PO; -HYDR-971 PO; +INSU100I11 SQ; -IOHEXOL 300 MG/ML 100ML VIAL. IART ONE; -IOHEXOL 300 MG/ML 100ML VIAL. ONE; -IV 1/2 NORMAL SALINE 1,000 ML IV SCH; +LEVO500T59 PO; -LIDOCAINE 2% 20 ML VIAL. IJ ONE; -LIDOCAINE 2% 20 ML VIAL. ONE; -LOSA100T6 PO; +LOSA100T7 PO; -LOSA50TA6 PO; +LOSA50TA7 PO; -MIDAZOLAM HCL/PF 2 MG/2 ML VIAL. IV ONE; -MIDAZOLAM HCL/PF 2 MG/2 ML VIAL. ONE; -NITROGLYCERIN 200 MCG/2 ML SYRINGE FOR CATH/VASC LAB. IART ONE; -NITROGLYCERIN 200 MCG/2 ML SYRINGE FOR CATH/VASC LAB. ONE; -NITROGLYCERIN SUBLINGUAL 0.4 MG BOTTLE OF 25. SL PRN; -OXCA300T PO; +OXCA300T19 PO; -OXYC-328 PO; +OXYC-411 PO; +OXYC1TAB22 PO; -OXYC1TAB9 PO; -VERAPAMIL 5 MG/2 ML VIAL. IART ONE; -VERAPAMIL 5 MG/2 ML VIAL. ONE; -fentaNYL PF VIAL 100 MCG/2 ML VIAL IV ONE; -fentaNYL PF VIAL 100 MCG/2 ML VIAL ONE
--- NOTE | 2018-01-03 16:43 | CARD ---
MR#: [id number] Date of Study: 01/03/2018 Ordering Physician: JONI CARL, Referring Physician: JONI CARL, Tech: Nga Boles APPROVED REPORT EXAM: Two-dimensional and M-mode echocardiogram with Doppler and color Doppler. Other Information Quality : AverageHR: 82bpm INDICATION Atrial Fibrillation RISK FACTORS Hypertension Diabetes Smoking 2D DIMENSIONS RVDd2.1 (2.9-3.5cm)Left Atrium(2D)3.7 (1.6-4.0cm) IVSd1.3 (0.7-1.1cm)Aortic Root(2D)2.8 (2.0-3.7cm) LVDd4.0 (3.9-5.9cm)LVOT Diameter2.2 (1.8-2.4cm) PWd1.3 (0.7-1.1cm)LVDs2.6 (2.5-4.0cm) FS (%) 34.2 %SV43.5 ml Aortic Valve AoV Peak Ion.119.6cm/sAoV VTI18.9cm AO Peak GR.5.7mmHgLVOT Peak Ion.99.9cm/s LVOT VTI 20.01cmAO Mean GR.3mmHg DALTON (VMAX)2.56ti3NIW (VTI)4.12cm2 AI P 1/2 [id number] Mitral Valve MV E Bbhbmqik62.2cm/sMV DECEL [id number] MV A Palhctqj84.1cm/sMV ATW78lz E/A Ratio0.8MVA (PHT)2.26cm2 TDI E/Lateral E'7.5E/Medial E'14.0 Pulmonary Valve PV Peak Gnjjnukt637.6cm/sPV Peak Grad.6mmHg Tricuspid Valve TR P. Hpgstlto824la/sRAP OSVBOOAI9jlMr TR Peak Gr.71drBcKUZG59gcAa Pulmonary Vein S1 Vcdyjuew53.4cm/sD2 Bbgxmxws21.6cm/s LEFT VENTRICLE The left ventricle is normal size. There is mild concentric left ventricular hypertrophy. The left ve ntricular systolic function is normal and the ejection fraction is within normal range. The Ejection Fraction is 55-60%. There is normal LV segmental wall motion. Transmitral Doppler flow pattern is Gra de I-abnormal relaxation pattern. RIGHT VENTRICLE The right ventricle is normal size. There is normal right ventricular wall thickness. The right ventr icular systolic function is normal. ATRIA The left atrium size is normal. The right atrium size is normal. The interatrial septum is intact wit h no evidence for an atrial septal defect or patent foramen ovale as noted on 2-D or Doppler imaging. AORTIC VALVE The aortic valve is not well visualized. Doppler and Color Flow revealed trace aortic regurgitation. There is no significant aortic valvular stenosis. MITRAL VALVE The mitral valve is normal in structure and function. There is no mitral valve stenosis. Doppler and Color-flow revealed trace mitral regurgitation. TRICUSPID VALVE The tricuspid valve is not well visualized. Doppler and Color Flow revealed trace tricuspid regurgita tion. PULMONIC VALVE The pulmonic valve is not well visualized. Doppler and Color Flow revealed trace pulmonic valvular re gurgitation. GREAT VESSELS The aortic root is normal in size. The IVC is normal in size and collapses >50% with inspiration. PERICARDIAL EFFUSION There is no evidence of significant pericardial effusion. Critical Notification Critical Value: No <Conclusion> The left ventricle is normal size. The left ventricular systolic function is normal and the ejection fraction is within normal range. The Ejection Fraction is 55-60%. There is mild concentric left ventricular hypertrophy. There is no significant aortic valvular stenosis. Doppler and Color Flow revealed trace aortic regurgitation. Doppler and Color-flow revealed trace mitral regurgitation. Doppler and Color Flow revealed trace tricuspid regurgitation. Signed by : Shukri Mckinnon MD Electronically Approved : 01/03/2018 16:42:33
== END | disposition home or self-care (01) ==
LOC: ECHO 13:59
PROVIDERS: ATTEND Internal Medicine Cardiovascular Disease
DX: I37.1 Nonrheumatic pulmonary valve insufficiency (principal); I48.0 Paroxysmal atrial fibrillation; I10 Essential (primary) hypertension; E11.9 Type 2 diabetes mellitus without complications; F17.200 Nicotine dependence, unspecified, uncomplicated
CPT/HCPCS: 93306

== ENCOUNTER → 2018-04-17 | Outpatient (CLI) | payer OTHER ==
[2018-02-02 11:00] VITALS: BP 154/93
[~2018-04-17] MED LIST changes: +ALBU2.5V8 INH; +AMLO5TAB10 PO; -AMLO5TAB7 PO; +DOXY100C2 PO; +GABA300C18 PO; -GABA600T2 PO; +GABA600T7 PO; +IOHEXOL 240 MG/ML 50ML VIAL. PO ONE; +IOHEXOL 300 MG/ML 100ML VIAL. IV ONE; +LEVO750T5 PO; +LIPA1CAP8 PO; +LOSA-73 PO; +LOSA100T14 PO; -LOSA100T7 PO; -LOSA50TA7 PO; +OXYC1TAB15 PO; +TIZA4TAB PO
[2018-04-17 08:53] LABS: GFR 57.1
--- NOTE | 2018-04-17 14:57 | RAD ---
CT of the abdomen and pelvis without contrast, 04/17/2018: HISTORY: Abdominal pain, pancreatitis Multidetector CT imaging was performed following oral administration of contrast. No IV contrast could be administered at this time due to lack of satisfactory venous access Comparison is made to a study from 07/14/2015. The gallbladder is surgically absent. The liver is enlarged measuring 25 cm in craniocaudad extent. No hepatic mass is seen. The pancreas is unremarkable. There is no evidence of peripancreatic inflammation. The spleen is of normal size. There is mild bilateral renal cortical scarring. The kidneys show no evidence of obstruction. There is a small unchanged low-density right adrenal nodule, most likely an adenoma. Aortoiliac calcific plaquing is present without evidence of aneurysm. No abdominal or pelvic adenopathy is seen. The bowel loops are not dilated. No free fluid or free air is evident in the abdomen or pelvis. There is a small fat-containing umbilical hernia. No bowel herniation is evident. There are several scattered sclerotic foci in the pelvis, also present on the previous study, most likely representing bone islands. Moderate multilevel degenerative changes are present in the spine. IMPRESSION: 1. Unchanged hepatomegaly. 2. Status post cholecystectomy. 3. Small fat-containing umbilical hernia. 4. No acute abdominal or pelvic abnormality is detected. PQRS Compliance Statement: One or more of the following individualized dose reduction techniques were utilized for this examination: 1. Automated exposure control 2. Adjustment of the mA and/or kV according to patient size 3. Use of iterative reconstruction technique Electronically signed by: Jorge Edwards MD (04/17/2018 2:54 PM) [facility]
== END | disposition home or self-care (01) ==
LOC: CT 08:20
PROVIDERS: ATTEND Internal Medicine Gastroenterology
DX: R16.0 Hepatomegaly, not elsewhere classified (principal); K42.9 Umbilical hernia without obstruction or gangrene; K85.90 Acute pancreatitis without necrosis or infection, unspecified; Z90.49 Acquired absence of other specified parts of digestive tract
CPT/HCPCS: 36415; 74176; 82565; 84520; Q9966

== ENCOUNTER 2018-05-12 21:42 | Inpatient (IN) | payer OTHER ==
[~2018-05-12] VITALS: Ht 172.7 cm; Wt 143.8 kg
[~2018-05-12 21:42] MED LIST changes: -ALBU2.5V8 INH; -GABA300C18 PO; -IOHEXOL 240 MG/ML 50ML VIAL. PO ONE; -IOHEXOL 300 MG/ML 100ML VIAL. IV ONE; -LEVO750T5 PO; -LIPA1CAP8 PO; -OXYC1TAB15 PO; -TIZA4TAB PO
[2018-05-12] MEDS ORDERED: NALOXONE 2 MG/2 ML DISP.SYRIN. IV ONE (22:15)
[2018-05-12] MEDS ORDERED: ONDANSETRON ODT 4 MG TAB.RAPDIS. PO ONE (22:45)
[2018-05-12] MEDS ORDERED: IPRATRPIUM/ALBUTEROL 0.5/2.5MG 3 ML NEBU. NEB ONE ×2 (22:45)
--- NOTE | 2018-05-12 22:48 | PHYS DOC ---
Past Medical History Past Medical History: Asthma, CHF, COPD, Diabetes-Type II, Hypertension, Hepatitis, [place], Pneumonia, Other Additional Past Medical Histor: obesity, HEP B Past Surgical History: Cholecystectomy, Other Additional Past Surgical Histo: RIGHT PINKY SX Alcohol Use: None Drug Use: None Adult General Chief Complaint Chief Complaint: FEVER HPI HPI Patient is a 57 year old female with history of asthma, COPD, congestive heart failure, CAD who presents with multiple medical complaints. Patient reports fever 102.7 at home, also reports chest pain, shortness of breath. Patient is drowsy and difficult to alert on ED arrival with pinpoint pupils. States she took her oxycodone for chest pain prior to ED arrival. Patient afebrile, normotensive and not tachycardic or acute distress on ED arrival. Narcan given with improved mentation. Coarse nonproductive cough noted without wheezing or rales. Breathing treatments treatment ordered. history limited due to the patient's medical conditions. Review of Systems Review of Systems Review of symptoms as per history of present illness. Limited due to the patient 's presentation. Current Medications Current Medications Current Medications Medications (Trade) Dose Ordered Sig/Matthias Start Time Stop Time Status Last Admin Dose Admin Albuterol/ Ipratropium (Duoneb) 3 ml 1X ONCE 05/12/18 22:45 05/12/18 22:47 DC 05/12/18 22:45 3 ML Naloxone HCl (Narcan) 2 mg 1X ONCE 05/12/18 22:15 05/12/18 22:18 DC 05/12/18 22:25 2 MG Ondansetron HCl (Zofran Odt) 4 mg 1X ONCE 05/12/18 22:45 05/12/18 22:46 DC 05/12/18 22:43 4 MG Allergies Allergies Allergies Coded Allergies Type Severity Reaction Last Updated Verified Cephalexin Monohydrate Allergy Intermediate 04/18/14 Yes Penicillins Allergy Intermediate 10/17/16 Yes Sulfa (Sulfonamide Antibiotics) Allergy Intermediate 04/18/14 Yes aspirin Allergy Intermediate 04/18/14 Yes codeine Allergy Intermediate Previously tolerated morphine (per pt and chart 12/2013) 07/17/14 Yes diclofenac sodium Allergy Intermediate 04/18/14 Yes nabumetone Allergy Intermediate 04/18/14 Yes tomato Allergy Intermediate 04/18/14 Yes morphine Adverse Reaction Mild itching 11/26/16 Yes Physical Exam Physical Exam Constitutional: Well developed, disheveled, chronically . [] HENT: Normocephalic, atraumatic, bilateral external ears normal, oropharynx moist, no oral exudates, nose normal. [] Eyes: PERRLA, EOMI, conjunctiva normal, no discharge. [] Neck: Normal range of motion, no tenderness, supple, no stridor. [] Cardiovascular:Heart rate regular rhythm, no murmur [] Lungs & Thorax: Coarse diminished breath sounds Bilaterally with decreased respiratory effort. [] Abdomen: Bowel sounds normal, soft, no tenderness. [] Skin: Warm, dry, no erythema, no rash. [] Back: No tenderness, no CVA tenderness. [] Extremities: No tenderness, no cyanosis, no clubbing, ROM intact, no edema. [] Neurologic: Alert and oriented X 3, normal motor function, normal sensory function, no focal deficits noted. [] Psychologic: Affect normal, judgement normal, mood normal. [] Current Patient Data Vital Signs Vital Signs Date Time Temp Pulse Resp B/P (MAP) Pulse Ox O2 Delivery O2 Flow Rate FiO2 05/12/18 22:49 89 Nasal Cannula 2.0 05/12/18 21:53 99.6 99 24 150/67 (94) 99.6 Lab Values Laboratory Tests Test 05/12/18 22:25 05/12/18 22:41 05/12/18 23:20 Influenza Type A Antigen Negative (NEGATIVE) Influenza Type B Antigen Negative (NEGATIVE) O2 Saturation 92 % (92-99) Arterial Blood pH 7.37 (7.35-7.45) Arterial Blood pCO2 at Patient Temp 46 mmHg (35-46) Arterial Blood pO2 at Patient Temp 63 mmHg (75-108) L Arterial Blood HCO3 26 mmol/L (21-28) Arterial Blood Base Excess 0 mmol/L (-3-3) FiO2 28 White Blood Count 19.3 x10^3/uL (4.0-11.0) H Red Blood Count 4.53 x10^6/uL (3.50-5.40) Hemoglobin 13.1 g/dL (12.0-15.5) Hematocrit 40.8 % (36.0-47.0) Mean Corpuscular Volume 90 fL (79-100) Mean Corpuscular Hemoglobin 29 pg (25-35) Mean Corpuscular Hemoglobin Concent 32 g/dL (31-37) Red Cell Distribution Width 15.1 % (11.5-14.5) H Platelet Count 233 x10^3/uL (140-400) Neutrophils (%) (Auto) 76 % (31-73) H Lymphocytes (%) (Auto) 14 % (24-48) L Monocytes (%) (Auto) 8 % (0-9) Eosinophils (%) (Auto) 1 % (0-3) Basophils (%) (Auto) 1 % (0-3) Neutrophils # (Auto) 14.7 x10^3uL (1.8-7.7) H Lymphocytes # (Auto) 2.8 x10^3/uL (1.0-4.8) Monocytes # (Auto) 1.5 x10^3/uL (0.0-1.1) H Eosinophils # (Auto) 0.2 x10^3/uL (0.0-0.7) Basophils # (Auto) 0.1 x10^3/uL (0.0-0.2) Platelet Estimate Pending Sodium Level 135 mmol/L (136-145) L Potassium Level 4.3 mmol/L (3.5-5.1) Chloride Level 101 mmol/L (98-107) Carbon Dioxide Level 25 mmol/L (21-32) Anion Gap 9 (6-14) Blood Urea Nitrogen 22 mg/dL (7-20) H Creatinine 0.8 mg/dL (0.6-1.0) Estimated GFR (Cockcroft-Gault) 73.9 BUN/Creatinine Ratio 28 (6-20) H Glucose Level 304 mg/dL (70-99) H Calcium Level 9.5 mg/dL (8.5-10.1) Total Bilirubin Pending Aspartate Amino Transferase (AST) Pending Alanine Aminotransferase (ALT) Pending Alkaline Phosphatase Pending Total Protein Pending Albumin Pending Albumin/Globulin Ratio Pending Laboratory Tests 05/12/18 23:20 Laboratory Tests 05/12/18 23:20 EKG EKG [EKG:] Radiology/Procedures Radiology/Procedures [Chest x-ray: Increased pulmonary vascular congestion..] Course & Med Decision Making Course & Med Decision Making Pertinent Labs and Imaging studies reviewed. (See chart for details) [Patient returned to baseline mental status with Narcan, vital signs remained stable. Reported fever with elevated white blood cell count with suspected pneumonia, not clearly evident on chest x-ray. IV antibiotics given. Will admit to the hospital service for further evaluation and treatment. Courtesy bridge orders provided] Rox Disclaimer Dragon Disclaimer This electronic medical record was generated, in whole or in part, using a voice recognition dictation system. Departure Departure Impression: Primary Impression: Chest pain Additional Impressions: Pneumonia Acute on chronic diastolic (congestive) heart failure Accidental overdose Disposition: ADMITTED INPATIENT Admitting Physician: Other Condition: IMPROVED (Dr. Matthews) Referrals: GEORGE BERG MD (PCP) Problem Qualifiers MARIA R ARMSTRONG DO May 12, 2018 22:48
[2018-05-12 22:54] LABS: INFLUENZA A PATIENT NEGATIVE (NEGATIVE); INFLUENZA B PATIENT NEGATIVE (NEGATIVE)
--- NOTE | 2018-05-12 23:07 | RAD ---
Indication:SOB TECHNIQUE:Portable AP chest X-ray COMPARISON:09/02/2017 FINDINGS: Heart is normal in size. Bilateral interstitial opacities in course bronchial markings are seen. Calcified granuloma in the left lower lobe. No pneumothorax or pleural effusion. Visualized bony thorax within normal limits. IMPRESSION: Differential diagnoses includes interstitial pulmonary edema or bronchitis/atypical/viral infection. Electronically signed by: Lasha Ashton DO (05/12/2018 11:04 PM) [facility]
[2018-05-12 23:12] LABS: BASE EXCESS ABG 0 mmol/L (-3-3); HCO3 ABG 26 mmol/L (21-28); PCO2 ABG 46 mmHg (35-46); PO2 ABG 63 mmHg (75-108); SAT O2 ABG 92 % (92-99)
[2018-05-12 23:22] LABS: FIO2 ABG 28
[2018-05-12 23:34] LABS: BASO # 0.1 x10^3/uL (0.0-0.2); BASO % 1 % (0-3); EOS # 0.2 x10^3/uL (0.0-0.7); EOS % 1 % (0-3); HEMATOCRIT 40.8 % (36.0-47.0); HEMOGLOBIN 13.1 g/dL (12.0-15.5); LYMPH # 2.8 x10^3/uL (1.0-4.8); LYMPH % 14 % (24-48); MEAN CORPUSCULAR HEMOGLOBIN 29 pg (25-35); MEAN CORPUSCULAR HGB CONC 32 g/dL (31-37); MEAN CORPUSCULAR VOLUME 90 fL (79-100); MONO # 1.5 x10^3/uL (0.0-1.1); MONO % 8 % (0-9); NEUT # 14.7 x10^3uL (1.8-7.7); NEUT % 76 % (31-73); PLATELET COUNT 233 x10^3/uL (140-400); RED BLOOD COUNT 4.53 x10^6/uL (3.50-5.40); RED CELL DISTRIBUTION WIDTH 15.1 % (11.5-14.5); WHITE BLOOD COUNT 19.3 x10^3/uL (4.0-11.0)
[2018-05-12 23:42] LABS: CALCIUM 9.5 mg/dL (8.5-10.1); CREATININE 0.8 mg/dL (0.6-1.0); GFR 73.9; POTASSIUM 4.3 mmol/L (3.5-5.1)
[2018-05-12 23:53] LABS: % EOS 2 % (0-5); % LYMPHS 12 % (24-48); % MONOS 8 % (0-10); % SEGS 78 % (35-66); ANISOCYTOSIS SLIGHT; PLT ESTIMATE ADEQUATE (ADEQUATE); POLYCHROMASIA SLIGHT
[2018-05-12] MEDS ORDERED: FUROSEMIDE 20 MG/2 ML VIAL. IVP ONE (23:55)
[2018-05-12] MEDS ORDERED: DOXYCYCLINE HYCLATE 100 MG TABLET PO ONE (23:55)
[2018-05-12 23:57] LABS: ALBUMIN 2.5 g/dL (3.4-5.0); ALBUMIN/GLOBULIN RATIO 0.5 (1.0-1.7); TOTAL BILIRUBIN 0.4 mg/dL (0.2-1.0); TOTAL PROTEIN 7.2 g/dL (6.4-8.2)
[2018-05-13] VITALS (7 sets, daily range): BP systolic 93–136; BP diastolic 54–76
[2018-05-13] MEDS ORDERED: ONDANSETRON PF 4 MG/2 ML VIAL. IV PRN
[2018-05-13] MEDS ORDERED: IV NORMAL SALINE 1000ML BAG 1,000 ML IV SCH
[2018-05-13 00:09] LABS: DIG 0.5 ng/mL (0.9-2.0)
[2018-05-13] MEDS ORDERED: NALOXONE 0.4 MG/ML VIAL. IV PRN (02:30)
[2018-05-13] MEDS: INSULIN GLARGINE 300 UNITS/3 ML INSULN.PEN. SQ SCH ×3 (02:40→22:16)
[2018-05-13] MEDS ORDERED: DEXTROSE 50% 25 GM / 50ML DISP.SYRIN. IV PRN (03:15)
[2018-05-13 06:43] LABS: BILIRUBIN,URINE SMALL (NEG); CLARITY,URINE CLEAR; COLOR,URINE AMBER; NITRITE,URINE NEGATIVE (NEG); PH,URINE 5.5; PROTEIN,URINE NEGATIVE (NEG-TRACE)
[2018-05-13 07:05] LABS: BACTERIA,URINE FEW /HPF (0-FEW); HYALINE CASTS, URINE MODERATE /HPF; RBC,URINE 0 /HPF (0-2); SQUAMOUS EPITHELIAL CELL,UR MANY /LPF
[2018-05-13] MEDS: IPRATRPIUM/ALBUTEROL 0.5/2.5MG 3 ML NEBU. NEB SCH ×7 (07:10→20:26)
[2018-05-13 08:05] LABS: BASO # 0.1 x10^3/uL (0.0-0.2); BASO % 1 % (0-3); EOS # 0.2 x10^3/uL (0.0-0.7); EOS % 1 % (0-3); HEMATOCRIT 41.9 % (36.0-47.0); HEMOGLOBIN 13.4 g/dL (12.0-15.5); LYMPH # 2.7 x10^3/uL (1.0-4.8); LYMPH % 20 % (24-48); MEAN CORPUSCULAR HEMOGLOBIN 29 pg (25-35); MEAN CORPUSCULAR HGB CONC 32 g/dL (31-37); MEAN CORPUSCULAR VOLUME 91 fL (79-100); MONO # 0.9 x10^3/uL (0.0-1.1); MONO % 7 % (0-9); NEUT # 9.2 x10^3uL (1.8-7.7); NEUT % 71 % (31-73); PLATELET COUNT 198 x10^3/uL (140-400); RED BLOOD COUNT 4.62 x10^6/uL (3.50-5.40); RED CELL DISTRIBUTION WIDTH 15.1 % (11.5-14.5); WHITE BLOOD COUNT 13.1 x10^3/uL (4.0-11.0)
[2018-05-13 08:27] LABS: ALBUMIN 2.5 g/dL (3.4-5.0); ALBUMIN/GLOBULIN RATIO 0.6 (1.0-1.7); CALCIUM 8.8 mg/dL (8.5-10.1); CREATININE 0.9 mg/dL (0.6-1.0); GFR 64.5; POTASSIUM 4.5 mmol/L (3.5-5.1); TOTAL BILIRUBIN 0.4 mg/dL (0.2-1.0); TOTAL PROTEIN 6.7 g/dL (6.4-8.2)
--- NOTE | 2018-05-13 08:46 | EKG ---
[facility] [address] [place] [address] Test Date: 2018-05-12 Test Time: 23:46:27 Pat Name: RENÉ BLANCO Department: Room: 207 1 Gender: Female Process Development Technician: : 1960 Requested By: MARIA R ARMSTRONG Order Number: [id number] Reading MD: Luis Canseco MD Measurements Intervals [place] Rate: 94 P: 62 [place]: 196 QRS: -21 QRSD: 78 T: 44 QT: 350 QTc: 443 Interpretive Statements SINUS RHYTHM CANNOT RULE OUT INFERIOR INFARCT Electronically Signed On 05-16-2018 15:13:51 CDT by Luis Canseco MD
[2018-05-13] MEDS ORDERED: DOXYCYCLINE HYCLATE 100 MG in IV DEXTROSE 5% 100ML 100 ML IV SCH (09:00)
[2018-05-13] MEDS ORDERED: FUROSEMIDE 20 MG/2 ML VIAL. IVP SCH (09:00)
--- NOTE | 2018-05-13 11:41 | PDOC1 ---
History and Physical Date of Admission Date of Admission 05/13/2018 Identification/Chief Complaint Chief Complaint My friend couldn't wake me up Source Source: Chart review, Patient History of Present Illness History of Present Illness Patient is a 57-year-old female who looks older than the stated age was recently admitted to our institution for lateral leg movements that seem to be chronic in nature. She has history of MRSA bacteremia history of diabetes2 uncontrolled as documented in her last admission. She comes with a history apparently that her friend she lives unfortunately was not able to wake her up in the middle of the night. Noticed that patient has chronic back pain reason why she is disabled does not work and has been on chronic narcotic therapy for quite some time now as I can see on her medical record. The patient at the time my evaluation is in no apparent distress the patient received Narcan in the ER and she was admitted to the request of the ER for a chest pain that she experienced nevertheless the patient at the present time denies symptoms consistent with angina. She does give a history of CHF although her last echocardiogram done on 01/03/2018 reveals an ejection fraction of 55-60% she does seem to have a grade 1 abnormal relaxation pattern area the patient denies being able to sleep flat for quite some time now at least one year. She reports paroxysmal nocturnal dyspnea when asked about her diet she denies excess salt intake. She endorses being adherent to her medications at home no headache no blurred vision no recent upper respiratory tract infections no dysphagia odynophagia was reported no palpitations no syncopal episodes no nausea vomiting or diarrhea has been reported. Initial workup is quite benign. Her last hemoglobin A1c was reported at greater than 13. The patient denies fever but she has felt chills no purulent discharge from her chronic wounds over her legs has been reported. Changes in her medications or increase in narcotic dosage has been reported by the patient. Plan of care has been Detail all of her concerns were addressed to the best of my abilities Past Medical History Cardiovascular: AFIB, CHF, HTN, Hyperlipidemia Pulmonary: COPD, Pneumonia, Other CENTRAL NERVOUS SYSTEM: TIA GI: GERD, Irritable bowel disease, Other Heme/Onc: No pertinent hx Hepatobiliary: Hep A/B/C Psych: Anxiety, Depression Rheumatologic: No pertinent hx Infectious disease: No pertinent hx Renal/: No pertinent hx Endocrine: Diabetes, Hypothyroidism Past Surgical History Past Surgical History: Cholecystectomy, Cataract Removal Family History Family History: No Significant, Family History Unknown Social History ALCOHOL: none Drugs: None Current Problem List Problem List Problems Medical Problems: (1) Acute on chronic diastolic (congestive) heart failure Status: Acute (2) Pneumonia Status: Acute Current Medications Current Medications Current Medications Medications (Trade) Dose Ordered Sig/Matthias Start Time Stop Time Status Last Admin Dose Admin Albuterol/ Ipratropium (Duoneb) 3 ml RTQID 05/13/18 08:00 05/14/18 07:59 05/13/18 11:25 3 ML Dextrose (Dextrose 50%-Water Syringe) 12.5 gm PRN Q15MIN PRN 05/13/18 03:15 Doxycycline Hyclate (Vibra-Tab) 100 mg 1X ONCE 05/12/18 23:55 05/12/18 23:56 DC 05/13/18 02:35 100 MG Doxycycline Hyclate 100 mg/ Dextrose 100 ml @ 50 mls/hr Q12HR 05/13/18 09:00 05/13/18 09:00 DC Furosemide (Lasix) 20 mg [id number] 05/13/18 09:00 05/13/18 08:29 20 MG Insulin Glargine (Lantus) 12 units BID 05/13/18 02:00 05/13/18 08:38 12 UNITS Lactobacillus Rhamnosus (Culturelle) 1 cap BID 05/13/18 21:00 Levofloxacin/ Dextrose 150 ml @ 100 mls/hr Q24H 05/13/18 09:00 05/13/18 08:29 100 MLS/HR Naloxone HCl (Narcan) 0.4 mg PRN Q2MIN PRN 05/13/18 02:30 Ondansetron HCl (Zofran Odt) 4 mg 1X ONCE 05/12/18 22:45 05/12/18 22:46 DC 05/12/18 22:43 4 MG Ondansetron HCl (Zofran) 4 mg PRN Q8HRS PRN 05/13/18 00:00 05/13/18 23:59 Sodium Chloride 1,000 ml @ 75 mls/hr [id number] 05/13/18 00:00 05/13/18 00:11 DC Allergies Allergies Allergies Coded Allergies Type Severity Reaction Last Updated Verified Cephalexin Monohydrate Allergy Intermediate 04/18/14 Yes Penicillins Allergy Intermediate 10/17/16 Yes Sulfa (Sulfonamide Antibiotics) Allergy Intermediate 04/18/14 Yes aspirin Allergy Intermediate 04/18/14 Yes codeine Allergy Intermediate Previously tolerated morphine (per pt and chart 12/2013) 07/17/14 Yes diclofenac sodium Allergy Intermediate 04/18/14 Yes nabumetone Allergy Intermediate 04/18/14 Yes tomato Allergy Intermediate 04/18/14 Yes morphine Adverse Reaction Mild itching 11/26/16 Yes ROS Review of System CONSTITUTIONAL: No fever + chills EYES: No recent changes SKIN: + rash + itching CARDIOVASCULAR: + chest pain, syncope, palpitations, or edema RESPIRATORY: No SOB or cough GASTROINTESTINAL: No nausea, vomiting or abdominal pain NEUROLOGICAL: No headaches or weakness ENDOCRINE: No cold or heat intolerance GENITOURINARY: No urgency or frequency of urination MUSCULOSKELETAL: No back pain or joint pain LYMPHATICS: No enlarged lymph nodes PSYCHIATRIC: No anxiety or depression Physical Exam Physical Exam Gen.: Morbidly obese older than the stated age chronically ill appearing in no apparent distress Head: Normal shape atraumatic Eyes: Pupils equal reactive to light and accommodation, normal conjunctivae and lids Ears: Normal shape Nose: Normal shape no trauma Mouth: No exudates of the back of throat no thrush no lesions Neck: Supple no JVD no carotid bruit or lymphadenopathy no thyromegaly Chest: Lungs clear to auscultation with good inspiratory effort no crackles rales or rhonchi Cardiovascular: S1-S2 regular rhythm no murmurs gallops or rubs Abdomen: Bowel sounds present soft nontender no hepatosplenomegaly appreciated sign Extremities: No clubbing no cyanosis no edema peripheral pulses palpated bilaterally Neurological: Alert awake oriented in person time place and situation, cranial nerves II through XII intact, no motor or sensory deficits appreciated Psych: Appropriate mood, cooperative Skin multiple lesions over her torso probably a consequence of scratching self- inflicted trauma and she has healed scars over her lower extremity where she reports she has had several blisters in the past no purulent discharge nor erythema no cellulitic changes evident Vitals Vitals Vital Signs Date Time Temp Pulse Resp B/P (MAP) Pulse Ox O2 Delivery O2 Flow Rate FiO2 05/13/18 11:26 96 Nasal Cannula 2.0 05/13/18 11:08 98.0 85 16 131/75 (93) 98.0 Labs Labs Laboratory Tests Test 05/12/18 22:25 05/12/18 22:41 05/12/18 23:20 05/13/18 02:38 Influenza Type A Antigen Negative (NEGATIVE) Influenza Type B Antigen Negative (NEGATIVE) O2 Saturation 92 % (92-99) Arterial Blood pH 7.37 (7.35-7.45) Arterial Blood pCO2 at Patient Temp 46 mmHg (35-46) Arterial Blood pO2 at Patient Temp 63 mmHg (75-108) Arterial Blood HCO3 26 mmol/L (21-28) Arterial Blood Base Excess 0 mmol/L (-3-3) FiO2 28 White Blood Count 19.3 x10^3/uL (4.0-11.0) Red Blood Count 4.53 x10^6/uL (3.50-5.40) Hemoglobin 13.1 g/dL (12.0-15.5) Hematocrit 40.8 % (36.0-47.0) Mean Corpuscular Volume 90 fL (79-100) Mean Corpuscular Hemoglobin 29 pg (25-35) Mean Corpuscular Hemoglobin Concent 32 g/dL (31-37) Red Cell Distribution Width 15.1 % (11.5-14.5) Platelet Count 233 x10^3/uL (140-400) Neutrophils (%) (Auto) 76 % (31-73) Lymphocytes (%) (Auto) 14 % (24-48) Monocytes (%) (Auto) 8 % (0-9) Eosinophils (%) (Auto) 1 % (0-3) Basophils (%) (Auto) 1 % (0-3) Neutrophils # (Auto) 14.7 x10^3uL (1.8-7.7) Lymphocytes # (Auto) 2.8 x10^3/uL (1.0-4.8) Monocytes # (Auto) 1.5 x10^3/uL (0.0-1.1) Eosinophils # (Auto) 0.2 x10^3/uL (0.0-0.7) Basophils # (Auto) 0.1 x10^3/uL (0.0-0.2) Segmented Neutrophils % 78 % (35-66) Lymphocytes % 12 % (24-48) Monocytes % 8 % (0-10) Eosinophils % 2 % (0-5) Platelet Estimate Adequate (ADEQUATE) Polychromasia Slight Anisocytosis Slight Sodium Level 135 mmol/L (136-145) Potassium Level 4.3 mmol/L (3.5-5.1) Chloride Level 101 mmol/L (98-107) Carbon Dioxide Level 25 mmol/L (21-32) Anion Gap 9 (6-14) Blood Urea Nitrogen 22 mg/dL (7-20) Creatinine 0.8 mg/dL (0.6-1.0) Estimated GFR (Cockcroft-Gault) 73.9 BUN/Creatinine Ratio 28 (6-20) Glucose Level 304 mg/dL (70-99) Lactic Acid Level 1.3 mmol/L (0.4-2.0) Calcium Level 9.5 mg/dL (8.5-10.1) Total Bilirubin 0.4 mg/dL (0.2-1.0) Aspartate Amino Transf (AST/SGOT) 30 U/L (15-37) Alanine Aminotransferase (ALT/SGPT) 29 U/L (14-59) Alkaline Phosphatase 239 U/L (46-116) Ammonia 17 mcmol/L (11-34) SE-Ccz-T-Type Natriuretic Peptide 158 pg/mL (0-124) Total Protein 7.2 g/dL (6.4-8.2) Albumin 2.5 g/dL (3.4-5.0) Albumin/Globulin Ratio 0.5 (1.0-1.7) Thyroid Stimulating Hormone (TSH) 7.740 uIU/mL (0.358-3.74) Digoxin Level 0.5 ng/mL (0.9-2.0) Digoxin Last Dose Date Unk Digoxin Last Dose Time Unk Glucose (Fingerstick) 412 mg/dL (70-99) Test 05/13/18 03:00 05/13/18 06:30 05/13/18 07:22 05/13/18 07:55 Troponin I Quantitative < 0.017 ng/mL (0.000-0.055) < 0.017 ng/mL (0.000-0.055) Urine Collection Type Unknown Urine Color Estephania Urine Clarity Clear Urine pH 5.5 Urine Specific [place] >=1.030 Urine Protein Negative mg/dL (NEG-TRACE) Urine Glucose (UA) >=1000 mg/dL (NEG) Urine Ketones (Stick) Negative mg/dL (NEG) Urine Blood Negative (NEG) Urine Nitrite Negative (NEG) Urine Bilirubin Small (NEG) Urine Urobilinogen Dipstick 1.0 mg/dL (0.2 mg/dL) Urine Leukocyte Esterase Negative (NEG) Urine RBC 0 /HPF (0-2) Urine WBC 1-4 /HPF (0-4) Urine Squamous Epithelial Cells Many /LPF Urine Bacteria Few /HPF (0-FEW) Urine Hyaline Casts Moderate /HPF Urine Mucus Marked /LPF Glucose (Fingerstick) 370 mg/dL (70-99) White Blood Count 13.1 x10^3/uL (4.0-11.0) Red Blood Count 4.62 x10^6/uL (3.50-5.40) Hemoglobin 13.4 g/dL (12.0-15.5) Hematocrit 41.9 % (36.0-47.0) Mean Corpuscular Volume 91 fL (79-100) Mean Corpuscular Hemoglobin 29 pg (25-35) Mean Corpuscular Hemoglobin Concent 32 g/dL (31-37) Red Cell Distribution Width 15.1 % (11.5-14.5) Platelet Count 198 x10^3/uL (140-400) Neutrophils (%) (Auto) 71 % (31-73) Lymphocytes (%) (Auto) 20 % (24-48) Monocytes (%) (Auto) 7 % (0-9) Eosinophils (%) (Auto) 1 % (0-3) Basophils (%) (Auto) 1 % (0-3) Neutrophils # (Auto) 9.2 x10^3uL (1.8-7.7) Lymphocytes # (Auto) 2.7 x10^3/uL (1.0-4.8) Monocytes # (Auto) 0.9 x10^3/uL (0.0-1.1) Eosinophils # (Auto) 0.2 x10^3/uL (0.0-0.7) Basophils # (Auto) 0.1 x10^3/uL (0.0-0.2) Sodium Level 137 mmol/L (136-145) Potassium Level 4.5 mmol/L (3.5-5.1) Chloride Level 101 mmol/L (98-107) Carbon Dioxide Level 29 mmol/L (21-32) Anion Gap 7 (6-14) Blood Urea Nitrogen 20 mg/dL (7-20) Creatinine 0.9 mg/dL (0.6-1.0) Estimated GFR (Cockcroft-Gault) 64.5 BUN/Creatinine Ratio 22 (6-20) Glucose Level 391 mg/dL (70-99) Calcium Level 8.8 mg/dL (8.5-10.1) Total Bilirubin 0.4 mg/dL (0.2-1.0) Aspartate Amino Transf (AST/SGOT) 22 U/L (15-37) Alanine Aminotransferase (ALT/SGPT) 31 U/L (14-59) Alkaline Phosphatase 241 U/L (46-116) Total Protein 6.7 g/dL (6.4-8.2) Albumin 2.5 g/dL (3.4-5.0) Albumin/Globulin Ratio 0.6 (1.0-1.7) Laboratory Tests Test 05/12/18 22:25 05/12/18 22:41 05/12/18 23:20 05/13/18 02:38 Influenza Type A Antigen Negative (NEGATIVE) Influenza Type B Antigen Negative (NEGATIVE) O2 Saturation 92 % (92-99) Arterial Blood pH 7.37 (7.35-7.45) Arterial Blood pCO2 at Patient Temp 46 mmHg (35-46) Arterial Blood pO2 at Patient Temp 63 mmHg (75-108) Arterial Blood HCO3 26 mmol/L (21-28) Arterial Blood Base Excess 0 mmol/L (-3-3) FiO2 28 White Blood Count 19.3 x10^3/uL (4.0-11.0) Red Blood Count 4.53 x10^6/uL (3.50-5.40) Hemoglobin 13.1 g/dL (12.0-15.5) Hematocrit 40.8 % (36.0-47.0) Mean Corpuscular Volume 90 fL (79-100) Mean Corpuscular Hemoglobin 29 pg (25-35) Mean Corpuscular Hemoglobin Concent 32 g/dL (31-37) Red Cell Distribution Width 15.1 % (11.5-14.5) Platelet Count 233 x10^3/uL (140-400) Neutrophils (%) (Auto) 76 % (31-73) Lymphocytes (%) (Auto) 14 % (24-48) Monocytes (%) (Auto) 8 % (0-9) Eosinophils (%) (Auto) 1 % (0-3) Basophils (%) (Auto) 1 % (0-3) Neutrophils # (Auto) 14.7 x10^3uL (1.8-7.7) Lymphocytes # (Auto) 2.8 x10^3/uL (1.0-4.8) Monocytes # (Auto) 1.5 x10^3/uL (0.0-1.1) Eosinophils # (Auto) 0.2 x10^3/uL (0.0-0.7) Basophils # (Auto) 0.1 x10^3/uL (0.0-0.2) Segmented Neutrophils % 78 % (35-66) Lymphocytes % 12 % (24-48) Monocytes % 8 % (0-10) Eosinophils % 2 % (0-5) Platelet Estimate Adequate (ADEQUATE) Polychromasia Slight Anisocytosis Slight Sodium Level 135 mmol/L (136-145) Potassium Level 4.3 mmol/L (3.5-5.1) Chloride Level 101 mmol/L (98-107) Carbon Dioxide Level 25 mmol/L (21-32) Anion Gap 9 (6-14) Blood Urea Nitrogen 22 mg/dL (7-20) Creatinine 0.8 mg/dL (0.6-1.0) Estimated GFR (Cockcroft-Gault) 73.9 BUN/Creatinine Ratio 28 (6-20) Glucose Level 304 mg/dL (70-99) Lactic Acid Level 1.3 mmol/L (0.4-2.0) Calcium Level 9.5 mg/dL (8.5-10.1) Total Bilirubin 0.4 mg/dL (0.2-1.0) Aspartate Amino Transf (AST/SGOT) 30 U/L (15-37) Alanine Aminotransferase (ALT/SGPT) 29 U/L (14-59) Alkaline Phosphatase 239 U/L (46-116) Ammonia 17 mcmol/L (11-34) KX-Brf-L-Type Natriuretic Peptide 158 pg/mL (0-124) Total Protein 7.2 g/dL (6.4-8.2) Albumin 2.5 g/dL (3.4-5.0) Albumin/Globulin Ratio 0.5 (1.0-1.7) Thyroid Stimulating Hormone (TSH) 7.740 uIU/mL (0.358-3.74) Digoxin Level 0.5 ng/mL (0.9-2.0) Digoxin Last Dose Date Unk Digoxin Last Dose Time Unk Glucose (Fingerstick) 412 mg/dL (70-99) Test 05/13/18 03:00 05/13/18 06:30 05/13/18 07:22 05/13/18 07:55 Troponin I Quantitative < 0.017 ng/mL (0.000-0.055) < 0.017 ng/mL (0.000-0.055) Urine Collection Type Unknown Urine Color Estephania Urine Clarity Clear Urine pH 5.5 Urine Specific [place] >=1.030 Urine Protein Negative mg/dL (NEG-TRACE) Urine Glucose (UA) >=1000 mg/dL (NEG) Urine Ketones (Stick) Negative mg/dL (NEG) Urine Blood Negative (NEG) Urine Nitrite Negative (NEG) Urine Bilirubin Small (NEG) Urine Urobilinogen Dipstick 1.0 mg/dL (0.2 mg/dL) Urine Leukocyte Esterase Negative (NEG) Urine RBC 0 /HPF (0-2) Urine WBC 1-4 /HPF (0-4) Urine Squamous Epithelial Cells Many /LPF Urine Bacteria Few /HPF (0-FEW) Urine Hyaline Casts Moderate /HPF Urine Mucus Marked /LPF Glucose (Fingerstick) 370 mg/dL (70-99) White Blood Count 13.1 x10^3/uL (4.0-11.0) Red Blood Count 4.62 x10^6/uL (3.50-5.40) Hemoglobin 13.4 g/dL (12.0-15.5) Hematocrit 41.9 % (36.0-47.0) Mean Corpuscular Volume 91 fL (79-100) Mean Corpuscular Hemoglobin 29 pg (25-35) Mean Corpuscular Hemoglobin Concent 32 g/dL (31-37) Red Cell Distribution Width 15.1 % (11.5-14.5) Platelet Count 198 x10^3/uL (140-400) Neutrophils (%) (Auto) 71 % (31-73) Lymphocytes (%) (Auto) 20 % (24-48) Monocytes (%) (Auto) 7 % (0-9) Eosinophils (%) (Auto) 1 % (0-3) Basophils (%) (Auto) 1 % (0-3) Neutrophils # (Auto) 9.2 x10^3uL (1.8-7.7) Lymphocytes # (Auto) 2.7 x10^3/uL (1.0-4.8) Monocytes # (Auto) 0.9 x10^3/uL (0.0-1.1) Eosinophils # (Auto) 0.2 x10^3/uL (0.0-0.7) Basophils # (Auto) 0.1 x10^3/uL (0.0-0.2) Sodium Level 137 mmol/L (136-145) Potassium Level 4.5 mmol/L (3.5-5.1) Chloride Level 101 mmol/L (98-107) Carbon Dioxide Level 29 mmol/L (21-32) Anion Gap 7 (6-14) Blood Urea Nitrogen 20 mg/dL (7-20) Creatinine 0.9 mg/dL (0.6-1.0) Estimated GFR (Cockcroft-Gault) 64.5 BUN/Creatinine Ratio 22 (6-20) Glucose Level 391 mg/dL (70-99) Calcium Level 8.8 mg/dL (8.5-10.1) Total Bilirubin 0.4 mg/dL (0.2-1.0) Aspartate Amino Transf (AST/SGOT) 22 U/L (15-37) Alanine Aminotransferase (ALT/SGPT) 31 U/L (14-59) Alkaline Phosphatase 241 U/L (46-116) Total Protein 6.7 g/dL (6.4-8.2) Albumin 2.5 g/dL (3.4-5.0) Albumin/Globulin Ratio 0.6 (1.0-1.7) VTE Prophylaxis Ordered VTE Prophylaxis Devices: Yes VTE Pharmacological Prophylaxi: Yes Assessment/Plan Assessment/Plan Encephalopathy most likely secondary to narcotic use and may have a component of obesity hypoventilation syndrome given her BMI of 48 currently results hyponatremia secondary to hyperglycemia History of CHF which seems to be chronic in nature with diastolic dysfunction currently compensated Chest pain? Atypical in nature unlikely ACS will continue to follow troponins Morbid obesity with a BMI of 48 Suspicion for obesity hypoventilation syndrome Elevated TSH. Hypothyroidism? Leukocytosis with left shift etiology undetermined we'll send urine culture Plan. We'll start with broad-spectrum antibiotics awaiting for cultures We'll consult cardiology for opinion on her underlying CHF Encourage weight loss Will most likely need an outpatient sleep study given her body habitus We'll recheck hemoglobin A1c Fluid resuscitation Further accommodations based on the clinical course DVT prophylaxis with heparin AZALIA VANEGAS MD May 13, 2018 11:41
[2018-05-13] MEDS ORDERED: oxyCODONE/APAP 10/325 1 TAB TABLET PO PRN (11:45)
[2018-05-13] MEDS ORDERED: MUPIROCIN 2 % TOPICAL CREAM 15GM TUBE. TP PRN (11:45)
[2018-05-13] MEDS ORDERED: LOPERAMIDE 2 MG CAPSULE PO PRN (12:00)
[2018-05-13] MEDS ORDERED: diphenhydrAMINE HCL 25 MG CAPSULE PO PRN (12:00)
[2018-05-13] MEDS ORDERED: ONDANSETRON ODT 4 MG TAB.RAPDIS. PO PRN (12:15)
[2018-05-13] MEDS: predniSONE 20 MG TABLET PO SCH (12:30)
[2018-05-13] MEDS: VENLAFAXINE XR 37.5 MG CAP.ER.24H. PO SCH (12:30)
[2018-05-13] MEDS: FUROSEMIDE 40 MG TABLET. PO SCH (12:30)
[2018-05-13] MEDS: NYSTATIN TOPICAL POWDER 15GM BOTTLE. TP SCH ×2 (12:30→22:14)
[2018-05-13] MEDS: FLUTICASONE 50MCG/NASAL SPRAY 16GM BOTTLE. NS SCH (12:30)
[2018-05-13] MEDS: FENOFIBRATE,MICRONIZED 134 MG CAPSULE PO SCH (12:30)
[2018-05-13] MEDS: BUDESONIDE 0.5 MG/2 ML NEBU. NEB SCH ×2 (13:00→20:26)
[2018-05-13] MEDS: GABAPENTIN 300 MG CAPSULE. PO SCH ×3 (13:39→22:05)
[2018-05-13] MEDS: LEVOTHYROXINE 175 MCG TABLET PO SCH (13:39)
[2018-05-13] MEDS: CLOPIDOGREL BISULFATE 75 MG TABLET PO SCH (13:40)
[2018-05-13] MEDS: SOTALOL 80 MG TABLET. PO SCH ×2 (13:40→22:07)
[2018-05-13] MEDS: PANTOPRAZOLE 40 MG TABLET.DR. PO SCH (13:40)
[2018-05-13] MEDS: CETIRIZINE HCL 10 MG TABLET. PO SCH (13:40)
[2018-05-13] MEDS: DIGOXIN 125 MCG TABLET. PO SCH (13:40)
[2018-05-13] MEDS: LOSARTAN POTASSIUM 50 MG TABLET. PO SCH (13:41)
[2018-05-13] MEDS: DIPHENOXYLATE/ATROPINE TABLET. PO SCH (13:41)
[2018-05-13] MEDS: amLODIPine BESYLATE 5 MG TABLET PO SCH (13:41)
[2018-05-13] MEDS: ARIPiprazole 5 MG TABLET PO SCH (13:43)
[2018-05-13] MEDS: HEPARIN for SUB-Q USE 5,000 UNIT/ML VIAL. SQ SCH ×2 (13:52→22:13)
--- NOTE | 2018-05-13 13:52 | PDOC2 ---
CONSULT Date of Consult Date of Consult DATE: 05/13/18 TIME: 13:45 Reason for Consult Reason for Consult: Diastolic heart failure Referring Physician Referring Physician: Dr. Matthews Identification/Chief Complaint Chief Complaint Decreased mental status. Source Source: Chart review, Patient History of Present Illness Reason for Visit: The patient is a 57-year-old female who was seen in the emergency room due to weakness and decreased mental status. The patient reports episodes of shortness of breath and originally apparently reported chest discomfort. The patient's mental status was decreased and she is on opioids chronically for back pain. Narcan was administered with improvement in her lower consciousness. She has a extensive medical history with multiple medical problems including from a cardiac viewpoint heart failure hypertension and hyperlipidemia. Her EKG showed no acute changes. Echocardiogram on 01/03/18 showed an ejection fraction of 55- 60% with mild left ventricular hypertrophy and no significant valvular abnormalities. A cardiac catheterization on 11/26/16 showed no significant coronary disease. Chest x-ray shows mild bilateral opacities. After treatment overnight the patient reports feeling fatigued but better today. She denies chest pain today. Past Medical History Cardiovascular: AFIB, CHF, HTN, Hyperlipidemia Pulmonary: COPD, Pneumonia, Other CENTRAL NERVOUS SYSTEM: TIA GI: GERD, Irritable bowel disease, Other Heme/Onc: No pertinent hx Hepatobiliary: Hep A/B/C Psych: Anxiety, Depression Musculoskeletal: Osteoarthritis, Other Rheumatologic: No pertinent hx Infectious disease: No pertinent hx Renal/: No pertinent hx Endocrine: Diabetes, Hypothyroidism Past Surgical History Past Surgical History: Cholecystectomy, Cataract Removal Family History Family History: No Significant, Family History Unknown Social History No ALCOHOL: none Drugs: None Lives: with Family Current Problem List Problem List Problems Medical Problems: (1) Acute on chronic diastolic (congestive) heart failure Status: Acute (2) Pneumonia Status: Acute Current Medications Current Medications Current Medications Naloxone HCl (Narcan) 2 mg 1X ONCE IV Last administered on 05/12/18at 22:25; Start 05/12/18 at 22:15; Stop 05/12/18 at 22:18; Status DC Ondansetron HCl (Zofran Odt) 4 mg 1X ONCE PO Last administered on 05/12/18at 22: 43; Start 05/12/18 at 22:45; Stop 05/12/18 at 22:46; Status DC Albuterol/ Ipratropium (Duoneb) 3 ml 1X ONCE NEB Last administered on at 22:45; Start 05/12/18 at 22:45; Stop 05/12/18 at 22:46; Status DC Albuterol/ Ipratropium (Duoneb) 3 ml 1X ONCE NEB Last administered on at 22:45; Start 05/12/18 at 22:45; Stop 05/12/18 at 22:47; Status DC Furosemide (Lasix) 20 mg 1X ONCE IVP ; Start 05/12/18 at 23:55; Stop 05/13/18 at 01:59; Status DC Doxycycline Hyclate (Vibra-Tab) 100 mg 1X ONCE PO Last administered on at 02:35; Start 05/12/18 at 23:55; Stop 05/12/18 at 23:56; Status DC Ondansetron HCl (Zofran) 4 mg PRN Q8HRS PRN IV NAUSEA/VOMITING; Start 05/13/18 at 00:00; Stop 05/13/18 at 23:59 Sodium Chloride 1,000 ml @ 75 mls/hr [id number] IV ; Start 05/13/18 at 00:00; Stop 05/13/18 at 00:11; Status DC Albuterol/ Ipratropium (Duoneb) 3 ml RTQID NEB Last administered on 05/13/18at 11 :25; Start 05/13/18 at 08:00; Stop 05/14/18 at 07:59 Furosemide (Lasix) 20 mg [id number] IVP Last administered on 05/13/18at 08:29; Start 05/13/18 at 09:00; Stop 05/13/18 at 12:00; Status DC Doxycycline Hyclate 100 mg/ Dextrose 100 ml @ 50 mls/hr Q12HR IV ; Start at 09:00; Stop 05/13/18 at 09:00; Status DC Insulin Glargine (Lantus) 12 units BID SQ Last administered on 05/13/18at 08:38; Start 05/13/18 at 02:00 Naloxone HCl (Narcan) 0.4 mg PRN Q2MIN PRN IV SEE COMMENTS; Start 05/13/18 at 02 :30 Dextrose (Dextrose 50%-Water Syringe) 12.5 gm PRN Q15MIN PRN IV SEE COMMENTS; Start 05/13/18 at 03:15 Levofloxacin/ Dextrose 150 ml @ 100 mls/hr Q24H IV Last administered on at 08:29; Start 05/13/18 at 09:00 Lactobacillus Rhamnosus (Culturelle) 1 cap BID PO ; Start 05/13/18 at 21:00 Amlodipine Besylate (Norvasc) 5 mg DAILY PO ; Start 05/13/18 at 12:30 Aripiprazole (Abilify) 5 mg DAILY PO ; Start 05/13/18 at 12:30 Cetirizine HCl (ZyrTEC) 10 mg DAILY PO ; Start 05/13/18 at 12:30 Clopidogrel Bisulfate (Plavix) 75 mg DAILY PO ; Start 05/13/18 at 12:30 Colestipol HCl (Colestid) 1 gm BID@1000,2200 PO ; Start 05/13/18 at 22:00 Digoxin (Lanoxin) 125 mcg DAILY PO ; Start 05/13/18 at 12:30 Diphenoxylate HCl/ Atropine (Lomotil) 1 tab DAILY PO ; Start 05/13/18 at 12:30 Fluticasone Propionate (Flonase) 2 spray DAILY NS ; Start 05/13/18 at 12:30 Furosemide (Lasix) 40 mg DAILY PO ; Start 05/13/18 at 12:30 Guaifenesin (Mucinex) 600 mg BID PO ; Start 05/13/18 at 12:30 Insulin Human Lispro (HumaLOG) 40 units TIDWMEALS SQ ; Start 05/13/18 at 12:30 Levothyroxine Sodium (Synthroid) 175 mcg DAILY06 PO ; Start 05/13/18 at 12:30 Mupirocin (Bactroban) 1 melissa PRN TID PRN TP skin sores; Start 05/13/18 at 11:45 Nystatin (Nystop) 1 melissa BID TP ; Start 05/13/18 at 12:30 Oxycodone/ Acetaminophen (Percocet 10/325) 1 tab PRN Q6HRS PRN PO BREAKTHRU PAIN, 2nd CHOICE; Start 05/13/18 at 11:45 Pantoprazole Sodium (Protonix) 40 mg DAILYAC PO ; Start 05/13/18 at 12:30 Prednisone (Prednisone) 40 mg DAILY PO ; Start 05/13/18 at 12:30 Benzonatate (Tessalon Perle) 100 mg [id number] PO ; Start 05/13/18 at 14:00 Budesonide (Pulmicort) 0.5 mg RTBID NEB ; Start 05/13/18 at 13:00 Diphenhydramine HCl (Benadryl) 50 mg PRN Q6HRS PRN PO ITCHING; Start 05/13/18 at 12:00 Doxycycline Hyclate (Vibra-Tab) 100 mg BID PO ; Start 05/13/18 at 21:00 Fenofibrate (Lofibra) 134 mg DAILY PO ; Start 05/13/18 at 12:30 Gabapentin (Neurontin) 600 mg QID PO ; Start 05/13/18 at 13:00 Non-Formulary Medication (Levalbuterol Hcl (Xopenex)) 1 vial TID NEB ; Start 05/13/18 at 14:00; Status UNV Loperamide HCl (Imodium) 2 mg PRN Q15MIN PRN PO DIARRHEA; Start 05/13/18 at 12: 00 Losartan Potassium (Cozaar) 100 mg DAILY PO ; Start 05/13/18 at 12:30 Ondansetron HCl (Zofran Odt) 4 mg PRN Q6HRS PRN PO NAUSEA/VOMITING; Start at 12:15 Oxcarbazepine (Trileptal) 300 mg QHS PO ; Start 05/13/18 at 21:00 Oxycodone HCl (Roxicodone) 10 mg PRN Q6HRS PRN PO BREAKTHRU PAIN, 1st CHOICE; Start 05/13/18 at 12:15 Sotalol HCl (Betapace) 80 mg BID PO ; Start 05/13/18 at 12:30 Sucralfate (Carafate) 1 gm QIDACHS PO ; Start 05/13/18 at 16:30 Non-Formulary Medication (Tiotropium [place] (Spiriva)) 1 cap DAILY IH ; Start 05/14/18 at 09:00; Status UNV Venlafaxine HCl (Effexor Xr) 75 mg DAILY PO ; Start 05/13/18 at 12:30 Heparin Sodium (Porcine) (Heparin Sodium) 5,000 unit Q12HR SQ ; Start 05/13/18 at 12:30 Albuterol/ Ipratropium (Duoneb) 3 ml RTQID NEB ; Start 05/13/18 at 13:00 Active Scripts Active Doxycycline Hyclate 100 Mg Capsule 1 Cap PO BID Percocet 10-325 Mg Tablet (Oxycodone/Acetaminophen) 1 Each Tablet 1 Tab PO Q4 -6HRS Prednisone 20 Mg Tablet 40 Mg PO DAILY 4 Days Humalog (Insulin Lispro) 100 Unit/1 Ml Insuln.pen 40 Units SQ TIDWMEALS 30 Days Mucinex (Guaifenesin) 600 Mg Tablet.er 600 Mg PO BID 7 Days Tessalon Perle (Benzonatate) 100 Mg Capsule 1 Cap PO TID Oxycodone Hcl Immed.release (Oxycodone Hcl) 10 Mg Tablet 1 Tab PO QID PRN Sucralfate 1 Gm/10 Ml Oral.susp 1 Gm PO QIDACHS Pantoprazole Sodium 40 Mg Tablet.dr 40 Mg PO DAILYAC Furosemide 40 Mg Tablet 1 Tab PO DAILY Mupirocin Ointment (Mupirocin) 22 Gm Oint...g. 22 Gm TP PRN TID PRN Zofran (Ondansetron Hcl) 4 Mg Tablet 1 Tab PO PRN Q6-8HRS Spiriva (Tiotropium [place]) 18 Mcg Cap.w.dev 1 Cap IH DAILY Xopenex (Levalbuterol Hcl) 1.25 Mg/3 Ml Vial.neb 1 Vial NEB TID Fenofibrate (Fenofibrate Nanocrystallized) 145 Mg Tablet 1 Tab PO DAILY Losartan Potassium 100 Mg Tablet 100 Mg PO DAILY Sotalol (Sotalol Hcl) 80 Mg Tablet 80 Mg PO BID Symbicort 160-4.5 Mcg Inhaler (Budesonide/Formoterol Fumarate) 10.2 Gm Hfa.aer.ad 2 Puff IH BID Reported Diphenhydramine Hcl 50 Mg Capsule 50 Mg PO PRN Q6HRS PRN Colestid (Colestipol Hcl) 1 Gm Tablet 1 Gm PO BID Lomotil Tablet (Diphenoxylate Hcl/Atropine) 1 Each Tablet 1 Each PO DAILY Levothyroxine Sodium 175 Mcg Tablet 1 Tab PO DAILY Vitamin D2 (Ergocalciferol (Vitamin D2)) 50,000 Unit Capsule 50,000 Unit PO Venlafaxine Hcl Er (Venlafaxine Hcl) 75 Mg Cap.er.24h 1 Cap PO DAILY Anti-Diarrhea (Loperamide Hcl) 2 Mg Tablet 2 Mg PO PRN PRN Fluticasone Propionate Nasal [place] (Fluticasone Propionate) 16 Gm [place].susp 2 [place] NS DAILY Vitamin D3 (Cholecalciferol (Vitamin D3)) 1,000 Unit Tablet 1,000 Unit PO Amlodipine Besylate 5 Mg Tablet 5 Mg PO DAILY Nystatin 15 Gm Powder 1 Melissa TP BID Melatonin 3 Mg Tablet 5 Mg PO Digoxin 125 Mcg Tablet 1 Tab PO DAILY Oxcarbazepine 300 Mg Tablet 1 Tab PO HS Gabapentin 600 Mg Tablet 600 Mg PO QID Abilify (Aripiprazole) 5 Mg Tablet 5 Mg PO DAILY Plavix (Clopidogrel Bisulfate) 75 Mg Tablet 75 Mg PO DAILY Cetirizine Hcl 10 Mg Tablet 10 Mg PO DAILY Allergies Allergies: Coded Allergies: Cephalexin Monohydrate (Verified Allergy, Intermediate, 04/18/14) Penicillins (Verified Allergy, Intermediate, 10/17/16) HAS TOLERATED AMOXICILLIN Sulfa (Sulfonamide Antibiotics) (Verified Allergy, Intermediate, 04/18/14) aspirin (Verified Allergy, Intermediate, 04/18/14) codeine (Verified Allergy, Intermediate, Previously tolerated morphine ( per pt and chart 12/2013), 07/17/14) diclofenac sodium (Verified Allergy, Intermediate, 04/18/14) nabumetone (Verified Allergy, Intermediate, 04/18/14) tomato (Verified Allergy, Intermediate, 04/18/14) morphine (Verified Adverse Reaction, Mild, itching, 11/26/16) ROS General: YES: Fatigue, Malaise Respiratory: YES: SOB with excertion Physical Exam General: No acute distress HEENT: Atraumatic Lungs: Other (mildly decreased breath sounds.) Heart: Regular rate Abdomen: Normal bowel sounds Vitals VITALS Vital Signs Date Time Temp Pulse Resp B/P (MAP) Pulse Ox O2 Delivery O2 Flow Rate FiO2 05/13/18 11:26 96 Nasal Cannula 2.0 05/13/18 11:08 98.0 85 16 131/75 (93) 98.0 Labs Labs Laboratory Tests Test 05/12/18 22:25 05/12/18 22:41 05/12/18 23:20 05/13/18 02:38 Influenza Type A Antigen Negative (NEGATIVE) Influenza Type B Antigen Negative (NEGATIVE) O2 Saturation 92 % (92-99) Arterial Blood pH 7.37 (7.35-7.45) Arterial Blood pCO2 at Patient Temp 46 mmHg (35-46) Arterial Blood pO2 at Patient Temp 63 mmHg (75-108) Arterial Blood HCO3 26 mmol/L (21-28) Arterial Blood Base Excess 0 mmol/L (-3-3) FiO2 28 White Blood Count 19.3 x10^3/uL (4.0-11.0) Red Blood Count 4.53 x10^6/uL (3.50-5.40) Hemoglobin 13.1 g/dL (12.0-15.5) Hematocrit 40.8 % (36.0-47.0) Mean Corpuscular Volume 90 fL (79-100) Mean Corpuscular Hemoglobin 29 pg (25-35) Mean Corpuscular Hemoglobin Concent 32 g/dL (31-37) Red Cell Distribution Width 15.1 % (11.5-14.5) Platelet Count 233 x10^3/uL (140-400) Neutrophils (%) (Auto) 76 % (31-73) Lymphocytes (%) (Auto) 14 % (24-48) Monocytes (%) (Auto) 8 % (0-9) Eosinophils (%) (Auto) 1 % (0-3) Basophils (%) (Auto) 1 % (0-3) Neutrophils # (Auto) 14.7 x10^3uL (1.8-7.7) Lymphocytes # (Auto) 2.8 x10^3/uL (1.0-4.8) Monocytes # (Auto) 1.5 x10^3/uL (0.0-1.1) Eosinophils # (Auto) 0.2 x10^3/uL (0.0-0.7) Basophils # (Auto) 0.1 x10^3/uL (0.0-0.2) Segmented Neutrophils % 78 % (35-66) Lymphocytes % 12 % (24-48) Monocytes % 8 % (0-10) Eosinophils % 2 % (0-5) Platelet Estimate Adequate (ADEQUATE) Polychromasia Slight Anisocytosis Slight Sodium Level 135 mmol/L (136-145) Potassium Level 4.3 mmol/L (3.5-5.1) Chloride Level 101 mmol/L (98-107) Carbon Dioxide Level 25 mmol/L (21-32) Anion Gap 9 (6-14) Blood Urea Nitrogen 22 mg/dL (7-20) Creatinine 0.8 mg/dL (0.6-1.0) Estimated GFR (Cockcroft-Gault) 73.9 BUN/Creatinine Ratio 28 (6-20) Glucose Level 304 mg/dL (70-99) Lactic Acid Level 1.3 mmol/L (0.4-2.0) Calcium Level 9.5 mg/dL (8.5-10.1) Total Bilirubin 0.4 mg/dL (0.2-1.0) Aspartate Amino Transf (AST/SGOT) 30 U/L (15-37) Alanine Aminotransferase (ALT/SGPT) 29 U/L (14-59) Alkaline Phosphatase 239 U/L (46-116) Ammonia 17 mcmol/L (11-34) ZK-Ulz-O-Type Natriuretic Peptide 158 pg/mL (0-124) Total Protein 7.2 g/dL (6.4-8.2) Albumin 2.5 g/dL (3.4-5.0) Albumin/Globulin Ratio 0.5 (1.0-1.7) Thyroid Stimulating Hormone (TSH) 7.740 uIU/mL (0.358-3.74) Digoxin Level 0.5 ng/mL (0.9-2.0) Digoxin Last Dose Date Unk Digoxin Last Dose Time Unk Glucose (Fingerstick) 412 mg/dL (70-99) Test 05/13/18 03:00 05/13/18 06:30 05/13/18 07:22 05/13/18 07:55 Troponin I Quantitative < 0.017 ng/mL (0.000-0.055) < 0.017 ng/mL (0.000-0.055) Urine Collection Type Unknown Urine Color Estephania Urine Clarity Clear Urine pH 5.5 Urine Specific Stuart >=1.030 Urine Protein Negative mg/dL (NEG-TRACE) Urine Glucose (UA) >=1000 mg/dL (NEG) Urine Ketones (Stick) Negative mg/dL (NEG) Urine Blood Negative (NEG) Urine Nitrite Negative (NEG) Urine Bilirubin Small (NEG) Urine Urobilinogen Dipstick 1.0 mg/dL (0.2 mg/dL) Urine Leukocyte Esterase Negative (NEG) Urine RBC 0 /HPF (0-2) Urine WBC 1-4 /HPF (0-4) Urine Squamous Epithelial Cells Many /LPF Urine Bacteria Few /HPF (0-FEW) Urine Hyaline Casts Moderate /HPF Urine Mucus Marked /LPF Glucose (Fingerstick) 370 mg/dL (70-99) White Blood Count 13.1 x10^3/uL (4.0-11.0) Red Blood Count 4.62 x10^6/uL (3.50-5.40) Hemoglobin 13.4 g/dL (12.0-15.5) Hematocrit 41.9 % (36.0-47.0) Mean Corpuscular Volume 91 fL (79-100) Mean Corpuscular Hemoglobin 29 pg (25-35) Mean Corpuscular Hemoglobin Concent 32 g/dL (31-37) Red Cell Distribution Width 15.1 % (11.5-14.5) Platelet Count 198 x10^3/uL (140-400) Neutrophils (%) (Auto) 71 % (31-73) Lymphocytes (%) (Auto) 20 % (24-48) Monocytes (%) (Auto) 7 % (0-9) Eosinophils (%) (Auto) 1 % (0-3) Basophils (%) (Auto) 1 % (0-3) Neutrophils # (Auto) 9.2 x10^3uL (1.8-7.7) Lymphocytes # (Auto) 2.7 x10^3/uL (1.0-4.8) Monocytes # (Auto) 0.9 x10^3/uL (0.0-1.1) Eosinophils # (Auto) 0.2 x10^3/uL (0.0-0.7) Basophils # (Auto) 0.1 x10^3/uL (0.0-0.2) Sodium Level 137 mmol/L (136-145) Potassium Level 4.5 mmol/L (3.5-5.1) Chloride Level 101 mmol/L (98-107) Carbon Dioxide Level 29 mmol/L (21-32) Anion Gap 7 (6-14) Blood Urea Nitrogen 20 mg/dL (7-20) Creatinine 0.9 mg/dL (0.6-1.0) Estimated GFR (Cockcroft-Gault) 64.5 BUN/Creatinine Ratio 22 (6-20) Glucose Level 391 mg/dL (70-99) Calcium Level 8.8 mg/dL (8.5-10.1) Total Bilirubin 0.4 mg/dL (0.2-1.0) Aspartate Amino Transf (AST/SGOT) 22 U/L (15-37) Alanine Aminotransferase (ALT/SGPT) 31 U/L (14-59) Alkaline Phosphatase 241 U/L (46-116) Total Protein 6.7 g/dL (6.4-8.2) Albumin 2.5 g/dL (3.4-5.0) Albumin/Globulin Ratio 0.6 (1.0-1.7) Free Thyroxine 0.92 ng/dL (0.76-1.46) Test 05/13/18 12:30 Glucose (Fingerstick) 459 mg/dL (70-99) Laboratory Tests Test 05/12/18 22:25 05/12/18 22:41 05/12/18 23:20 05/13/18 02:38 Influenza Type A Antigen Negative (NEGATIVE) Influenza Type B Antigen Negative (NEGATIVE) O2 Saturation 92 % (92-99) Arterial Blood pH 7.37 (7.35-7.45) Arterial Blood pCO2 at Patient Temp 46 mmHg (35-46) Arterial Blood pO2 at Patient Temp 63 mmHg (75-108) Arterial Blood HCO3 26 mmol/L (21-28) Arterial Blood Base Excess 0 mmol/L (-3-3) FiO2 28 White Blood Count 19.3 x10^3/uL (4.0-11.0) Red Blood Count 4.53 x10^6/uL (3.50-5.40) Hemoglobin 13.1 g/dL (12.0-15.5) Hematocrit 40.8 % (36.0-47.0) Mean Corpuscular Volume 90 fL (79-100) Mean Corpuscular Hemoglobin 29 pg (25-35) Mean Corpuscular Hemoglobin Concent 32 g/dL (31-37) Red Cell Distribution Width 15.1 % (11.5-14.5) Platelet Count 233 x10^3/uL (140-400) Neutrophils (%) (Auto) 76 % (31-73) Lymphocytes (%) (Auto) 14 % (24-48) Monocytes (%) (Auto) 8 % (0-9) Eosinophils (%) (Auto) 1 % (0-3) Basophils (%) (Auto) 1 % (0-3) Neutrophils # (Auto) 14.7 x10^3uL (1.8-7.7) Lymphocytes # (Auto) 2.8 x10^3/uL (1.0-4.8) Monocytes # (Auto) 1.5 x10^3/uL (0.0-1.1) Eosinophils # (Auto) 0.2 x10^3/uL (0.0-0.7) Basophils # (Auto) 0.1 x10^3/uL (0.0-0.2) Segmented Neutrophils % 78 % (35-66) Lymphocytes % 12 % (24-48) Monocytes % 8 % (0-10) Eosinophils % 2 % (0-5) Platelet Estimate Adequate (ADEQUATE) Polychromasia Slight Anisocytosis Slight Sodium Level 135 mmol/L (136-145) Potassium Level 4.3 mmol/L (3.5-5.1) Chloride Level 101 mmol/L (98-107) Carbon Dioxide Level 25 mmol/L (21-32) Anion Gap 9 (6-14) Blood Urea Nitrogen 22 mg/dL (7-20) Creatinine 0.8 mg/dL (0.6-1.0) Estimated GFR (Cockcroft-Gault) 73.9 BUN/Creatinine Ratio 28 (6-20) Glucose Level 304 mg/dL (70-99) Lactic Acid Level 1.3 mmol/L (0.4-2.0) Calcium Level 9.5 mg/dL (8.5-10.1) Total Bilirubin 0.4 mg/dL (0.2-1.0) Aspartate Amino Transf (AST/SGOT) 30 U/L (15-37) Alanine Aminotransferase (ALT/SGPT) 29 U/L (14-59) Alkaline Phosphatase 239 U/L (46-116) Ammonia 17 mcmol/L (11-34) HK-Atu-Y-Type Natriuretic Peptide 158 pg/mL (0-124) Total Protein 7.2 g/dL (6.4-8.2) Albumin 2.5 g/dL (3.4-5.0) Albumin/Globulin Ratio 0.5 (1.0-1.7) Thyroid Stimulating Hormone (TSH) 7.740 uIU/mL (0.358-3.74) Digoxin Level 0.5 ng/mL (0.9-2.0) Digoxin Last Dose Date Unk Digoxin Last Dose Time Unk Glucose (Fingerstick) 412 mg/dL (70-99) Test 05/13/18 03:00 05/13/18 06:30 05/13/18 07:22 05/13/18 07:55 Troponin I Quantitative < 0.017 ng/mL (0.000-0.055) < 0.017 ng/mL (0.000-0.055) Urine Collection Type Unknown Urine Color Estephania Urine Clarity Clear Urine pH 5.5 Urine Specific [place] >=1.030 Urine Protein Negative mg/dL (NEG-TRACE) Urine Glucose (UA) >=1000 mg/dL (NEG) Urine Ketones (Stick) Negative mg/dL (NEG) Urine Blood Negative (NEG) Urine Nitrite Negative (NEG) Urine Bilirubin Small (NEG) Urine Urobilinogen Dipstick 1.0 mg/dL (0.2 mg/dL) Urine Leukocyte Esterase Negative (NEG) Urine RBC 0 /HPF (0-2) Urine WBC 1-4 /HPF (0-4) Urine Squamous Epithelial Cells Many /LPF Urine Bacteria Few /HPF (0-FEW) Urine Hyaline Casts Moderate /HPF Urine Mucus Marked /LPF Glucose (Fingerstick) 370 mg/dL (70-99) White Blood Count 13.1 x10^3/uL (4.0-11.0) Red Blood Count 4.62 x10^6/uL (3.50-5.40) Hemoglobin 13.4 g/dL (12.0-15.5) Hematocrit 41.9 % (36.0-47.0) Mean Corpuscular Volume 91 fL (79-100) Mean Corpuscular Hemoglobin 29 pg (25-35) Mean Corpuscular Hemoglobin Concent 32 g/dL (31-37) Red Cell Distribution Width 15.1 % (11.5-14.5) Platelet Count 198 x10^3/uL (140-400) Neutrophils (%) (Auto) 71 % (31-73) Lymphocytes (%) (Auto) 20 % (24-48) Monocytes (%) (Auto) 7 % (0-9) Eosinophils (%) (Auto) 1 % (0-3) Basophils (%) (Auto) 1 % (0-3) Neutrophils # (Auto) 9.2 x10^3uL (1.8-7.7) Lymphocytes # (Auto) 2.7 x10^3/uL (1.0-4.8) Monocytes # (Auto) 0.9 x10^3/uL (0.0-1.1) Eosinophils # (Auto) 0.2 x10^3/uL (0.0-0.7) Basophils # (Auto) 0.1 x10^3/uL (0.0-0.2) Sodium Level 137 mmol/L (136-145) Potassium Level 4.5 mmol/L (3.5-5.1) Chloride Level 101 mmol/L (98-107) Carbon Dioxide Level 29 mmol/L (21-32) Anion Gap 7 (6-14) Blood Urea Nitrogen 20 mg/dL (7-20) Creatinine 0.9 mg/dL (0.6-1.0) Estimated GFR (Cockcroft-Gault) 64.5 BUN/Creatinine Ratio 22 (6-20) Glucose Level 391 mg/dL (70-99) Calcium Level 8.8 mg/dL (8.5-10.1) Total Bilirubin 0.4 mg/dL (0.2-1.0) Aspartate Amino Transf (AST/SGOT) 22 U/L (15-37) Alanine Aminotransferase (ALT/SGPT) 31 U/L (14-59) Alkaline Phosphatase 241 U/L (46-116) Total Protein 6.7 g/dL (6.4-8.2) Albumin 2.5 g/dL (3.4-5.0) Albumin/Globulin Ratio 0.6 (1.0-1.7) Free Thyroxine 0.92 ng/dL (0.76-1.46) Test 05/13/18 12:30 Glucose (Fingerstick) 459 mg/dL (70-99) Images Images Chest x-ray shows mild bilateral opacities. Assessment/Plan Assessment/Plan 1. Acute on chronic diastolic heart failure. Most recent echocardiogram from December 2017 shows intact LV systolic function but mild left ventricular hypertrophy. We'll continue with diuresis with monitoring of the patient's lab. 2. Apparently a brief episode of chest pain yesterday. No acute EKG changes or significant elevation in troponin. Heart catheterization on 11/26/16 shows no significant coronary disease. We'll continue present medications and monitoring. 3. Possible overuse of oxycodone. As noted in the ER note Narcan improved her lower consciousness. 4. Follow-up. COPD. Continue present medications. 5. Probable sleep apnea. Patient is obese. Would consider outpatient sleep standing. 6. History of hepatitis B. 7. Poorly controlled diabetes. 8. Hypertension. Continue present treatments and monitor. Thank you for allowing us to participate in the care of your patient. MARLON FONSECA MD May 13, 2018 13:51
[2018-05-13] MEDS: INSULIN LISPRO 300 UNITS/3 ML INSULN.PEN. SQ SCH ×2 (13:53→16:59)
[2018-05-13] MEDS ORDERED: NON FORMULARY ITEM (Levalbuterol Hcl (Xopenex) 1 VIAL) NEB SCH (14:00)
[2018-05-13] MEDS: BENZONATATE 100 MG CAPSULE. PO SCH ×2 (14:24→22:06)
[2018-05-13] MEDS ORDERED: VITS A & D/LANOLIN TOPICAL OINTMENT 56GM TUBE. TP PRN (15:00)
[2018-05-13] MEDS ORDERED: NEOMY/BACITR/POLYMYXIN OINT PACKET. TP PRN (15:00)
[2018-05-13] MEDS: SUCRALFATE 1 GM TABLET. PO SCH ×2 (16:30→22:07)
[2018-05-13] MEDS ORDERED: LIPA1CAP8 PO (16:51)
[2018-05-13] MEDS: oxyCODONE IR 5 MG TABLET PO PRN (16:54)
[2018-05-13] MEDS ORDERED: OXcarbazepine 300 MG TABLET PO SCH (21:00)
[2018-05-13] MEDS: LACTOBACILLUS RHAMNOSUS GG 1 CAPSULE. PO SCH (22:06)
[2018-05-13] MEDS: COLESTIPOL HCL 1 GM TABLET PO SCH (22:06)
[2018-05-13] MEDS: DOXYCYCLINE HYCLATE 100 MG TABLET PO SCH (22:07)
[2018-05-13 23:21] LABS: BARBITURATES NEG (NEG); BENZODIAZEPINES NEG (NEG); CANNABINOIDS NEG (NEG); COCAINE NEG (NEG); METHADONE NEG (NEG); OPIATES NEG (NEG); PHENCYCLIDINE NEG (NEG)
[2018-05-13 23:22] LABS: AMPHETAMINE/METHAMPHETAMINE NEG (NEG)
[2018-05-14 03:15] VITALS: BP 121/57
[2018-05-14] MEDS: LEVOTHYROXINE 175 MCG TABLET PO SCH (03:36)
[2018-05-14] MEDS: oxyCODONE IR 5 MG TABLET PO PRN (03:36)
[2018-05-14 07:12] VITALS: BP 95/55
[2018-05-14] MEDS: SUCRALFATE 1 GM TABLET. PO SCH ×2 (07:30→11:30)
[2018-05-14] MEDS: BUDESONIDE 0.5 MG/2 ML NEBU. NEB SCH (08:05)
[2018-05-14] MEDS: IPRATRPIUM/ALBUTEROL 0.5/2.5MG 3 ML NEBU. NEB SCH ×2 (08:05→12:50)
[2018-05-14] MEDS: DOXYCYCLINE HYCLATE 100 MG TABLET PO SCH (08:18)
[2018-05-14] MEDS: LACTOBACILLUS RHAMNOSUS GG 1 CAPSULE. PO SCH (08:18)
[2018-05-14] MEDS: DIGOXIN 125 MCG TABLET. PO SCH (08:19)
[2018-05-14] MEDS: FENOFIBRATE,MICRONIZED 134 MG CAPSULE PO SCH (08:19)
[2018-05-14] MEDS: SOTALOL 80 MG TABLET. PO SCH (08:19)
[2018-05-14] MEDS: GABAPENTIN 300 MG CAPSULE. PO SCH ×2 (08:19→12:44)
[2018-05-14] MEDS: CLOPIDOGREL BISULFATE 75 MG TABLET PO SCH (08:20)
[2018-05-14] MEDS: LOSARTAN POTASSIUM 50 MG TABLET. PO SCH (08:20)
[2018-05-14] MEDS: COLESTIPOL HCL 1 GM TABLET PO SCH (08:20)
[2018-05-14] MEDS: BENZONATATE 100 MG CAPSULE. PO SCH (08:21)
[2018-05-14] MEDS: FUROSEMIDE 40 MG TABLET. PO SCH (08:21)
[2018-05-14] MEDS: amLODIPine BESYLATE 5 MG TABLET PO SCH (08:21)
[2018-05-14] MEDS: CETIRIZINE HCL 10 MG TABLET. PO SCH (08:21)
[2018-05-14] MEDS: DIPHENOXYLATE/ATROPINE TABLET. PO SCH (08:21)
[2018-05-14] MEDS: FLUTICASONE 50MCG/NASAL SPRAY 16GM BOTTLE. NS SCH (08:21)
[2018-05-14] MEDS: PANTOPRAZOLE 40 MG TABLET.DR. PO SCH (08:21)
[2018-05-14] MEDS: ARIPiprazole 5 MG TABLET PO SCH (08:21)
[2018-05-14] MEDS: VENLAFAXINE XR 37.5 MG CAP.ER.24H. PO SCH (08:22)
[2018-05-14] MEDS: predniSONE 20 MG TABLET PO SCH (08:23)
[2018-05-14] MEDS: NYSTATIN TOPICAL POWDER 15GM BOTTLE. TP SCH (08:24)
[2018-05-14] MEDS: INSULIN GLARGINE 300 UNITS/3 ML INSULN.PEN. SQ SCH (08:28)
[2018-05-14] MEDS: INSULIN LISPRO 300 UNITS/3 ML INSULN.PEN. SQ SCH ×2 (08:28→12:47)
[2018-05-14] MEDS: HEPARIN for SUB-Q USE 5,000 UNIT/ML VIAL. SQ SCH (08:29)
[2018-05-14] MEDS ORDERED: NON FORMULARY ITEM (Tiotropium Bromide (Spiriva) 1 CAP) IH SCH (09:00)
[2018-05-14 10:38] VITALS: BP 122/70
--- NOTE | 2018-05-14 11:58 | PDOC3 ---
Discharge Summary Visit Information Date of Admission: May 13, 2018 Date of Discharge: May 14, 2018 Admitting Diagnosis Comment: Encephalopathy most likely secondary to narcotic use and may have a component of obesity hypoventilation syndrome given her BMI of 48 currently results hyponatremia secondary to hyperglycemia History of CHF which seems to be chronic in nature with diastolic dysfunction currently compensated Chest pain? Atypical in nature unlikely ACS will continue to follow troponins Morbid obesity with a BMI of 48 Suspicion for obesity hypoventilation syndrome Elevated TSH. Hypothyroidism? Leukocytosis with left shift etiology undetermined we'll send urine culture Final Diagnosis Encephalopathy most likely secondary to narcotic use and may have a component of obesity hypoventilation syndrome given her BMI of 48 currently results hyponatremia secondary to hyperglycemia resolved History of CHF which seems to be chronic in nature with diastolic dysfunction currently compensated Chest pain? Atypical in nature ACS ruled out Morbid obesity with a BMI of 48 Suspicion for obesity hypoventilation syndrome Elevated TSH. Hypothyroidism? Leukocytosis empirically will treat for bronchitis and UTI Brief Hospital Course Allergies Allergies Coded Allergies Type Severity Reaction Last Updated Verified Cephalexin Monohydrate Allergy Intermediate 04/18/14 Yes Penicillins Allergy Intermediate 10/17/16 Yes Sulfa (Sulfonamide Antibiotics) Allergy Intermediate 04/18/14 Yes aspirin Allergy Intermediate 04/18/14 Yes codeine Allergy Intermediate Previously tolerated morphine (per pt and chart 12/2013) 07/17/14 Yes diclofenac sodium Allergy Intermediate 04/18/14 Yes nabumetone Allergy Intermediate 04/18/14 Yes tomato Allergy Intermediate 04/18/14 Yes morphine Adverse Reaction Mild itching 11/26/16 Yes Vital Signs Vital Signs Date Time Temp Pulse Resp B/P (MAP) Pulse Ox O2 Delivery O2 Flow Rate FiO2 05/14/18 10:38 98.2 70 20 122/70 (87) 98 Nasal Cannula 2.0 98.2 Gen.: Morbidly obese older than the stated age chronically ill appearing in no apparent distress Head: Normal shape atraumatic Eyes: Pupils equal reactive to light and accommodation, normal conjunctivae and lids Ears: Normal shape Nose: Normal shape no trauma Mouth: No exudates of the back of throat no thrush no lesions Neck: Supple no JVD no carotid bruit or lymphadenopathy no thyromegaly Chest: Lungs clear to auscultation with good inspiratory effort no crackles rales or rhonchi Cardiovascular: S1-S2 regular rhythm no murmurs gallops or rubs Abdomen: Bowel sounds present soft nontender no hepatosplenomegaly appreciated sign Extremities: No clubbing no cyanosis no edema peripheral pulses palpated bilaterally Neurological: Alert awake oriented in person time place and situation, cranial nerves II through XII intact, no motor or sensory deficits appreciated Psych: Appropriate mood, cooperative Skin multiple lesions over her torso probably a consequence of scratching self- inflicted trauma and she has healed scars over her lower extremity where she reports she has had several blisters in the past no purulent discharge nor erythema no cellulitic changes evident Lab Results Laboratory Tests Test 05/12/18 22:25 05/12/18 22:41 05/12/18 23:20 05/13/18 02:38 Influenza Type A Antigen Negative (NEGATIVE) Influenza Type B Antigen Negative (NEGATIVE) O2 Saturation 92 % (92-99) Arterial Blood pH 7.37 (7.35-7.45) Arterial Blood pCO2 at Patient Temp 46 mmHg (35-46) Arterial Blood pO2 at Patient Temp 63 mmHg (75-108) Arterial Blood HCO3 26 mmol/L (21-28) Arterial Blood Base Excess 0 mmol/L (-3-3) FiO2 28 White Blood Count 19.3 x10^3/uL (4.0-11.0) Red Blood Count 4.53 x10^6/uL (3.50-5.40) Hemoglobin 13.1 g/dL (12.0-15.5) Hematocrit 40.8 % (36.0-47.0) Mean Corpuscular Volume 90 fL (79-100) Mean Corpuscular Hemoglobin 29 pg (25-35) Mean Corpuscular Hemoglobin Concent 32 g/dL (31-37) Red Cell Distribution Width 15.1 % (11.5-14.5) Platelet Count 233 x10^3/uL (140-400) Neutrophils (%) (Auto) 76 % (31-73) Lymphocytes (%) (Auto) 14 % (24-48) Monocytes (%) (Auto) 8 % (0-9) Eosinophils (%) (Auto) 1 % (0-3) Basophils (%) (Auto) 1 % (0-3) Neutrophils # (Auto) 14.7 x10^3uL (1.8-7.7) Lymphocytes # (Auto) 2.8 x10^3/uL (1.0-4.8) Monocytes # (Auto) 1.5 x10^3/uL (0.0-1.1) Eosinophils # (Auto) 0.2 x10^3/uL (0.0-0.7) Basophils # (Auto) 0.1 x10^3/uL (0.0-0.2) Segmented Neutrophils % 78 % (35-66) Lymphocytes % 12 % (24-48) Monocytes % 8 % (0-10) Eosinophils % 2 % (0-5) Platelet Estimate Adequate (ADEQUATE) Polychromasia Slight Anisocytosis Slight Sodium Level 135 mmol/L (136-145) Potassium Level 4.3 mmol/L (3.5-5.1) Chloride Level 101 mmol/L (98-107) Carbon Dioxide Level 25 mmol/L (21-32) Anion Gap 9 (6-14) Blood Urea Nitrogen 22 mg/dL (7-20) Creatinine 0.8 mg/dL (0.6-1.0) Estimated GFR (Cockcroft-Gault) 73.9 BUN/Creatinine Ratio 28 (6-20) Glucose Level 304 mg/dL (70-99) Lactic Acid Level 1.3 mmol/L (0.4-2.0) Calcium Level 9.5 mg/dL (8.5-10.1) Total Bilirubin 0.4 mg/dL (0.2-1.0) Aspartate Amino Transf (AST/SGOT) 30 U/L (15-37) Alanine Aminotransferase (ALT/SGPT) 29 U/L (14-59) Alkaline Phosphatase 239 U/L (46-116) Ammonia 17 mcmol/L (11-34) XT-Dqb-C-Type Natriuretic Peptide 158 pg/mL (0-124) Total Protein 7.2 g/dL (6.4-8.2) Albumin 2.5 g/dL (3.4-5.0) Albumin/Globulin Ratio 0.5 (1.0-1.7) Thyroid Stimulating Hormone (TSH) 7.740 uIU/mL (0.358-3.74) Digoxin Level 0.5 ng/mL (0.9-2.0) Digoxin Last Dose Date Unk Digoxin Last Dose Time Unk Glucose (Fingerstick) 412 mg/dL (70-99) Test 05/13/18 03:00 05/13/18 06:30 4/6/19 07:22 05/13/18 07:55 Troponin I Quantitative < 0.017 ng/mL (0.000-0.055) < 0.017 ng/mL (0.000-0.055) Urine Collection Type Unknown Urine Color Estephania Urine Clarity Clear Urine pH 5.5 Urine Specific [place] >=1.030 Urine Protein Negative mg/dL (NEG-TRACE) Urine Glucose (UA) >=1000 mg/dL (NEG) Urine Ketones (Stick) Negative mg/dL (NEG) Urine Blood Negative (NEG) Urine Nitrite Negative (NEG) Urine Bilirubin Small (NEG) Urine Urobilinogen Dipstick 1.0 mg/dL (0.2 mg/dL) Urine Leukocyte Esterase Negative (NEG) Urine RBC 0 /HPF (0-2) Urine WBC 1-4 /HPF (0-4) Urine Squamous Epithelial Cells Many /LPF Urine Bacteria Few /HPF (0-FEW) Urine Hyaline Casts Moderate /HPF Urine Mucus Marked /LPF Glucose (Fingerstick) 370 mg/dL (70-99) White Blood Count 13.1 x10^3/uL (4.0-11.0) Red Blood Count 4.62 x10^6/uL (3.50-5.40) Hemoglobin 13.4 g/dL (12.0-15.5) Hematocrit 41.9 % (36.0-47.0) Mean Corpuscular Volume 91 fL (79-100) Mean Corpuscular Hemoglobin 29 pg (25-35) Mean Corpuscular Hemoglobin Concent 32 g/dL (31-37) Red Cell Distribution Width 15.1 % (11.5-14.5) Platelet Count 198 x10^3/uL (140-400) Neutrophils (%) (Auto) 71 % (31-73) Lymphocytes (%) (Auto) 20 % (24-48) Monocytes (%) (Auto) 7 % (0-9) Eosinophils (%) (Auto) 1 % (0-3) Basophils (%) (Auto) 1 % (0-3) Neutrophils # (Auto) 9.2 x10^3uL (1.8-7.7) Lymphocytes # (Auto) 2.7 x10^3/uL (1.0-4.8) Monocytes # (Auto) 0.9 x10^3/uL (0.0-1.1) Eosinophils # (Auto) 0.2 x10^3/uL (0.0-0.7) Basophils # (Auto) 0.1 x10^3/uL (0.0-0.2) Sodium Level 137 mmol/L (136-145) Potassium Level 4.5 mmol/L (3.5-5.1) Chloride Level 101 mmol/L (98-107) Carbon Dioxide Level 29 mmol/L (21-32) Anion Gap 7 (6-14) Blood Urea Nitrogen 20 mg/dL (7-20) Creatinine 0.9 mg/dL (0.6-1.0) Estimated GFR (Cockcroft-Gault) 64.5 BUN/Creatinine Ratio 22 (6-20) Glucose Level 391 mg/dL (70-99) Calcium Level 8.8 mg/dL (8.5-10.1) Total Bilirubin 0.4 mg/dL (0.2-1.0) Aspartate Amino Transf (AST/SGOT) 22 U/L (15-37) Alanine Aminotransferase (ALT/SGPT) 31 U/L (14-59) Alkaline Phosphatase 241 U/L (46-116) Total Protein 6.7 g/dL (6.4-8.2) Albumin 2.5 g/dL (3.4-5.0) Albumin/Globulin Ratio 0.6 (1.0-1.7) Free Thyroxine 0.92 ng/dL (0.76-1.46) Test 05/13/18 12:30 05/13/18 16:53 05/13/18 20:46 05/13/18 22:25 Glucose (Fingerstick) 459 mg/dL (70-99) 338 mg/dL (70-99) 180 mg/dL (70-99) Urine Opiates Screen Neg (NEG) Urine Methadone Screen Neg (NEG) Urine Barbiturates Neg (NEG) Urine Phencyclidine Screen Neg (NEG) Urine Amphetamine/Methamphetamine Neg (NEG) Urine Benzodiazepines Screen Neg (NEG) Urine Cocaine Screen Neg (NEG) Urine Cannabinoids Screen Neg (NEG) Urine Ethyl Alcohol Neg (NEG) Test 05/14/18 08:02 05/14/18 11:20 Glucose (Fingerstick) 311 mg/dL (70-99) 214 mg/dL (70-99) Laboratory Tests Test 05/13/18 12:30 05/13/18 16:53 05/13/18 20:46 05/13/18 22:25 Glucose (Fingerstick) 459 mg/dL (70-99) 338 mg/dL (70-99) 180 mg/dL (70-99) Urine Opiates Screen Neg (NEG) Urine Methadone Screen Neg (NEG) Urine Barbiturates Neg (NEG) Urine Phencyclidine Screen Neg (NEG) Urine Amphetamine/Methamphetamine Neg (NEG) Urine Benzodiazepines Screen Neg (NEG) Urine Cocaine Screen Neg (NEG) Urine Cannabinoids Screen Neg (NEG) Urine Ethyl Alcohol Neg (NEG) Test 05/14/18 08:02 05/14/18 11:20 Glucose (Fingerstick) 311 mg/dL (70-99) 214 mg/dL (70-99) Brief Hospital Course Ms. Priest is a 57 old who presented with platelet seems to be narcotic overdose. This was not intentional and the patient was quite sleepy during her assessment in the emergency department and she responded well to Narcan was admitted to the medical floor were she was also evaluated from the cardiological standpoint of view for a vague chest pain discomfort that she had expressed to the emergency department physician. The patient did not percent ischemic changes to her telemetry and non-EKG. She has history of chronic combined systolic and diastolic dysfunction which seems to be stable at the present time, of noticed that she has also chronic ulcers over and blisters that are well-healing did not seem to be infected. She was admitted for these lesions earlier in the year but has not had a recurrence. There was a question of acute bronchitis on her x-ray and she was started promptly on levofloxacin given a white blood cell count was 20,000. This has improved on the second hospital stay and the patient did not percent fevers blood cultures remain negative. Urine culture is still pending at the present time, patient is in good spirits and would like to be dismissed home given the great improvement that she has had over the last 24 hours. I have strongly encouraged her to follow up with her primary care physician in one week and hopefully establish care with a kiln furniture saw tender noted to do an outpatient sleep study. The patient most likely is suffering also from obstructive sleep apnea which is untreated and will bring several complications to her health. I have also stressed the importance of maintaining euglycemia and controlling her diabetes mellitus in a better fashion. Her last hemoglobin A1c was recorded at 13 during her last hospital stay. She is at high risk for readmissions given her multiple comorbidities. We will try to have case management arranged for home health with the visiting nurse and ensured that she is taking her medications appropriately given the amount of medications that she needs to do on a regular basis. She has a pill organizer at home but she may not be keeping the right medications in the right place. I will provide her also with a prescription for Narcan given that she is on chronic narcotics and the risk for adverse outcomes are great in her case. Discharge Information Condition at Discharge: Improved Follow Up: Weeks (1 week with primary care) Disposition/Orders: D/C to Home w/ HH Scheduled Amlodipine Besylate (Amlodipine Besylate) 5 Mg Tablet, 5 MG PO DAILY, (Reported) Entered as Reported by: VALENCIA ANGEL on 07/24/16 0251 Last Action: Continued on 05/13/18 1144 by AZALIA VANEGAS MD Aripiprazole (Abilify) 5 Mg Tablet, 5 MG PO DAILY, #1 (Reported) Entered as Reported by: KRYSTAL CISSE on 04/02/13 0720 Last Action: Continued on 05/13/18 1144 by AZALIA VANEGAS MD Benzonatate (Tessalon Perle) 100 Mg Capsule, 1 CAP PO TID, #30 Prescribed by: FARZAD CUTLER MD on 07/26/17 1021 Last Action: Converted on 05/13/18 1144 by AZALIA VANEGAS MD Budesonide/Formoterol Fumarate (Symbicort 160-4.5 Mcg Inhaler) 10.2 Gm Hfa.aer.ad, 2 PUFF IH BID, #1 Ref 3 Prescribed by: GEORGE BERG on 06/13/14 0756 Last Action: Converted on 05/13/18 1144 by AZALIA VANEGAS MD Cetirizine Hcl (Cetirizine Hcl) 10 Mg Tablet, 10 MG PO DAILY, #1 (Reported) Entered as Reported by: KRYSTAL CISSE on 04/02/13 0703 Last Action: Continued on 05/13/18 1144 by AZALIA VANEGAS MD Clopidogrel Bisulfate (Plavix) 75 Mg Tablet, 75 MG PO DAILY, #1 (Reported) Entered as Reported by: KRYSTAL VOMASTIC on 04/02/13 0706 Last Action: Continued on 05/13/18 1144 by AZALIA VANEGAS MD Colestipol Hcl (Colestid) 1 Gm Tablet, 1 GM PO BID, (Reported) Entered as Reported by: KAREN MCCOY on 01/14/17 1347 Last Action: Continued on 05/13/18 1144 by AZALIA VANEGAS MD Digoxin (Digoxin) 125 Mcg Tablet, 1 TAB PO DAILY, #30 Ref 5 (Reported) Entered as Reported by: MARSHALL SOMERS on 06/19/14 0511 Last Action: Continued on 05/13/18 1144 by AZALIA VANEGAS MD Diphenoxylate Hcl/Atropine (Lomotil Tablet) 1 Each Tablet, 1 EACH PO DAILY, ( Reported) Entered as Reported by: KAREN MCCOY on 01/14/17 1345 Last Action: Continued on 05/13/18 1144 by AZALIA VANEGAS MD Doxycycline Hyclate (Doxycycline Hyclate) 100 Mg Capsule, 1 CAP PO BID for cellulkits, #20 Prescribed by: SHANE DIALLO on 02/02/18 1025 Last Action: Converted on 05/13/18 1144 by AZALIA VANEGAS MD Fenofibrate Nanocrystallized (Fenofibrate) 145 Mg Tablet, 1 TAB PO DAILY, #30 Ref 5 Prescribed by: NICHO FITZGERALD on 10/30/15 1224 Last Action: Converted on 05/13/18 1144 by AZALIA VANEGAS MD Fluticasone Propionate (Fluticasone Propionate Nasal [place]) 16 Gm [place].susp, 2 SPRAY NS DAILY, #1 Ref 11 (Reported) Entered as Reported by: VALENCIA ANGEL on 07/24/16 0251 Last Action: Continued on 05/13/18 1144 by AZALIA VANEGAS MD Furosemide (Furosemide) 40 Mg Tablet, 1 TAB PO DAILY, #30 Prescribed by: GEORGE BERG on 01/20/16 0748 Last Action: Continued on 05/13/18 1144 by AZALIA VANEGAS MD Gabapentin (Gabapentin) 600 Mg Tablet, 600 MG PO QID, (Reported) Entered as Reported by: HIMANSHU HOLT on 08/29/13 1746 Last Action: Converted on 05/13/18 1144 by AZALIA VANEGAS MD Guaifenesin (Mucinex) 600 Mg Tablet.er, 600 MG PO BID for 7 Days, #14 Prescribed by: FARZAD CUTLER MD on 07/26/17 1021 Last Action: Continued on 05/13/181143 by AZALIA VANEGAS MD Insulin Lispro (Humalog) 100 Unit/1 Ml Insuln.pen, 40 UNITS SQ TIDWMEALS for 30 Days Prescribed by: FARZAD CUTLER MD on 07/26/17 1021 Last Action: Continued on 05/13/18 114 by AZALIA VANEGAS MD Levalbuterol Hcl (Xopenex) 1.25 Mg/3 Ml Vial.neb, 1 VIAL NEB TID, #60 Prescribed by: NICHO FITZGERALD on 10/30/15 1224 Last Action: Converted on 05/13/181143 by AZALIA VANEGAS MD Levothyroxine Sodium (Levothyroxine Sodium) 175 Mcg Tablet, 1 TAB PO DAILY, #30 Ref 5 (Reported) Entered as Reported by: TOM ALLEN on 07/24/16 0317 Last Action: Continued on 05/13/181143 by AZALIA VANEGAS MD Lipase/Protease/Amylase (Creon Dr 36,000 Units Capsule) 1 Each Capsule.dr, 2 EACH PO TID for DIGESTION, (Reported) Entered as Reported by: SHADY WESTFALL on 05/13/181650 Last Taken: Unknown Dose on 05/12/18 Last Action: New Order on 05/13/181650 by SHADY WESTFALL Losartan Potassium (Losartan Potassium) 100 Mg Tablet, 100 MG PO DAILY, #30 Ref 2 Prescribed by: GEORGE BERG on 07/15/15 0748 Last Action: Converted on 05/13/181143 by AZALIA VANEGAS MD Nystatin (Nystatin) 15 Gm Powder, 1 MIKE TP BID, #1 (Reported) Entered as Reported by: VALENCIA ANGEL on 07/24/16 0251 Last Action: Continued on 05/13/181143 by AZALIA VANEGAS MD Ondansetron Hcl (Zofran) 4 Mg Tablet, 1 TAB PO PRN Q6-8HRS, #10 Prescribed by: WILLIAN GALLAGHER D.O. on 11/10/152127 Last Action: Converted on 05/13/18 114 by AZALIA VANEGAS MD Oxcarbazepine (Oxcarbazepine) 300 Mg Tablet, 1 TAB PO HS, #60 Ref 1 (Reported) Entered as Reported by: MEME PIMENTEL on 04/15/14 1148 Last Action: Converted on 05/13/18 1144 by AZALIA VANEGAS MD Oxycodone/Apap 10-325 (Percocet 10-325 Mg Tablet ) 1 Each Tablet, 1 TAB PO Q4- 6HRS, #10 Prescribed by: LEDY MILNER D.O. on 09/03/17 0035 Last Action: Continued on 05/13/18 114 by AZALIA VANEGAS MD Pantoprazole Sodium (Pantoprazole Sodium) 40 Mg Tablet.dr, 40 MG PO DAILYAC, # 30 Ref 5 Prescribed by: GEORGE BERG on 01/20/16 0748 Last Action: Continued on 05/13/18 114 by AZALIA VANEGAS MD Prednisone (Prednisone) 20 Mg Tablet, 40 MG PO DAILY for 4 Days, #8 Prescribed by: FARZAD CUTLER MD on 07/26/17 1026 Last Action: Continued on 05/13/181143 by AZALIA VANEGAS MD Sotalol Hcl (Sotalol) 80 Mg Tablet, 80 MG PO BID, #60 Prescribed by: GEORGE BERG on 07/15/15 0748 Last Action: Converted on 05/13/181143 by AZALIA VANEGAS MD Sucralfate (Sucralfate) 1 Gm/10 Ml Oral.susp, 1 GM PO QIDACHS, #120 Ref 1 Prescribed by: GEORGE BERG on 01/20/16 0748 Last Action: Converted on 05/13/181143 by AZALIA VANEGAS MD Tiotropium [place] (Spiriva) 18 Mcg Cap.w.dev, 1 CAP IH DAILY, #30 Ref 3 Prescribed by: NICHO FITZGERALD on 10/30/15 1224 Last Action: Converted on 05/13/181143 by AZALIA VANEGAS MD Venlafaxine Hcl (Venlafaxine Hcl Er) 75 Mg Cap.er.24h, 1 CAP PO DAILY, #90 Ref 3 (Reported) Entered as Reported by: TOM ALLEN on 6/17/17 0317 Last Action: Converted on 05/13/181143 by AZALIA VANEGAS MD Scheduled PRN Diphenhydramine Hcl (Diphenhydramine Hcl) 50 Mg Capsule, 50 MG PO PRN Q6HRS PRN for ITCHING, (Reported) Entered as Reported by: WOOD CONDE on 07/24/17 2241 Last Action: Converted on 05/13/181143 by AZALIA VANEGAS MD Loperamide Hcl (Anti-Diarrhea) 2 Mg Tablet, 2 MG PO PRN PRN for DIARRHEA, ( Reported) Entered as Reported by: TOM ALLEN on 07/24/16316 Last Action: Converted on 05/13/181143 by AZALIA VANEGAS MD Mupirocin (Mupirocin Ointment) 22 Gm Oint...g., 22 GM TP PRN TID PRN for skin sores, #1 Ref 1 Prescribed by: GEORGE BERG on 01/20/1648 Last Action: Continued on 05/13/181143 by AZALIA VANEGAS MD Oxycodone Hcl (Oxycodone Hcl Immed.release) 10 Mg Tablet, 1 TAB PO QID PRN for PAIN, #120 Prescribed by: GEORGE BERG on 01/20/1648 Last Action: Converted on 05/13/181143 by AZALIA VANEGAS MD Miscellaneous Medications Cholecalciferol (Vitamin D3) (Vitamin D3) 1,000 Unit Tablet, 1,000 UNIT PO, ( Reported) Entered as Reported by: VALENCIA ANGEL on 07/24/16250 Ergocalciferol (Vitamin D2) (Vitamin D2) 50,000 Unit Capsule, 50,000 UNIT PO, ( Reported) Entered as Reported by: TOM ALLEN on 07/24/16316 Melatonin (Melatonin) 3 Mg Tablet, 5 MG PO, (Reported) Entered as Reported by: VALENCIA ANGEL on 07/24/16250 AZALIA VANEGAS MD May 14, 2018 11:58
[2018-05-14] MEDS ORDERED: LEVO750T5 PO (12:22)
--- NOTE | 2018-05-14 12:23 | SNU/HH DC ---
DISCHARGE WITH HOME HEALTH DISCHARGE INFORMATION: Discharge Date: May 14, 2018 Final Diagnosis: Problems Medical Problems: (1) Acute on chronic diastolic (congestive) heart failure Status: Acute (2) Pneumonia Status: Acute Condition on Discharge: Stable CODE STATUS: Code Status: Full HOME HEALTH: Face to Face: I certify this patient is under my care and that I, or a nurse practitioner or physician's resident programs assistant working with me, had a face to face encounter that meets the physician face to face encounter requirements with this patient on []. Medical Complications: CHF RN For Eval/Treatment: Yes Home Health Aide For: Self-care Pt Meets Homebound Status: Extreme weakness w/ amb. POST DISCHARGE ORDERS: Activity Instructions for Disc: No restrictions Weight Bearing Status after Di: As tolerated Bathing Instructions: No Tub Bath until see Wound/Incision Care: Keep wound/cast CDI, Change dressing CHECKS AFTER DISCHARGE: Checks after discharge: Check blood press - daily, Check blood sugar, ac/hs, Check your Temp as needed, Weigh Yourself Daily TREATMENT/EQUIPMENT ORDERS: Adaptive Equipment Issued: None Discharge Respiratory Equipmen: Oxygen CERTIFICATION STATEMENT: Certification Statement: Certification Statement: Based on the above finding, I certify that this patient is confined to the home and needs intermittent assisted care, physical therapy and/or speech therapy, or continues to need occupational therapy.~ This patient is under my care, and I have initiated the establishment of the plan of care.~ This patient will be followed by myself or a community physician who will periodically review the plan of care. Home Meds Active Scripts Levofloxacin (LEVOFLOXACIN) 750 Mg Tablet, 1 TAB PO DAILY for bronchitis, #3 TAB Prov:AZALIA VANEGAS MD 05/14/18 Doxycycline Hyclate (DOXYCYCLINE HYCLATE) 100 Mg Capsule, 1 CAP PO BID for cellulkits, #20 CAP Prov:SHANE DIALLO MD 02/02/18 Oxycodone/Apap 10-325 (PERCOCET 10-325 MG TABLET ) 1 Each Tablet, 1 TAB PO Q4- 6HRS, #10 TAB Prov:LEDY MILNER DO 09/03/17 Prednisone (PREDNISONE) 20 Mg Tablet, 40 MG PO DAILY for 4 Days, #8 TAB Prov:FARZAD CUTLER MD 07/26/17 Insulin Lispro (HUMALOG) 100 Unit/1 Ml Insuln.pen, 40 UNITS SQ TIDWMEALS for 30 Days, EACH Prov:FARZAD CUTLER MD 07/26/17 Guaifenesin (MUCINEX) 600 Mg Tablet.er, 600 MG PO BID for 7 Days, #14 TAB.SR Prov:FARZAD CUTLER MD 07/26/17 Benzonatate (TESSALON PERLE) 100 Mg Capsule, 1 CAP PO TID, #30 CAP Prov:FARZAD CUTLER MD 07/26/17 Oxycodone Hcl (OXYCODONE HCL IMMED.RELEASE) 10 Mg Tablet, 1 TAB PO QID PRN for PAIN, #120 TAB Prov:GEORGE BERG MD 01/20/16 Sucralfate (SUCRALFATE) 1 Gm/10 Ml Oral.susp, 1 GM PO QIDACHS, #120 UNIT 1 Refill Prov:GEORGE BERG MD 01/20/16 Pantoprazole Sodium (PANTOPRAZOLE SODIUM) 40 Mg Tablet.dr, 40 MG PO DAILYAC, # 30 TAB 5 Refills Prov:GEORGE BERG MD 01/20/16 Furosemide (FUROSEMIDE) 40 Mg Tablet, 1 TAB PO DAILY, #30 TAB Prov:GEORGE BERG MD 01/20/16 Mupirocin (MUPIROCIN OINTMENT) 22 Gm Oint...g., 22 GM TP PRN TID PRN for skin sores, #1 TUBE 1 Refill Prov:GEORGE BERG MD 01/20/16 Ondansetron Hcl (ZOFRAN) 4 Mg Tablet, 1 TAB PO PRN Q6-8HRS, #10 TAB Prov:WILLIAN GALLAGHER DO 11/10/15 Tiotropium [place] (SPIRIVA) 18 Mcg Cap.w.dev, 1 CAP IH DAILY, #30 CAP 3 Refills Prov:NICHO FITZGERALD MD 10/30/15 Levalbuterol Hcl (XOPENEX) 1.25 Mg/3 Ml Vial.neb, 1 VIAL NEB TID, #60 VIAL Prov:NICHO FITZGERALD MD 10/30/15 Fenofibrate Nanocrystallized (FENOFIBRATE) 145 Mg Tablet, 1 TAB PO DAILY, #30 TAB 5 Refills Prov:NICHO FITZGERALD MD 10/30/15 Losartan Potassium (LOSARTAN POTASSIUM) 100 Mg Tablet, 100 MG PO DAILY, #30 TAB 2 Refills Prov:GEORGE BERG MD 07/15/15 Sotalol Hcl (SOTALOL) 80 Mg Tablet, 80 MG PO BID, #60 TAB Prov:GEORGE BERG MD 07/15/15 Budesonide/Formoterol Fumarate (SYMBICORT 160-4.5 MCG INHALER) 10.2 Gm Hfa.aer.ad, 2 PUFF IH BID, #1 INHALER 3 Refills Prov:GEORGE BERG MD 06/13/14 Reported Medications Lipase/Protease/Amylase (CREON DR 36,000 UNITS CAPSULE) 1 Each Capsule.dr, 2 EACH PO TID for DIGESTION, CAP 05/13/18 Diphenhydramine Hcl (DIPHENHYDRAMINE HCL) 50 Mg Capsule, 50 MG PO PRN Q6HRS PRN for ITCHING 07/24/17 Colestipol Hcl (COLESTID) 1 Gm Tablet, 1 GM PO BID, TAB 01/14/17 Diphenoxylate Hcl/Atropine (LOMOTIL TABLET) 1 Each Tablet, 1 EACH PO DAILY, TAB 01/14/17 Levothyroxine Sodium (LEVOTHYROXINE SODIUM) 175 Mcg Tablet, 1 TAB PO DAILY, #30 TAB 5 Refills 07/24/16 Ergocalciferol (Vitamin D2) (VITAMIN D2) 50,000 Unit Capsule, 77042 UNIT PO, CAP 07/24/16 Venlafaxine Hcl (VENLAFAXINE HCL ER) 75 Mg Cap.er.24h, 1 CAP PO DAILY, #90 CAP 3 Refills 07/24/16 Loperamide Hcl (ANTI-DIARRHEA) 2 Mg Tablet, 2 MG PO PRN PRN for DIARRHEA, TAB 07/24/16 Fluticasone Propionate (FLUTICASONE PROPIONATE NASAL SPRAY) 16 Gm [place].susp, 2 SPRAY NS DAILY, #1 INHALER 11 Refills 07/24/16 Cholecalciferol (Vitamin D3) (VITAMIN D3) 1,000 Unit Tablet, 1000 UNIT PO, TAB 07/24/16 Amlodipine Besylate (AMLODIPINE BESYLATE) 5 Mg Tablet, 5 MG PO DAILY, TAB 07/24/16 Nystatin (NYSTATIN) 15 Gm Powder, 1 MIKE TP BID, #1 BOTTLE 07/24/16 Melatonin (MELATONIN) 3 Mg Tablet, 5 MG PO, TAB 07/24/16 Digoxin (DIGOXIN) 125 Mcg Tablet, 1 TAB PO DAILY, #30 TAB 5 Refills 06/19/14 Oxcarbazepine (OXCARBAZEPINE) 300 Mg Tablet, 1 TAB PO HS, #60 TAB 1 Refill 04/15/14 Gabapentin (GABAPENTIN) 600 Mg Tablet, 600 MG PO QID, CAP 08/29/13 Aripiprazole (ABILIFY) 5 Mg Tablet, 5 MG PO DAILY, #1 04/02/13 Clopidogrel Bisulfate (PLAVIX) 75 Mg Tablet, 75 MG PO DAILY, #1 04/02/13 Cetirizine Hcl (CETIRIZINE HCL) 10 Mg Tablet, 10 MG PO DAILY, #1 04/02/13 AZALIA VANEGAS MD May 14, 2018 12:23
--- NOTE | 2018-05-14 15:29 | NUR ---
Discharge Note: RENÉ BLANCO Discharge instructions and discharge home medications reviewed with Patient and a copy given. All questions have been answered and understanding verbalized. Instructions and handouts were given. Discontinued lines and drains. Patient discharged to home with home health.
[2018-05-15 01:10] LABS: HEMOGLOBIN A1C 13.2 % (4.8-5.6)
[2018-07-17] MEDS ORDERED: DOXY100T PO (11:28)
[2018-07-17] MEDS ORDERED: ALBU2.5V8 INH (11:28)
[2018-07-17] MEDS ORDERED: TIZA4TAB PO (11:28)
[2018-07-17] MEDS ORDERED: LEVO500T59 PO (11:28)
[2018-07-17] MEDS ORDERED: GABA300C18 PO (11:28)
[2018-07-17] MEDS ORDERED: OXYC1TAB15 PO (11:28)
== END 2018-05-14 15:31 | disposition home health service (06) | DRG 871 ==
LOC: ER 21:42 → 2 NORTH 23:32
PROVIDERS: ADMIT Internal Medicine; ATTEND Internal Medicine
DX: A41.9 Sepsis, unspecified organism (principal); G92 Toxic encephalopathy; I50.33 Acute on chronic diastolic (congestive) heart failure; J18.9 Pneumonia, unspecified organism; E87.1 Hypo-osmolality and hyponatremia; J44.0 Chronic obstructive pulmonary disease with (acute) lower respiratory infection; N39.0 Urinary tract infection, site not specified; Z68.42 Body mass index [BMI] 45.0-49.9, adult; T40.601A Poisoning by unspecified narcotics, accidental (unintentional), initial encounter; E03.9 Hypothyroidism, unspecified; E11.65 Type 2 diabetes mellitus with hyperglycemia; E66.01 Morbid (severe) obesity due to excess calories; E78.5 Hyperlipidemia, unspecified; G47.33 Obstructive sleep apnea (adult) (pediatric); G89.29 Other chronic pain; I11.0 Hypertensive heart disease with heart failure; I25.10 Atherosclerotic heart disease of native coronary artery without angina pectoris; I48.91 Unspecified atrial fibrillation; K21.9 Gastro-esophageal reflux disease without esophagitis; K58.9 Irritable bowel syndrome, unspecified; T40.605A Adverse effect of unspecified narcotics, initial encounter; Z79.891 Long term (current) use of opiate analgesic; Z86.14 Personal history of Methicillin resistant Staphylococcus aureus infection; Z86.73 Personal history of transient ischemic attack (TIA), and cerebral infarction without residual deficits; F32.9 Major depressive disorder, single episode, unspecified; F41.9 Anxiety disorder, unspecified; M19.90 Unspecified osteoarthritis, unspecified site; Z88.0 Allergy status to penicillin; Z88.2 Allergy status to sulfonamides; Z88.8 Allergy status to other drugs, medicaments and biological substances; R07.89 Other chest pain
CPT/HCPCS: 36415; 36600; 71045; 80053; 80162; 80307; 81001; 82140; 82805; 82962; 83036; 83605; 83880; 84439; 84443; 84484; 85007; 85025; 87040; 87641; 87804; 93005; 94640; 94660; 94760; 96374; J1644; J1815; J1940; J1956; J2310; J7620; J7626; Q0162; 99285-25

== ENCOUNTER 2018-05-23 18:08 | Emergency (ER) | payer OTHER ==
[~2018-05-23] VITALS: Ht 172.7 cm; Wt 137.0 kg
[~2018-05-23 18:08] MED LIST changes: +LEVO750T5 PO; +LIPA1CAP8 PO
[2018-05-23] MEDS ORDERED: IV NORMAL SALINE 1000ML BAG 1,000 ML IV SCH (18:56)
[2018-05-23 19:52] LABS: BASO # 0.1 x10^3/uL (0.0-0.2); BASO % 1 % (0-3); EOS # 0.2 x10^3/uL (0.0-0.7); EOS % 2 % (0-3); HEMATOCRIT 42.9 % (36.0-47.0); HEMOGLOBIN 13.7 g/dL (12.0-15.5); LYMPH # 2.9 x10^3/uL (1.0-4.8); LYMPH % 26 % (24-48); MEAN CORPUSCULAR HEMOGLOBIN 29 pg (25-35); MEAN CORPUSCULAR HGB CONC 32 g/dL (31-37); MEAN CORPUSCULAR VOLUME 89 fL (79-100); MONO # 0.8 x10^3/uL (0.0-1.1); MONO % 7 % (0-9); NEUT # 7.2 x10^3uL (1.8-7.7); NEUT % 64 % (31-73); PLATELET COUNT 301 x10^3/uL (140-400); RED BLOOD COUNT 4.82 x10^6/uL (3.50-5.40); RED CELL DISTRIBUTION WIDTH 15.1 % (11.5-14.5); WHITE BLOOD COUNT 11.3 x10^3/uL (4.0-11.0)
[2018-05-23 20:02] LABS: BILIRUBIN,URINE SMALL (NEG); CLARITY,URINE CLOUDY; COLOR,URINE AMBER; NITRITE,URINE NEGATIVE (NEG); PH,URINE 5.5; PROTEIN,URINE 30 mg/dL (NEG-TRACE)
[2018-05-23 20:04] LABS: CALCIUM 9.6 mg/dL (8.5-10.1); CREATININE 0.9 mg/dL (0.6-1.0); GFR 64.5; POTASSIUM 4.1 mmol/L (3.5-5.1)
[2018-05-23 20:09] LABS: ALBUMIN 2.8 g/dL (3.4-5.0); ALBUMIN/GLOBULIN RATIO 0.6 (1.0-1.7); MAGNESIUM 1.8 mg/dL (1.8-2.4); TOTAL BILIRUBIN 0.3 mg/dL (0.2-1.0); TOTAL PROTEIN 7.6 g/dL (6.4-8.2)
[2018-05-23 20:12] LABS: BACTERIA,URINE MODERATE /HPF (0-FEW); SQUAMOUS EPITHELIAL CELL,UR FEW /LPF; WBC,URINE 20-40 /HPF (0-4); YEAST,URINE PRESENT /HPF
[2018-05-23] MEDS ORDERED: IPRATRPIUM/ALBUTEROL 0.5/2.5MG 3 ML NEBU. NEB ONE (20:15)
[2018-05-23] MEDS ORDERED: NITROFURANTOIN MONOHYD/M-CRYST 100 MG CAPSULE. PO ONE (20:30)
[2018-05-23] MEDS ORDERED: INSULIN REGULAR 100 UNIT/ML 3ML VIAL. IV ONE (21:15)
[2018-05-23 22:15] VITALS: BP 109/71
--- NOTE | 2018-05-23 23:00 | PHYS DOC ---
Past Medical History Past Medical History: Asthma, CHF, COPD, Diabetes-Type II, Hypertension, Hepatitis, DC, Pneumonia, Other Additional Past Medical Histor: obesity, HEP B Past Surgical History: Cholecystectomy, Other Additional Past Surgical Histo: RIGHT PINKY SX Alcohol Use: None Drug Use: None Adult General Chief Complaint Chief Complaint: BLOOD SUGAR PROBLEM HPI HPI Patient is a 57-year-old female who presents via EMS with reports of just not feeling well for the last few days and having elevated blood sugars for about the last week. Patient's home health nurse to come by and checked her blood sugar and found that her blood sugar was running high and her blood pressure was also high. Patient's primary physician had been contacted and he had requested that patient be brought to the emergency room for further evaluation. Patient denies any chest pain or shortness of breath. She states that she is feeling a little bit weak and states that she feels fatigued a lot. Patient does admit to a history of sleep apnea and states that she does not use CPAP but is on home oxygen at night. Review of Systems Review of Systems Constitutional: Denies fever or chills [] Respiratory: Denies cough or shortness of breath [] Cardiovascular: No additional information not addressed in HPI [] GI: Denies abdominal pain, nausea, vomiting or diarrhea [] Neurologic: Denies headache, focal weakness or sensory changes [] Endocrine: [place] of polyuria and polydipsia [] All other systems were reviewed and found to be within normal limits, except as documented in this note. Current Medications Current Medications Current Medications Medications (Trade) Dose Ordered Sig/Amtthias Start Time Stop Time Status Last Admin Dose Admin Albuterol/ Ipratropium (Duoneb) 3 ml 1X ONCE 05/23/18 20:15 05/23/18 20:16 DC 05/23/18 20:14 3 ML Insulin Human Regular (HumuLIN R VIAL) 6 unit 1X ONCE 05/23/18 21:15 05/23/18 21:16 DC 05/23/18 21:25 6 UNIT Nitrofurantoin Macrocrystals (Macrobid) 100 mg 1X ONCE 05/23/18 20:30 05/23/18 20:31 DC 05/23/18 20:25 100 MG Sodium Chloride 1,000 ml @ 1,000 mls/hr Q1H 05/23/18 18:56 05/23/18 19:55 DC 05/23/18 19:42 1,000 MLS/HR Allergies Allergies Allergies Coded Allergies Type Severity Reaction Last Updated Verified Cephalexin Monohydrate Allergy Intermediate 04/18/14 Yes Penicillins Allergy Intermediate 10/17/16 Yes Sulfa (Sulfonamide Antibiotics) Allergy Intermediate 04/18/14 Yes aspirin Allergy Intermediate 04/18/14 Yes codeine Allergy Intermediate Previously tolerated morphine (per pt and chart 12/2013) 07/17/14 Yes diclofenac sodium Allergy Intermediate 04/18/14 Yes nabumetone Allergy Intermediate 04/18/14 Yes tomato Allergy Intermediate 04/18/14 Yes morphine Adverse Reaction Mild itching 11/26/16 Yes Physical Exam Physical Exam Constitutional: Well developed, well nourished, no acute distress, non-toxic appearance. [] HENT: Normocephalic, atraumatic, bilateral external ears normal, oropharynx moist, no oral exudates, nose normal. [] Eyes: PERRLA, EOMI, conjunctiva normal, no discharge. [] Neck: Normal range of motion, no tenderness, supple, no stridor. [] Cardiovascular: Regular rate and rhythm[] Lungs & Thorax: Bilateral breath sounds clear to auscultation [] Abdomen: Bowel sounds normal, soft, no tenderness. [] Skin: Warm, dry, no erythema, no rash. [] Extremities: No tenderness, no cyanosis, no clubbing, ROM intact. [] Neurologic: Alert and oriented X 3, no focal deficits noted. [] Current Patient Data Vital Signs Vital Signs Date Time Temp Pulse Resp B/P (MAP) Pulse Ox O2 Delivery O2 Flow Rate FiO2 05/23/18 23:16 85 22 91 Room Air 05/23/18 20:45 2.0 05/23/18 18:40 98.7 98.7 Lab Values Laboratory Tests Test 05/23/18 18:48 05/23/18 18:55 05/23/18 19:40 05/23/18 20:56 Glucose (Fingerstick) 414 mg/dL (70-99) H 373 mg/dL (70-99) H Urine Collection Type Unknown Urine Color Estephania Urine Clarity Cloudy Urine pH 5.5 Urine Specific [place] >=1.030 Urine Protein 30 mg/dL (NEG-TRACE) Urine Glucose (UA) >=1000 mg/dL (NEG) Urine Ketones (Stick) Trace mg/dL (NEG) Urine Blood Negative (NEG) Urine Nitrite Negative (NEG) Urine Bilirubin Small (NEG) Urine Urobilinogen Dipstick 1.0 mg/dL (0.2 mg/dL) Urine Leukocyte Esterase Trace (NEG) Urine RBC 3-5 /HPF (0-2) Urine WBC 20-40 /HPF (0-4) Urine Squamous Epithelial Cells Few /LPF Urine Bacteria Moderate /HPF (0-FEW) Urine Mucus Marked /LPF Urine Yeast Present /HPF White Blood Count 11.3 x10^3/uL (4.0-11.0) H Red Blood Count 4.82 x10^6/uL (3.50-5.40) Hemoglobin 13.7 g/dL (12.0-15.5) Hematocrit 42.9 % (36.0-47.0) Mean Corpuscular Volume 89 fL (79-100) Mean Corpuscular Hemoglobin 29 pg (25-35) Mean Corpuscular Hemoglobin Concent 32 g/dL (31-37) Red Cell Distribution Width 15.1 % (11.5-14.5) H Platelet Count 301 x10^3/uL (140-400) Neutrophils (%) (Auto) 64 % (31-73) Lymphocytes (%) (Auto) 26 % (24-48) Monocytes (%) (Auto) 7 % (0-9) Eosinophils (%) (Auto) 2 % (0-3) Basophils (%) (Auto) 1 % (0-3) Neutrophils # (Auto) 7.2 x10^3uL (1.8-7.7) Lymphocytes # (Auto) 2.9 x10^3/uL (1.0-4.8) Monocytes # (Auto) 0.8 x10^3/uL (0.0-1.1) Eosinophils # (Auto) 0.2 x10^3/uL (0.0-0.7) Basophils # (Auto) 0.1 x10^3/uL (0.0-0.2) Sodium Level 135 mmol/L (136-145) L Potassium Level 4.1 mmol/L (3.5-5.1) Chloride Level 99 mmol/L (98-107) Carbon Dioxide Level 28 mmol/L (21-32) Anion Gap 8 (6-14) Blood Urea Nitrogen 17 mg/dL (7-20) Creatinine 0.9 mg/dL (0.6-1.0) Estimated GFR (Cockcroft-Gault) 64.5 BUN/Creatinine Ratio 19 (6-20) Glucose Level 410 mg/dL (70-99) H Calcium Level 9.6 mg/dL (8.5-10.1) Magnesium Level 1.8 mg/dL (1.8-2.4) Total Bilirubin 0.3 mg/dL (0.2-1.0) Aspartate Amino Transferase (AST) 23 U/L (15-37) Alanine Aminotransferase (ALT) 22 U/L (14-59) Alkaline Phosphatase 201 U/L (46-116) H Total Protein 7.6 g/dL (6.4-8.2) Albumin 2.8 g/dL (3.4-5.0) L Albumin/Globulin Ratio 0.6 (1.0-1.7) L Thyroid Stimulating Hormone (TSH) 12.186 uIU/mL (0.358-3.74) H Test 05/23/18 22:27 Glucose (Fingerstick) 323 mg/dL (70-99) H Laboratory Tests 05/23/18 19:40 Laboratory Tests 05/23/18 19:40 EKG EKG [] Radiology/Procedures Radiology/Procedures [] Course & Med Decision Making Course & Med Decision Making Pertinent Labs and Imaging studies reviewed. (See chart for details) [] Dragon Disclaimer Dragon Disclaimer This electronic medical record was generated, in whole or in part, using a voice recognition dictation system. Departure Departure Impression: Primary Impression: Type 2 diabetes mellitus with hyperglycemia Additional Impression: Hypothyroidism Disposition: 01 HOME, SELF-CARE Condition: STABLE Referrals: GEORGE BERG MD (PCP) Patient Instructions: Hyperglycemia, Type 2 Diabetes Mellitus, Adult Problem Qualifiers Primary Impression: Type 2 diabetes mellitus with hyperglycemia Diabetes mellitus mcfp insulin use: unspecified mcfp insulin use status Qualified Codes: E11.65 - Type 2 diabetes mellitus with hyperglycemia Additional Impression: Hypothyroidism Hypothyroidism type: unspecified Qualified Codes: E03.9 - Hypothyroidism, unspecified PADMINI LOZADA Jr., DO May 23, 2018 23:00
--- NOTE | 2018-05-24 05:10 | EKG ---
[facility] [address] [place] [address] Test Date: 2018-05-23 Test Time: 19:09:51 Pat Name: RENÉ BLANCO Department: Room: Gender: F [employer]: : 1960 Requested By: PADMINI LOZADA Order Number: [id number] Reading MD: Simone Enamorado Measurements Intervals [place] Rate: 72 P: 45 [place]: 184 QRS: -20 QRSD: 84 T: 31 QT: 416 QTc: 457 Interpretive Statements SINUS RHYTHM LEFTWARD AXIS Electronically Signed On 05-29-2018 13:10:33 CDT by Simone Enamorado
--- NOTE | 2018-05-24 08:30 | RAD ---
PORTABLE CHEST 1V Clinical indications: Shortness of breath, HX OF COPD & CHF COMPARISON: May 12, 2018. Findings: No acute lung infiltrate or pleural effusion or pulmonary edema or lung mass or pneumothorax is seen. The heart size, pulmonary vasculature, mediastinum and both no are unremarkable. Impression: No acute radiographic abnormality is seen. Electronically signed by: Narinder Stockton MD (05/24/2018 8:26 AM) [id number]
[2018-07-17] MEDS ORDERED: LEVO500T59 PO (11:28)
[2018-07-17] MEDS ORDERED: OXYC1TAB15 PO (11:28)
[2018-07-17] MEDS ORDERED: ALBU2.5V8 INH (11:28)
[2018-07-17] MEDS ORDERED: DOXY100T PO (11:28)
[2018-07-17] MEDS ORDERED: GABA300C18 PO (11:28)
[2018-07-17] MEDS ORDERED: TIZA4TAB PO (11:28)
== END 2018-05-23 23:19 | disposition home or self-care (01) ==
LOC: ER 18:08
DX: E11.65 Type 2 diabetes mellitus with hyperglycemia (principal); R53.1 Weakness; R35.8 Other polyuria; R63.1 Polydipsia; I11.0 Hypertensive heart disease with heart failure; I50.9 Heart failure, unspecified; I25.2 Old myocardial infarction; J44.9 Chronic obstructive pulmonary disease, unspecified; E03.9 Hypothyroidism, unspecified; E66.9 Obesity, unspecified; Z90.49 Acquired absence of other specified parts of digestive tract; Z88.1 Allergy status to other antibiotic agents; Z88.6 Allergy status to analgesic agent; Z88.2 Allergy status to sulfonamides; Z88.5 Allergy status to narcotic agent; Z91.018 Allergy to other foods
CPT/HCPCS: 36415; 71045; 80053; 81001; 82962; 83735; 84443; 85025; 87086; 93005; 94640; 96361; 96374; 99285; J1815; J7030; J7620

== ENCOUNTER → 2018-07-05 | Outpatient (CLI) | payer OTHER ==
[~2018-07-05] MED LIST changes: +ALBU2.5V8 INH; +GABA300C18 PO; +OXYC1TAB15 PO; +TIZA4TAB PO
--- NOTE | 2018-07-05 15:41 | RAD ---
Bilateral large from the arterial duplex ultrasound study without comparison. ABIs are also performed. TECHNIQUE: Real-time grayscale and color and spectral Doppler evaluation of the arteries of the lower extremities is performed. ABIs are also performed. FINDINGS: The VIANEY on the right is 1.18 and on the left 1.18. These are normal. Duplex scanning of the right common femoral, superficial femoral, popliteal, peroneal artery and proximal posterior tibial arteries demonstrates triphasic flow with no significant stenoses or focal velocity elevations. There is increased velocity within the distal posterior tibial artery greater than 2 times the proximal velocity. Anterior tibial artery demonstrates patency with color-flow but could not be interrogated with spectral imaging. Dorsalis pedis artery is biphasic. On the left, findings are mirror-image, with patency of the left common femoral, superficial femoral, popliteal, peroneal, and proximal posterior tibial arteries. There is focal elevation of the distal posterior tibial artery greater than 2 times the proximal velocity, and there is poor visualization of the left anterior tibial artery. Dorsalis pedis artery is patent and triphasic. IMPRESSION: 1. Normal bilateral ABIs. 2. Focal velocity elevations within the distal posterior tibial arteries bilaterally, and poor visualization of the anterior tibial arteries bilaterally. This may signify significant runoff vessel atherosclerosis. Findings could be better interrogated with CTA or direct angiography. Electronically signed by: Nico Williamson MD (07/05/2018 3:38 PM) [id number]
== END | disposition home or self-care (01) ==
LOC: US 15:21
PROVIDERS: ATTEND Emergency Medicine Undersea and Hyperbaric Medicine
DX: L97.919 Non-pressure chronic ulcer of unspecified part of right lower leg with unspecified severity (principal); L97.929 Non-pressure chronic ulcer of unspecified part of left lower leg with unspecified severity
CPT/HCPCS: 93922; 93925

== ENCOUNTER → 2018-10-27 | Outpatient (CLI) | payer MEDICAID ==
[2018-08-31 10:57] VITALS: BP 114/68
[~2018-10-27] MED LIST changes: +CLON-77 PO; -CLON0.5T11 PO; +INSU100C SQ; -LINE600T PO; +LINE600T37 PO; -MELA3TAB2 PO; +MELA3TAB56 PO; +PANT20TA2 PO; -PANT40TA5 PO; +PANT40TA77 PO; -TIZA4TAB PO; +TIZA4TAB2 PO
--- NOTE | 2018-10-31 09:30 | RAD ---
VENOUS REFLUX BILATERAL History: Nonhealing venous ulcers to the lower extremities bilaterally Comparison: May 19, 2017 Findings: Grayscale, color, and duplex spectral analysis waveform images directed toward the calf veins are submitted. Reportedly there was request to specifically evaluate for perforators. There is a small cardiac sonographer on the left about 23 cm above heel about 0.32 cm in size. On the right, there was a small cardiac sonographer at 14 cm above the heel about 0.18 cm in size. Reportedly there was no demonstrable reflux in the visualized perforators. Impression: 1. Single small perforators were visualized bilaterally as stated. Electronically signed by: Irving Guzmán MD (10/31/2018 9:27 AM) [facility]
== END | disposition home or self-care (01) ==
LOC: US 14:20
PROVIDERS: ATTEND Emergency Medicine Undersea and Hyperbaric Medicine
DX: E11.622 Type 2 diabetes mellitus with other skin ulcer (principal); L97.811 Non-pressure chronic ulcer of other part of right lower leg limited to breakdown of skin; L97.821 Non-pressure chronic ulcer of other part of left lower leg limited to breakdown of skin; I87.8 Other specified disorders of veins; E11.42 Type 2 diabetes mellitus with diabetic polyneuropathy; I11.0 Hypertensive heart disease with heart failure; I50.32 Chronic diastolic (congestive) heart failure; E78.5 Hyperlipidemia, unspecified; E03.9 Hypothyroidism, unspecified; I48.2 Chronic atrial fibrillation; I48.0 Paroxysmal atrial fibrillation; M19.90 Unspecified osteoarthritis, unspecified site; J44.9 Chronic obstructive pulmonary disease, unspecified; E66.01 Morbid (severe) obesity due to excess calories; K21.9 Gastro-esophageal reflux disease without esophagitis; F41.9 Anxiety disorder, unspecified; F32.9 Major depressive disorder, single episode, unspecified; Z88.0 Allergy status to penicillin; Z68.42 Body mass index [BMI] 45.0-49.9, adult; Z79.4 Long term (current) use of insulin; Z79.899 Other long term (current) drug therapy; Z88.2 Allergy status to sulfonamides; Z87.891 Personal history of nicotine dependence; Z88.1 Allergy status to other antibiotic agents; Z79.02 Long term (current) use of antithrombotics/antiplatelets; Z88.8 Allergy status to other drugs, medicaments and biological substances; Z86.73 Personal history of transient ischemic attack (TIA), and cerebral infarction without residual deficits
CPT/HCPCS: 93970

== ENCOUNTER 2018-12-04 12:28 | Inpatient (IN) | payer MEDICAID ==
[~2018-12-04] VITALS: Ht 172.7 cm; Wt 132.0 kg
[~2018-12-04 12:28] MED LIST changes: +LINE600T12 PO; -LINE600T37 PO
[2018-12-04] MEDS ORDERED: IV NORMAL SALINE 1000ML BAG 1,000 ML IV SCH (13:42)
[2018-12-04] MEDS ORDERED: methylPREDNISolone SOD SUCC PF 125 MG/2 ML VIAL. IV ONE (13:45)
[2018-12-04] MEDS ORDERED: IPRATRPIUM/ALBUTEROL 0.5/2.5MG 3 ML NEBU. NEB ONE (13:45)
[2018-12-04] MEDS ORDERED: ONDANSETRON PF 4 MG/2 ML VIAL. IV ONE (13:45)
--- NOTE | 2018-12-04 13:57 | PHYS DOC ---
Past Medical History Past Medical History: Asthma, CHF, COPD, Diabetes-Type II, Hypertension, Hepatitis, MD, Pneumonia, Other Additional Past Medical Histor: obesity, HEP B Past Surgical History: Cholecystectomy, Other Additional Past Surgical Histo: RIGHT PINKY SX Alcohol Use: None Drug Use: None Adult General Chief Complaint Chief Complaint: GI PROBLEM HPI HPI Patient is a 58 year old male with history of COPD on night home oxygen, coronary artery disease and MD, diabetes mellitus, hypertension who presents via EMS with complaining of diarrhea and vomiting and shortness of breath. Patient complaining of 6 episodes of vomiting for the last 4 days and more than 6 epi sodes of nonbloody diarrhea per day for the last 4 days with episodes of abdominal cramping pain during episodes of diarrhea. Patient complaining of shortness of breath since yesterday without fever and chills, chest pain, urinary symptoms, sick contact. Review of Systems Review of Systems Constitutional: Denies fever or chills [] Eyes: Denies change in visual acuity, redness, or eye pain [] HENT: Denies nasal congestion or sore throat [] Respiratory: Denies cough or shortness of breath [] Cardiovascular: No additional information not addressed in HPI [] GI: Reports abdominal pain, nausea, vomiting, diarrhea [] : Denies dysuria or hematuria [] Musculoskeletal: Denies back pain or joint pain [] Integument: Denies rash or skin lesions [] Neurologic: Denies headache, focal weakness or sensory changes [] Endocrine: Denies polyuria or polydipsia [] All other systems were reviewed and found to be within normal limits, except as documented in this note. Current Medications Current Medications Current Medications Medications (Trade) Dose Ordered Sig/Matthias Start Time Stop Time Status Last Admin Dose Admin Albuterol Sulfate (Ventolin Neb Soln) 10 mg 1X ONCE 12/04/18 14:15 12/04/18 14:16 DC Albuterol/ Ipratropium (Duoneb) 3 ml 1X ONCE 12/04/18 13:45 12/04/18 13:50 DC 12/04/18 13:45 3 ML Methylprednisolone Sodium Succinate (SOLU-Medrol 125MG VIAL) 125 mg 1X ONCE 12/04/18 13:45 12/04/18 13:50 DC 12/04/18 15:57 125 MG Ondansetron HCl (Zofran) 4 mg 1X ONCE 12/04/18 13:45 12/04/18 13:50 DC 12/04/18 15:56 4 MG Sodium Chloride 1,000 ml @ 1,000 mls/hr Q1H 12/04/18 13:42 12/04/18 14:41 DC 12/04/18 15:56 1,000 MLS/HR Allergies Allergies Allergies Coded Allergies Type Severity Reaction Last Updated Verified Cephalexin Monohydrate Allergy Intermediate 04/18/14 Yes Penicillins Allergy Intermediate 10/17/16 Yes Sulfa (Sulfonamide Antibiotics) Allergy Intermediate 04/18/14 Yes aspirin Allergy Intermediate 04/18/14 Yes codeine Allergy Intermediate Previously tolerated morphine (per pt and chart 12/2013) 07/17/14 Yes diclofenac sodium Allergy Intermediate 04/18/14 Yes nabumetone Allergy Intermediate 04/18/14 Yes tomato Allergy Intermediate 04/18/14 Yes morphine Adverse Reaction Mild itching 11/26/16 Yes Physical Exam Physical Exam Constitutional: Well nourished, mild distress, non-toxic appearance, morbidly obese. [] HENT: Normocephalic, atraumatic. Eyes: PERRLA, EOMI, conjunctiva normal, no discharge. [] Neck: Normal range of motion, no tenderness, supple, no stridor. [] Cardiovascular:Heart rate regular rhythm, no murmur [] Lungs & Thorax: Hyperventilation intercoastal distraction, decrease of air movement bilaterally, mild rhonchi without wheezing or rales. Abdomen: Bowel sounds normal, soft, no tenderness, no masses, no pulsatile masses. [] Skin: Warm, dry, no erythema, no rash, multiple or subacute ulcers as a chronic problem that following up with wound clinic. [] Back: No tenderness, no CVA tenderness. [] Extremities: No tenderness, no cyanosis, no clubbing, ROM intact, no edema. [] Neurologic: Alert and oriented X 3, no focal deficits noted. [] Psychologic: Affect anxious, judgement normal, mood normal. [] Current Patient Data Vital Signs Vital Signs Date Time Temp Pulse Resp B/P (MAP) Pulse Ox O2 Delivery O2 Flow Rate FiO2 12/04/18 14:44 98.4 72 22 165/72 (103) 99 Room Air 98.4 Lab Values Laboratory Tests Test 12/04/18 14:10 12/04/18 14:20 12/04/18 14:50 Urine Color [place] Urine Clarity Cloudy Urine pH 6.0 Urine Specific [place] >=1.030 Urine Protein >=300 mg/dL (NEG-TRACE) Urine Glucose (UA) >=1000 mg/dL (NEG) Urine Ketones (Stick) >=80 mg/dL (NEG) Urine Blood Small (NEG) Urine Nitrite Positive (NEG) Urine Bilirubin Large (NEG) Urine Urobilinogen Dipstick 1.0 mg/dL (0.2 mg/dL) Urine Leukocyte Esterase Moderate (NEG) Urine RBC 1-2 /HPF (0-2) Urine WBC Tntc /HPF (0-4) Urine Squamous Epithelial Cells Occ /LPF Urine Bacteria Many /HPF (0-FEW) Urine Mucus Mod /LPF White Blood Count 11.4 x10^3/uL (4.0-11.0) H Red Blood Count 5.43 x10^6/uL (3.50-5.40) H Hemoglobin 15.4 g/dL (12.0-15.5) Hematocrit 47.1 % (36.0-47.0) H Mean Corpuscular Volume 87 fL (79-100) Mean Corpuscular Hemoglobin 28 pg (25-35) Mean Corpuscular Hemoglobin Concent 33 g/dL (31-37) Red Cell Distribution Width 14.5 % (11.5-14.5) Platelet Count 203 x10^3/uL (140-400) Neutrophils (%) (Auto) 76 % (31-73) H Lymphocytes (%) (Auto) 17 % (24-48) L Monocytes (%) (Auto) 6 % (0-9) Eosinophils (%) (Auto) 0 % (0-3) Basophils (%) (Auto) 1 % (0-3) Neutrophils # (Auto) 8.7 x10^3/uL (1.8-7.7) H Lymphocytes # (Auto) 1.9 x10^3/uL (1.0-4.8) Monocytes # (Auto) 0.7 x10^3/uL (0.0-1.1) Eosinophils # (Auto) 0.0 x10^3/uL (0.0-0.7) Basophils # (Auto) 0.1 x10^3/uL (0.0-0.2) Platelet Estimate Pending Sodium Level 135 mmol/L (136-145) L Potassium Level 4.0 mmol/L (3.5-5.1) Chloride Level 98 mmol/L (98-107) Carbon Dioxide Level 22 mmol/L (21-32) Anion Gap 15 (6-14) H Blood Urea Nitrogen 11 mg/dL (7-20) Creatinine 0.9 mg/dL (0.6-1.0) Estimated GFR (Cockcroft-Gault) 64.3 BUN/Creatinine Ratio 12 (6-20) Glucose Level 433 mg/dL (70-99) H Lactic Acid Level 2.3 mmol/L (0.4-2.0) H Calcium Level 9.6 mg/dL (8.5-10.1) Total Bilirubin 0.8 mg/dL (0.2-1.0) Aspartate Amino Transferase (AST) 15 U/L (15-37) Alanine Aminotransferase (ALT) 12 U/L (14-59) L Alkaline Phosphatase 272 U/L (46-116) H Troponin I Quantitative < 0.017 ng/mL (0.000-0.055) Total Protein 8.2 g/dL (6.4-8.2) Albumin 3.3 g/dL (3.4-5.0) L Albumin/Globulin Ratio 0.7 (1.0-1.7) L Lipase 45 U/L (73-393) L Stool Occult Blood Negative (NEG) Laboratory Tests 12/04/18 14:20 Laboratory Tests 12/04/18 14:20 Microbiology 12/04/18 Fecal Leukocyte Stain - Final, Complete EKG EKG EKG interpreted by me. EKG at 1438 showed marked artifact with sinus rhythm, left fourth axis, LVH, Q waves in inferior leads, T-wave abnormality in lateral leads, no acute ST and T-wave abnormalities. Radiology/Procedures Radiology/Procedures [][facility] [address] [facility] [place] [address] IMAGING REPORT Signed PATIENT: RENÉ BLANCO ACCOUNT: [id number] : 1960 LOCATION: ER AGE: 58 SEX: F EXAM STATUS: REG ER ORD. PHYSICIAN: CARLOS CONTRERAS MD REASON: sob PROCEDURE: PORTABLE CHEST 1V PORTABLE CHEST 1V History: Shortness of breath Comparison: July 13, 2018 Findings: No consolidation or pleural effusion. Normal heart size. Left lower lung calcified granuloma, unchanged. No pneumothorax. Bilateral glenohumeral and acromioclavicular DJD. Impression: 1. No acute cardiopulmonary process. Electronically signed by: Jaswinder Ngo DO (12/04/2018 2:41 PM) [facility] DICTATED and SIGNED BY: JASWINDER NGO DO DATE: 12/04/18 1441 Course & Med Decision Making Course & Med Decision Making Pertinent Labs and Imaging studies reviewed. (See chart for details) Evaluation of patient in ER showed 58-year-old female patient with morbid obesity presented to ER with complaining of nausea and vomiting and diarrhea and shortness of breath. Patient was very anxious and had tachypnea. Blood sugar of 433 and lactic of 2.2. Patient treated with IV fluid and insulin and Atrovent with improvement of her condition.Patient requiring admission for further evaluation and treatment. Discussed with Dr. De Leon who is in agreement with admission. Discussed findings and plan with patient and family, who acknowledge understanding and agreement. Dragon Disclaimer Dragon Disclaimer This electronic medical record was generated, in whole or in part, using a voice recognition dictation system. Departure Departure Impression: Primary Impression: Sepsis Additional Impressions: Acute gastroenteritis Anxiety Hyperglycemia UTI (lower urinary tract infection) Metabolic alkalosis Morbid obesity Disposition: 09 ADMITTED INPATIENT (at 1603) Admitting Physician: DEJUAN (Dr De Leon accepted admission at 1602) Condition: GUARDED Referrals: GEORGE BERG MD (PCP) Critical Care Time Critical care time was 80 minutes exclusive of procedures. Date and Time of Reassessment Date: Dec 04, 2018 Time: 16:00 Fluid Challenge Is the fluid challenge complet: No IBW Target Volume Used: Yes BMI > 30: Yes Vital Signs Vital Signs: Vital Signs Date Time Temp Pulse Resp B/P (MAP) Pulse Ox O2 Delivery O2 Flow Rate FiO2 12/04/18 14:44 98.4 72 22 165/72 (103) 99 Room Air 98.4 Temperature Source: Oral Respirations Respiratory Pattern: Tachypnea Cardiovascular Pulse Rhythm: Regular Heart: Nml rate, reg. rhythm Lung Sounds Breath Sounds: Coarse, Diminished Capillary Refil Capillary Refill: Rt Hand < 3 seconds Peripheral Pulse Pulse Location: Radial Pulse Strength: Normal (2+) Pulse Assessment Method: Monitor Problem Qualifiers Primary Impression: Sepsis Sepsis type: sepsis due to unspecified organism Sepsis acute organ dysfunction status: unspecified Qualified Codes: A41.9 - Sepsis, unspecified organism CARLOS CONTRERAS MD Dec 04, 2018 13:57
[2018-12-04] MEDS ORDERED: ALBUTEROL SULFATE 2.5 MG/3 ML NEBU. CONT NEB ONE (14:15)
[2018-12-04 14:23] LABS: BILIRUBIN,URINE LARGE (NEG); CLARITY,URINE CLOUDY; COLOR,URINE ORANGE; NITRITE,URINE POSITIVE (NEG); PROTEIN,URINE >=300 mg/dL (NEG-TRACE)
[2018-12-04 14:36] LABS: BACTERIA,URINE MANY /HPF (0-FEW); SQUAMOUS EPITHELIAL CELL,UR OCC /LPF; WBC,URINE TNTC /HPF (0-4)
[2018-12-04 14:45] LABS: BASO # 0.1 x10^3/uL (0.0-0.2); BASO % 1 % (0-3); EOS % 0 % (0-3); HEMATOCRIT 47.1 % (36.0-47.0); HEMOGLOBIN 15.4 g/dL (12.0-15.5); LYMPH # 1.9 x10^3/uL (1.0-4.8); LYMPH % 17 % (24-48); MEAN CORPUSCULAR HEMOGLOBIN 28 pg (25-35); MEAN CORPUSCULAR HGB CONC 33 g/dL (31-37); MEAN CORPUSCULAR VOLUME 87 fL (79-100); MONO # 0.7 x10^3/uL (0.0-1.1); MONO % 6 % (0-9); NEUT # 8.7 x10^3/uL (1.8-7.7); NEUT % 76 % (31-73); PLATELET COUNT 203 x10^3/uL (140-400); RED BLOOD COUNT 5.43 x10^6/uL (3.50-5.40); RED CELL DISTRIBUTION WIDTH 14.5 % (11.5-14.5); WHITE BLOOD COUNT 11.4 x10^3/uL (4.0-11.0)
--- NOTE | 2018-12-04 14:45 | RAD ---
PORTABLE CHEST 1V History: Shortness of breath Comparison: July 13, 2018 Findings: No consolidation or pleural effusion. Normal heart size. Left lower lung calcified granuloma, unchanged. No pneumothorax. Bilateral glenohumeral and acromioclavicular DJD. Impression: 1. No acute cardiopulmonary process. Electronically signed by: Jaswinder Ngo DO (12/04/2018 2:41 PM) [facility]
[2018-12-04 14:50] LABS: CALCIUM 9.6 mg/dL (8.5-10.1); CREATININE 0.9 mg/dL (0.6-1.0); GFR 64.3
[2018-12-04 14:56] LABS: ALBUMIN 3.3 g/dL (3.4-5.0); ALBUMIN/GLOBULIN RATIO 0.7 (1.0-1.7); TOTAL BILIRUBIN 0.8 mg/dL (0.2-1.0); TOTAL PROTEIN 8.2 g/dL (6.4-8.2)
[2018-12-04] MEDS ORDERED: INSULIN REGULAR 100 UNIT/ML 3ML VIAL. IV ONE ×2 (15:00→21:00)
[2018-12-04 15:20] LABS: FECAL OB PT NEGATIVE (NEG)
[2018-12-04 15:23] LABS: BASE EXCESS ABG -1 mmol/L (-3-3); HCO3 ABG 15 mmol/L (21-28); PO2 ABG 102 mmHg (75-108); SAT O2 ABG 98 % (92-99)
[2018-12-04 15:32] LABS: PCO2 ABG < 15 mmHg (35-46)
[2018-12-04] MEDS ORDERED: VANCOMYCIN 2 GM in IV NORMAL SALINE 500ML BAG 500 ML IV ONE (16:00)
[2018-12-04] MEDS ORDERED: VANCOMYCIN 1GM IVPB FOR OMNI 250 ML IV ONE (16:00)
[2018-12-04] MEDS ORDERED: IV NORMAL SALINE 1000ML BAG 1,000 ML IV ONE (16:00)
--- NOTE | 2018-12-04 16:05 | PDOC1 ---
History and Physical Date of Admission Date of Admission DATE: 12/04/18 TIME: 16:04 Identification/Chief Complaint Chief Complaint N/V/D Source Source: Patient History of Present Illness History of Present Illness Ms Priest is a 58yo F w/ PMHx Asthma, COPD, CHF, Diabetes-Type II, Hypertension, Hepatitis B, obesity who presented to ED by EMS for nausea, vomiting and diarrhea for the past 2 days. Patient complaining of 6 episodes of vomiting for the last 4 days and more than 6 episodes of nonbloody diarrhea per day for the last 4 days with episodes of abdominal cramping pain during episodes of diarrhea. Patient complaining of shortness of breath since yesterday without fever and chills, chest pain, urinary symptoms, sick contact. She denies any fever. She denies any chest pain or trouble breathing. She says she had seen her wound care doctor recently and completed antibiotics 2 weeks ago for cellulitis. Has a history of c. difficile. She is requesting her home oxycodone 10mg be restarted as the pain from her legs has gotten too intense for her. Glucose 433. ABG 7.69/<15/102 Past Medical History Cardiovascular: AFIB, CHF, HTN, Hyperlipidemia Pulmonary: COPD, Pneumonia, Other CENTRAL NERVOUS SYSTEM: TIA GI: GERD, Irritable bowel disease, Other Heme/Onc: No pertinent hx Hepatobiliary: Hep A/B/C Psych: Anxiety, Depression Musculoskeletal: Osteoarthritis, Other Rheumatologic: No pertinent hx Infectious disease: No pertinent hx Renal/: No pertinent hx Endocrine: Diabetes, Hypothyroidism Past Surgical History Past Surgical History: Cholecystectomy, Cataract Removal Family History Family History: No Significant, Family History Unknown Social History Smoke: No ALCOHOL: none Drugs: None Current Medications Current Medications Current Medications Sodium Chloride 1,000 ml @ 1,000 mls/hr Q1H IV Last administered on 12/04/18at 15:56; Start 12/04/18 at 13:42; Stop 12/04/18 at 14:41; Status DC Ondansetron HCl (Zofran) 4 mg 1X ONCE IV Last administered on 12/04/18at 15:56; Start 12/04/18 at 13:45; Stop 12/04/18 at 13:50; Status DC Albuterol/ Ipratropium (Duoneb) 3 ml 1X ONCE NEB Last administered on 12/04/18at 13:45; Start 12/04/18 at 13:45; Stop 12/04/18 at 13:50; Status DC Methylprednisolone Sodium Succinate (SOLU-Medrol 125MG VIAL) 125 mg 1X ONCE IV Last administered on 12/04/18at 15:57; Start 12/04/18 at 13:45; Stop 12/04/18 at 13:50; Status DC Albuterol Sulfate (Ventolin Neb Soln) 10 mg 1X ONCE CONT NEB ; Start 12/04/18 at 14:15; Stop 12/04/18 at 14:16; Status DC Lorazepam (Ativan Inj) 1 mg 1X ONCE IVP Last administered on 12/04/18at 15:17; Start 12/04/18 at 15:00; Stop 12/04/18 at 15:01; Status DC Insulin Human Regular (HumuLIN R VIAL) 10 unit 1X ONCE IV Last administered on 12/04/18at 16:00; Start 12/04/18 at 15:00; Stop 12/04/18 at 15:01; Status DC Vancomycin HCl 250 ml @ 250 mls/hr 1X ONCE IV ; Start 12/04/18 at 16:00; Stop 12/04/18 at 16:59; Status UNV Sodium Chloride 1,000 ml @ 1,000 mls/hr 1X ONCE IV ; Start 12/04/18 at 16:00; Stop 12/04/18 at 16:59 Vancomycin HCl 2 gm/Sodium Chloride 500 ml @ 250 mls/hr 1X ONCE IV ; Start 12/04/18 at 16:00; Stop 12/04/18 at 17:59 Levofloxacin/ Dextrose 150 ml @ 100 mls/hr 1X ONCE IV ; Start 12/04/18 at 16:15; Stop 12/04/18 at 17:44; Status UNV Active Scripts Active Cipro (Ciprofloxacin Hcl) 250 Mg Tablet 500 Mg PO BID 10 Days Can sub with 500mg tabs #20 Doxycycline Hyclate 100 Mg Tablet 100 Mg PO BID MDD 1 10 Days Proair Hfa Inhaler (Albuterol Sulfate) 8.5 Gm Hfa.aer.ad 1 Puff INH PRN Q6HRS PRN 30 Days Gabapentin 300 Mg Capsule 600 Mg PO TID Tizanidine Hcl 4 Mg Tablet 4 Mg PO PRN Q8HRS PRN MDD 1 Mucinex (Guaifenesin) 600 Mg Tablet.er 600 Mg PO BID 7 Days Tessalon [place] (Benzonatate) 100 Mg Capsule 1 Cap PO TID Furosemide 40 Mg Tablet 1 Tab PO DAILY Zofran (Ondansetron Hcl) 4 Mg Tablet 1 Tab PO PRN Q6-8HRS Spiriva (Tiotropium [place]) 18 Mcg Cap.w.dev 1 Cap IH DAILY Xopenex (Levalbuterol Hcl) 1.25 Mg/3 Ml Vial.neb 1 Vial NEB TID Fenofibrate (Fenofibrate Nanocrystallized) 145 Mg Tablet 1 Tab PO DAILY Losartan Potassium 100 Mg Tablet 100 Mg PO DAILY Sotalol (Sotalol Hcl) 80 Mg Tablet 80 Mg PO BID Symbicort 160-4.5 Mcg Inhaler (Budesonide/Formoterol Fumarate) 10.2 Gm Hfa.aer.ad 2 Puff IH BID Reported Percocet 10-325 Mg Tablet (Oxycodone/Acetaminophen) 1 Each Tablet 1 Tab PO PRN Q4-6HRS PRN Protonix (Pantoprazole Sodium) 20 Mg Tablet.dr 1 Tab PO DAILY Humalog (Insulin Lispro) 100 Unit/1 Ml Cartridge 42 Unit SQ TIDWMEALS Felton Martinez 36,000 Units Capsule (Lipase/Protease/Amylase) 1 Each Capsule.dr 2 Each PO TID Colestid (Colestipol Hcl) 1 Gm Tablet 1 Gm PO BID Lomotil Tablet (Diphenoxylate Hcl/Atropine) 1 Each Tablet 1 Each PO DAILY Levothyroxine Sodium 175 Mcg Tablet 1 Tab PO DAILY Vitamin D2 (Ergocalciferol (Vitamin D2)) 50,000 Unit Capsule 50,000 Unit PO Anti-Diarrhea (Loperamide Hcl) 2 Mg Tablet 2 Mg PO PRN PRN Fluticasone Propionate Nasal [place] (Fluticasone Propionate) 16 Gm [place].susp 2 [place] NS DAILY Vitamin D3 (Cholecalciferol (Vitamin D3)) 1,000 Unit Tablet 1,000 Unit PO Amlodipine Besylate 5 Mg Tablet 5 Mg PO DAILY Digoxin 125 Mcg Tablet 1 Tab PO DAILY Oxcarbazepine 300 Mg Tablet 1 Tab PO HS Plavix (Clopidogrel Bisulfate) 75 Mg Tablet 75 Mg PO DAILY Allergies Allergies: Coded Allergies: Cephalexin Monohydrate (Verified Allergy, Intermediate, 04/18/14) Penicillins (Verified Allergy, Intermediate, 10/17/16) HAS TOLERATED AMOXICILLIN Sulfa (Sulfonamide Antibiotics) (Verified Allergy, Intermediate, 04/18/14) aspirin (Verified Allergy, Intermediate, 04/18/14) codeine (Verified Allergy, Intermediate, Previously tolerated morphine (per pt and chart 12/2013), 07/17/14) diclofenac sodium (Verified Allergy, Intermediate, 04/18/14) nabumetone (Verified Allergy, Intermediate, 04/18/14) tomato (Verified Allergy, Intermediate, 04/18/14) morphine (Verified Adverse Reaction, Mild, itching, 11/26/16) ROS General: YES: Fatigue, Malaise; No: Chills, Night Sweats, Appetite, Other PSYCHOLOGICAL ROS: YES: Anxiety; No: Behavioral Disorder, Concentration difficultie, Decreased libido, Depression, Disorientation, Hallucinations, Hostility, Irritablity, Memory difficulties, Mood Swings, Obsessive thoughts, Physical abuse, Sexual abuse, Sleep disturbances, Suicidal ideation, Other Eyes: No Blurry vision, No Decreased vision, No Double vision, No Dry eyes, No Excessive tearing, No Eye Pain, No Itchy Eyes, No Loss of vision, No Photophobia, No Scotomata, No Uses contacts, No Uses glasses, No Other HEENT: No: Heacaches, Visual Changes, Hearing change, Nasal congestion, Nasal discharge, Oral lesions, Sinus pain, Sore Throat, Epistaxis, Sneezing, Snoring, Tinnitus, Vertigo, Vocal changes, Other ALLERGY AND IMMUNOLOGY: No: Hives, Insect Bite Sensitivity, Itchy/Watery Eyes, Nasal Congestion, Post Nasal Drip, Seasonal Allergies, Other Hematological and Lymphatic: No: Bleeding Problems, Blood Clots, Blood Transfusions, Brusing, Night Sweats, Pallor, Swollen Lymph Nodes, Other ENDOCRINE: No: Breast Changes, Galactorrhea, Hair Pattern Changes, Hot Flashes, Malaise/lethargy, Mood Swings, Palpitations, Polydipsia/polyuria, Skin Changes, Temperature Intolerance, Unexpected Weight Changes, Other Breast: No New/Changing Breast Lumps, No Nipple changes, No Nipple discharge, No Other Respiratory: YES: Shortness of breath, Tachypnea, Wheezing; No: Cough, Hemoptysis, Orthopnea, Pleuritic Pain, SOB with excertion, Sputum Changes, Stridor, Other Cardiovascular: No Chest Pain, No Palpitations, No Orthopnea, No Paroxysmal Noc. Dyspnea, No Edema, No Lt Headedness, No Other Gastrointestinal: Yes Nausea, Yes Vomiting, Yes Abdominal Pain, Yes Diarrhea; No Constipation, No Melena, No Hematochezia, No Other Genitourinary: YES Dysuria, YES Frequency; No Incontinence, No Hematuria, No Retention, No Discharge, No Urgency, No Pain, No Flank Pain, No Other, No , No , No , No , No , No , No Musculoskeletal: Yes Gait Disturbance, Yes Muscle Pain; No Joint Pain, No Joint Stiffness, No Joint Swelling, No Muscular Weakness, No Pain In:, No Swelling In:, No Other Neurological: Yes Gait Disturbance; No Behavorial Changes, No Bowel/Bladder ControlChng, No Confusion, No Dizziness, No Headaches, No Impaired Coord/balance, No Memory Loss, No Numbness/Tingling, No Seizures, No Speech Problems, No Tremors, No Visual Changes, No Weakness, No Other Skin: Yes Dry Skin, Yes Rash, Yes Skin Lesion Changes; No Eczema, No Hair Changes, No Lumps, No Mole Changes, No Mottling, No Nail Changes, No Pruritus, No Other, No Acne Physical Exam General: Alert, Cooperative, mild distress HEENT: Atraumatic, PERRLA, EOMI, Mucous membr. moist/pink Lungs: Other (Scattered [place]) Heart: S1S2, irregularly irregular Abdomen: Normal bowel sounds, Soft, No hepatosplenomegaly, No masses, Other (Diffuse tenderness, multiple abdominal sores) Rectal Exam: not examined Extremities: Other (1+ edema, multiple ulcers on bilateral LE) Neuro: Normal speech, Strength at 5/5 X4 ext, Normal tone, Sensation intact, Cranial nerves 3-12 NL, Reflexes 2+ Psych/Mental Status: Mental status NL, Mood NL Vitals Vitals Vital Signs Date Time Temp Pulse Resp B/P (MAP) Pulse Ox O2 Delivery O2 Flow Rate FiO2 12/04/18 15:26 98 Room Air 12/04/18 14:44 98.4 72 22 165/72 (103) 98.4 Labs Labs Laboratory Tests Test 12/04/18 14:10 12/04/18 14:20 12/04/18 14:50 12/04/18 15:25 Urine Color [place] Urine Clarity Cloudy Urine pH 6.0 Urine Specific [place] >=1.030 Urine Protein >=300 mg/dL (NEG-TRACE) Urine Glucose (UA) >=1000 mg/dL (NEG) Urine Ketones (Stick) >=80 mg/dL (NEG) Urine Blood Small (NEG) Urine Nitrite Positive (NEG) Urine Bilirubin Large (NEG) Urine Urobilinogen Dipstick 1.0 mg/dL (0.2 mg/dL) Urine Leukocyte Esterase Moderate (NEG) Urine RBC 1-2 /HPF (0-2) Urine WBC Tntc /HPF (0-4) Urine Squamous Epithelial Cells Occ /LPF Urine Bacteria Many /HPF (0-FEW) Urine Mucus Mod /LPF White Blood Count 11.4 x10^3/uL (4.0-11.0) Red Blood Count 5.43 x10^6/uL (3.50-5.40) Hemoglobin 15.4 g/dL (12.0-15.5) Hematocrit 47.1 % (36.0-47.0) Mean Corpuscular Volume 87 fL (79-100) Mean Corpuscular Hemoglobin 28 pg (25-35) Mean Corpuscular Hemoglobin Concent 33 g/dL (31-37) Red Cell Distribution Width 14.5 % (11.5-14.5) Platelet Count 203 x10^3/uL (140-400) Neutrophils (%) (Auto) 76 % (31-73) Lymphocytes (%) (Auto) 17 % (24-48) Monocytes (%) (Auto) 6 % (0-9) Eosinophils (%) (Auto) 0 % (0-3) Basophils (%) (Auto) 1 % (0-3) Neutrophils # (Auto) 8.7 x10^3/uL (1.8-7.7) Lymphocytes # (Auto) 1.9 x10^3/uL (1.0-4.8) Monocytes # (Auto) 0.7 x10^3/uL (0.0-1.1) Eosinophils # (Auto) 0.0 x10^3/uL (0.0-0.7) Basophils # (Auto) 0.1 x10^3/uL (0.0-0.2) Sodium Level 135 mmol/L (136-145) Potassium Level 4.0 mmol/L (3.5-5.1) Chloride Level 98 mmol/L (98-107) Carbon Dioxide Level 22 mmol/L (21-32) Anion Gap 15 (6-14) Blood Urea Nitrogen 11 mg/dL (7-20) Creatinine 0.9 mg/dL (0.6-1.0) Estimated GFR (Cockcroft-Gault) 64.3 BUN/Creatinine Ratio 12 (6-20) Glucose Level 433 mg/dL (70-99) Lactic Acid Level 2.3 mmol/L (0.4-2.0) Calcium Level 9.6 mg/dL (8.5-10.1) Total Bilirubin 0.8 mg/dL (0.2-1.0) Aspartate Amino Transf (AST/SGOT) 15 U/L (15-37) Alanine Aminotransferase (ALT/SGPT) 12 U/L (14-59) Alkaline Phosphatase 272 U/L (46-116) Troponin I Quantitative < 0.017 ng/mL (0.000-0.055) Total Protein 8.2 g/dL (6.4-8.2) Albumin 3.3 g/dL (3.4-5.0) Albumin/Globulin Ratio 0.7 (1.0-1.7) Lipase 45 U/L (73-393) Stool Occult Blood Negative (NEG) O2 Saturation 98 % (92-99) Arterial Blood pH 7.69 (7.35-7.45) Arterial Blood pCO2 at Patient Temp < 15 mmHg (35-46) Arterial Blood pO2 at Patient Temp 102 mmHg (75-108) Arterial Blood HCO3 15 mmol/L (21-28) Arterial Blood Base Excess -1 mmol/L (-3-3) Laboratory Tests Test 12/04/18 14:10 12/04/18 14:20 12/04/18 14:50 12/04/18 15:25 Urine Color [place] Urine Clarity Cloudy Urine pH 6.0 Urine Specific [place] >=1.030 Urine Protein >=300 mg/dL (NEG-TRACE) Urine Glucose (UA) >=1000 mg/dL (NEG) Urine Ketones (Stick) >=80 mg/dL (NEG) Urine Blood Small (NEG) Urine Nitrite Positive (NEG) Urine Bilirubin Large (NEG) Urine Urobilinogen Dipstick 1.0 mg/dL (0.2 mg/dL) Urine Leukocyte Esterase Moderate (NEG) Urine RBC 1-2 /HPF (0-2) Urine WBC Tntc /HPF (0-4) Urine Squamous Epithelial Cells Occ /LPF Urine Bacteria Many /HPF (0-FEW) Urine Mucus Mod /LPF White Blood Count 11.4 x10^3/uL (4.0-11.0) Red Blood Count 5.43 x10^6/uL (3.50-5.40) Hemoglobin 15.4 g/dL (12.0-15.5) Hematocrit 47.1 % (36.0-47.0) Mean Corpuscular Volume 87 fL (79-100) Mean Corpuscular Hemoglobin 28 pg (25-35) Mean Corpuscular Hemoglobin Concent 33 g/dL (31-37) Red Cell Distribution Width 14.5 % (11.5-14.5) Platelet Count 203 x10^3/uL (140-400) Neutrophils (%) (Auto) 76 % (31-73) Lymphocytes (%) (Auto) 17 % (24-48) Monocytes (%) (Auto) 6 % (0-9) Eosinophils (%) (Auto) 0 % (0-3) Basophils (%) (Auto) 1 % (0-3) Neutrophils # (Auto) 8.7 x10^3/uL (1.8-7.7) Lymphocytes # (Auto) 1.9 x10^3/uL (1.0-4.8) Monocytes # (Auto) 0.7 x10^3/uL (0.0-1.1) Eosinophils # (Auto) 0.0 x10^3/uL (0.0-0.7) Basophils # (Auto) 0.1 x10^3/uL (0.0-0.2) Sodium Level 135 mmol/L (136-145) Potassium Level 4.0 mmol/L (3.5-5.1) Chloride Level 98 mmol/L (98-107) Carbon Dioxide Level 22 mmol/L (21-32) Anion Gap 15 (6-14) Blood Urea Nitrogen 11 mg/dL (7-20) Creatinine 0.9 mg/dL (0.6-1.0) Estimated GFR (Cockcroft-Gault) 64.3 BUN/Creatinine Ratio 12 (6-20) Glucose Level 433 mg/dL (70-99) Lactic Acid Level 2.3 mmol/L (0.4-2.0) Calcium Level 9.6 mg/dL (8.5-10.1) Total Bilirubin 0.8 mg/dL (0.2-1.0) Aspartate Amino Transf (AST/SGOT) 15 U/L (15-37) Alanine Aminotransferase (ALT/SGPT) 12 U/L (14-59) Alkaline Phosphatase 272 U/L (46-116) Troponin I Quantitative < 0.017 ng/mL (0.000-0.055) Total Protein 8.2 g/dL (6.4-8.2) Albumin 3.3 g/dL (3.4-5.0) Albumin/Globulin Ratio 0.7 (1.0-1.7) Lipase 45 U/L (73-393) Stool Occult Blood Negative (NEG) O2 Saturation 98 % (92-99) Arterial Blood pH 7.69 (7.35-7.45) Arterial Blood pCO2 at Patient Temp < 15 mmHg (35-46) Arterial Blood pO2 at Patient Temp 102 mmHg (75-108) Arterial Blood HCO3 15 mmol/L (21-28) Arterial Blood Base Excess -1 mmol/L (-3-3) VTE Prophylaxis Ordered VTE Prophylaxis Devices: Yes VTE Pharmacological Prophylaxi: Yes Assessment/Plan Assessment/Plan A/P: N/V/D - very foul smelling. Completed antibiotics recently. Stool for c. diff. Given levaquin by ED Dysuria - grossly abnormal UA, given empiric levaquin by ED Sepsis - likely 2/2 gastroenteritis. Unclear if antibiotics are indicated given her h/o c. difficile. IVF given as well as antibiotics. I will consult ID. f/u stool cultures Metabolic alkalosis - with respiratory alkalosis. Likely from vomiting and hyperventilation. Conversationally she is not hyperventilating, was prior to my evaluation. Will control vomiting Bilateral LE ulcers - chronic, unclear if worsened, will have wound care to see Antibiotic allergies - ID consulted History of methicillin-resistant Staphylococcus aureus - on vancomycin History of Clostridium difficile - will monitor stool COPD - prn nebs Chronic diastolic CHF - will cont cardiac meds Diabetes-Type II - will cont home insulin dosing Hypertension - cont meds Hepatitis B - LFTs notably elevated slightly Obesity - counseled on weight loss FEN - ADA diet PPX - lovenox FULL CODE Inpatient for UTI, N/V/D CANDY CASEY MD Dec 04, 2018 16:05
--- NOTE | 2018-12-04 16:14 | EKG ---
[facility] [address] [place] [address] Test Date: 2018-12-04 Test Time: 14:38:35 Pat Name: RENÉ BLANCO Department: Room: Gender: F [id number]: : 1960 Requested By: CARLOS CONTRERAS Order Number: [id number] Reading MD: Luis Canseco MD Measurements Intervals [place] Rate: 64 P: VT: QRS: -25 QRSD: 78 T: -83 QT: 464 QTc: 483 Interpretive Statements SR NON-SPECIFIC ST/T CHANGES Electronically Signed On 12-18-2018 9:32:10 [employer] OPER[employer] by Luis Canseco MD
[2018-12-04] MEDS: INSULIN LISPRO 300 UNITS/3 ML VIAL. SQ SCH (17:00)
[2018-12-04] MEDS ORDERED: DEXTROSE 50% 25 GM / 50ML DISP.SYRIN. IV PRN ×2 (17:00→20:45)
[2018-12-04 17:29] LABS: PLT ESTIMATE ADEQUATE (ADEQUATE)
[2018-12-04 17:31] LABS: ANISOCYTOSIS SLIGHT
[2018-12-04] MEDS: IV NORMAL SALINE 1000ML BAG 1,000 ML IV SCH ×2 (18:29→23:40)
[2018-12-04 19:04] VITALS: BP 142/72
[2018-12-04] MEDS ORDERED: oxyCODONE IR 5 MG TABLET PO ONE (19:45)
[2018-12-04] MEDS: fentaNYL PF VIAL 100 MCG/2 ML VIAL IVP PRN (20:12)
[2018-12-04] MEDS ORDERED: tiZANidine 4 MG TABLET. PO PRN (20:15)
[2018-12-04] MEDS ORDERED: ALBUTEROL SULFATE 2.5 MG/3 ML NEBU. INH PRN (20:15)
[2018-12-04] MEDS ORDERED: ONDANSETRON PF 4 MG/2 ML VIAL. IVP PRN (20:45)
[2018-12-04] MEDS ORDERED: ENOXAPARIN 40 MG/0.4 ML SYRINGE. SQ SCH (21:00)
[2018-12-04] MEDS: INSULIN GLARGINE SYRINGE. SQ SCH (21:09)
[2018-12-04] MEDS: SOTALOL 80 MG TABLET. PO SCH (21:11)
[2018-12-04] MEDS: COLESTIPOL HCL 1 GM TABLET PO SCH (21:11)
[2018-12-04] MEDS: OXcarbazepine 300 MG TABLET PO SCH (21:11)
[2018-12-04] MEDS: GABAPENTIN 300 MG CAPSULE. PO SCH (21:12)
[2018-12-04 23:38] VITALS: BP 118/65
[2018-12-05] MEDS: oxyCODONE/APAP 10/325 1 TAB TABLET PO PRN ×3 (02:25→16:33)
[2018-12-05 03:58] VITALS: BP 135/64
[2018-12-05] MEDS: LEVOTHYROXINE 75 MCG TABLET PO SCH (06:16)
[2018-12-05] MEDS: IV NORMAL SALINE 1000ML BAG 1,000 ML IV SCH ×2 (06:20→16:32)
[2018-12-05 07:00] VITALS: BP 144/68
[2018-12-05] MEDS: IPRATRPIUM/ALBUTEROL 0.5/2.5MG 3 ML NEBU. NEB SCH ×3 (08:00→16:00)
[2018-12-05] MEDS ORDERED: FLU VAX QS 2019-20 (36MOS+)/PF 0.5 ML SYRINGE. VAX IM ONE (09:00)
[2018-12-05] MEDS: GABAPENTIN 300 MG CAPSULE. PO SCH ×3 (09:05→20:40)
[2018-12-05] MEDS: SOTALOL 80 MG TABLET. PO SCH ×2 (09:06→20:40)
[2018-12-05] MEDS: CLOPIDOGREL BISULFATE 75 MG TABLET PO SCH (09:06)
[2018-12-05] MEDS: CHOLECALCIFEROL (VITAMIN D3) 1,000 UNIT TABLET PO SCH (09:06)
[2018-12-05] MEDS: amLODIPine BESYLATE 5 MG TABLET PO SCH (09:06)
[2018-12-05] MEDS: FLUTICASONE 50MCG/NASAL SPRAY 16GM BOTTLE. NS SCH (09:07)
[2018-12-05] MEDS: INSULIN LISPRO 300 UNITS/3 ML VIAL. SQ SCH ×3 (09:16→17:00)
--- NOTE | 2018-12-05 10:31 | PDOC ---
[employer] PROGRESS NOTE Chief Complaint Chief Complaint N/V/D - very foul smelling Recent antibiotic use Dysuria Sepsis - likely 2/2 gastroenteritis Metabolic alkalosis - with respiratory alkalosis Bilateral LE ulcers - chronic Antibiotic allergies History of methicillin-resistant Staphylococcus aureus History of Clostridium difficile COPD Chronic diastolic CHF Diabetes-Type II Hypertension Hepatitis B Obesity FEN - ADA diet PPX - lovenox FULL CODE Inpatient for UTI, N/V/D History of Present Illness History of Present Illness 12/05/2018 Pt was seen and examined. Pt still reports malaise, was somewhat lethargic on interview. Reports no diarrhea, but continues to complain of N/V and dysuria. Vitals/I&O Vitals/I&O: Vital Signs Date Time Temp Pulse Resp B/P (MAP) Pulse Ox O2 Delivery O2 Flow Rate FiO2 12/05/18 09:06 68 144/68 12/05/18 09:06 98 Nasal Cannula 2.0 12/05/18 07:00 98.8 20 98.8 Physical Exam General: Alert, Cooperative, mild distress Heart: Regular rate Lungs: Crackles, Other Abdomen: Normal bowel sounds, Soft, No hepatosplenomegaly, No masses, Other (Diffuse tenderness, multiple abdominal sores) Extremities: Other (1+ edema, multiple ulcers on bilateral LE) Labs Labs: Laboratory Tests Test 12/04/18 14:10 12/04/18 14:20 12/04/18 14:50 12/04/18 15:25 Urine Color [place] Urine Clarity Cloudy Urine pH 6.0 Urine Specific [place] >=1.030 Urine Protein >=300 mg/dL (NEG-TRACE) Urine Glucose (UA) >=1000 mg/dL (NEG) Urine Ketones (Stick) >=80 mg/dL (NEG) Urine Blood Small (NEG) Urine Nitrite Positive (NEG) Urine Bilirubin Large (NEG) Urine Urobilinogen Dipstick 1.0 mg/dL (0.2 mg/dL) Urine Leukocyte Esterase Moderate (NEG) Urine RBC 1-2 /HPF (0-2) Urine WBC Tntc /HPF (0-4) Urine Squamous Epithelial Cells Occ /LPF Urine Bacteria Many /HPF (0-FEW) Urine Mucus Mod /LPF White Blood Count 11.4 x10^3/uL (4.0-11.0) Red Blood Count 5.43 x10^6/uL (3.50-5.40) Hemoglobin 15.4 g/dL (12.0-15.5) Hematocrit 47.1 % (36.0-47.0) Mean Corpuscular Volume 87 fL (79-100) Mean Corpuscular Hemoglobin 28 pg (25-35) Mean Corpuscular Hemoglobin Concent 33 g/dL (31-37) Red Cell Distribution Width 14.5 % (11.5-14.5) Platelet Count 203 x10^3/uL (140-400) Neutrophils (%) (Auto) 76 % (31-73) Lymphocytes (%) (Auto) 17 % (24-48) Monocytes (%) (Auto) 6 % (0-9) Eosinophils (%) (Auto) 0 % (0-3) Basophils (%) (Auto) 1 % (0-3) Neutrophils # (Auto) 8.7 x10^3/uL (1.8-7.7) Lymphocytes # (Auto) 1.9 x10^3/uL (1.0-4.8) Monocytes # (Auto) 0.7 x10^3/uL (0.0-1.1) Eosinophils # (Auto) 0.0 x10^3/uL (0.0-0.7) Basophils # (Auto) 0.1 x10^3/uL (0.0-0.2) Platelet Estimate Adequate (ADEQUATE) Large Platelets Occ Anisocytosis Slight Crenated Cell Present Sodium Level 135 mmol/L (136-145) Potassium Level 4.0 mmol/L (3.5-5.1) Chloride Level 98 mmol/L (98-107) Carbon Dioxide Level 22 mmol/L (21-32) Anion Gap 15 (6-14) Blood Urea Nitrogen 11 mg/dL (7-20) Creatinine 0.9 mg/dL (0.6-1.0) Estimated GFR (Cockcroft-Gault) 64.3 BUN/Creatinine Ratio 12 (6-20) Glucose Level 433 mg/dL (70-99) Lactic Acid Level 2.3 mmol/L (0.4-2.0) Calcium Level 9.6 mg/dL (8.5-10.1) Total Bilirubin 0.8 mg/dL (0.2-1.0) Aspartate Amino Transf (AST/SGOT) 15 U/L (15-37) Alanine Aminotransferase (ALT/SGPT) 12 U/L (14-59) Alkaline Phosphatase 272 U/L (46-116) Troponin I Quantitative < 0.017 ng/mL (0.000-0.055) Total Protein 8.2 g/dL (6.4-8.2) Albumin 3.3 g/dL (3.4-5.0) Albumin/Globulin Ratio 0.7 (1.0-1.7) Lipase 45 U/L (73-393) Stool Occult Blood Negative (NEG) O2 Saturation 98 % (92-99) Arterial Blood pH 7.69 (7.35-7.45) Arterial Blood pCO2 at Patient Temp < 15 mmHg (35-46) Arterial Blood pO2 at Patient Temp 102 mmHg (75-108) Arterial Blood HCO3 15 mmol/L (21-28) Arterial Blood Base Excess -1 mmol/L (-3-3) Test 12/04/18 18:30 12/04/18 20:07 12/05/18 07:27 Lactic Acid Level 1.6 mmol/L (0.4-2.0) Glucose (Fingerstick) 412 mg/dL (70-99) 333 mg/dL (70-99) Review of Systems Review of Systems: Denies CP Denies SOB Admits N/V Denies D Admits painful urination Assessment and Plan Assessmemt and Plan Problems Medical Problems: (1) Acute gastroenteritis Status: Acute (2) Anxiety Status: Acute (3) Hyperglycemia Status: Acute (4) Metabolic alkalosis Status: Acute (5) Morbid obesity Status: Chronic (6) Sepsis Status: Acute (7) UTI (lower urinary tract infection) Status: Acute N/V/D - very foul smelling Recent antibiotic use Dysuria Sepsis - likely 2/2 gastroenteritis Metabolic alkalosis - with respiratory alkalosis Bilateral LE ulcers - chronic Antibiotic allergies History of methicillin-resistant Staphylococcus aureus History of Clostridium difficile COPD Chronic diastolic CHF Diabetes-Type II Hypertension Hepatitis B Obesity Plan: 1) Await ID recommendations in regards to possible abx for UTI given recent hx of C diff. 2) IVF 3) PT/OT 4) DVT prophylaxis 5) Full code 6) Daily labs (CBC/CMP) 7) Await wound care recommendations 8) Duonebs PRN Comment Review of Relevant I have reviewed the following items prudence (where applicable) has been applied. Medications: Current Medications Medications (Trade) Dose Ordered Sig/Matthias Route PRN Reason Start Time Stop Time Status Last Admin Dose Admin Sodium Chloride 1,000 ml @ 1,000 mls/hr Q1H IV 12/04/18 13:42 12/04/18 14:41 DC 12/04/18 15:56 Ondansetron HCl (Zofran) 4 mg 1X ONCE IV 12/04/18 13:45 12/04/18 13:50 DC 12/04/18 15:56 Albuterol/ Ipratropium (Duoneb) 3 ml 1X ONCE NEB 12/04/18 13:45 12/04/18 13:50 DC 12/04/18 13:45 Methylprednisolone Sodium Succinate (SOLU-Medrol 125MG VIAL) 125 mg 1X ONCE IV 12/04/18 13:45 12/04/18 13:50 DC 12/04/18 15:57 Albuterol Sulfate (Ventolin Neb Soln) 10 mg 1X ONCE CONT NEB 12/04/18 14:15 12/04/18 14:16 DC 12/04/18 14:15 Lorazepam (Ativan Inj) 1 mg 1X ONCE IVP 12/04/18 15:00 12/04/18 15:01 DC 12/04/18 15:17 Insulin Human Regular (HumuLIN R VIAL) 10 unit 1X ONCE IV 12/04/18 15:00 12/04/18 15:01 DC 12/04/18 16:00 Sodium Chloride 1,000 ml @ 1,000 mls/hr 1X ONCE IV 12/04/18 16:00 12/04/18 16:59 DC 12/04/18 16:51 Levofloxacin/ Dextrose 150 ml @ 100 mls/hr 1X ONCE IV 12/04/18 16:15 12/04/18 17:44 DC 12/04/18 16:51 Sodium Chloride 1,000 ml @ 150 mls/hr Q6H40M IV 12/04/18 17:00 12/05/18 16:59 12/05/18 06:20 Insulin Human Lispro (HumaLOG) 0-5 UNITS TIDWMEALS SQ 12/04/18 17:00 12/05/18 09:16 Fentanyl Citrate (Fentanyl 2ml Vial) 50 mcg PRN Q4HRS PRN IVP PAIN 12/04/18 20:00 12/04/18 20:12 Albuterol Sulfate (Ventolin Neb Soln) 2.5 mg PRN Q6HRS PRN INH SHORTNESS OF BREATH 12/04/18 20:15 12/04/18 20:57 Amlodipine Besylate (Norvasc) 5 mg DAILY PO 12/05/18 09:00 12/05/18 09:06 Vitamin D (Vitamin D3) 1,000 unit DAILY PO 12/05/18 09:00 12/05/18 09:06 Clopidogrel Bisulfate (Plavix) 75 mg DAILY PO 12/05/18 09:00 12/05/18 09:06 Colestipol HCl (Colestid) 1 gm BID@1000,2200 PO 12/04/18 22:00 12/04/18 21:11 Fluticasone Propionate (Flonase) 2 spray DAILY NS 12/05/18 09:00 12/05/18 09:07 Gabapentin (Neurontin) 600 mg TID PO 12/04/18 21:00 12/05/18 09:05 Guaifenesin (Mucinex) 600 mg BID PO 12/04/18 21:00 12/05/18 09:07 Levothyroxine Sodium (Synthroid) 225 mcg DAILY06 PO 12/05/18 06:00 12/05/18 06:16 Oxcarbazepine (Trileptal) 300 mg HS PO 12/04/18 21:00 12/04/18 21:11 Oxycodone/ Acetaminophen (Percocet 10/325) 1 tab PRN Q6HRS PRN PO PAIN 12/04/18 20:15 12/05/18 09:06 Sotalol HCl (Betapace) 80 mg BID PO 12/04/18 21:00 12/05/18 09:06 Insulin Glargine (Lantus Syringe) 12 unit QHS SQ 12/04/18 21:00 12/04/18 21:09 Enoxaparin Sodium (Lovenox 40mg Syringe) 40 mg Q24H SQ 12/04/18 21:00 12/04/18 21:09 Insulin Human Regular (HumuLIN R VIAL) 10 unit 1X ONCE IV 12/04/18 21:00 12/04/18 21:01 DC 12/04/18 21:37 DAINA STEPHEN III DO Dec 05, 2018 10:31
[2018-12-05 11:33] VITALS: BP 125/72
--- NOTE | 2018-12-05 11:36 | PDOC ---
Infectious Disease Note Vital Sign Vital Signs Vital Signs Date Time Temp Pulse Resp B/P (MAP) Pulse Ox O2 Delivery O2 Flow Rate FiO2 12/05/18 10:06 98 Nasal Cannula 2.0 12/05/18 09:06 68 144/68 12/05/18 07:00 98.8 20 98.8 Labs Lab Laboratory Tests Test 12/04/18 14:10 12/04/18 14:20 12/04/18 14:50 12/04/18 15:25 Urine Color [place] Urine Clarity Cloudy Urine pH 6.0 Urine Specific [place] >=1.030 Urine Protein >=300 mg/dL (NEG-TRACE) Urine Glucose (UA) >=1000 mg/dL (NEG) Urine Ketones (Stick) >=80 mg/dL (NEG) Urine Blood Small (NEG) Urine Nitrite Positive (NEG) Urine Bilirubin Large (NEG) Urine Urobilinogen Dipstick 1.0 mg/dL (0.2 mg/dL) Urine Leukocyte Esterase Moderate (NEG) Urine RBC 1-2 /HPF (0-2) Urine WBC Tntc /HPF (0-4) Urine Squamous Epithelial Cells Occ /LPF Urine Bacteria Many /HPF (0-FEW) Urine Mucus Mod /LPF White Blood Count 11.4 x10^3/uL (4.0-11.0) Red Blood Count 5.43 x10^6/uL (3.50-5.40) Hemoglobin 15.4 g/dL (12.0-15.5) Hematocrit 47.1 % (36.0-47.0) Mean Corpuscular Volume 87 fL (79-100) Mean Corpuscular Hemoglobin 28 pg (25-35) Mean Corpuscular Hemoglobin Concent 33 g/dL (31-37) Red Cell Distribution Width 14.5 % (11.5-14.5) Platelet Count 203 x10^3/uL (140-400) Neutrophils (%) (Auto) 76 % (31-73) Lymphocytes (%) (Auto) 17 % (24-48) Monocytes (%) (Auto) 6 % (0-9) Eosinophils (%) (Auto) 0 % (0-3) Basophils (%) (Auto) 1 % (0-3) Neutrophils # (Auto) 8.7 x10^3/uL (1.8-7.7) Lymphocytes # (Auto) 1.9 x10^3/uL (1.0-4.8) Monocytes # (Auto) 0.7 x10^3/uL (0.0-1.1) Eosinophils # (Auto) 0.0 x10^3/uL (0.0-0.7) Basophils # (Auto) 0.1 x10^3/uL (0.0-0.2) Platelet Estimate Adequate (ADEQUATE) Large Platelets Occ Anisocytosis Slight Crenated Cell Present Sodium Level 135 mmol/L (136-145) Potassium Level 4.0 mmol/L (3.5-5.1) Chloride Level 98 mmol/L (98-107) Carbon Dioxide Level 22 mmol/L (21-32) Anion Gap 15 (6-14) Blood Urea Nitrogen 11 mg/dL (7-20) Creatinine 0.9 mg/dL (0.6-1.0) Estimated GFR (Cockcroft-Gault) 64.3 BUN/Creatinine Ratio 12 (6-20) Glucose Level 433 mg/dL (70-99) Lactic Acid Level 2.3 mmol/L (0.4-2.0) Calcium Level 9.6 mg/dL (8.5-10.1) Total Bilirubin 0.8 mg/dL (0.2-1.0) Aspartate Amino Transf (AST/SGOT) 15 U/L (15-37) Alanine Aminotransferase (ALT/SGPT) 12 U/L (14-59) Alkaline Phosphatase 272 U/L (46-116) Troponin I Quantitative < 0.017 ng/mL (0.000-0.055) Total Protein 8.2 g/dL (6.4-8.2) Albumin 3.3 g/dL (3.4-5.0) Albumin/Globulin Ratio 0.7 (1.0-1.7) Lipase 45 U/L (73-393) Stool Occult Blood Negative (NEG) O2 Saturation 98 % (92-99) Arterial Blood pH 7.69 (7.35-7.45) Arterial Blood pCO2 at Patient Temp < 15 mmHg (35-46) Arterial Blood pO2 at Patient Temp 102 mmHg (75-108) Arterial Blood HCO3 15 mmol/L (21-28) Arterial Blood Base Excess -1 mmol/L (-3-3) Test 12/04/18 18:30 12/04/18 20:07 12/05/18 07:27 Lactic Acid Level 1.6 mmol/L (0.4-2.0) Glucose (Fingerstick) 412 mg/dL (70-99) 333 mg/dL (70-99) Micro Microbiology 12/04/18 Fecal Leukocyte Stain - Final, Complete Objective Assessment N/V/D - better UTI - POA 12/04 Abx allergies - itching Leukocytosis - now s/p steroid Afib H/o C-diff and MRSA No evidence of active Hep B based on previous labs Plan Plan of Care Cont IV Vanc Add Meropenem F/u labs and cults Thank you # [phone] MATEO NEGRON MD Dec 05, 2018 11:36
[2018-12-05] MEDS: COLESTIPOL HCL 1 GM TABLET PO SCH ×2 (11:56→22:44)
[2018-12-05] MEDS: MEROPENEM 500 MG in IV NORMAL SALINE 50ML 50 ML IV SCH ×2 (11:56→17:32)
[2018-12-05] MEDS ORDERED: VANCOMYCIN PER PHARMACY MC PRN (13:00)
--- NOTE | 2018-12-05 13:37 | NUR ---
Pharmacy Vancomycin Dosing Note S:Consulted to monitor and dose vancomycin started 12/05/18. O:RENÉ BLANCO is a 58 year old F with empiric coverage for leukocytosis, recent abx use. Height: 5 feet, 8 inches Weight: 129.3 kg Dosing Weight: Actual Other Antibiotics: MERREM 500 MG IV Q6HRS LABS: Last BUN: 11 Last Creatinine: 0.9 Creatinine Clearance: 96 mL/min Last WBC: 11.4 Tmax (past 24 hours): 99.1 Microbiology: URINE CX PENDING C.DIFF PENDING A: Patient requires vancomycin as empiric coverage for leukocytosis, goal trough 15-20 mcg/ml until source is known. Based on recent vancomycin dosing on past admissions, initiate the following: P: 1. Initiate Vancomycin 1500 mg IV q8h 2. Follow up Trough level on 12/06/18 at 1230 3. Pharmacy will continue to monitor, follow and adjust therapy as needed. JERRY NORTH, [facility], 12/05/18 [id number]
[2018-12-05] MEDS: VANCOMYCIN 1.5 GM in IV NORMAL SALINE 500ML BAG 500 ML IV SCH ×2 (14:13→20:42)
--- NOTE | 2018-12-05 14:22 | NUR ---
SW consulted for complex needs, lives alone. Chart reviewed. Pt has PMHx of Asthma, COPD, DM2 and presented to ER with N/V/D. Pt had used [facility] in the past. PT/OT ordered. ID following pt. SW will continue to follow pt to eval dc needs.
[2018-12-05 15:16] VITALS: BP 143/74
--- NOTE | 2018-12-05 16:07 | NUR ---
Wound Care: Consult to evaluate for possible wounds present on admission. Pt is known to wound clinic and has chronic venous ulcers to legs. Currently these are resolved. 2 scabbed areas to bilateral abdomen which are scabbed as well. Skin prepped and left [employer]. No other open areas noted on head to toe inspection. Pt able to self turn. Educated to change positions to avoid skin breakdown. NO FOLLOW UP REQUIRED AT THIS TIME. CONTACT WOUND CARE IF ANY NEW OPEN AREAS DEVELOP
[2018-12-05 19:10] VITALS: BP 127/64
[2018-12-05] MEDS: OXcarbazepine 300 MG TABLET PO SCH (20:40)
[2018-12-05] MEDS: LACTOBACILLUS RHAMNOSUS GG 1 CAPSULE. PO SCH (20:40)
[2018-12-05] MEDS: ENOXAPARIN 40 MG/0.4 ML SYRINGE. SQ SCH (20:43)
[2018-12-05] MEDS: INSULIN GLARGINE SYRINGE. SQ SCH (20:53)
[2018-12-05 23:10] VITALS: BP 120/54
--- NOTE | 2018-12-05 23:53 | CONS ---
DATE OF CONSULTATION: 12/05/2018 INFECTIOUS DISEASE CONSULTATION LOCATION: The patient's room #670. REQUESTING PHYSICIAN: Dr. De Leon. REASON FOR CONSULTATION: Diarrhea. HISTORY OF PRESENT ILLNESS: The patient is a pleasant 58-year-old female with a known history of diabetes, obesity and has been followed [facility] for lower extremity wounds. She recently finished a course of levofloxacin for some lower extremity wounds. Last Tuesday, she began to have episodes of loose stools with subjective fevers, some abdominal cramping, no blood and then had some nausea and vomiting. Denies any dysuria, frequency or urgency, because she was feeling so poorly she presented to [facility] on the . On arrival, she had a white count of 11.4. Her glucose was elevated at 433. Lactic acid was elevated at 2.3. She underwent a chest x-ray that showed no acute cardiopulmonary process. She was given a dose of vancomycin and levofloxacin. C. diff and other stool studies have been ordered. She had urinalysis collected looks consistent with urinary tract infection. Currently, she is sitting in bed. She is feeling better already. She is on some oxygen, which she normally uses at night. Denies any gross sinus drainage. No sore throat or cough. Denies any dysuria, frequency or foul odor with her urine. Denies any falls or trauma. PAST MEDICAL HISTORY: Positive for C. diff, history of MRSA, atrial fibrillation, congestive heart failure, hypertension, hyperlipidemia, COPD, TIA, gastroesophageal reflux disease, irritable bowel, anxiety, depression, diabetes, hypothyroidism, morbid obesity. Lower extremity wounds. PAST SURGICAL HISTORY: Positive for wound debridement, cholecystectomy, cataract removal. REVIEW OF SYSTEMS: Otherwise negative. ALLERGIES: LISTED CEPHALEXIN, PENICILLIN AND SULFA, ALL CAUSING SOME ITCHING. Has tolerated carbapenems. ASPIRIN, CODEINE, DICLOFENAC SODIUM, MORPHINE, NABUMETONE AND TOMATO ARE ALSO LISTED. SOCIAL HISTORY: Lives by herself. She is a former smoker. No alcohol or substance abuse. No pets, no birds. FAMILY HISTORY: Noncontributory. CURRENT MEDICATIONS: She has received a dose of levofloxacin as well as a dose of vancomycin. She is on Ventolin, Norvasc, Plavix, Colestid, Lovenox, fentanyl, Neurontin, insulin, Mucinex, DuoNebs, Synthroid, Solu-Medrol x 1, sotalol. PHYSICAL EXAMINATION: VITAL SIGNS: She has been afebrile since her presentation, currently 98.8, pulse 68, blood pressure 144/68, satting 98% on 2 liters. CONSTITUTIONAL: She is lying in bed. She is cooperative. She is in no acute distress. She is on oxygen. HEENT: Her pupils are status post cataract surgery. She had normal conjunctivae. Oral cavity, pharynx is clear, but she has had some poor dentition. NECK: Supple, no JVD. LUNGS: Decreased in the bases. HEART: S1, S2. ABDOMEN: Obese, soft, no guarding or rebound. EXTREMITIES: Without clubbing, cyanosis. She has chronic lower extremity venous stasis changes and some healing wounds. SKIN: Without signs of generalized rash. She has some multiple scattered lesions on her abdominal area are superficial. NEUROLOGIC: She answers questions appropriately. PSYCHIATRIC: Affect is somewhat flat. LABORATORY VALUES: White count at presentation 11.4, hemoglobin 15.4, platelets 207, neutrophils 76, lymphs are 17. AST on arrival was 15, ALT 12, alkaline phosphatase 272. Lipase was 45. Troponin was normal. Lactic acid 2.3 corrected to 1.6. Recent fingerstick 333. Occult blood was negative. Urine was concerning for urinary tract infection. Chest x-ray is as reported above. IMPRESSION: 1. Nausea, vomiting, diarrhea, improved. 2. Urinary tract infection present on admission 12/04. 3. ANTIBIOTIC ALLERGIES CAUSE ITCHING. 4. Leukocytosis, now status post Solu-Medrol. 5. History of atrial fibrillation. 6. History of Clostridium difficile, methicillin-resistant Staphylococcus aureus. No evidence of active hepatitis B, based on previous labs. RECOMMENDATIONS: Continue IV vancomycin. We will add meropenem. Follow up labs and cultures. Thank you for the patient's care. If you have any questions, please do not hesitate to contact me. MATEO NEGRON MD DR: JERI/iban JOB#: [id number] / [id number] MTDD
[2018-12-06 03:10] VITALS: BP 129/54
[2018-12-06] MEDS: VANCOMYCIN 1.5 GM in IV NORMAL SALINE 500ML BAG 500 ML IV SCH (04:04)
[2018-12-06] MEDS: LEVOTHYROXINE 75 MCG TABLET PO SCH (05:41)
[2018-12-06] MEDS: MEROPENEM 500 MG in IV NORMAL SALINE 50ML 50 ML IV SCH ×5 (06:00→17:10)
[2018-12-06 06:42] LABS: BASO # 0.1 x10^3/uL (0.0-0.2); BASO % 1 % (0-3); EOS # 0.1 x10^3/uL (0.0-0.7); EOS % 1 % (0-3); HEMATOCRIT 43.5 % (36.0-47.0); LYMPH % 30 % (24-48); MEAN CORPUSCULAR HEMOGLOBIN 29 pg (25-35); MEAN CORPUSCULAR HGB CONC 32 g/dL (31-37); MEAN CORPUSCULAR VOLUME 89 fL (79-100); MONO # 0.7 x10^3/uL (0.0-1.1); MONO % 7 % (0-9); NEUT # 6.2 x10^3/uL (1.8-7.7); NEUT % 62 % (31-73); PLATELET COUNT 154 x10^3/uL (140-400); RED CELL DISTRIBUTION WIDTH 14.5 % (11.5-14.5)
[2018-12-06 06:43] LABS: ALBUMIN 2.8 g/dL (3.4-5.0); ALBUMIN/GLOBULIN RATIO 0.7 (1.0-1.7); CALCIUM 8.7 mg/dL (8.5-10.1); CREATININE 0.9 mg/dL (0.6-1.0); GFR 64.3; TOTAL BILIRUBIN 0.2 mg/dL (0.2-1.0); TOTAL PROTEIN 6.9 g/dL (6.4-8.2)
[2018-12-06 06:47] LABS: POTASSIUM 2.7 mmol/L (3.5-5.1)
[2018-12-06 07:00] VITALS: BP 151/66
[2018-12-06] MEDS ORDERED: POTASSIUM CHLORIDE 20 MEQ TABLET.ER. PO ONE (08:00)
[2018-12-06] MEDS: FLUTICASONE 50MCG/NASAL SPRAY 16GM BOTTLE. NS SCH (09:00)
--- NOTE | 2018-12-06 09:15 | PDOC ---
Infectious Disease Note Subjective Subjective C/o abd pain around her umbilicus and over bladder No F/C/S/N/V/SOA/rash ROS ROS o/w neg Vital Sign Vital Signs Vital Signs Date Time Temp Pulse Resp B/P (MAP) Pulse Ox O2 Delivery O2 Flow Rate FiO2 12/06/18 07:00 98.1 61 12 151/66 (94) 99 Nasal Cannula 2.0 98.1 Physical Exam PHYSICAL EXAM CONSTITUTIONAL: She is lying in bed. She is cooperative. She is in no acute distress. She is on oxygen. HEENT: Her pupils are status post cataract surgery. She had normal conjunctivae. Oral cavity, pharynx is clear, but she has had some poor dentition. NECK: Supple, no JVD. LUNGS: Decreased in the bases. HEART: S1, S2. ABDOMEN: Obese, soft, no guarding or rebound. Some mild suprapubic and periumbilical discomfort. NO CVA tendernes EXTREMITIES: Without clubbing, cyanosis. She has chronic lower extremity venous stasis changes and some healing wounds. SKIN: Without signs of generalized rash. She has some multiple scattered lesions on her abdominal area are superficial. NEUROLOGIC: She answers questions appropriately. PSYCHIATRIC: Affect is somewhat flat. Labs Lab Laboratory Tests Test 12/05/18 11:05 12/05/18 16:48 12/05/18 20:34 12/06/18 04:06 Glucose (Fingerstick) 274 mg/dL (70-99) 219 mg/dL (70-99) 278 mg/dL (70-99) White Blood Count 10.0 x10^3/uL (4.0-11.0) Red Blood Count 4.90 x10^6/uL (3.50-5.40) Hemoglobin 14.0 g/dL (12.0-15.5) Hematocrit 43.5 % (36.0-47.0) Mean Corpuscular Volume 89 fL (79-100) Mean Corpuscular Hemoglobin 29 pg (25-35) Mean Corpuscular Hemoglobin Concent 32 g/dL (31-37) Red Cell Distribution Width 14.5 % (11.5-14.5) Platelet Count 154 x10^3/uL (140-400) Neutrophils (%) (Auto) 62 % (31-73) Lymphocytes (%) (Auto) 30 % (24-48) Monocytes (%) (Auto) 7 % (0-9) Eosinophils (%) (Auto) 1 % (0-3) Basophils (%) (Auto) 1 % (0-3) Neutrophils # (Auto) 6.2 x10^3/uL (1.8-7.7) Lymphocytes # (Auto) 3.0 x10^3/uL (1.0-4.8) Monocytes # (Auto) 0.7 x10^3/uL (0.0-1.1) Eosinophils # (Auto) 0.1 x10^3/uL (0.0-0.7) Basophils # (Auto) 0.1 x10^3/uL (0.0-0.2) Sodium Level 142 mmol/L (136-145) Potassium Level 2.7 mmol/L (3.5-5.1) Chloride Level 104 mmol/L (98-107) Carbon Dioxide Level 28 mmol/L (21-32) Anion Gap 10 (6-14) Blood Urea Nitrogen 13 mg/dL (7-20) Creatinine 0.9 mg/dL (0.6-1.0) Estimated GFR (Cockcroft-Gault) 64.3 BUN/Creatinine Ratio 14 (6-20) Glucose Level 236 mg/dL (70-99) Calcium Level 8.7 mg/dL (8.5-10.1) Total Bilirubin 0.2 mg/dL (0.2-1.0) Aspartate Amino Transf (AST/SGOT) 36 U/L (15-37) Alanine Aminotransferase (ALT/SGPT) 17 U/L (14-59) Alkaline Phosphatase 205 U/L (46-116) Total Protein 6.9 g/dL (6.4-8.2) Albumin 2.8 g/dL (3.4-5.0) Albumin/Globulin Ratio 0.7 (1.0-1.7) Test 12/06/18 07:36 Glucose (Fingerstick) 247 mg/dL (70-99) Micro Microbiology 12/04/18 Fecal Leukocyte Stain - Final, Complete Objective Assessment N/V/D - better - C-diff neg UTI - POA 12/04 - GNR Abx allergies - itching Leukocytosis - now s/p steroid - better Afib H/o C-diff and MRSA No evidence of active Hep B based on previous labs Plan Plan of Care Discont IV Vanc Cont Meropenem F/u labs and cults D/w nursing MATEO NEGRON MD Dec 06, 2018 09:15
[2018-12-06] MEDS: CLOPIDOGREL BISULFATE 75 MG TABLET PO SCH (09:24)
[2018-12-06] MEDS: LACTOBACILLUS RHAMNOSUS GG 1 CAPSULE. PO SCH ×2 (09:25→21:57)
[2018-12-06] MEDS: COLESTIPOL HCL 1 GM TABLET PO SCH ×2 (09:25→22:00)
[2018-12-06] MEDS: GABAPENTIN 300 MG CAPSULE. PO SCH ×3 (09:25→21:56)
[2018-12-06] MEDS: SOTALOL 80 MG TABLET. PO SCH ×2 (09:25→21:57)
[2018-12-06] MEDS: oxyCODONE/APAP 10/325 1 TAB TABLET PO PRN ×2 (09:25→17:30)
[2018-12-06] MEDS: CHOLECALCIFEROL (VITAMIN D3) 1,000 UNIT TABLET PO SCH (09:26)
[2018-12-06] MEDS: amLODIPine BESYLATE 5 MG TABLET PO SCH (09:26)
[2018-12-06] MEDS: ENOXAPARIN 40 MG/0.4 ML SYRINGE. SQ SCH ×2 (09:27→21:56)
[2018-12-06] MEDS: INSULIN LISPRO 300 UNITS/3 ML VIAL. SQ SCH ×3 (09:37→17:14)
[2018-12-06 11:00] VITALS: BP 140/63
--- NOTE | 2018-12-06 12:06 | PDOC ---
[facility] [facility] PROGRESS NOTE Chief Complaint Chief Complaint N/V/D - very foul smelling Recent antibiotic use Dysuria Sepsis - likely 2/2 gastroenteritis Metabolic alkalosis - with respiratory alkalosis Bilateral LE ulcers - chronic Antibiotic allergies History of methicillin-resistant Staphylococcus aureus History of Clostridium difficile COPD Chronic diastolic CHF Diabetes-Type II Hypertension Hepatitis B Obesity FEN - ADA diet PPX - lovenox FULL CODE Inpatient for UTI, N/V/D History of Present Illness History of Present Illness 12/06/2018 Pt was seen and examined. Pt reports fatigue and a general feeling of malaise. No acute changes in status reported 12/05/2018 Pt was seen and examined. Pt still reports malaise, was somewhat lethargic on interview. Reports no diarrhea, but continues to complain of N/V and dysuria. Vitals/I&O Vitals/I&O: Vital Signs Date Time Temp Pulse Resp B/P (MAP) Pulse Ox O2 Delivery O2 Flow Rate FiO2 12/06/18 11:00 98.0 62 16 140/63 (88) 98 Nasal Cannula 2.0 98.0 I & O 12/05/18 12/05/18 12/06/18 15:00 23:00 07:00 Intake Total 600 ml Output Total 300 ml Balance 300 ml Physical Exam Physical Exam: CONSTITUTIONAL: She is lying in bed. She is cooperative. She is in no acute distress. She is on oxygen. HEENT: Her pupils are status post cataract surgery. She had normal conjunctivae. Oral cavity, pharynx is clear, but she has had some poor dentition. NECK: Supple, no JVD. LUNGS: Decreased in the bases. HEART: S1, S2. ABDOMEN: Obese, soft, no guarding or rebound. Some mild suprapubic and periumbilical discomfort. NO CVA tendernes EXTREMITIES: Without clubbing, cyanosis. She has chronic lower extremity venous stasis changes and some healing wounds. SKIN: Without signs of generalized rash. She has some multiple scattered lesions on her abdominal area are superficial. NEUROLOGIC: She answers questions appropriately. PSYCHIATRIC: Affect is somewhat flat. General: Alert, Cooperative, mild distress Heart: Regular rate Lungs: Crackles, Other Abdomen: Normal bowel sounds, Soft, No hepatosplenomegaly, No masses, Other (Diffuse tenderness, multiple abdominal sores) Extremities: Other (1+ edema, multiple ulcers on bilateral LE) Labs Labs: Laboratory Tests Test 12/05/18 16:48 12/05/18 20:34 12/06/18 04:06 12/06/18 07:36 Glucose (Fingerstick) 219 mg/dL (70-99) 278 mg/dL (70-99) 247 mg/dL (70-99) White Blood Count 10.0 x10^3/uL (4.0-11.0) Red Blood Count 4.90 x10^6/uL (3.50-5.40) Hemoglobin 14.0 g/dL (12.0-15.5) Hematocrit 43.5 % (36.0-47.0) Mean Corpuscular Volume 89 fL (79-100) Mean Corpuscular Hemoglobin 29 pg (25-35) Mean Corpuscular Hemoglobin Concent 32 g/dL (31-37) Red Cell Distribution Width 14.5 % (11.5-14.5) Platelet Count 154 x10^3/uL (140-400) Neutrophils (%) (Auto) 62 % (31-73) Lymphocytes (%) (Auto) 30 % (24-48) Monocytes (%) (Auto) 7 % (0-9) Eosinophils (%) (Auto) 1 % (0-3) Basophils (%) (Auto) 1 % (0-3) Neutrophils # (Auto) 6.2 x10^3/uL (1.8-7.7) Lymphocytes # (Auto) 3.0 x10^3/uL (1.0-4.8) Monocytes # (Auto) 0.7 x10^3/uL (0.0-1.1) Eosinophils # (Auto) 0.1 x10^3/uL (0.0-0.7) Basophils # (Auto) 0.1 x10^3/uL (0.0-0.2) Sodium Level 142 mmol/L (136-145) Potassium Level 2.7 mmol/L (3.5-5.1) Chloride Level 104 mmol/L (98-107) Carbon Dioxide Level 28 mmol/L (21-32) Anion Gap 10 (6-14) Blood Urea Nitrogen 13 mg/dL (7-20) Creatinine 0.9 mg/dL (0.6-1.0) Estimated GFR (Cockcroft-Gault) 64.3 BUN/Creatinine Ratio 14 (6-20) Glucose Level 236 mg/dL (70-99) Calcium Level 8.7 mg/dL (8.5-10.1) Total Bilirubin 0.2 mg/dL (0.2-1.0) Aspartate Amino Transf (AST/SGOT) 36 U/L (15-37) Alanine Aminotransferase (ALT/SGPT) 17 U/L (14-59) Alkaline Phosphatase 205 U/L (46-116) Total Protein 6.9 g/dL (6.4-8.2) Albumin 2.8 g/dL (3.4-5.0) Albumin/Globulin Ratio 0.7 (1.0-1.7) Test 12/06/18 10:45 Glucose (Fingerstick) 245 mg/dL (70-99) Review of Systems Review of Systems: Denies CP Denies SOB Denies N/V/D Assessment and Plan Assessmemt and Plan Problems Medical Problems: (1) Acute gastroenteritis Status: Acute (2) Anxiety Status: Acute (3) Hyperglycemia Status: Acute (4) Metabolic alkalosis Status: Acute (5) Morbid obesity Status: Chronic (6) Sepsis Status: Acute (7) UTI (lower urinary tract infection) Status: Acute N/V/D - very foul smelling Recent antibiotic use Dysuria Sepsis - likely 2/2 gastroenteritis Metabolic alkalosis - with respiratory alkalosis Bilateral LE ulcers - chronic Antibiotic allergies History of methicillin-resistant Staphylococcus aureus History of Clostridium difficile COPD Chronic diastolic CHF Diabetes-Type II Hypertension Hepatitis B Obesity Plan: 1) Initiated IVF (NS) at 75/hr 2) Continue ID recommendations (Currently on meropenem and vancomycin) 3) Initiated potassium replacement therapy 4) Continue wound care recommendations 5) Continue Basal bolus insulin therapy with sliding scale prn 6) DVT prophylaxis 7) PT/OT 8) Full code Comment Review of Relevant I have reviewed the following items prudence (where applicable) has been applied. Medications: Current Medications Medications (Trade) Dose Ordered Sig/Matthias Route PRN Reason Start Time Stop Time Status Last Admin Dose Admin Vancomycin HCl (Vanco Per Pharmacy) 1 each PRN DAILY PRN MC SEE COMMENTS 12/05/18 13:00 12/06/18 09:15 DC 12/05/18 13:15 Vancomycin HCl 1.5 gm/Sodium Chloride 500 ml @ 250 mls/hr Q8H IV 12/05/18 13:00 12/06/18 09:15 DC 12/06/18 04:04 Lactobacillus Rhamnosus (Culturelle) 1 cap BID PO 12/05/18 21:00 12/06/18 09:25 Enoxaparin Sodium (Lovenox 40mg Syringe) 40 mg Q12HR SQ 12/05/18 21:00 12/06/18 09:27 Potassium Chloride (Klor-Con) 40 meq 1X ONCE PO 12/06/18 08:00 12/06/18 08:01 DC 12/06/18 09:24 DAINA STEPHEN III DO Dec 06, 2018 12:06
[2018-12-06] MEDS: ASCORBIC ACID 500 MG TABLET PO SCH (12:16)
[2018-12-06] MEDS: MULTIVITAMIN with MINERAL TABLET. PO SCH (12:17)
[2018-12-06] MEDS: IV NORMAL SALINE 1000ML BAG 1,000 ML IV SCH (14:57)
[2018-12-06 15:00] VITALS: BP 137/66
[2018-12-06 19:58] VITALS: BP 121/55
[2018-12-06] MEDS: INSULIN GLARGINE SYRINGE. SQ SCH (21:00)
[2018-12-06] MEDS: OXcarbazepine 300 MG TABLET PO SCH (21:57)
[2018-12-06 23:30] VITALS: BP 117/55
[2018-12-07] MEDS: MEROPENEM 500 MG in IV NORMAL SALINE 50ML 50 ML IV SCH ×4 (00:01→18:45)
[2018-12-07] MEDS: oxyCODONE/APAP 10/325 1 TAB TABLET PO PRN ×3 (02:11→20:23)
[2018-12-07 03:46] VITALS: BP 117/58
[2018-12-07] MEDS: IV NORMAL SALINE 1000ML BAG 1,000 ML IV SCH ×2 (04:53→18:45)
[2018-12-07] MEDS: LEVOTHYROXINE 75 MCG TABLET PO SCH (04:55)
[2018-12-07 07:48] VITALS: BP 120/53
--- NOTE | 2018-12-07 08:49 | PDOC ---
Infectious Disease Note Subjective Subjective C/o abd pain around her umbilicus and over bladder but is improving No F/C/S/N/V/SOA/rash ROS ROS o/w neg Vital Sign Vital Signs Vital Signs Date Time Temp Pulse Resp B/P (MAP) Pulse Ox O2 Delivery O2 Flow Rate FiO2 12/07/18 07:48 97.5 56 20 120/53 (75) 98 Nasal Cannula 2.0 97.5 Physical Exam PHYSICAL EXAM CONSTITUTIONAL: She is sitting in a chair. She is cooperative. She is in no acute distress. She is on oxygen. HEENT: Her pupils are status post cataract surgery. She had normal conjunctivae. Oral cavity, pharynx is clear, but she has had some poor dentition. NECK: Supple, no JVD. LUNGS: Decreased in the bases. HEART: S1, S2. ABDOMEN: Obese, soft, no guarding or rebound. Some improved suprapubic and periumbilical discomfort. NO CVA tenderness EXTREMITIES: Without clubbing, cyanosis. She has chronic lower extremity venous stasis changes and some healing wounds. SKIN: Without signs of generalized rash. She has some multiple scattered lesions on her abdominal area are superficial. NEUROLOGIC: She answers questions appropriately. PSYCHIATRIC: Affect is somewhat flat. Labs Lab Laboratory Tests Test 12/06/18 10:45 12/06/18 16:30 12/06/18 20:37 12/07/18 07:14 Glucose (Fingerstick) 245 mg/dL (70-99) 272 mg/dL (70-99) 236 mg/dL (70-99) 201 mg/dL (70-99) Micro Microbiology 12/04/18 Fecal Leukocyte Stain - Final, Complete Objective Assessment N/V/D - better - C-diff neg UTI - POA 12/04 - GNR Abx allergies - itching Leukocytosis - now s/p steroid - better Afib H/o C-diff and MRSA No evidence of active Hep B based on previous labs Plan Plan of Care Cont Meropenem F/u labs and cults D/w nursing MATEO NEGRON MD Dec 07, 2018 08:49
--- NOTE | 2018-12-07 09:08 | NUR ---
SW following pt. PT pending (has been on hold yesterday). Pt does not have OT needs- recommends home with assistance. ID following pt. SW will be available as needed.
[2018-12-07] MEDS: ASCORBIC ACID 500 MG TABLET PO SCH (09:21)
[2018-12-07] MEDS: CHOLECALCIFEROL (VITAMIN D3) 1,000 UNIT TABLET PO SCH (09:21)
[2018-12-07] MEDS: GABAPENTIN 300 MG CAPSULE. PO SCH ×3 (09:21→20:22)
[2018-12-07] MEDS: SOTALOL 80 MG TABLET. PO SCH ×2 (09:21→20:23)
[2018-12-07] MEDS: ENOXAPARIN 40 MG/0.4 ML SYRINGE. SQ SCH ×2 (09:21→22:03)
[2018-12-07] MEDS: COLESTIPOL HCL 1 GM TABLET PO SCH ×2 (09:21→22:02)
[2018-12-07] MEDS: MULTIVITAMIN with MINERAL TABLET. PO SCH (09:22)
[2018-12-07] MEDS: amLODIPine BESYLATE 5 MG TABLET PO SCH (09:22)
[2018-12-07] MEDS: CLOPIDOGREL BISULFATE 75 MG TABLET PO SCH (09:22)
[2018-12-07] MEDS: LACTOBACILLUS RHAMNOSUS GG 1 CAPSULE. PO SCH ×2 (09:22→20:22)
[2018-12-07] MEDS: FLUTICASONE 50MCG/NASAL SPRAY 16GM BOTTLE. NS SCH (09:23)
[2018-12-07] MEDS: INSULIN LISPRO 300 UNITS/3 ML VIAL. SQ SCH ×3 (09:30→17:53)
[2018-12-07 09:40] LABS: BASO # 0.1 x10^3/uL (0.0-0.2); BASO % 1 % (0-3); EOS # 0.1 x10^3/uL (0.0-0.7); EOS % 2 % (0-3); HEMATOCRIT 44.8 % (36.0-47.0); HEMOGLOBIN 14.7 g/dL (12.0-15.5); LYMPH # 3.3 x10^3/uL (1.0-4.8); LYMPH % 36 % (24-48); MEAN CORPUSCULAR HEMOGLOBIN 29 pg (25-35); MEAN CORPUSCULAR HGB CONC 33 g/dL (31-37); MEAN CORPUSCULAR VOLUME 89 fL (79-100); MONO # 0.7 x10^3/uL (0.0-1.1); MONO % 8 % (0-9); NEUT # 4.8 x10^3/uL (1.8-7.7); NEUT % 54 % (31-73); PLATELET COUNT 173 x10^3/uL (140-400); RED BLOOD COUNT 5.07 x10^6/uL (3.50-5.40); RED CELL DISTRIBUTION WIDTH 14.5 % (11.5-14.5)
[2018-12-07 09:52] LABS: ALBUMIN 2.8 g/dL (3.4-5.0); ALBUMIN/GLOBULIN RATIO 0.7 (1.0-1.7); CALCIUM 8.9 mg/dL (8.5-10.1); CREATININE 0.8 mg/dL (0.6-1.0); GFR 73.7; POTASSIUM 4.1 mmol/L (3.5-5.1); TOTAL BILIRUBIN 0.3 mg/dL (0.2-1.0); TOTAL PROTEIN 7.1 g/dL (6.4-8.2)
--- NOTE | 2018-12-07 10:55 | NUR ---
TORRES following pt. TORRES spoke with pt at bedside. Pt lives at home alone and is independent with ADL's except with bathing. Pt states she has private care (4hrs/day 5x a week)to help her with bathing. Pt has a walker at home and does not have stairs. Pt has meals on wheels and has a friend that can drive her to store. Pt also has home 02. Pt currently denies any SWer needs. Discussed with RN. Addendum: 12/07/18 at 1104 by ADELINE MACDONALD Pt also stated she has PCP in the community.
[2018-12-07 11:48] VITALS: BP 124/58
--- NOTE | 2018-12-07 11:58 | PDOC ---
[employer] PROGRESS NOTE Chief Complaint Chief Complaint N/V/D - very foul smelling Recent antibiotic use Dysuria Sepsis - likely 2/2 gastroenteritis Metabolic alkalosis - with respiratory alkalosis Bilateral LE ulcers - chronic Antibiotic allergies History of methicillin-resistant Staphylococcus aureus History of Clostridium difficile COPD Chronic diastolic CHF Diabetes-Type II Hypertension Hepatitis B Obesity FEN - ADA diet PPX - lovenox FULL CODE Inpatient for UTI, N/V/D History of Present Illness History of Present Illness 12/07/2018 Pt was seen and examined. Continues to report malaise. No acute status changes reported. 12/06/2018 Pt was seen and examined. Pt reports fatigue and a general feeling of malaise. No acute changes in status reported 12/05/2018 Pt was seen and examined. Pt still reports malaise, was somewhat lethargic on interview. Reports no diarrhea, but continues to complain of N/V and dysuria. Vitals/I&O Vitals/I&O: Vital Signs Date Time Temp Pulse Resp B/P (MAP) Pulse Ox O2 Delivery O2 Flow Rate FiO2 12/07/18 10:29 18 Nasal Cannula 2.0 12/07/18 09:22 56 120/53 12/07/18 07:48 97.5 98 97.5 I & O 12/06/18 12/06/18 12/07/18 15:00 23:00 07:00 Intake Total 0 ml 300 ml Output Total 1550 ml Balance -1550 ml 300 ml Physical Exam Physical Exam: CONSTITUTIONAL: She is sitting in a chair. She is cooperative. She is in no acute distress. She is on oxygen. HEENT: Her pupils are status post cataract surgery. She had normal conjunctivae. Oral cavity, pharynx is clear, but she has had some poor dentition. NECK: Supple, no JVD. LUNGS: Decreased in the bases. HEART: S1, S2. ABDOMEN: Obese, soft, no guarding or rebound. Some improved suprapubic and periumbilical discomfort. NO CVA tenderness EXTREMITIES: Without clubbing, cyanosis. She has chronic lower extremity venous stasis changes and some healing wounds. SKIN: Without signs of generalized rash. She has some multiple scattered lesions on her abdominal area are superficial. NEUROLOGIC: She answers questions appropriately. PSYCHIATRIC: Affect is somewhat flat. General: Alert, Cooperative, mild distress, Other (Pt has a flat affect) Heart: Regular rate Lungs: Crackles, Other Abdomen: Normal bowel sounds, Soft, No hepatosplenomegaly, No masses, Other (Diffuse tenderness, multiple abdominal sores) Extremities: Other (1+ edema, multiple ulcers on bilateral LE) Skin: No rashes Labs Labs: Laboratory Tests Test 12/06/18 16:30 12/06/18 20:37 12/07/18 07:14 12/07/18 09:00 Glucose (Fingerstick) 272 mg/dL (70-99) 236 mg/dL (70-99) 201 mg/dL (70-99) White Blood Count 9.0 x10^3/uL (4.0-11.0) Red Blood Count 5.07 x10^6/uL (3.50-5.40) Hemoglobin 14.7 g/dL (12.0-15.5) Hematocrit 44.8 % (36.0-47.0) Mean Corpuscular Volume 89 fL (79-100) Mean Corpuscular Hemoglobin 29 pg (25-35) Mean Corpuscular Hemoglobin Concent 33 g/dL (31-37) Red Cell Distribution Width 14.5 % (11.5-14.5) Platelet Count 173 x10^3/uL (140-400) Neutrophils (%) (Auto) 54 % (31-73) Lymphocytes (%) (Auto) 36 % (24-48) Monocytes (%) (Auto) 8 % (0-9) Eosinophils (%) (Auto) 2 % (0-3) Basophils (%) (Auto) 1 % (0-3) Neutrophils # (Auto) 4.8 x10^3/uL (1.8-7.7) Lymphocytes # (Auto) 3.3 x10^3/uL (1.0-4.8) Monocytes # (Auto) 0.7 x10^3/uL (0.0-1.1) Eosinophils # (Auto) 0.1 x10^3/uL (0.0-0.7) Basophils # (Auto) 0.1 x10^3/uL (0.0-0.2) Sodium Level 142 mmol/L (136-145) Potassium Level 4.1 mmol/L (3.5-5.1) Chloride Level 104 mmol/L (98-107) Carbon Dioxide Level 33 mmol/L (21-32) Anion Gap 5 (6-14) Blood Urea Nitrogen 16 mg/dL (7-20) Creatinine 0.8 mg/dL (0.6-1.0) Estimated GFR (Cockcroft-Gault) 73.7 BUN/Creatinine Ratio 20 (6-20) Glucose Level 239 mg/dL (70-99) Calcium Level 8.9 mg/dL (8.5-10.1) Total Bilirubin 0.3 mg/dL (0.2-1.0) Aspartate Amino Transf (AST/SGOT) 32 U/L (15-37) Alanine Aminotransferase (ALT/SGPT) 20 U/L (14-59) Alkaline Phosphatase 203 U/L (46-116) Total Protein 7.1 g/dL (6.4-8.2) Albumin 2.8 g/dL (3.4-5.0) Albumin/Globulin Ratio 0.7 (1.0-1.7) Test 12/07/18 11:04 Glucose (Fingerstick) 297 mg/dL (70-99) Review of Systems Review of Systems: Denies N/V/D Denies CP Denies SOB Assessment and Plan Assessmemt and Plan Problems Medical Problems: (1) Acute gastroenteritis Status: Acute (2) Anxiety Status: Acute (3) Hyperglycemia Status: Acute (4) Metabolic alkalosis Status: Acute (5) Morbid obesity Status: Chronic (6) Sepsis Status: Acute (7) UTI (lower urinary tract infection) Status: Acute N/V/D - very foul smelling Recent antibiotic use Dysuria Sepsis - likely 2/2 gastroenteritis Metabolic alkalosis - with respiratory alkalosis Bilateral LE ulcers - chronic Antibiotic allergies History of methicillin-resistant Staphylococcus aureus History of Clostridium difficile COPD Chronic diastolic CHF Diabetes-Type II Hypertension Hepatitis B Obesity Plan: 1) Continue ID recommendation: pt is currently off vancomycin, and still on meropenem 2) Wound care reports wounds need no further management necessary 3) Full Code 4) PT/OT 5) DVT prophylaxis 6) D/C disposition pending Comment Review of Relevant I have reviewed the following items prudence (where applicable) has been applied. Medications: Current Medications Medications (Trade) Dose Ordered Sig/Matthias Route PRN Reason Start Time Stop Time Status Last Admin Dose Admin Sodium Chloride 1,000 ml @ 75 mls/hr [id number] IV 12/06/18 14:45 12/07/18 04:53 Insulin Human Lispro (HumaLOG) 0-9 UNITS TIDWMEALS SQ 12/06/18 17:05 12/07/18 09:30 DAINA STEPHEN III DO Dec 07, 2018 11:58
[2018-12-07] MEDS: fentaNYL PF VIAL 100 MCG/2 ML VIAL IVP PRN ×3 (13:14→22:08)
[2018-12-07 15:00] VITALS: BP 145/81
[2018-12-07 19:43] VITALS: BP 135/63
[2018-12-07] MEDS: OXcarbazepine 300 MG TABLET PO SCH (20:22)
[2018-12-07] MEDS: INSULIN GLARGINE SYRINGE. SQ SCH (22:12)
[2018-12-07 23:40] VITALS: BP 131/72
[2018-12-08] MEDS: MEROPENEM 500 MG in IV NORMAL SALINE 50ML 50 ML IV SCH (00:18)
[2018-12-08 03:36] VITALS: BP 121/58
[2018-12-08] MEDS: oxyCODONE/APAP 10/325 1 TAB TABLET PO PRN ×2 (04:22→13:03)
[2018-12-08 05:50] LABS: BASO # 0.1 x10^3/uL (0.0-0.2); BASO % 1 % (0-3); EOS # 0.2 x10^3/uL (0.0-0.7); EOS % 2 % (0-3); HEMOGLOBIN 14.3 g/dL (12.0-15.5); LYMPH # 3.1 x10^3/uL (1.0-4.8); LYMPH % 40 % (24-48); MEAN CORPUSCULAR HEMOGLOBIN 29 pg (25-35); MEAN CORPUSCULAR HGB CONC 32 g/dL (31-37); MEAN CORPUSCULAR VOLUME 88 fL (79-100); MONO # 0.6 x10^3/uL (0.0-1.1); MONO % 8 % (0-9); NEUT # 3.8 x10^3/uL (1.8-7.7); NEUT % 49 % (31-73); PLATELET COUNT 149 x10^3/uL (140-400); RED BLOOD COUNT 4.98 x10^6/uL (3.50-5.40); RED CELL DISTRIBUTION WIDTH 14.6 % (11.5-14.5); WHITE BLOOD COUNT 7.7 x10^3/uL (4.0-11.0)
[2018-12-08 06:10] LABS: ALBUMIN 2.6 g/dL (3.4-5.0); ALBUMIN/GLOBULIN RATIO 0.7 (1.0-1.7); CREATININE 0.7 mg/dL (0.6-1.0); GFR 85.9; POTASSIUM 3.5 mmol/L (3.5-5.1); TOTAL BILIRUBIN 0.3 mg/dL (0.2-1.0); TOTAL PROTEIN 6.6 g/dL (6.4-8.2)
[2018-12-08 06:55] VITALS: BP 156/83
[2018-12-08] MEDS: INSULIN LISPRO 300 UNITS/3 ML VIAL. SQ SCH ×2 (08:57→13:09)
[2018-12-08] MEDS ORDERED: NITROFURANTOIN MONOHYD/M-CRYST 100 MG CAPSULE. PO SCH (09:15)
--- NOTE | 2018-12-08 09:16 | PDOC ---
Infectious Disease Note Subjective Subjective Abd pain around her umbilicus and over bladder improved Eating ok No F/C/S/N/V/SOA/rash ROS ROS o/w neg Vital Sign Vital Signs Vital Signs Date Time Temp Pulse Resp B/P (MAP) Pulse Ox O2 Delivery O2 Flow Rate FiO2 12/08/18 06:55 97.8 60 156/83 (107) 96 Nasal Cannula 2.0 97.8 12/08/18 03:36 18 Physical Exam PHYSICAL EXAM CONSTITUTIONAL: She is in bed. She is cooperative. She is in no acute distress. She is on oxygen. HEENT: Her pupils are status post cataract surgery. She had normal conjunctivae. Oral cavity, pharynx is clear, but she has had some poor dentition. NECK: Supple, no JVD. LUNGS: Decreased in the bases. HEART: S1, S2. ABDOMEN: Obese, soft, no guarding or rebound. NT. NO CVA tenderness EXTREMITIES: Without clubbing, cyanosis. She has chronic lower extremity venous stasis changes and some healing wounds. SKIN: Without signs of generalized rash. She has some multiple scattered lesions on her abdominal area are superficial. NEUROLOGIC: She answers questions appropriately. PSYCHIATRIC: Affect is somewhat flat. Labs Lab Laboratory Tests Test 12/07/18 11:04 12/07/18 17:08 12/07/18 21:05 12/08/18 04:15 Glucose (Fingerstick) 297 mg/dL (70-99) 300 mg/dL (70-99) 275 mg/dL (70-99) White Blood Count 7.7 x10^3/uL (4.0-11.0) Red Blood Count 4.98 x10^6/uL (3.50-5.40) Hemoglobin 14.3 g/dL (12.0-15.5) Hematocrit 44.0 % (36.0-47.0) Mean Corpuscular Volume 88 fL (79-100) Mean Corpuscular Hemoglobin 29 pg (25-35) Mean Corpuscular Hemoglobin Concent 32 g/dL (31-37) Red Cell Distribution Width 14.6 % (11.5-14.5) Platelet Count 149 x10^3/uL (140-400) Neutrophils (%) (Auto) 49 % (31-73) Lymphocytes (%) (Auto) 40 % (24-48) Monocytes (%) (Auto) 8 % (0-9) Eosinophils (%) (Auto) 2 % (0-3) Basophils (%) (Auto) 1 % (0-3) Neutrophils # (Auto) 3.8 x10^3/uL (1.8-7.7) Lymphocytes # (Auto) 3.1 x10^3/uL (1.0-4.8) Monocytes # (Auto) 0.6 x10^3/uL (0.0-1.1) Eosinophils # (Auto) 0.2 x10^3/uL (0.0-0.7) Basophils # (Auto) 0.1 x10^3/uL (0.0-0.2) Sodium Level 142 mmol/L (136-145) Potassium Level 3.5 mmol/L (3.5-5.1) Chloride Level 105 mmol/L (98-107) Carbon Dioxide Level 30 mmol/L (21-32) Anion Gap 7 (6-14) Blood Urea Nitrogen 16 mg/dL (7-20) Creatinine 0.7 mg/dL (0.6-1.0) Estimated GFR (Cockcroft-Gault) 85.9 BUN/Creatinine Ratio 23 (6-20) Glucose Level 227 mg/dL (70-99) Calcium Level 9.0 mg/dL (8.5-10.1) Total Bilirubin 0.3 mg/dL (0.2-1.0) Aspartate Amino Transf (AST/SGOT) 29 U/L (15-37) Alanine Aminotransferase (ALT/SGPT) 19 U/L (14-59) Alkaline Phosphatase 182 U/L (46-116) Total Protein 6.6 g/dL (6.4-8.2) Albumin 2.6 g/dL (3.4-5.0) Albumin/Globulin Ratio 0.7 (1.0-1.7) Test 12/08/18 08:53 Glucose (Fingerstick) 245 mg/dL (70-99) Micro Escherichia coli Greater than 100,000 colony forming units per mL Performed at: [facility] [address] [facility] [address], [place], [place] [id number] Optician Apprentice Dispensing: RAMESH Baez MD, Phone: [phone] Greater than 100,000 colony forming units per mL Cefazolin <=4 ug/mL Cefazolin with an RAÚL <=16 predicts susceptibility to the oral agents cefaclor, cefdinir, cefpodoxime, cefprozil, cefuroxime, cephalexin, and loracarbef when used for therapy of uncomplicated urinary tract infections due to E. coli, Klebsiella pneumoniae, and Proteus mirabilis. ANTIMICROBIAL SUSCEPTIBILITY Final Comment S = Susceptible; I = Intermediate; R = Resistant P = Positive; N = Negative MICS are expressed in micrograms per mL Antibiotic RSLT#1 RSLT#2 RSLT#3 RSLT#4 Amoxicillin/Clavulanic Acid S =8 Ampicillin S =8 Cefepime S<=0.12 Ceftriaxone S<=0.25 Cefuroxime I =8 Ciprofloxacin S =0.5 Ertapenem S<=0.12 Gentamicin S<=1 Imipenem S<=0.25 Levofloxacin S =1 Meropenem S<=0.25 Nitrofurantoin S<=16 CONTINUED ON NEXT PAGE RUN DATE: 12/07/18 PAGE 2 RUN TIME: 12[address] [facility] [address] [place] [address] Robert Davidson M.D., Claim Adjuster SPEC: [id number] PATIENT: ERNÉ BLANCO [id number] (Continued) Procedure Result ANTIMICROBIAL SUSCEPTIBILITY Final (continued) Piperacillin/Tazobactam S<=4 Tetracycline S<=1 Tobramycin S<=1 Trimethoprim/Sulfa S<=20 Microbiology 12/04/18 Fecal Leukocyte Stain - Final, Complete Objective Assessment N/V/D - better - C-diff neg Ecoli UTI - POA 12/04 Abx allergies - itching Leukocytosis - now s/p steroid - better Afib H/o C-diff and MRSA No evidence of active Hep B based on previous labs Plan Plan of Care Discont Meropenem Ok to d/c home with Nitrofurantoin for 5 days Can F/u with primary D/w nursing MATEO NEGRON MD Dec 08, 2018 09:16
[2018-12-08] MEDS: LEVOTHYROXINE 75 MCG TABLET PO SCH (09:37)
[2018-12-08] MEDS: CLOPIDOGREL BISULFATE 75 MG TABLET PO SCH (09:38)
[2018-12-08] MEDS: LACTOBACILLUS RHAMNOSUS GG 1 CAPSULE. PO SCH (09:38)
[2018-12-08] MEDS: COLESTIPOL HCL 1 GM TABLET PO SCH (09:38)
[2018-12-08] MEDS: ASCORBIC ACID 500 MG TABLET PO SCH (09:38)
[2018-12-08] MEDS: MULTIVITAMIN with MINERAL TABLET. PO SCH (09:38)
[2018-12-08] MEDS: FLUTICASONE 50MCG/NASAL SPRAY 16GM BOTTLE. NS SCH (09:38)
[2018-12-08] MEDS: GABAPENTIN 300 MG CAPSULE. PO SCH ×2 (09:38→13:03)
[2018-12-08] MEDS: SOTALOL 80 MG TABLET. PO SCH (09:39)
[2018-12-08] MEDS: amLODIPine BESYLATE 5 MG TABLET PO SCH (09:39)
[2018-12-08] MEDS: CHOLECALCIFEROL (VITAMIN D3) 1,000 UNIT TABLET PO SCH (09:39)
[2018-12-08] MEDS: IV NORMAL SALINE 1000ML BAG 1,000 ML IV SCH (09:40)
[2018-12-08] MEDS: ENOXAPARIN 40 MG/0.4 ML SYRINGE. SQ SCH (09:40)
[2018-12-08 11:00] VITALS: BP 151/80
--- NOTE | 2018-12-08 11:14 | NUR ---
SW following pt. SW arranged transport via [employer] between [id number]. Pt verified address and reported she has her apartment [address]. Discussed with RN.
--- NOTE | 2018-12-08 11:39 | PDOC ---
[employer] PROGRESS NOTE Chief Complaint Chief Complaint N/V/D - very foul smelling Recent antibiotic use UTI Dysuria Sepsis - likely 2/2 gastroenteritis Metabolic alkalosis - with respiratory alkalosis Bilateral LE ulcers - chronic Antibiotic allergies History of methicillin-resistant Staphylococcus aureus History of Clostridium difficile COPD Chronic diastolic CHF Diabetes-Type II Hypertension Hepatitis B Obesity FEN - ADA diet PPX - lovenox FULL CODE Inpatient for UTI, N/V/D History of Present Illness History of Present Illness 12/08/2018 Pt was seen and examined. Reports symptomatic improvement today. Reports she is ready for D/C. 12/07/2018 Pt was seen and examined. Continues to report malaise. No acute status changes reported. 12/06/2018 Pt was seen and examined. Pt reports fatigue and a general feeling of malaise. No acute changes in status reported 12/05/2018 Pt was seen and examined. Pt still reports malaise, was somewhat lethargic on interview. Reports no diarrhea, but continues to complain of N/V and dysuria. Vitals/I&O Vitals/I&O: Vital Signs Date Time Temp Pulse Resp B/P (MAP) Pulse Ox O2 Delivery O2 Flow Rate FiO2 12/08/18 09:39 60 156/83 12/08/18 06:55 97.8 96 Nasal Cannula 2.0 97.8 12/08/18 03:36 18 I & O 12/07/18 12/07/18 12/08/18 15:00 23:00 07:00 Intake Total 300 ml 300 ml 150 ml Balance 300 ml 300 ml 150 ml Physical Exam Physical Exam: CONSTITUTIONAL: She is in bed. She is cooperative. She is in no acute distress. She is on oxygen. HEENT: Her pupils are status post cataract surgery. She had normal conjunctivae. Oral cavity, pharynx is clear, but she has had some poor dentition. NECK: Supple, no JVD. LUNGS: Decreased in the bases. HEART: S1, S2. ABDOMEN: Obese, soft, no guarding or rebound. NT. NO CVA tenderness EXTREMITIES: Without clubbing, cyanosis. She has chronic lower extremity venous stasis changes and some healing wounds. SKIN: Without signs of generalized rash. She has some multiple scattered lesions on her abdominal area are superficial. NEUROLOGIC: She answers questions appropriately. PSYCHIATRIC: Affect is somewhat flat. General: Alert, Cooperative, mild distress, Other Heart: Regular rate Lungs: Crackles, Other Abdomen: Normal bowel sounds, Soft, No hepatosplenomegaly, No masses, Other (Diffuse tenderness, multiple abdominal sores) Extremities: Other (1+ edema, multiple ulcers on bilateral LE) Skin: No rashes Labs Labs: Laboratory Tests Test 12/07/18 17:08 12/07/18 21:05 12/08/18 04:15 12/08/18 08:53 Glucose (Fingerstick) 300 mg/dL (70-99) 275 mg/dL (70-99) 245 mg/dL (70-99) White Blood Count 7.7 x10^3/uL (4.0-11.0) Red Blood Count 4.98 x10^6/uL (3.50-5.40) Hemoglobin 14.3 g/dL (12.0-15.5) Hematocrit 44.0 % (36.0-47.0) Mean Corpuscular Volume 88 fL (79-100) Mean Corpuscular Hemoglobin 29 pg (25-35) Mean Corpuscular Hemoglobin Concent 32 g/dL (31-37) Red Cell Distribution Width 14.6 % (11.5-14.5) Platelet Count 149 x10^3/uL (140-400) Neutrophils (%) (Auto) 49 % (31-73) Lymphocytes (%) (Auto) 40 % (24-48) Monocytes (%) (Auto) 8 % (0-9) Eosinophils (%) (Auto) 2 % (0-3) Basophils (%) (Auto) 1 % (0-3) Neutrophils # (Auto) 3.8 x10^3/uL (1.8-7.7) Lymphocytes # (Auto) 3.1 x10^3/uL (1.0-4.8) Monocytes # (Auto) 0.6 x10^3/uL (0.0-1.1) Eosinophils # (Auto) 0.2 x10^3/uL (0.0-0.7) Basophils # (Auto) 0.1 x10^3/uL (0.0-0.2) Sodium Level 142 mmol/L (136-145) Potassium Level 3.5 mmol/L (3.5-5.1) Chloride Level 105 mmol/L (98-107) Carbon Dioxide Level 30 mmol/L (21-32) Anion Gap 7 (6-14) Blood Urea Nitrogen 16 mg/dL (7-20) Creatinine 0.7 mg/dL (0.6-1.0) Estimated GFR (Cockcroft-Gault) 85.9 BUN/Creatinine Ratio 23 (6-20) Glucose Level 227 mg/dL (70-99) Calcium Level 9.0 mg/dL (8.5-10.1) Total Bilirubin 0.3 mg/dL (0.2-1.0) Aspartate Amino Transf (AST/SGOT) 29 U/L (15-37) Alanine Aminotransferase (ALT/SGPT) 19 U/L (14-59) Alkaline Phosphatase 182 U/L (46-116) Total Protein 6.6 g/dL (6.4-8.2) Albumin 2.6 g/dL (3.4-5.0) Albumin/Globulin Ratio 0.7 (1.0-1.7) Review of Systems Review of Systems: Denies CP Denies SOB Denies N/V/D Assessment and Plan Assessmemt and Plan Problems Medical Problems: (1) Acute gastroenteritis Status: Acute (2) Anxiety Status: Acute (3) Hyperglycemia Status: Acute (4) Metabolic alkalosis Status: Acute (5) Morbid obesity Status: Chronic (6) Sepsis Status: Acute (7) UTI (lower urinary tract infection) Status: Acute N/V/D - very foul smelling Recent antibiotic use Dysuria UTI Sepsis - likely 2/2 gastroenteritis Metabolic alkalosis - with respiratory alkalosis Bilateral LE ulcers - chronic Antibiotic allergies History of methicillin-resistant Staphylococcus aureus History of Clostridium difficile COPD Chronic diastolic CHF Diabetes-Type II Hypertension Hepatitis B Obesity Plan: 1) D/C today 2) Per ID D/c Meropenem and start Macrobid 3) Wrote patient a prescription for Macrobid 4) PT/OT 5) DVT prophylaxis Comment Review of Relevant I have reviewed the following items prudence (where applicable) has been applied. Medications: Current Medications Medications (Trade) Dose Ordered Sig/Matthias Route PRN Reason Start Time Stop Time Status Last Admin Dose Admin Nitrofurantoin Macrocrystals (Macrobid) 100 mg BID PO 12/08/18 09:15 12/08/18 09:37 DAINA STEPHEN III, DO Dec 08, 2018 11:39
--- NOTE | 2018-12-14 22:24 | DS ---
DATE OF DISCHARGE: 12/08/2018 ADMISSION DIAGNOSES: Nausea, vomiting, diarrhea, recent antibiotic use, dysuria, urinary tract infection, sepsis, metabolic alkalosis, bilateral lower extremity ulcers, and history of methicillin-resistant Staphylococcus aureus. DISCHARGE DIAGNOSES: Resolving nausea, vomiting, diarrhea, Escherichia Coli, urinary tract infection. CONSULTS: Infectious Disease. HOSPITAL COURSE: The patient is a pleasant middle-aged female who presented with nausea, vomiting, and diarrhea. We were concerned she could have C. diff, but her C. diff testing actually was negative. She did grow UTI, which Infectious Disease treated with meropenem and then eventually changed to p.o. nitrofurantoin. Over the next few days, she returned to her baseline. We were able to discharge to home with close outpatient followup. DISPOSITION: Home. ACTIVITY: As tolerated. DIET: Low sodium. MEDICATIONS: Please see the MRAD. TOTAL TIME: 32 minutes. DAINA STEPHEN DO DR: RICK/iban JOB#: [id number] / [id number]
== END 2018-12-08 15:05 | disposition home or self-care (01) | DRG 871 ==
LOC: ER 12:28 → 6 SOUTH 14:58
PROVIDERS: ADMIT Internal Medicine; ATTEND Internal Medicine
DX: A41.9 Sepsis, unspecified organism (principal); E11.00 Type 2 diabetes mellitus with hyperosmolarity without nonketotic hyperglycemic-hyperosmolar coma (NKHHC); N39.0 Urinary tract infection, site not specified; I50.32 Chronic diastolic (congestive) heart failure; E87.3 Alkalosis; B19.10 Unspecified viral hepatitis B without hepatic coma; L97.919 Non-pressure chronic ulcer of unspecified part of right lower leg with unspecified severity; L97.929 Non-pressure chronic ulcer of unspecified part of left lower leg with unspecified severity; Z68.41 Body mass index [BMI] 40.0-44.9, adult; B96.20 Unspecified Escherichia coli [E. coli] as the cause of diseases classified elsewhere; E03.9 Hypothyroidism, unspecified; E11.65 Type 2 diabetes mellitus with hyperglycemia; E66.01 Morbid (severe) obesity due to excess calories; E78.5 Hyperlipidemia, unspecified; F41.9 Anxiety disorder, unspecified; I11.0 Hypertensive heart disease with heart failure; I25.10 Atherosclerotic heart disease of native coronary artery without angina pectoris; I48.91 Unspecified atrial fibrillation; J44.9 Chronic obstructive pulmonary disease, unspecified; K21.9 Gastro-esophageal reflux disease without esophagitis; K52.9 Noninfective gastroenteritis and colitis, unspecified; Z79.4 Long term (current) use of insulin; Z86.14 Personal history of Methicillin resistant Staphylococcus aureus infection; Z86.73 Personal history of transient ischemic attack (TIA), and cerebral infarction without residual deficits; Z88.1 Allergy status to other antibiotic agents; Z87.891 Personal history of nicotine dependence; F32.9 Major depressive disorder, single episode, unspecified; M19.90 Unspecified osteoarthritis, unspecified site; Z90.49 Acquired absence of other specified parts of digestive tract; Z88.2 Allergy status to sulfonamides; Z88.8 Allergy status to other drugs, medicaments and biological substances; Z91.018 Allergy to other foods; Z88.0 Allergy status to penicillin
CPT/HCPCS: 36415; 36600; 71045; 80053; 81001; 82274; 82805; 82962; 83605; 83690; 84484; 85025; 87086; 87186; 87205; 87493; 90471; 90686; 93005; 94640; 94760; 96361; 96365; 96375; 99292; J1650; J1815; J1956; J2060; J2185; J2405; J2930; J3010; J3370; J7030; J7040; J7613; J7620; 97110; 99291-25; G0378